=== PATIENT | female | born 1960 | race Caucasian/White ===

== ENCOUNTER 2020-05-19 22:20 | Observation (INO) | payer MEDICARE, MEDICAID, SELFPAY ==
[2020-05-19] VITALS (10 sets, daily range): BP systolic 197–214; BP diastolic 103–113; PULSE 67–90; RESP 20–28; TEMP 36.8; O2SAT 93–100; BMI 23.6
[2020-05-19] MEDS: ONDANSETRON 4 MG/2 ML INJ (22:43)
[2020-05-19 22:51] LABS: Add Manual Diff / Slide Review NO; Basophils Absolute Auto 0 /uL (0-100); Basophils Percent Auto 0.3 % (0-2); Eosinophils Absolute Auto 0 /uL (0-450); Eosinophils Percent Auto 0.1 % (2-4); Hematocrit 41.7 % (36-46); Hemoglobin 14.2 g/dL (12.0-16.0); Lymphocytes Absolute Auto 1100 /uL (1100-4500); Lymphocytes Percent Auto 8.8 % (25-40); Mean Corpuscular HGB Conc 34.1 % (30-36); Mean Corpuscular Hemoglobin 30.3 PG (26-34); Mean Corpuscular Volume 88.9 fL (80-100); Monocytes Absolute Auto 800 /uL (0-900); Monocytes Percent Auto 6.9 % (3-14); Neutrophils Absolute Auto 10200 /uL (1500-7000); Neutrophils Percent Auto 83.9 % (50-75); Platelet Count 386 X10^3/uL (150-400); Red Blood Cell Count 4.69 X10^6/uL (4.0-5.2); Red Cell Distribution Width 14.1 % (11.6-14.8); White Blood Cell Count 12.2 X10^3/uL (4.5-11.0)
[2020-05-19 22:52] LABS: Prothrombin Time 11.6 SECONDS (10.1-12.7)
[2020-05-19 22:55] LABS: PTT Partial Thromboplastin Tim 38 SECONDS (26.4-36.2)
[2020-05-19 22:56] LABS: Alanine Aminotransferase 15 IU/L (<35); Albumin 5.1 g/dL (3.5-5.0); Albumin Globulin Ratio 1.4 (1.0-2.8); Alkaline Phosphatase 94 U/L (38-126); Aspartate Aminotransferase 24 IU/L (14-36); BUN Creatinine Ratio 15.3 (6-22); Bilirubin Total 0.6 mg/dL (0.2-1.3); Blood Urea Nitrogen 27 mg/dL (7-17); Calcium 10.5 mg/dL (8.4-10.2); Carbon Dioxide 27 mmol/L (22-32); Chloride 96 mmol/L (98-107); Estimated Glomerular Filt Rate 29.2 mL/min (>60); Globulin 3.7 g/dL (1.7-4.1); Glucose 154 mg/dL (80-110); HEMOLYSIS < 15 (0-50); Lipase 668 U/L (23-300); Sodium 136 mmol/L (137-145); Total Protein 8.8 g/dL (6.3-8.2)
--- NOTE | 2020-05-19 23:16 | DI.RAD.S_ITS ---
PROCEDURE: XR CHEST 1V INDICATIONS: shortness of breath TECHNIQUE: One view of the chest was acquired. COMPARISON: None. FINDINGS: Overlying EKG wires. Surgical changes and devices: None. Lungs and pleura: Lungs are clear. No pleural effusions or pneumothorax. Mediastinum: Mediastinal contours appear normal. Heart size is normal. Bones and chest wall: Remote right 7th rib fracture and degenerative changes of the shoulders and spine. No acute osseous abnormality. Overlying soft tissues appear unremarkable. IMPRESSION: No evidence of an acute cardiopulmonary abnormality. Agree with preliminary report. Dictated by: Fazal King D.O. on 05/20/2020 at 6:28 Approved by: Fazal King D.O. on 05/20/2020 at 6:30
--- NOTE | 2020-05-19 23:21 | ED_ITS ---
HPI - General Adult General Chief complaint: Hypertension Stated complaint: HIGH BLOOD PRESSURE Time Seen by Provider: 05/19/20 22:54 Source: patient Mode of arrival: Ambulatory Limitations: no limitations History of Present Illness HPI narrative: Patient brought here by her daughter. They live together. Patient here for elevated blood pressure with nausea and vomiting. Denies denies any chest pain headache abdominal pain back pain. No recent illness or sick contacts. No cough cold or congestion. Patient has not been taking Seroquel because family doctor has removed this from her medication list. Past 2 days. No hallucinations. No SI or HI. No urinary complaints. Patient has not missed her medications. Takes blood pressure medication the morning and at night. She did take it tonight. She states her blood pressure systolic is usually 115. She took her lisinopril tonight. Patient was seen in [place] yesterday for the same and discharged home from the emergency department. Symptoms have not improved. Symptoms ongoing since yesterday. Related Data Home Medications Medication Instructions Recorded Confirmed citalopram 40 mg PO QDAY #0 08/22/16 05/20/20 loratadine [Claritin Liqui-Gel] 10 mg PO QDAYP PRN #0 08/22/16 hydrochlorothiazide 12.5 mg PO DAILY 05/20/20 05/20/20 lisinopril 40 mg PO DAILY 05/20/20 05/20/20 Previous Rx's Medication Instructions Recorded omeprazole magnesium [Prilosec OTC] 20 mg PO QDAY #30 08/22/16 Allergies Allergy/AdvReac Type Severity Reaction Status Date / Time mirtazapine [MIRTAZAPINE] Allergy Unknown HALLUCINATI Verified 05/19/20 23:40 ONS Review of Systems Review of Systems Narrative: GENERAL: Denies chills, fatigue, malaise, fever, sweats. HEENT: Denies sinus pain, ear pain, sore throat, difficulty swallowing RESPIRATORY: Denies dyspnea, cough CARDIOVASCULAR: Denies chest pain, palpitations, edema, GASTROINTESTINAL: Complains nausea, vomiting, denies abdominal pain, diarrhea, constipation, melena. : Denies dysuria, frequency, hematuria MUSCULOSKELETAL: denies muscle or bony pain SKIN: Denies rash, skin lesions NEUROLOGIC: Denies weakness, headache, numbness, change in speech, confusion PSYCHIATRIC: No SI or HI or hallucinations ROS Unobtainable: All systems reviewed & are unremarkable except as noted in HPI and below Patient History Medical History (Updated 05/20/20 @ 01:19 by ALEXANDER Lara) Anxiety Hypertension Osteoarthritis Osteoporosis PTSD (post-traumatic stress disorder) Surgical History (Updated 05/20/20 @ 01:28 by ALEXANDER Lara) History of History of colonoscopy Social History household members: children Smoking Status: Current every day smoker Smoking Status: Current every day smoker Substance Use Type: marijuana Exam Narrative Exam Narrative: GENERAL: patient appears stated age. Cachectic appearing, in no distress, not toxic not dyspneic HEAD: Normocephalic. EYES: Pupils equal round and reactive. No scleral icterus. No injection no discharge ENT: Mucous membranes moist. No drooling no tongue elevation no trismus no malocclusion NECK: Trachea midline. Non tender CARDIOVASCULAR: Regular rate and rhythm without murmurs, gallops, or rubs. RESPIRATORY: Clear to auscultation. Breath sounds equal bilaterally. No wheezes, rales, or rhonchi. GASTROINTESTINAL: Abdomen soft, non-tender, nondistended. EXTREMITIES: No gross deformities. BACK: Nontender without deformity or crepitance. No flank tenderness. NEURO: AOx4. SKIN: Warm and dry PSYCH: Not anxious, is cooperative Initial Vital Signs Initial Vital Signs: Vital Signs Temperature 98.3 F 05/19/20 22:25 Pulse Rate 90 05/19/20 22:25 Respiratory Rate 28 H 05/19/20 22:25 Blood Pressure 202/113 H 05/19/20 22:25 Pulse Oximetry 98 05/19/20 22:25 Course Course Course Narrative: Blood pressure remains elevated after labetalol 2 doses. Still no pain complaints. Decision to Admit Date: 05/20/20 Decision to Admit time: 00:15 Orders Ordered: ED Orders 05/19/20 22:40 Complete Blood Count AUTO DIFF Stat Comprehensive Metabolic Panel Stat Ethanol (ETOH) Stat Lipase Stat Partial Thromboplastin Time Stat Prothrombin Time INR Stat Troponin & CK Cardiac Panel Stat 05/19/20 22:41 EKG-12 Lead Stat 05/19/20 23:16 XR chest 1V Stat 05/19/20 23:20 COVID19 Stat Bisacodyl (Bisacodyl 10 Mg Supp) 10 mg LA DAILY PRN PRN Reason: Constipation Citalopram Hydrobromide (Citalopram 10 Mg Tablet) 40 mg PO DAILY [facility] Docusate Sodium (Docusate 100 Mg Capsule) 100 mg PO BID [facility] Heparin Sodium (Porcine) (Heparin 5,000 Unit/Ml Vial) 5,000 unit SUBCUT BID [facility] Hydralazine HCl (Hydralazine 20 Mg/Ml Vial) 10 mg IV Q6HR PRN PRN Reason: Hypertension Sodium Chloride (Normal Saline 0.9%) 1,000 mls @ 100 mls/hr IV CONT [facility] Last Admin: 05/20/20 02:03 Dose: 125 mls/hr Documented by: MILTON Potassium Chloride 30 meq/ (Sodium Chloride) 265 mls @ 88.333 mls/hr IV Q3H [facility] Stop: 05/20/20 08:02 Last Admin: 05/20/20 02:50 Dose: 88.333 mls/hr Documented by: MILTON Cosigned by: CATHRYN Labetalol HCl (Labetalol 20 Mg/4 Ml Syringe) 10 mg IV Q4HR PRN PRN Reason: Hypertension Lorazepam (Lorazepam 0.5 Mg Tablet) 0.5 mg PO Q4HR PRN PRN Reason: Anxiety Magnesium Hydroxide (Magnesium Hydroxide 30 Ml Udc) 30 ml PO DAILY PRN PRN Reason: Constipation Melatonin (Melatonin 3 Mg Tablet) 6 mg PO BEDTIME PRN PRN Reason: Sleep Morphine Sulfate (Morphine 2 Mg/Ml Inj) 2 mg IV Q4HR PRN PRN Reason: Pain, Moderate (4-6) Naloxone HCl (Naloxone 0.4 Mg/Ml Vial) 0.2 mg IV Q2MIN PRN PRN Reason: Opiate Reversal Pantoprazole Sodium (Pantoprazole 40 Mg Vial) 40 mg IV DAILY [facility] Prochlorperazine (Prochlorperazine 10 Mg/2 Ml Vial) 10 mg IV Q6HR PRN PRN Reason: Nausea Last Admin: 05/20/20 02:04 Dose: 10 mg Documented by: MILTON Discontinued Medications Citalopram Hydrobromide (Citalopram 10 Mg Tablet) 40 mg PO DAILY [facility] Last Admin: 05/20/20 02:57 Dose: Not Given Documented by: MILTON Labetalol HCl (Labetalol 20 Mg/4 Ml Syringe) 5 mg IV NOW ONE Stop: 05/19/20 23:34 Last Admin: 05/19/20 23:40 Dose: 5 mg Documented by: JOSH Labetalol HCl (Labetalol 20 Mg/4 Ml Syringe) 5 mg IV NOW ONE Stop: 05/20/20 00:05 Last Admin: 05/20/20 00:08 Dose: 5 mg Documented by: MCKINLEY Lorazepam (Lorazepam 2 Mg/Ml Inj) 0.5 mg IV NOW ONE Stop: 05/20/20 00:23 Last Admin: 05/20/20 00:28 Dose: 0.5 mg Documented by: MERCEDES Metoprolol Succinate (Metoprolol Er 25 Mg Tablet) 25 mg PO NOW ONE Stop: 05/19/20 23:23 Last Admin: 05/20/20 00:24 Dose: Not Given Documented by: JOSH Pantoprazole Sodium (Pantoprazole 40 Mg Vial) 40 mg IV NOW ONE Stop: 05/20/20 01:27 Last Admin: 05/20/20 02:03 Dose: 40 mg Documented by: MILTON Reevaluation(s) Reevaluation #1: Updated patient results. She agrees for admission observation Time: 00:16 Consultations Consultation #1: Spoke with Reed, hospitalist, will admit. Likely withdrawal from her antipsychotic Time: 00:16 Vital Signs Vital signs: Vital Signs - 8 hr 05/19/20 22:25 05/19/20 22:41 05/19/20 23:00 Temperature 98.3 F Pulse Rate 90 89 79 Respiratory Rate 28 H 20 Blood Pressure 202/113 H Pulse Oximetry 98 100 93 05/19/20 23:18 05/19/20 23:30 05/19/20 23:40 Temperature Pulse Rate 81 81 79 Respiratory Rate 20 23 Blood Pressure 214/109 H 214/109 H Pulse Oximetry 98 98 05/19/20 23:42 05/19/20 23:45 05/19/20 23:50 Temperature Pulse Rate 82 77 67 Respiratory Rate 26 H 22 Blood Pressure 204/103 H 197/104 H 203/105 H Pulse Oximetry 96 99 97 05/19/20 23:55 05/20/20 00:00 05/20/20 00:05 Temperature Pulse Rate 69 69 70 Respiratory Rate 22 21 Blood Pressure 207/106 H 210/102 H 216/107 H Pulse Oximetry 94 92 91 05/20/20 00:10 05/20/20 00:15 Temperature Pulse Rate 65 65 Respiratory Rate 20 21 Blood Pressure 199/104 H 225/100 H Pulse Oximetry 95 96 Medical Decision Making Differential Diagnosis Differential Diagnosis: withdrawal/hypertensive urgency Lab Data Lab results reviewed: Yes I reviewed the patient's lab results. Result diagrams: 05/19/20 22:40 05/19/20 22:40 Labs: Lab Results 05/19/20 05/19/20 05/19/20 Range/Units 22:40 22:40 22:40 WBC 12.2 H (4.5-11.0) X10^3/uL RBC 4.69 (4.0-5.2) X10^6/uL Hgb 14.2 (12.0-16.0) g/dL Hct 41.7 (36-46) % MCV 88.9 (80-100) fL MCH 30.3 (26-34) PG MCHC 34.1 (30-36) % RDW 14.1 (11.6-14.8) % Plt Count 386 (150-400) X10^3/uL Neut % (Auto) 83.9 H (50-75) % Lymph % (Auto) 8.8 L (25-40) % Wells % (Auto) 6.9 (3-14) % Eos % (Auto) 0.1 L (2-4) % Baso % (Auto) 0.3 (0-2) % Neut # (Auto) 28573 H (3034-1211) /uL Lymph # (Auto) 1100 (6166-0806) /uL Wells # (Auto) 800 (0-900) /uL Eos # (Auto) 0 (0-450) /uL Baso # (Auto) 0 (0-100) /uL PT 11.6 (10.1-12.7) SECONDS INR 1.0 (0.9-1.3) APTT 38 H (26.4-36.2) SECONDS Sodium 136 L (137-145) mmol/L Potassium 3.0 L (3.4-5.1) mmol/L Chloride 96 L (98-107) mmol/L Carbon Dioxide 27 (22-32) mmol/L BUN 27 H (7-17) mg/dL Creatinine 1.77 H (0.52-1.04) mg/dL Estimated GFR 29.2 L (>60) mL/min BUN/Creatinine Ratio 15.3 (6-22) Glucose 154 H (80-110) mg/dL Calcium 10.5 H (8.4-10.2) mg/dL Magnesium (1.6-2.3) mg/dL Total Bilirubin 0.6 (0.2-1.3) mg/dL AST 24 (14-36) IU/L ALT 15 (<35) IU/L Alkaline Phosphatase 94 (38-126) U/L Total Creatine Kinase (30-135) U/L CK-MB (CK-2) (<2.37) ng/mL CK-MB (CK-2) Rel Index (1.5-5.0) % Troponin I (0.01-0.034) ng/mL Total Protein 8.8 H (6.3-8.2) g/dL Albumin 5.1 H (3.5-5.0) g/dL Globulin 3.7 (1.7-4.1) g/dL Albumin/Globulin Ratio 1.4 (1.0-2.8) Lipase 668 H (23-300) U/L Ethyl Alcohol ( - 10) mg/dL SARS-CoV-2 (PCR) (Negative) 05/19/20 05/19/20 05/19/20 Range/Units 22:40 22:40 22:40 WBC (4.5-11.0) X10^3/uL RBC (4.0-5.2) X10^6/uL Hgb (12.0-16.0) g/dL Hct (36-46) % MCV (80-100) fL MCH (26-34) PG MCHC (30-36) % RDW (11.6-14.8) % Plt Count (150-400) X10^3/uL Neut % (Auto) (50-75) % Lymph % (Auto) (25-40) % Wells % (Auto) (3-14) % Eos % (Auto) (2-4) % Baso % (Auto) (0-2) % Neut # (Auto) (2183-2836) /uL Lymph # (Auto) (9968-6673) /uL Wells # (Auto) (0-900) /uL Eos # (Auto) (0-450) /uL Baso # (Auto) (0-100) /uL PT Cancelled (10.1-12.7) SECONDS INR Cancelled (0.9-1.3) APTT (26.4-36.2) SECONDS Sodium (137-145) mmol/L Potassium (3.4-5.1) mmol/L Chloride (98-107) mmol/L Carbon Dioxide (22-32) mmol/L BUN (7-17) mg/dL Creatinine (0.52-1.04) mg/dL Estimated GFR (>60) mL/min BUN/Creatinine Ratio (6-22) Glucose (80-110) mg/dL Calcium (8.4-10.2) mg/dL Magnesium 1.9 (1.6-2.3) mg/dL Total Bilirubin (0.2-1.3) mg/dL AST (14-36) IU/L ALT (<35) IU/L Alkaline Phosphatase (38-126) U/L Total Creatine Kinase 153 H (30-135) U/L CK-MB (CK-2) 2.05 (<2.37) ng/mL CK-MB (CK-2) Rel Index 1.3 L (1.5-5.0) % Troponin I 0.023 (0.01-0.034) ng/mL Total Protein (6.3-8.2) g/dL Albumin (3.5-5.0) g/dL Globulin (1.7-4.1) g/dL Albumin/Globulin Ratio (1.0-2.8) Lipase (23-300) U/L Ethyl Alcohol < 10 ( - 10) mg/dL SARS-CoV-2 (PCR) (Negative) 05/19/20 Range/Units 23:20 WBC (4.5-11.0) X10^3/uL RBC (4.0-5.2) X10^6/uL Hgb (12.0-16.0) g/dL Hct (36-46) % MCV (80-100) fL MCH (26-34) PG MCHC (30-36) % RDW (11.6-14.8) % Plt Count (150-400) X10^3/uL Neut % (Auto) (50-75) % Lymph % (Auto) (25-40) % Wells % (Auto) (3-14) % Eos % (Auto) (2-4) % Baso % (Auto) (0-2) % Neut # (Auto) (2015-7707) /uL Lymph # (Auto) (8362-1781) /uL Wells # (Auto) (0-900) /uL Eos # (Auto) (0-450) /uL Baso # (Auto) (0-100) /uL PT (10.1-12.7) SECONDS INR (0.9-1.3) APTT (26.4-36.2) SECONDS Sodium (137-145) mmol/L Potassium (3.4-5.1) mmol/L Chloride (98-107) mmol/L Carbon Dioxide (22-32) mmol/L BUN (7-17) mg/dL Creatinine (0.52-1.04) mg/dL Estimated GFR (>60) mL/min BUN/Creatinine Ratio (6-22) Glucose (80-110) mg/dL Calcium (8.4-10.2) mg/dL Magnesium (1.6-2.3) mg/dL Total Bilirubin (0.2-1.3) mg/dL AST (14-36) IU/L ALT (<35) IU/L Alkaline Phosphatase (38-126) U/L Total Creatine Kinase (30-135) U/L CK-MB (CK-2) (<2.37) ng/mL CK-MB (CK-2) Rel Index (1.5-5.0) % Troponin I (0.01-0.034) ng/mL Total Protein (6.3-8.2) g/dL Albumin (3.5-5.0) g/dL Globulin (1.7-4.1) g/dL Albumin/Globulin Ratio (1.0-2.8) Lipase (23-300) U/L Ethyl Alcohol ( - 10) mg/dL SARS-CoV-2 (PCR) Negative (Negative) Imaging Data Chest x-ray: Radiologist's Impression: No acute pulmonary process, results faxed ECG Data Attestation: I personally reviewed and interpreted this ECG as follows: Interpretation: Normal sinus rhythm, no ST elevation or depression. Rate 84 MDM Narrative Medical decision making narrative: Appropriate for admission. Patient remains hypertensive and likely would not be able tolerate by mouth to take medicines at home. Discharge Plan Departure Patient Disposition: Admitted as Observation Clinical Impression: Hypertensive urgency, Acute vomiting Admit Date/Time: 05/20/20 00:15 Admit Provider: Chip Lewis
[2020-05-19 23:27] LABS: Creatine Kinase 153 U/L (30-135); Ethanol (ETOH) < 10 mg/dL
[2020-05-19 23:38] LABS: COVID19 -Nasal RAPID Negative (Negative)
[2020-05-19 23:40] LABS: Troponin I 0.023 ng/mL (0.01-0.034)
[2020-05-19] MEDS: LABETALOL 20 MG/4 ML SYRINGE 5 MG IV (23:40)
[2020-05-19 23:42] LABS: CKMB % Relative Index 1.3 % (1.5-5.0); Creatine Kinase MB 2.05 ng/mL (<2.37)
[2020-05-20] VITALS (34 sets, daily range): BP systolic 109–226; BP diastolic 59–116; PULSE 56–85; RESP 14–24; TEMP 36.6–37.6; O2SAT 91–98; BMI 23.6
[2020-05-20] MEDS: LABETALOL 20 MG/4 ML SYRINGE 5 MG IV (00:08)
[2020-05-20] MEDS: LORazepam 2 MG/ML INJ 0.5 MG IV (00:28)
--- NOTE | 2020-05-20 01:31 | P.HP_ITS ---
History of Present Illness History of Present Illness Date Patient Seen: 05/20/20 Time Patient Seen: 01:31 Chief complaint: HIGH BLOOD PRESSURE Narrative: Ms. Luis Felipe Diggs is a 60-year-old female who is a current smoker with a past medical history significant for anxiety and depression, PTSD, hypertension and osteoarthritis presents to the ER with her daughter for complaints of nausea vomiting with fevers and hypertension for 3 days. The patient was seen at [facility] on the evening of 05/18/2020 for weakness, chills and nausea. Medical records from the visit are reviewed however no vital signs are included in the documentation received. The patient was treated receiving IV fluids promethazine and lisinopril and discharged home. The pa deneen additionally reports her primary care provider discontinued her Seroquel 40 mg that she would take at bedtime. The patient presents today with ongoing nausea and vomiting that is intractable subjective fevers and reports chills but afebrile on evaluation here and noted to be severely hypertensive upon arrival. The patient denies headaches or visual changes though notes she has had right-si ded posterior headaches radiating 2 behind the right eye in the past. She does endorse having a recent fall but denied hit her head and denies neck or back pain. She denies recent complaints of nasal congestion or sore throat. She denies chest pain or palpitations, shortness of breath cough or wheezing. She reports no epigastric or abdominal pain with small emesis of bile or dry heaves. She reports no hematemesis, has had no hematochezia or melena and denies diarrhea constipation. She reports that she has small frequent voids but denies burning or urgency. Upon arrival the patient has a temperature of 98.3?, heart rate of 90, blood pressure 202/113 with respirations of 28 saturating 98% on room air. A chest x- rays taken which finds no acute findings, 12 lead EKG reveals a sinus rhythm at 83 with a prolonged QT interval of 484 milliseconds. CBC is remarkable for an elevated white count at 12.2 with increased neutrophils at 10,200, hemoglobin is 14.2 with hematocrit of 41.7 and platelets 398. Coags are unremarkable. On chemistry her sodium is 136 and she has a potassium of 3.0. BUN is 27 and creatinine is 1.77. Her EGFR is 29.2. Her nonfasting glucose is 154. Total CK is 153 within CK-MB of 2.05 for an index of of 1.3. Her liver functions are all within normal limits and her lipase is 668. Alcohol level is less than 10 and COVID screening is negative. In the ER the patient is treated with Zofran for nausea metoprolol 25 mg by mouth without affect, labetalol 5 mg IV x2 as well as Ativan 0.5 mg. The patient's blood pressure is high as 126/109 in the ER and is improved to 186/98 time admission. The patient is admitted to the hospitalist service for hypertensive urgency and intractable nausea vomiting. Patient History Medical History (Updated 05/20/20 @ 01:19 by ALEXANDER Lara) Anxiety Hypertension Osteoarthritis Osteoporosis PTSD (post-traumatic stress disorder) Surgical History (Updated 05/20/20 @ 01:28 by ALEXANDER Lara) History of History of colonoscopy Family & Social History Social History: household members children Prior Living Arrangements House Safety & Behavioral: Feels Safe in Current Yes Environment Suicidal Ideation Description None Tobacco & Substance use: Smoking Status Current every day smoker Substance Use Type marijuana Meds Home Medications and Allergies Home Medications Medication Instructions Recorded Confirmed Type citalopram 40 mg PO QDAY #0 08/22/16 05/20/20 History loratadine [Claritin Liqui-Gel] 10 mg PO QDAYP PRN #0 08/22/16 History omeprazole magnesium [Prilosec OTC] 20 mg PO QDAY #30 08/22/16 Rx hydrochlorothiazide 12.5 mg PO DAILY 05/20/20 05/20/20 History lisinopril 40 mg PO DAILY 05/20/20 05/20/20 History Allergies Allergy/AdvReac Type Severity Reaction Status Date / Time mirtazapine [MIRTAZAPINE] Allergy Unknown HALLUCINATI Verified 05/19/20 23:40 ONS Review of Systems Review of Systems ROS: Yes All systems reviewed with the patient and are negative except as otherwise documented Exam Vital Signs (past 8 hours): - 05/19/20 22:25 05/19/20 22:41 05/19/20 23:00 Temperature 98.3 F Pulse Rate 90 89 79 Respiratory Rate 28 H 20 Blood Pressure 202/113 H Pulse Oximetry 98 100 93 05/19/20 23:18 05/19/20 23:30 05/19/20 23:40 Temperature Pulse Rate 81 81 79 Respiratory Rate 20 23 Blood Pressure 214/109 H 214/109 H Pulse Oximetry 98 98 05/19/20 23:42 05/19/20 23:45 05/19/20 23:50 Temperature Pulse Rate 82 77 67 Respiratory Rate 26 H 23 22 Blood Pressure 204/103 H 197/104 H 203/105 H Pulse Oximetry 96 99 97 05/19/20 23:55 05/20/20 00:00 05/20/20 00:05 Temperature Pulse Rate 69 69 70 Respiratory Rate 23 22 21 Blood Pressure 207/106 H 210/102 H 216/107 H Pulse Oximetry 94 92 91 05/20/20 00:10 05/20/20 00:15 05/20/20 00:20 Temperature Pulse Rate 65 65 68 Respiratory Rate 20 21 22 Blood Pressure 199/104 H 225/100 H 207/98 H Pulse Oximetry 95 96 97 05/20/20 00:25 Temperature Pulse Rate 74 Respiratory Rate 24 Blood Pressure 226/109 H Pulse Oximetry 97 Oxygen Delivery Method Room Air Narrative Exam Narrative: GENERAL APPEARANCE: well developed, elderly woman appearing older than her stated age, ill-appearing. HEENT: Normocephalic, PERRLA, conjunctiva clear, EOMs intact without nystagmus, mucous membranes are dry and pink without lesions or exudate. NECK/THYROID: neck supple, no JVD, no carotid bruit, no thyromegaly, trachea midline. LYMPH NODES: no cervical or supraclavicular lymphadenopathy. SKIN: Flushed, warm and dry, no visible lesions, rashes, ulcerations or petechiae. HEART: regular rate and rhythm, S1-S2, no murmur, no rubs or gallops, 3+ dorsalis pedis pulses, no edema LUNGS: Breath sounds of left basilar crackles, no coarseness or wheezing, no cough present CHEST: Symmetrical movement, no accessory muscle use, good tidal volume. ABDOMEN: Soft, no distention, no epigastric or abdominal tenderness, guarding or organomegaly, no flank or suprapubic tenderness, active bowel tones. EXTREMITIES: moves all extremities, strength is 5/5 and symmetrical, no deformities or joint effusions, no clubbing or cyanosis. NEUROLOGIC: AAO x 3, no lateralizing neurologic deficits, cranial nerves II-XII grossly intact, sensation intact to light touch. PSYCH: Flat affect, cooperative, stable behavior, denies suicidal ideation or thoughts of self-harm. Objective Labs Result Diagrams: 05/19/20 22:40 05/19/20 22:40 Labs: Laboratory Results - last 24 hr 05/19/20 05/19/20 05/19/20 22:40 22:40 22:40 WBC 12.2 H RBC 4.69 Hgb 14.2 Hct 41.7 MCV 88.9 MCH 30.3 MCHC 34.1 RDW 14.1 Plt Count 386 Neut % (Auto) 83.9 H Lymph % (Auto) 8.8 L [place] % (Auto) 6.9 Eos % (Auto) 0.1 L Baso % (Auto) 0.3 Neut # (Auto) 61781 H Lymph # (Auto) 1100 [place] # (Auto) 800 Eos # (Auto) 0 Baso # (Auto) 0 PT 11.6 INR 1.0 APTT 38 H Sodium 136 L Potassium 3.0 L Chloride 96 L Carbon Dioxide 27 BUN 27 H Creatinine 1.77 H Estimated GFR 29.2 L BUN/Creatinine Ratio 15.3 Glucose 154 H Calcium 10.5 H Total Bilirubin 0.6 AST 24 ALT 15 Alkaline Phosphatase 94 Total Creatine Kinase CK-MB (CK-2) CK-MB (CK-2) Rel Index Troponin I Total Protein 8.8 H Albumin 5.1 H Globulin 3.7 Albumin/Globulin Ratio 1.4 Lipase 668 H Ethyl Alcohol SARS-CoV-2 (PCR) 05/19/20 05/19/20 05/19/20 22:40 22:40 23:20 WBC RBC Hgb Hct MCV MCH MCHC RDW Plt Count Neut % (Auto) Lymph % (Auto) [place] % (Auto) Eos % (Auto) Baso % (Auto) Neut # (Auto) Lymph # (Auto) [place] # (Auto) Eos # (Auto) Baso # (Auto) PT Cancelled INR Cancelled APTT Sodium Potassium Chloride Carbon Dioxide BUN Creatinine Estimated GFR BUN/Creatinine Ratio Glucose Calcium Total Bilirubin AST ALT Alkaline Phosphatase Total Creatine Kinase 153 H CK-MB (CK-2) 2.05 CK-MB (CK-2) Rel Index 1.3 L Troponin I 0.023 Total Protein Albumin Globulin Albumin/Globulin Ratio Lipase Ethyl Alcohol < 10 SARS-CoV-2 (PCR) Negative Assessment & Plan Assessment & Plan narrative: This is a 60-year-old female patient with a history significant for anxiety and depression, PTSD, hypertension and osteoarthritis who presents to the ER with nausea vomiting with fevers for 3 days and markedly elevated blood pressure. The patient was seen at [facility] yesterday treated symptomatically and discharged, no laboratory analysis her vital signs are available for review. 1. Hypertensive urgency with history of essential hypertension, acute, present on admission, active. -patient with history of hypertension taking lisinopril 40 mg and hydrochloro thiazide 12.5 mg daily. Patient states her normal blood pressure is around 115. -blood pressure on arrival to the ER is 202/113. She received metoprolol 25 mg, labetalol 5 mg IV x2 and Ativan 0.5 mg IV. With modest improvement in blood pressure to 186/98. -with no documentation of patient's baseline blood pressure will target blood pressure less than 180 systolic and less than 100 diastolic. -ordered hydralazine 10 mg IV every 6 hours as needed for sustained systolic blood pressure greater than 180 or diastolic greater than 100. -ordered labetalol 10 mg IV every 6 hours as needed for sustained systolic blood pressure greater than 200 or diastolic greater than 110. -monitor vital signs every 2 hours. 2. Intractable nausea vomiting, acute, present on admission, is active. -nausea likely multifactorial possibly related to severe hypertension, Seroquel withdrawal, infection and/or mild pancreatitis with a lipase of 668. -patient treated DS 8 [facility] with IV fluid and promethazine and discharged. Patient continued having symptoms and states she felt no better following treatment and continues to have fevers and chills today. -patient presents with dry mucous membranes and has been taking hydrochlorothiazide 12.5 mg further complicating her acute dehydration. -ordered normal saline 100 cc/hour. 3. Probable acute cystitis, active -patient is afebrile though she is dehydrated. Her white count elevated 12.2 with increased neutrophils at 10,200. Patient describes frequent small voids without urgency burning. -chest x-ray and abdominal exam are negative, ordered urinalysis with reflex to culture. 4. Acute kidney injury secondary to dehydration versus chronic kidney disease secondary to hypertension, present on admission, active. -no labs obtained at [facility], additional labs from ER today find a creatinine of 1.77 with an EGFR of 29.2. Last known creatinine was July 2016 at 0.9. -patient has been taking lisinopril which is held due to impaired renal function. -patient is being rehydrated with normal saline at 100 cc/hour. -will avoid renal toxic agents and renally dose medications as needed. -will recheck renal function on chemistries in the morning. 5. Hypokalemia, acute, present on admission, active -patient with intractable nausea vomiting for 3 days and presents with potassium of 3.0. -ordered potassium 60 mEq IV. -will recheck chemistries with morning labs. VTE prophylaxis: SCDs and heparin IV fluid: Normal saline 100 cc/hour Diet: NPO Code status: Full code, the patient designates her daughter Ruthie to be her surrogate decision maker. The patient is admitted to the hospital due to the severity of her symptoms, risk complications and adverse events with a complex treatment plan. The patient is admitted as observation with expected length of stay to be less than 2 midnights. COVID-19 COVID-19 status: Negative Result date/Date tested (Pos, Neg/Pending): 05/20/20 Scores GCS [place] coma scale eye opening: Spontaneous [place] coma scale verbal response: Orientated [place] coma scale motor response: Obey commands [place] coma scale total score: 15
[2020-05-20 01:40] LABS: Magnesium 1.9 mg/dL (1.6-2.3)
[2020-05-20] MEDS: PANTOPRAZOLE 40 MG VIAL IV (02:03)
[2020-05-20] MEDS: SODIUM CHLORIDE 0.9% 1,000 ML 125 ML IV (02:03)
[2020-05-20] MEDS: PROCHLORPERAZINE 10 MG/2 ML VIAL IV (02:04)
[2020-05-20] MEDS: POTASSIUM CHLORIDE 30 MEQ in SODIUM CHLORIDE 0.9% 250 ML 88.333 ML IV ×2 (02:50→06:19)
[2020-05-20 06:09] LABS: Add Manual Diff / Slide Review NO; Basophils Absolute Auto 0 /uL (0-100); Basophils Percent Auto 0.2 % (0-2); Eosinophils Absolute Auto 0 /uL (0-450); Hematocrit 39.8 % (36-46); Hemoglobin 13.8 g/dL (12.0-16.0); Lymphocytes Absolute Auto 900 /uL (1100-4500); Lymphocytes Percent Auto 8.6 % (25-40); Mean Corpuscular HGB Conc 34.7 % (30-36); Mean Corpuscular Volume 89.3 fL (80-100); Monocytes Absolute Auto 900 /uL (0-900); Neutrophils Absolute Auto 9100 /uL (1500-7000); Neutrophils Percent Auto 83.2 % (50-75); Platelet Count 328 X10^3/uL (150-400); Red Blood Cell Count 4.46 X10^6/uL (4.0-5.2)
[2020-05-20 06:14] LABS: BUN Creatinine Ratio 16.3 (6-22); Blood Urea Nitrogen 25 mg/dL (7-17); Calcium 9.4 mg/dL (8.4-10.2); Carbon Dioxide 27 mmol/L (22-32); Chloride 100 mmol/L (98-107); Estimated Glomerular Filt Rate 34.5 mL/min (>60); Glucose 128 mg/dL (80-110); HEMOLYSIS < 15 (0-50); Potassium 3.6 mmol/L (3.4-5.1); Sodium 137 mmol/L (137-145)
[2020-05-20 06:22] LABS: Hemoglobin A1C% w Est Avg Glu 6.2 % (4.0-6.0)
[2020-05-20] MEDS: HYDRALAZINE 20 MG/ML VIAL 10 MG IV (06:31)
[2020-05-20 06:51] LABS: Appearance Urine UA CLEAR; Bilirubin Urine UA NEGATIVE (NEGATIVE); Color Urine UA YELLOW; Glucose Urine UA NEGATIVE (Negative); Ketones Urine UA TRACE (NEGATIVE); Leukocyte Esterase Urine UA NEGATIVE (NEGATIVE); Nitrite Urine UA NEGATIVE (Negative); Occult Blood Urine UA 1+ (Negative); Protein Urine UA 1+ (Negative); Specific Gravity Urine UA 1.015 (1.000-1.035); Urobilinogen Urine UA 0.2 E.U./dL (0.2)
[2020-05-20 06:52] LABS: RBC Urine 0-1/HPF (0-5/HPF); Squamous Epithelial Cell Urine 1-5 /HPF (0-5/HPF); WBC Urine 1-5/HPF (0-5/HPF)
[2020-05-20] MEDS: METOPROLOL IR 25 MG TABLET PO ×2 (06:52→20:44)
[2020-05-20 06:53] LABS: Bacteria Urine Few (2-10); Culture Indicated Urine Cult Not Indicated
[2020-05-20] MEDS: DOCUSATE 100 MG CAPSULE PO ×2 (09:29→20:44)
[2020-05-20] MEDS: HEPARIN 5,000 UNIT/ML VIAL 5000 UNIT SUBCUT ×2 (09:30→20:44)
[2020-05-20] MEDS: CITALOPRAM 10 MG TABLET 40 MG PO (09:30)
--- NOTE | 2020-05-20 10:11 | P.PN_ITS ---
Subjective Subjective Date Patient Seen: 05/20/20 Time Patient Seen: 10:11 Interval history: She says she is feeling better today. She tells me that she lives in [place] with her daughter. Her primary doctor is Dr. Capps. She takes citalopram for PTSD, anxiety and depression. She tells me that the Seroquel was stopped by her primary care because it was making her heart beat irregular. The hydrochlorothiazide has been held, which is concerning to her. She would like to resume it. Her potassium has risen from 3.0 to 3.6. The A1c is 6.2. The creatinine has dropped from 1.77 down to 1.53. Her lipase was high at 668 yesterday for unclear reasons. Her blood pressure now is down to 193/99. It had been as high as 210/109 in the emergency department. Exam Vital Signs (past 8 hours): - 05/20/20 02:55 05/20/20 04:00 05/20/20 06:15 Temperature 98 F 98.7 F Pulse Rate 64 63 77 Respiratory Rate 17 16 Blood Pressure 115/60 109/59 L 180/91 H Pulse Oximetry 96 95 05/20/20 06:28 05/20/20 06:31 05/20/20 07:15 Temperature 98.7 F Pulse Rate 74 85 Respiratory Rate 18 Blood Pressure 193/99 H 193/99 H 164/67 H Pulse Oximetry 95 05/20/20 07:47 05/20/20 08:03 05/20/20 08:30 Temperature Pulse Rate 82 Respiratory Rate Blood Pressure 164/67 H 181/93 H Pulse Oximetry 95 92 Oxygen Delivery Method Room Air Oxygen Flow Rate 0 Narrative Exam Narrative: She is feeling better today. She is alert and oriented x3. There is no apparent distress. Heart is regular rate and rhythm without murmur. Lungs are clear to auscultation bilaterally. Abdomen is soft, bowel sounds positive, nontender, no organomegaly. Extremities have no ankle edema. Objective Labs Result Diagrams: 05/20/20 05:53 05/20/20 05:53 Labs: Laboratory Results - last 24 hr 05/19/20 05/19/20 05/19/20 22:40 22:40 22:40 WBC 12.2 H RBC 4.69 Hgb 14.2 Hct 41.7 MCV 88.9 MCH 30.3 MCHC 34.1 RDW 14.1 Plt Count 386 Neut % (Auto) 83.9 H Lymph % (Auto) 8.8 L [place] % (Auto) 6.9 Eos % (Auto) 0.1 L Baso % (Auto) 0.3 Neut # (Auto) 75713 H Lymph # (Auto) 1100 [place] # (Auto) 800 Eos # (Auto) 0 Baso # (Auto) 0 PT 11.6 INR 1.0 APTT 38 H Sodium 136 L Potassium 3.0 L Chloride 96 L Carbon Dioxide 27 BUN 27 H Creatinine 1.77 H Estimated GFR 29.2 L BUN/Creatinine Ratio 15.3 Glucose 154 H Hemoglobin A1c Calcium 10.5 H Magnesium Total Bilirubin 0.6 AST 24 ALT 15 Alkaline Phosphatase 94 Total Creatine Kinase CK-MB (CK-2) CK-MB (CK-2) Rel Index Troponin I Total Protein 8.8 H Albumin 5.1 H Globulin 3.7 Albumin/Globulin Ratio 1.4 Lipase 668 H Urine Color Urine Appearance Urine pH Ur Specific [place] Urine Protein Urine Glucose (UA) Urine Ketones Urine Occult Blood Urine Nitrate Urine Bilirubin Urine Urobilinogen Ur Leukocyte Esterase Urine RBC Urine WBC Ur Squamous Epith Cells Urine Bacteria Ur Culture Indicated? Ethyl Alcohol SARS-CoV-2 (PCR) 05/19/20 05/19/20 05/19/20 22:40 22:40 22:40 WBC RBC Hgb Hct MCV MCH MCHC RDW Plt Count Neut % (Auto) Lymph % (Auto) [place] % (Auto) Eos % (Auto) Baso % (Auto) Neut # (Auto) Lymph # (Auto) [place] # (Auto) Eos # (Auto) Baso # (Auto) PT Cancelled INR Cancelled APTT Sodium Potassium Chloride Carbon Dioxide BUN Creatinine Estimated GFR BUN/Creatinine Ratio Glucose Hemoglobin A1c Calcium Magnesium 1.9 Total Bilirubin AST ALT Alkaline Phosphatase Total Creatine Kinase 153 H CK-MB (CK-2) 2.05 CK-MB (CK-2) Rel Index 1.3 L Troponin I 0.023 Total Protein Albumin Globulin Albumin/Globulin Ratio Lipase Urine Color Urine Appearance Urine pH Ur Specific [place] Urine Protein Urine Glucose (UA) Urine Ketones Urine Occult Blood Urine Nitrate Urine Bilirubin Urine Urobilinogen Ur Leukocyte Esterase Urine RBC Urine WBC Ur Squamous Epith Cells Urine Bacteria Ur Culture Indicated? Ethyl Alcohol < 10 SARS-CoV-2 (PCR) 05/19/20 05/20/20 05/20/20 23:20 05:53 05:53 WBC 11.0 RBC 4.46 Hgb 13.8 Hct 39.8 MCV 89.3 MCH 31.0 MCHC 34.7 RDW 14.0 Plt Count 328 Neut % (Auto) 83.2 H Lymph % (Auto) 8.6 L [place] % (Auto) 8.0 Eos % (Auto) 0.0 L Baso % (Auto) 0.2 Neut # (Auto) 9100 H Lymph # (Auto) 900 L [place] # (Auto) 900 Eos # (Auto) 0 Baso # (Auto) 0 PT INR APTT Sodium 137 Potassium 3.6 Chloride 100 Carbon Dioxide 27 BUN 25 H Creatinine 1.53 H Estimated GFR 34.5 L BUN/Creatinine Ratio 16.3 Glucose 128 H Hemoglobin A1c Calcium 9.4 Magnesium Total Bilirubin AST ALT Alkaline Phosphatase Total Creatine Kinase CK-MB (CK-2) CK-MB (CK-2) Rel Index Troponin I Total Protein Albumin Globulin Albumin/Globulin Ratio Lipase Urine Color Urine Appearance Urine pH Ur Specific [place] Urine Protein Urine Glucose (UA) Urine Ketones Urine Occult Blood Urine Nitrate Urine Bilirubin Urine Urobilinogen Ur Leukocyte Esterase Urine RBC Urine WBC Ur Squamous Epith Cells Urine Bacteria Ur Culture Indicated? Ethyl Alcohol SARS-CoV-2 (PCR) Negative 05/20/20 05/20/20 05:53 06:30 WBC RBC Hgb Hct MCV MCH MCHC RDW Plt Count Neut % (Auto) Lymph % (Auto) [place] % (Auto) Eos % (Auto) Baso % (Auto) Neut # (Auto) Lymph # (Auto) [place] # (Auto) Eos # (Auto) Baso # (Auto) PT INR APTT Sodium Potassium Chloride Carbon Dioxide BUN Creatinine Estimated GFR BUN/Creatinine Ratio Glucose Hemoglobin A1c 6.2 H Calcium Magnesium Total Bilirubin AST ALT Alkaline Phosphatase Total Creatine Kinase CK-MB (CK-2) CK-MB (CK-2) Rel Index Troponin I Total Protein Albumin Globulin Albumin/Globulin Ratio Lipase Urine Color Yellow Urine Appearance Clear Urine pH 7.0 Ur Specific [place] 1.015 Urine Protein 1+ H Urine Glucose (UA) Negative Urine Ketones Trace H Urine Occult Blood 1+ H Urine Nitrate Negative Urine Bilirubin Negative Urine Urobilinogen 0.2 Ur Leukocyte Esterase Negative Urine RBC 0-1/hpf Urine WBC 1-5/hpf Ur Squamous Epith Cells 1-5 /hpf Urine Bacteria Few (2-10) H Ur Culture Indicated? Cult not indicated Ethyl Alcohol SARS-CoV-2 (PCR) [facility] Medical History (Updated 05/20/20 @ 01:19 by ALEXANDER Lara) Anxiety Hypertension Osteoarthritis Osteoporosis PTSD (post-traumatic stress disorder) Surgical History (Updated 05/20/20 @ 01:28 by ALEXANDER Lara) History of History of colonoscopy Social History household members: children Smoking Status: Current every day smoker Assessment & Plan Assessment & Plan narrative: This is a 60-year-old female patient with a history significant for anxiety and depression, PTSD, hypertension and osteoarthritis who presents to the ER with nausea vomiting with fevers for 3 days and markedly elevated blood pressure. The patient was seen at [facility] yesterday treated symptomatically and discharged, no laboratory analysis or vital signs are available for review. 1. Hypertensive urgency with history of essential hypertension, acute, present on admission, active. -patient with history of hypertension taking lisinopril 40 mg and hydrochlorothiazide 12.5 mg daily. Patient states her normal blood pressure is around 115. -blood pressure on arrival to the ER is 202/113. She received metoprolol 25 mg, labetalol 5 mg IV x2 and Ativan 0.5 mg IV with modest improvement in blood pressure to 186/98. -with no documentation of patient's baseline blood pressure will target blood pressure less than 180 systolic and less than 100 diastolic. -ordered hydralazine 10 mg IV every 6 hours as needed for sustained systolic blood pressure greater than 180 or diastolic greater than 100. -ordered labetalol 10 mg IV every 6 hours as needed for sustained systolic blood pressure greater than 200 or diastolic greater than 110. -monitor vital signs every 2 hours. -continue metoprolol and resume hydrochlorothiazide. Hold lisinopril. 2. Intractable nausea vomiting, acute, present on admission, is active. -nausea likely multifactorial possibly related to severe hypertension, Seroquel withdrawal, infection and/or mild pancreatitis with a lipase of 668. -patient treated at [facility] with IV fluid and promethazine and discharged. Patient continued having symptoms and states she felt no better following treatment and continues to have fevers and chills today. -patient presents with dry mucous membranes and has been taking hydroc hlorothiazide 12.5 mg further complicating her acute dehydration. -continue normal saline 100 cc/hour. 3. Ruled out cystitis, active -patient is afebrile though she is dehydrated. Her white count elevated 12.2 with increased neutrophils at 10,200. Patient describes frequent small voids without urgency burning. -chest x-ray and abdominal exam are negative, urinalysis shows no signs of UTI. 4. Acute kidney injury secondary to dehydration versus chronic kidney disease secondary to hypertension, present on admission, active. -no labs obtained at [facility], on admission here 05/19 creatinine of 1.77 with an EGFR of 29.2. Last known creatinine was July 2016 at 0.9. -patient has been taking lisinopril which is held due to impaired renal function. -patient is being rehydrated with normal saline at 100 cc/hour. -will avoid renal toxic agents and renally dose medications as needed. -follow daily while here 5. Hypokalemia, acute, present on admission, active -patient with intractable nausea vomiting for 3 days and presents with potassium of 3.0. -given potassium 60 mEq IV. -potassium 3.6 on 05/20. Monitor daily. 6. Anxiety/PTSD/depression, present on admission. Chronic -continue citalopram. -holding Seroquel -using as needed lorazepam VTE prophylaxis: SCDs and heparin IV fluid: Normal saline 100 cc/hour Diet: Resume regular diet on 05/20 Code status: Full code, the patient designates her daughter Ruthie to be her surrogate decision maker.
[2020-05-20] MEDS: hydroCHLOROthiazide 12.5 MG CAPSULE PO (10:29)
[2020-05-20] MEDS: LORazepam 0.5 MG TABLET PO (11:02)
--- NOTE | 2020-05-20 12:57 | CM.DANOTE ---
Discharge Planning/Care Management DCP: assessment: case received and discussed in Team Rounds. EMR reviewed. Met now with pt and introduced self and role. Pt is a 60 year old female who admitted early this mornin:15 to care of hospitalist team. PCP: Dr. Capps/Dewayne Millan . Pt reports she has only seen her once as the clinic keeps changing providers. Payer: Medicare and Medicaid Admission status: OBS: confirmed by [facility]IS[facility] [place] Pt states she is functionally independent without assistive device and does plan on going home at d/c. Either her daughter Britney or another daughter Ruthie will pick her up at d/d, depending on their work schedules and the actual d/c date. Will check in again tomorrow. P: home as stated when stable for same. CM Discharge Assessment Start: 05/20/20 12:53 Freq: Status: Active Protocol: Document 05/20/20 12:53 ITV (Rec: 05/20/20 12:57 ITV [id number]) Discharge Planning Assessment Advance Directives? No History Provided By Patient,Medical Record Has Patient been admitted in last 30 No days? Prior Living Arrangements House Household Members children Comment lives with her daughter Britney: [phone] Independent with ADL's Yes Is patient alert and oriented? Yes Discharge Plan Home Review Status In Process
[2020-05-20] MEDS: SODIUM CHLORIDE 0.9% 1,000 ML 100 ML IV (18:22)
[2020-05-20] MEDS: AMLODIPINE 5 MG TABLET PO (21:34)
--- NOTE | 2020-05-20 21:59 | PC.NURSE ---
Shift note: Patient has had SBP above 180's on shift, notified EMPLOYEE RELATIONS CONSULTANTBobby Lewis before correcting with IV hydralazine. New orders for amlodipine and to not give IV hydralazine yet. Will recheck BP just before shift change, if continues to be SBP > 180 will notify EMPLOYEE RELATIONS CONSULTANT for further orders.
[2020-05-21] VITALS (21 sets, daily range): BP systolic 152–202; BP diastolic 80–106; PULSE 61–95; RESP 16–20; TEMP 36.4–37.7; O2SAT 91–96
[2020-05-21] MEDS: HYDRALAZINE 20 MG/ML VIAL 10 MG IV ×3 (00:37→17:14)
[2020-05-21] MEDS: PROCHLORPERAZINE 10 MG/2 ML VIAL IV (00:41)
--- NOTE | 2020-05-21 01:27 | PC.NURSE ---
BP elevated to 187/94, HR 69 at 2358, shortly after at 0030, pt notified RN that she was nauseous - BP was found to be elevated to 202/94 HR 60. ALEXANDER Lewis was notified and Hydralazine was given along with Compazine for nausea. BP at 0111 was lower at 182/90 HR 68. Pt notes nausea is resolved. HTN is asymptomatic.
[2020-05-21] MEDS: METOPROLOL IR 50 MG TABLET PO (05:03)
[2020-05-21] MEDS: AMLODIPINE 5 MG TABLET PO (06:25)
--- NOTE | 2020-05-21 07:29 | PM.PN.1 ---
Subjective Subjective Date Patient Seen: 05/21/20 Interval history: Her blood pressure continues to be quite high despite changes made several times yesterday and overnight. Amlodipine has been added and the metoprolol dose has been increased. She tells me something that she had not mentioned before which is that is 3 weeks ago she was hospitalized for 4 days in the [facility] in [place] for ?the same thing? she has no recollection of what changes were made in her medication to get her blood pressure down and says that when she left the hospital no new medicines were prescribed. We will try to obtain those records. She tells me that she will be avoiding breakfast today because of nausea. There are no labs today. Her last creatinine was 1.53 on 05/20 and that will be repeated tomorrow. Her blood pressure has reached as high as 190/106 over night. The heart rate is 95 Exam Vital Signs (past 8 hours): - 05/20/20 23:52 05/21/20 00:37 05/21/20 00:41 Temperature 98.1 F Pulse Rate 69 67 69 Respiratory Rate 18 Blood Pressure 187/94 H 202/94 H 202/94 H Pulse Oximetry 95 05/21/20 01:20 05/21/20 02:30 05/21/20 04:30 Temperature 97.8 F 98.7 F Pulse Rate 68 73 74 Respiratory Rate 20 20 Blood Pressure 182/90 H 177/80 H 195/94 H Pulse Oximetry 91 95 05/21/20 06:08 Temperature Pulse Rate 95 H Respiratory Rate 16 Blood Pressure 190/106 H Pulse Oximetry 94 Oxygen Delivery Method Room Air Oxygen Flow Rate 0 Narrative Exam Narrative: She is alert and oriented x3. Heart is regular rate and rhythm without murmur Lungs are clear to auscultation bilaterally Extremities have no ankle edema No apparent distress Objective Labs Result Diagrams: 05/20/20 05:53 05/20/20 05:53 [facility] Medical History (Updated 05/20/20 @ 01:19 by ALEXANDER Lara) Anxiety Hypertension Osteoarthritis Osteoporosis PTSD (post-traumatic stress disorder) Surgical History (Updated 05/20/20 @ 01:28 by ALEXANDER Lara) History of History of colonoscopy Social History household members: children Smoking Status: Current every day smoker Assessment & Plan Assessment & Plan narrative: This is a 60-year-old female patient with a history significant for anxiety and depression, PTSD, hypertension and osteoarthritis who presents to the ER with nausea, vomiting with fevers for 3 days and markedly elevated blood pressure. The patient was seen at [facility] yesterday treated symptomatically and discharged, no laboratory analysis or vital signs are available for review. 1. Hypertensive urgency with history of essential hypertension, acute, present on admission, active. -patient with history of hypertension taking lisinopril 40 mg and hydrochlorothiazide 12.5 mg daily. Patient states her normal blood pressure is around 115. -blood pressure on arrival to the ER is 202/113. She received metoprolol 25 mg, labetalol 5 mg IV x2 and Ativan 0.5 mg IV with modest improvement in blood pressure to 186/98. -with no documentation of patient's baseline blood pressure will target blood pressure less than 180 systolic and less than 100 diastolic. -continue hydralazine 10 mg IV every 6 hours as needed for sustained systolic blood pressure greater than 180 or diastolic greater than 100. -continue labetalol 10 mg IV every 6 hours as needed for sustained systolic blood pressure greater than 200 or diastolic greater than 110. -monitor vital signs every 2 hours. -increase metoprolol to 75 mg b.i.d., continue hydrochlorothiazide and amlodipine. Hold lisinopril. 2. Intractable nausea vomiting, acute, present on admission, is active. -nausea likely multifactorial possibly related to severe hypertension, Seroquel withdrawal, infection and/or mild pancreatitis with a lipase of 668. -patient treated at [facility] with IV fluid and promethazine and discharged. -patient presents with dry mucous membranes and has been taking hydrochlorothiazide 12.5 mg further complicating her acute dehydration. -continue normal saline 100 cc/hour. -add Zofran as Compazine does not seem to be working -repeat lipase and BMP 05/22 3. Ruled out cystitis, active -patient is afebrile though she is dehydrated. Her white count elevated 12.2 with increased neutrophils at 10,200. Patient describes frequent small voids without urgency burning. -chest x-ray and abdominal exam are negative, urinalysis shows no signs of UTI. 4. Acute kidney injury secondary to dehydration versus chronic kidney disease secondary to hypertension, present on admission, active. -no labs obtained at [facility], on admission here 05/19 creatinine of 1.77 with an EGFR of 29.2. Last known creatinine was July 2016 at 0.9. -patient has been taking lisinopril which is held due to impaired renal function. -patient is being rehydrated with normal saline at 100 cc/hour. -will avoid renal toxic agents and renally dose medications as needed. -creatinine 1.53 on 05/20, repeat on 05/22 5. Hypokalemia, acute, present on admission, active -patient with intractable nausea vomiting for 3 days and presents with potassium of 3.0. -given potassium 60 mEq IV. -potassium 3.6 on 05/20. 6. Anxiety/PTSD/depression, present on admission. Chronic -continue citalopram. -holding Seroquel -using as needed lorazepam VTE prophylaxis: SCDs and heparin IV fluid: Normal saline 100 cc/hour Diet: Resume regular diet on 05/20 Code status: Full code, the patient designates her daughter Ruthie to be her surrogate decision maker.
[2020-05-21] MEDS: SODIUM CHLORIDE 0.9% FLUSH 10 ML IV ×2 (09:04→22:43)
[2020-05-21] MEDS: HEPARIN 5,000 UNIT/ML VIAL 5000 UNIT SUBCUT ×2 (09:04→20:30)
[2020-05-21] MEDS: DOCUSATE 100 MG CAPSULE PO ×2 (09:04→20:30)
[2020-05-21] MEDS: PANTOPRAZOLE 40 MG VIAL IV (09:04)
[2020-05-21] MEDS: hydroCHLOROthiazide 12.5 MG CAPSULE PO (09:04)
[2020-05-21] MEDS: CITALOPRAM 10 MG TABLET 40 MG PO (09:04)
[2020-05-21] MEDS: polyethylene glycoL 3350 17 GM POWD.PACK PO (13:37)
--- NOTE | 2020-05-21 16:02 | PC.NURSE ---
Addendum entered by Radha Shea R.N. 05/21/20 18:08: Pt. c/o sudden left flank pain; appears to be positional and/or gas pain. Ambulated in hallway with standby assistance; expressed relief of pain. Encouraged to sit up in chair but declined. Back to bed with SCD's and bed alarm. Addendum entered by Radha Shea R.N. 05/21/20 17:38: Pt. up to bathroom with standby assist. Void x1. SCD's placed. Hydralazine given for hypertension. Original Note: Report received, care assumed 1530. Pt. drowsy but awake and responsive. Denies pain. Hypertensive 176/97; no pharmaceutical intervention indicated. Pt. reports she is constipated; belly soft, non-tender. Hypoactive bowels tones. Miralax given this am; discussed with patient options of Milk of Magnesia and dulcolax. Bed alarm set.
[2020-05-21] MEDS: METOPROLOL IR 25 MG TABLET 75 MG PO (20:30)
[2020-05-22 00:54] VITALS: BP 155/88; PULSE 68; RESP 16; TEMP 36.8; O2SAT 95
[2020-05-22] MEDS: ONDANSETRON 4 MG/2 ML INJ IV ×2 (01:05→06:51)
--- NOTE | 2020-05-22 01:22 | PC.NURSE ---
Addendum entered by Wendy Barry R.N. 05/22/20 07:12: 0645 IV and PO potassium ordered by hospitalist. Order for potassium PO was 40mg, but patient was only able to swallow 30mg total due to nausea. IV potassium 20mEq/250mL infusing at 100mL due to burning at IV site. Hospitalist notified via note at door. Original Note: 2310 Received safe patient hand-off. The patient is currently sleeping. She has a left AC PIV that is saline locked, and is on room air. No s/sx of distress. 0100 Vitals checked. BP 155/88, no PRN antihypertensives needed at this time. Pt c/o nausea and states she started dry heaving just minutes before PERIODICALS CLERK and I walked in. Zofran administered per order. Pt denies pain or discomfort of any kind. Will continue to monitor.
[2020-05-22 03:04] VITALS: BMI 21.4
[2020-05-22 03:09] VITALS: BP 152/90; PULSE 67; RESP 16; TEMP 36.3; O2SAT 96
[2020-05-22 05:21] VITALS: BP 135/97; PULSE 75; RESP 16; TEMP 36.4; O2SAT 97
[2020-05-22 05:56] LABS: Lipase 261 U/L (23-300)
[2020-05-22 05:57] LABS: Blood Urea Nitrogen 28 mg/dL (7-17); Carbon Dioxide 28 mmol/L (22-32); Chloride 88 mmol/L (98-107); Estimated Glomerular Filt Rate 49.5 mL/min (>60); Glucose 135 mg/dL (80-110); HEMOLYSIS < 15 (0-50); Potassium 2.8 mmol/L (3.4-5.1); Sodium 128 mmol/L (137-145)
[2020-05-22] MEDS: POTASSIUM CHLORIDE 20 MEQ in SODIUM CHLORIDE 0.9% 250 ML 130 ML IV (06:35)
[2020-05-22] MEDS: POTASSIUM CHLORIDE 20 MEQ TAB 40 MEQ PO (06:43)
[2020-05-22] MEDS: SODIUM CHLORIDE 0.9% 250 ML 21 ML IV (06:53)
[2020-05-22 07:50] VITALS: BP 147/98; PULSE 65; RESP 17; TEMP 36.6; O2SAT 95
[2020-05-22] MEDS: CITALOPRAM 10 MG TABLET 40 MG PO (08:32)
[2020-05-22] MEDS: DOCUSATE 100 MG CAPSULE PO (08:33)
[2020-05-22] MEDS: METOPROLOL IR 25 MG TABLET 75 MG PO (08:33)
[2020-05-22] MEDS: hydroCHLOROthiazide 12.5 MG CAPSULE PO (08:33)
[2020-05-22] MEDS: AMLODIPINE 5 MG TABLET 10 MG PO (08:33)
[2020-05-22] MEDS: HEPARIN 5,000 UNIT/ML VIAL 5000 UNIT SUBCUT (08:33)
[2020-05-22] MEDS: SODIUM CHLORIDE 0.9% FLUSH 10 ML IV (08:33)
--- NOTE | 2020-05-22 09:47 | P.DS_ITS ---
History of Present Illness History of Present Illness Date Patient Seen: 05/22/20 Time Patient Seen: 08:30 Chief complaint: HIGH BLOOD PRESSURE Narrative: As per ALEXANDER Lara: Ms. Luis Felipe Diggs is a 60-year-old female who is a current smoker with a past medical history significant for anxiety and depression, PTSD, hype rtension and osteoarthritis presents to the ER with her daughter for complaints of nausea vomiting with fevers and hypertension for 3 days. The patient was seen at [facility] on the evening of 05/18/2020 for weakness, chills and nausea. Medical records from the visit are reviewed however no vital signs are included in the documentation received. The patient was treated receiving IV fluids promethazine and lisinopril and discharged home. The patient additionally reports her primary care provider discontinued her Seroquel 40 mg that she would take at bedtime. The patient presents today with ongoing nausea and vomiting that is intractable subjective fevers and reports chills but afebr ile on evaluation here and noted to be severely hypertensive upon arrival. The patient denies headaches or visual changes though notes she has had right-sided posterior headaches radiating 2 behind the right eye in the past. She does endorse having a recent fall but denied hit her head and denies neck or back pain. She denies recent complaints of nasal congestion or sore throat. She denies chest pain or palpitations, shortness of breath cough or wheezing. She reports no epigastric or abdominal pain with small emesis of bile or dry heaves. She reports no hematemesis, has had no hematochezia or melena and denies diarrhea constipation. She reports that she has small frequent voids but denies burning or urgency. Upon arrival the patient has a temperature of 98.3?, heart rate of 90, blood pressure 202/113 with respirations of 28 saturating 98% on room air. A chest x- rays taken which finds no acute findings, 12 lead EKG reveals a sinus rhythm at 83 with a prolonged QT interval of 484 milliseconds. CBC is remarkable for an elevated white count at 12.2 with increased neutrophils at 10,200, hemoglobin is 14.2 with hematocrit of 41.7 and platelets 398. Coags are unremarkable. On chemistry her sodium is 136 and she has a potassium of 3.0. BUN is 27 and creatinine is 1.77. Her EGFR is 29.2. Her nonfasting glucose is 154. Total CK is 153 within CK-MB of 2.05 for an index of of 1.3. Her liver functions are all within normal limits and her lipase is 668. Alcohol level is less than 10 and COVID screening is negative. In the ER the patient is treated with Zofran for nausea metoprolol 25 mg by mouth without affect, labetalol 5 mg IV x2 as well as Ativan 0.5 mg. The patient's blood pressure is high as 126/109 in the ER and is improved to 186/98 time admission. The patient is admitted to the hospitalist service for hypertensive urgency and intractable nausea vomiting. Discharge Providers Provider Date of admission: 05/20/20 00:15 Discharge Date: 05/22/20 Discharge provider: Chip Crowder DO Summary Hospital Course Hospital Course: This is a 60-year-old female patient with a history significant for anxiety and depression, PTSD, hypertension and osteoarthritis who presents to the ER with nausea, vomiting with fevers for 3 days and markedly elevated blood pressure. 1. Hypertensive urgency with history of essential hypertension, acute, present on admission, active. -patient with history of hypertension taking lisinopril 40 mg and hydrochlorothiazide 12.5 mg daily. Patient states her normal blood pressure is around 115. -blood pressure on arrival to the ER is 202/113. She received metoprolol 25 mg, labetalol 5 mg IV x2 and Ativan 0.5 mg IV with modest improvement in blood pressure to 186/98. -patient had consistently elevated blood pressures over the course of her admission requiring a few days to titrate to a discharge regimen. She developed a resting bradycardia into the upper 30s on metoprolol 75 mg, given that her lisinopril can be restarted will decrease metoprolol to 25 mg. -her home lisinopril was held initially given GWENDOLYN on presentation. This can be resumed as an outpatient. -added amlodipine 10 mg and continued home HCTZ 12.5 mg. -final discharge anti-hypertensives: amlodipine 10, HCTZ 12.5, lisinopril 40, metoprolol succinate 25 mg BID. 2. Intractable nausea vomiting, acute, present on admission, resolved -nausea likely multifactorial possibly related to severe hypertension, GERD, Seroquel withdrawal, infection and/or mild pancreatitis with a lipase of 668. -repeat lipase on 05/22 improved to 261. -discharge on pantoprazole for possible GERD, also with zofran SL as needed for nausea. 3. Ruled out cystitis -chest x-ray and abdominal exam are negative, urinalysis shows no signs of UTI. 4. Acute kidney injury secondary to dehydration versus chronic kidney disease secondary to hypertension, present on admission, active. -no labs obtained at [facility], on admission here 05/19 creatinine of 1.77 with an EGFR of 29.2. Last known creatinine was July 2016 at 0.9. -patient has been taking lisinopril which was held due to impaired renal functi on. -patient was rehydated until euvolemic. Now improved Cr to 1.12 on day of dischage. Recommend outpatient follow up with PMD. Safe to resume home lisinopril. 5. Hypokalemia, acute, present on admission, active -patient with decreased PO intake and gastric losses from vomiting. Now tolerating a diet. Repleted K of 2.8 on day of discharge. 6. Anxiety/PTSD/depression, present on admission. Chronic -safe to resume home medications upon discharge. Exam Vital Signs (past 8 hours): - 05/22/20 03:09 05/22/20 05:21 05/22/20 07:50 Temperature 97.3 F L 97.5 F L 97.8 F Pulse Rate 67 75 65 Respiratory Rate 16 16 17 Blood Pressure 152/90 H 135/97 H 147/98 H Pulse Oximetry 96 97 95 Oxygen Delivery Method Room Air Oxygen Flow Rate 0 Narrative Exam Narrative: GENERAL APPEARANCE: Chronically ill appearing female, in no acute distress. SKIN: Inspection of the skin reveals no rashes, ulcerations or petechiae. HEENT: Normocephalic atraumatic, extraocular muscles are intact, oropharynx is clear and mucous membranes are moist, neck is supple without adenopathy NECK: Supple and symmetric. There was no thyroid enlargement, and no tenderness, or masses were felt. CHEST: Normal AP diameter and normal contour without any kyphoscoliosis. LUNGS: Auscultation of the lungs revealed no wheezes, rhonchi, or rales. CARDIOVASCULAR: There was a regular rate and rhythm without any murmurs, gallops, rubs. Peripheral pulses were 2+ and symmetric. ABDOMEN: Soft and nontender with normal bowel sounds. No ascites was noted. MUSCULOSKELETAL: There was no tenderness or effusions noted. Muscle strength and tone were normal. EXTREMITIES: No cyanosis, clubbing or edema. NEUROLOGIC: Alert. Normal affect. Strength is +5/5 in the Upper Extremities and Lower Extremities Bilaterally. Objective Labs Result Diagrams: 05/20/20 05:53 05/22/20 04:50 Labs: Laboratory Results - last 24 hr 05/22/20 05/22/20 04:50 04:50 Sodium 128 L Potassium 2.8 L Chloride 88 L Carbon Dioxide 28 BUN 28 H Creatinine 1.12 H Estimated GFR 49.5 L BUN/Creatinine Ratio 25.0 H Glucose 135 H Calcium 10.0 Lipase 261 D [facility] Medical History Anxiety Hypertension Osteoarthritis Osteoporosis PTSD (post-traumatic stress disorder) Surgical History History of History of colonoscopy Social History household members: children Smoking Status: Current every day smoker Discharge Plan Discharge Plan Patient Disposition: Home Provider Discharge Comment: You were admitted to the hospital with high blood pressures, you are being discharged on 2 additional medications. I recommend that you follow-up with your primary care provider later this week and continue to take blood pressure medications. I would stop taking metoprolol IF your blood pressures are low at home or your heart rate is low. These medications may need to be adjusted at your follow-up visit as well. Discharge orders & Medications Prescriptions: New amlodipine 10 mg tablet 10 mg PO DAILY 30 Days Qty: 30 RF: 0 metoprolol tartrate 25 mg Tablet 25 mg PO BID 30 Days Qty: 60 RF: 0 pantoprazole 20 mg tablet,delayed release (DR/EC) 20 mg PO DAILY 14 Days Qty: 14 RF: 0 ondansetron 4 mg tablet,disintegrating 4 mg PO Q8H PRN (Reason: nausea and vomiting) 14 Days Qty: 30 RF: 0 Continued citalopram 20 MG tablet 40 mg PO QDAY Qty: 0 RF: 0 lisinopril 40 mg tablet 40 mg PO DAILY RF: 0 hydrochlorothiazide 12.5 mg tablet 12.5 mg PO DAILY RF: 0 Diet/Activity/Treatments Diet: Diet as Tolerated and Low-sodium Activity: As tolerated Visit Report/Discharge Packet Instructions: Essential Hypertension, Ondansetron, Pantoprazole, Metoprolol, Am lodipine Discharge Data Attending Provider: Chip Lewis
[2020-05-22] MEDS: PANTOPRAZOLE 20 MG TABLET PO (09:58)
[2020-05-22 10:17] VITALS: BP 130/75; PULSE 57; RESP 15; TEMP 36.4; O2SAT 97
[2020-05-22] MEDS: POTASSIUM CHLORIDE 20 MEQ/15 ML UDC 40 MEQ PO (11:14)
--- NOTE | 2020-05-22 11:31 | PC.NURSE ---
Went over dc medications and instructions with patient, questions answered. RX sent to [facility] in [place], patient taken via wc to vehicle driven by daughter, patient had all belongings.
== END 2020-05-22 11:32 | disposition home or self-care (01) ==
LOC: ED 23:26 → AC 05-20 00:16
PROVIDERS: Family Medicine; Admitting Provider Nurse Practitioner Adult Health; Emergency Provider Emergency Medicine; Referring Provider Emergency Medicine; Visit Provider Nurse Practitioner Adult Health
DX: I16.0 Hypertensive urgency (principal); I10 Essential (primary) hypertension; R11.2 Nausea with vomiting, unspecified; E86.0 Dehydration; E87.6 Hypokalemia; F43.12 Post-traumatic stress disorder, chronic; F41.9 Anxiety disorder, unspecified; F32.9 Major depressive disorder, single episode, unspecified; F17.210 Nicotine dependence, cigarettes, uncomplicated; Z20.822 Contact with and (suspected) exposure to COVID-19
CPT/HCPCS: 36415; 71045; 80048; 80053; 80320; 81001; 82550; 82553; 82962; 83036; 83690; 83735; 84484; 85025; 85610; 85730; 87635; 93005; 94762; 96361; 96365; 96366; 96372; 96375; 96376; 99283; 99285; C9803; G0378; C9113; J0360; J0780; J1644; J2060; J2405; J3480

== ENCOUNTER 2020-07-12 14:00 | Inpatient (IN) | payer MEDICARE, MEDICAID, SELFPAY ==
[2020-07-12] VITALS (21 sets, daily range): BP systolic 149–208; BP diastolic 86–108; PULSE 62–87; RESP 16–28; TEMP 35.7–36.9; O2SAT 97–100; BMI 18.8; BMI 20.5
--- NOTE | 2020-07-12 14:06 | DI.CT.S_ITS ---
PROCEDURE: CT HEAD/BRAIN WO CON INDICATIONS: L arm weakness TECHNIQUE: Noncontrast 4.5 mm thick angled axial sections acquired from the foramen magnum to the vertex, with coronal and sagittal reformats. For radiation dose reduction, the following was used: automated exposure control, adjustment of mA and/or kV according to patient size. COMPARISON: None. FINDINGS: Image quality: Excellent. CSF spaces: Basal cisterns are patent. No extra-axial fluid collections. Ventricles are normal in size and shape. Brain: No intracranial hemorrhage, mass, or mass effect. Smith-white matter interface appears preserved. Skull and face: Calvarium and visualized facial bones are intact, without suspicious lesions. Sinuses: Visualized sinuses and mastoids are clear. IMPRESSION: 1. No acute intracranial abnormality. Dictated by: Castillo Bhakta M.D. on 07/12/2020 at 14:37 Approved by: Castillo Bhakta M.D. on 07/12/2020 at 14:37
--- NOTE | 2020-07-12 14:12 | ED.WEAKNESS ---
HPI - Weakness <ALEXANDER Head - Last Filed: 07/12/20 19:33> General Chief complaint: Shortness of Breath/Dyspnea Stated complaint: states high blood pressure Time Seen by Provider: 07/12/20 14:02 Source: patient Mode of arrival: Wheelchair History of Present Illness HPI Narrative: 60yo female current smoker with a history of HTN, presents emergency department for ?not feeling well ?. She states she woke up from a nap approximately 90 minutes ago feeling like ?my blood pressure was high ?. She states she has an intermittent burning sensation in the left side of her chest, dizziness, nausea, and then developed left arm numbness and tingling approximately 30 minutes ago. She reports she feels a little short or breath, had 1 episode of vomiting after breakfast this morning.. She states last time she felt like this her blood pressure was high. Patient denies any further vomiting, headaches, vision changes, fevers, cough, or any other concerns. Related Data Home Medications Medication Instructions Recorded Confirmed amlodipine 10 mg PO DAILY 07/12/20 07/12/20 citalopram 10 mg PO DAILY 07/12/20 07/12/20 hydrochlorothiazide 12.5 mg PO DAILY 07/12/20 07/12/20 metoprolol tartrate 25 mg PO BID 07/12/20 07/12/20 Allergies Allergy/AdvReac Type Severity Reaction Status Date / Time mirtazapine [MIRTAZAPINE] Allergy Unknown HALLUCINATI Verified 07/12/20 18:05 ONS Review of Systems <ALEXANDER Head - Last Filed: 07/12/20 19:33> Review of Systems Narrative: REVIEW OF SYSTEMS: GENERAL: Denies fever or chills. Poor historian. HENT: No head trauma. EYES: No loss of vision, double vision, eye pain, or irritation. CARDIOVASCULAR: Reports chest pain, see HPI. RESPIRATORY: Reports shortness of breath, see HPI. GASTROINTESTINAL: Reports vomiting, see HPI. GENITOURINARY: No flank pain or dysuria. MUSCULOSKELETAL: No pain. INTEGUMENTARY: No rash. NEURO: Reports left-sided numbness and tingling, see HPI. Patient History <ALEXANDER Head - Last Filed: 07/12/20 19:33> Medical History Anxiety Hypertension Osteoarthritis Osteoporosis PTSD (post-traumatic stress disorder) Surgical History History of History of colonoscopy Social History household members: children Smoking Status: Current every day smoker alcohol intake: never Smoking Status: Current every day smoker Substance Use Type: marijuana Exam <ALEXANDER Head - Last Filed: 07/12/20 19:33> Initial Vital Signs Initial Vital Signs: Vital Signs Temperature 97.8 F 07/12/20 14:06 Pulse Rate 85 07/12/20 14:06 Respiratory Rate 28 H 07/12/20 14:06 Blood Pressure 171/97 H 07/12/20 14:06 Pulse Oximetry 99 07/12/20 14:06 PHYSICAL EXAMINATION: GENERAL: Alert and alert, skinny appearing. HENT: Normocephalic, atraumatic. Dental caries noted. EYES: Conjunctiva pink, sclera white, no periorbital swelling. CARDIOVASCULAR: S1 and S2 sounds normal. Regular rate and rhythm, no murmurs, clicks, or bruits. RESPIRATORY: Normal respiratory rate, trachea midline, airway patent. No stridor, nasal flaring or accessory muscle use. Lungs are clear in all cardenas without wheeze, rhonchi, or crackles. No cough. GASTROINTESTINAL: Bowel sounds normoactive. Abdomen is soft and non-tender. No organomegaly. MUSCULOSKELETAL: Normal gait and coordination. Equal tone and mass bilaterally. EXTREMITIES: CMS intact. Moves all extremities. SKIN: Warm, dry, soft, appropriate color for ethnicity. No lesions, rashes, or wounds. NEURO: Alert and Oriented X 3. Good coordination. No ataxia, or sensory deficits, or cognitive issues. PHYSICAL EXAMINATION: GENERAL: Well groomed, alert, and cooperative. Answers questions promptly and appropriately. Vital signs noted. HENT: Normocephalic. Ear canals patent. Oral mucosa is pink and moist. EYES: PERRLA, EOMIs, conjunctiva pink, sclera white, no periorbital swelling. NECK: Full ROM, no midline or spinal tenderness. CARDIOVASCULAR: S1 and S2 sounds normal. Regular rate and rhythm, no murmurs, clicks, or bruits. RESPIRATORY: Normal respiratory rate, trachea midline, airway patent. No stridor, nasal flaring or accessory muscle use. Lungs are clear in all cardenas without wheeze, rhonchi, or crackles. MUSCULOSKELETAL: Normal gait and coordination. Equal tone and mass bilaterally. Equal strength bilaterally to upper and lower extremities. No spinal tenderness. EXTREMITIES: CMS intact. Moves all extremities. SKIN: Warm, dry, soft, appropriate color for ethnicity. No lesions, rashes, or wounds to visualized areas. NEURO: Alert and Oriented X 3. GCS: 15. Good coordination. No ataxia, or sensory deficits, or cognitive issues. Cranial Nerves: II: Visual cardenas grossly intact. III & IV & : EOMIs V: Able to open and close jaw. VII: Facial movements symetrical. Able to close eyelids tightly. VIII: Hearing grossly intact, adequate balance. X: Uvula pronation intact. XI: Patient is able to shrug shoulders. XII: Patient is able to stick out tongue and move it side to side. PSYCH: Poor historian. <Anant Edmondson DO - Last Filed: 07/13/20 06:53> Initial Vital Signs Initial Vital Signs: Vital Signs Temperature 97.8 F 07/12/20 14:06 Pulse Rate 85 07/12/20 14:06 Respiratory Rate 28 H 07/12/20 14:06 Blood Pressure 171/97 H 07/12/20 14:06 Pulse Oximetry 99 07/12/20 14:06 Scores <ALEXANDER Head - Last Filed: 07/12/20 19:33> HEART Score Heart Score history: Moderately Suspicious Heart Score EKG: Non-Specific repolarization disturbance Heart Score Age: 45-64 years old Heart Score risk factors: 1-2 risk factors Heart Score troponin: < or = to normal limit Heart Score Total: 4 NIH Stroke Scale Level of Conciousness: Alert, keenly responsive Ask month/age: Answers both questions correctly. Open/close eyes, close hand: Performs both tasks correctly Best gaze horizontal: Normal Visual cardenas: No visual loss Facial palsy: Normal symetrical movement Left arm drift: No drift for full 10 sec Right arm drift: No drift for full 10 sec Left leg drift: No drift for full 5 sec Right leg drift: No drift for full 5 sec Limb ataxia: Absent Sensory on face/arms/legs: Normal, no sensory loss Best language: No aphasia, normal Dysarthria: Normal Extinction or inattention: No abnormality Total NIH Stroke scale score: 0 Course <Leeann IsaacALEXANDER - Last Filed: 07/12/20 19:33> Course Course Narrative: 1520: Cardiology paged for consultation, awaiting call. 1646: I spoke with chilling hood operator Dr. Dickerson, discussed patient's history, symptoms, and plan of care. 1700: I spoke with Dr. Crowder, discussed patient's history, laboratory work, in symptoms. Patient admitted for observation. Patient was treated was two doses of labetalol, initially blood pressure was 200 systolic, decreased approximately 160 after 1st dose of 10 mg of labetalol. After an hour, blood pressure increased again. 10 mg of labetalol was given and patient's blood pressure decreased to 160 systolic. There was a delay in ordering a CMP, went potassium resulted of 2.1, IV and p.o. potassium were immediately initiated. 1755: She states she is feeling better, reports improved numbness and tingling to left side as well as improved chest burning. However, she states a small amount of chest burning still exist. Patient was updated about about admission. Consents to admission. Orders Ordered: Acetaminophen (Acetaminophen 325 Mg Tablet) 650 mg PO Q6HR PRN PRN Reason: Fever/Mild Pain (1-3) Amlodipine Besylate (Amlodipine 5 Mg Tablet) 10 mg PO DAILY [facility] Heparin Sodium (Porcine) (Heparin 5,000 Unit/Ml Vial) 5,000 unit SUBCUT BID [facility] Last Admin: 07/12/20 21:30 Dose: 5,000 unit Documented by: ARSEN Sodium Chloride (Normal Saline 0.9%) 1,000 mls @ 100 mls/hr IV CONT [facility] Last Admin: 07/12/20 21:53 Dose: 100 mls/hr Documented by: ARSEN Potassium Chloride 40 meq/ (Sodium Chloride) 520 mls @ 130 mls/hr IV NOW ONE Stop: 07/13/20 09:48 Last Admin: 07/13/20 06:14 Dose: 130 mls/hr Documented by: JOYCE Cosigned by: SHARITA Ondansetron HCl (Ondansetron 4 Mg/2 Ml Inj) 4 mg IV Q8HR PRN PRN Reason: Nausea And Vomiting Pantoprazole Sodium (Pantoprazole 20 Mg Tablet) 20 mg PO 0600 [facility] Last Admin: 07/13/20 05:54 Dose: Not Given Documented by: JOYCE Potassium Chloride (Potassium Chloride 20 Meq Tab) 40 meq PO NOW ONE Stop: 07/13/20 12:58 Discontinued Medications Amlodipine Besylate (Amlodipine 5 Mg Tablet) 10 mg PO NOW ONE Stop: 07/12/20 19:06 Last Admin: 07/12/20 19:16 Dose: 10 mg Documented by: ARSEN Potassium Chloride 40 meq/ (Sodium Chloride) 520 mls @ 130 mls/hr IV NOW ONE Stop: 07/12/20 21:22 Last Infusion: 07/12/20 18:09 Dose: 130 mls/hr Documented by: CARLY Cosigned by: NOEMI Admin: 07/12/20 17:42 Dose: 130 mls/hr Documented by: CARLY Cosigned by: RAMON Labetalol HCl (Labetalol 20 Mg/4 Ml Syringe) 10 mg IV NOW ONE Stop: 07/12/20 15:27 Last Admin: 07/12/20 16:02 Dose: 10 mg Documented by: CARLY Labetalol HCl (Labetalol 20 Mg/4 Ml Syringe) 10 mg IV NOW ONE Stop: 07/12/20 16:47 Last Admin: 07/12/20 16:56 Dose: 10 mg Documented by: CARLY Ondansetron HCl (Ondansetron 4 Mg/2 Ml Inj) 4 mg IV NOW ONE Stop: 07/12/20 14:27 Last Admin: 07/12/20 14:33 Dose: 4 mg Documented by: CARLY Potassium Chloride (Potassium Chloride 20 Meq/15 Ml Udc) 40 meq PO NOW ONE Stop: 07/12/20 17:23 Last Admin: 07/12/20 17:41 Dose: 40 meq Documented by: CARLY Potassium Chloride (Potassium Chloride 20 Meq Tab) 40 meq PO NOW ONE Stop: 07/13/20 05:50 Last Admin: 07/13/20 05:59 Dose: Not Given Documented by: JOYCE Consultations Consultation #1: Patient staffed Dr. Edmondson discussed test, test results, plan of care. Vital Signs Vital signs: Vital Signs - 8 hr 07/12/20 14:06 07/12/20 14:35 07/12/20 14:36 Temperature 97.8 F Pulse Rate 85 81 80 Respiratory Rate 28 H 24 25 H Blood Pressure 171/97 H 185/92 H Pulse Oximetry 99 100 100 07/12/20 15:00 07/12/20 15:30 07/12/20 16:00 Temperature Pulse Rate 75 79 76 Respiratory Rate 24 26 H 24 Blood Pressure 193/98 H 186/91 H 178/86 H Pulse Oximetry 100 100 100 07/12/20 16:02 07/12/20 16:30 07/12/20 16:31 Temperature Pulse Rate 74 69 69 Respiratory Rate 25 H 23 Blood Pressure 178/86 H 208/108 H Pulse Oximetry 100 100 07/12/20 16:55 07/12/20 16:56 07/12/20 17:00 Temperature Pulse Rate 69 69 65 Respiratory Rate 24 Blood Pressure 208/108 H 208/108 H 186/88 H Pulse Oximetry 100 07/12/20 17:15 07/12/20 17:30 Temperature Pulse Rate 62 63 Respiratory Rate 26 H 24 Blood Pressure 201/94 H Pulse Oximetry 99 100 <Anant Edmondson DO - Last Filed: 07/13/20 06:53> Orders Ordered: Acetaminophen (Acetaminophen 325 Mg Tablet) 650 mg PO Q6HR PRN PRN Reason: Fever/Mild Pain (1-3) Amlodipine Besylate (Amlodipine 5 Mg Tablet) 10 mg PO DAILY [facility] Heparin Sodium (Porcine) (Heparin 5,000 Unit/Ml Vial) 5,000 unit SUBCUT BID [facility] Last Admin: 07/12/20 21:30 Dose: 5,000 unit Documented by: ARSEN Sodium Chloride (Normal Saline 0.9%) 1,000 mls @ 100 mls/hr IV CONT [facility] Last Admin: 07/12/20 21:53 Dose: 100 mls/hr Documented by: ARSEN Potassium Chloride 40 meq/ (Sodium Chloride) 520 mls @ 130 mls/hr IV NOW ONE Stop: 07/13/20 09:48 Last Admin: 07/13/20 06:14 Dose: 130 mls/hr Documented by: JOYCE Cosigned by: SHARITA Ondansetron HCl (Ondansetron 4 Mg/2 Ml Inj) 4 mg IV Q8HR PRN PRN Reason: Nausea And Vomiting Pantoprazole Sodium (Pantoprazole 20 Mg Tablet) 20 mg PO 0600 [facility] Last Admin: 07/13/20 05:54 Dose: Not Given Documented by: JOYCE Potassium Chloride (Potassium Chloride 20 Meq Tab) 40 meq PO NOW ONE Stop: 07/13/20 12:58 Discontinued Medications Amlodipine Besylate (Amlodipine 5 Mg Tablet) 10 mg PO NOW ONE Stop: 07/12/20 19:06 Last Admin: 07/12/20 19:16 Dose: 10 mg Documented by: ARSEN Potassium Chloride 40 meq/ (Sodium Chloride) 520 mls @ 130 mls/hr IV NOW ONE Stop: 07/12/20 21:22 Last Infusion: 07/12/20 18:09 Dose: 130 mls/hr Documented by: CARLY Cosigned by: NOEMI Admin: 07/12/20 17:42 Dose: 130 mls/hr Documented by: CARLY Cosigned by: RAMON Labetalol HCl (Labetalol 20 Mg/4 Ml Syringe) 10 mg IV NOW ONE Stop: 07/12/20 15:27 Last Admin: 07/12/20 16:02 Dose: 10 mg Documented by: CARLY Labetalol HCl (Labetalol 20 Mg/4 Ml Syringe) 10 mg IV NOW ONE Stop: 07/12/20 16:47 Last Admin: 07/12/20 16:56 Dose: 10 mg Documented by: CARLY Ondansetron HCl (Ondansetron 4 Mg/2 Ml Inj) 4 mg IV NOW ONE Stop: 07/12/20 14:27 Last Admin: 07/12/20 14:33 Dose: 4 mg Documented by: CARLY Potassium Chloride (Potassium Chloride 20 Meq/15 Ml Udc) 40 meq PO NOW ONE Stop: 07/12/20 17:23 Last Admin: 07/12/20 17:41 Dose: 40 meq Documented by: CARLY Potassium Chloride (Potassium Chloride 20 Meq Tab) 40 meq PO NOW ONE Stop: 07/13/20 05:50 Last Admin: 07/13/20 05:59 Dose: Not Given Documented by: JOYCE Vital Signs Vital signs: Vital Signs - 8 hr 07/12/20 14:06 07/12/20 14:35 07/12/20 14:36 Temperature 97.8 F Pulse Rate 85 81 80 Respiratory Rate 28 H 24 25 H Blood Pressure 171/97 H 185/92 H Pulse Oximetry 99 100 100 07/12/20 15:00 07/12/20 15:30 07/12/20 16:00 Temperature Pulse Rate 75 79 76 Respiratory Rate 24 26 H 24 Blood Pressure 193/98 H 186/91 H 178/86 H Pulse Oximetry 100 100 100 07/12/20 16:02 07/12/20 16:30 07/12/20 16:31 Temperature Pulse Rate 74 69 69 Respiratory Rate 25 H 23 Blood Pressure 178/86 H 208/108 H Pulse Oximetry 100 100 07/12/20 16:55 07/12/20 16:56 07/12/20 17:00 Temperature Pulse Rate 69 69 65 Respiratory Rate 24 Blood Pressure 208/108 H 208/108 H 186/88 H Pulse Oximetry 100 07/12/20 17:15 07/12/20 17:30 Temperature Pulse Rate 62 63 Respiratory Rate 26 H 24 Blood Pressure 201/94 H Pulse Oximetry 99 100 MDM - Weakness <ALEXANDER Head - Last Filed: 07/12/20 19:33> Medical Records Attestation: I reviewed the patient's medical records. Lab Data Attestation: I reviewed the patient's lab results. Result diagrams: 07/13/20 05:10 07/13/20 05:10 Labs: Lab Results 07/12/20 07/12/20 07/12/20 Range/Units 14:30 14:30 14:30 WBC 9.8 (4.5-11.0) X10^3/uL RBC 5.30 H (4.0-5.2) X10^6/uL Hgb 16.6 H (12.0-16.0) g/dL Hct 46.6 H (36-46) % MCV 87.9 (80-100) fL MCH 31.3 (26-34) PG MCHC 35.7 (30-36) % RDW 13.5 (11.6-14.8) % Plt Count 394 (150-400) X10^3/uL Neut % (Auto) 86.1 H (50-75) % Lymph % (Auto) 8.7 L (25-40) % [place] % (Auto) 4.3 (3-14) % Eos % (Auto) 0.1 L (2-4) % Baso % (Auto) 0.8 (0-2) % Neut # (Auto) 8400 H (4542-1949) /uL Lymph # (Auto) 800 L (3507-7015) /uL [place] # (Auto) 400 (0-900) /uL Eos # (Auto) 0 (0-450) /uL Baso # (Auto) 100 (0-100) /uL PT 11.9 (10.1-12.7) SECONDS INR 1.1 (0.9-1.3) APTT 45 H D (26.4-36.2) SECONDS Sodium (137-145) mmol/L Potassium (3.4-5.1) mmol/L Chloride (98-107) mmol/L Carbon Dioxide (22-32) mmol/L BUN (7-17) mg/dL Creatinine (0.52-1.04) mg/dL Estimated GFR (>60) mL/min BUN/Creatinine Ratio (6-22) Glucose (80-110) mg/dL Calcium (8.4-10.2) mg/dL Magnesium (1.6-2.3) mg/dL Total Bilirubin (0.2-1.3) mg/dL AST (14-36) IU/L ALT (<35) IU/L Alkaline Phosphatase (38-126) U/L Total Creatine Kinase 149 H (30-135) U/L CK-MB (CK-2) 1.22 (<2.37) ng/mL CK-MB (CK-2) Rel Index 0.8 L (1.5-5.0) % Troponin I < 0.012 (0.01-0.034) ng/mL NT-Pro-B Natriuret Pep (<125) pg/mL Total Protein (6.3-8.2) g/dL Albumin (3.5-5.0) g/dL Globulin (1.7-4.1) g/dL Albumin/Globulin Ratio (1.0-2.8) SARS-CoV-2 (PCR) (Negative) 07/12/20 07/12/20 07/12/20 Range/Units 14:30 16:14 16:29 WBC (4.5-11.0) X10^3/uL RBC (4.0-5.2) X10^6/uL Hgb (12.0-16.0) g/dL Hct (36-46) % MCV (80-100) fL MCH (26-34) PG MCHC (30-36) % RDW (11.6-14.8) % Plt Count (150-400) X10^3/uL Neut % (Auto) (50-75) % Lymph % (Auto) (25-40) % [place] % (Auto) (3-14) % Eos % (Auto) (2-4) % Baso % (Auto) (0-2) % Neut # (Auto) (1254-0420) /uL Lymph # (Auto) (9836-6523) /uL [place] # (Auto) (0-900) /uL Eos # (Auto) (0-450) /uL Baso # (Auto) (0-100) /uL PT (10.1-12.7) SECONDS INR (0.9-1.3) APTT (26.4-36.2) SECONDS Sodium (137-145) mmol/L Potassium (3.4-5.1) mmol/L Chloride (98-107) mmol/L Carbon Dioxide (22-32) mmol/L BUN (7-17) mg/dL Creatinine (0.52-1.04) mg/dL Estimated GFR (>60) mL/min BUN/Creatinine Ratio (6-22) Glucose (80-110) mg/dL Calcium (8.4-10.2) mg/dL Magnesium (1.6-2.3) mg/dL Total Bilirubin (0.2-1.3) mg/dL AST (14-36) IU/L ALT (<35) IU/L Alkaline Phosphatase (38-126) U/L Total Creatine Kinase (30-135) U/L CK-MB (CK-2) (<2.37) ng/mL CK-MB (CK-2) Rel Index (1.5-5.0) % Troponin I < 0.012 (0.01-0.034) ng/mL NT-Pro-B Natriuret Pep 1290 H (<125) pg/mL Total Protein (6.3-8.2) g/dL Albumin (3.5-5.0) g/dL Globulin (1.7-4.1) g/dL Albumin/Globulin Ratio (1.0-2.8) SARS-CoV-2 (PCR) Negative (Negative) 07/12/20 07/12/20 Range/Units 16:29 16:29 WBC (4.5-11.0) X10^3/uL RBC (4.0-5.2) X10^6/uL Hgb (12.0-16.0) g/dL Hct (36-46) % MCV (80-100) fL MCH (26-34) PG MCHC (30-36) % RDW (11.6-14.8) % Plt Count (150-400) X10^3/uL Neut % (Auto) (50-75) % Lymph % (Auto) (25-40) % [place] % (Auto) (3-14) % Eos % (Auto) (2-4) % Baso % (Auto) (0-2) % Neut # (Auto) (1308-8742) /uL Lymph # (Auto) (0211-3010) /uL [place] # (Auto) (0-900) /uL Eos # (Auto) (0-450) /uL Baso # (Auto) (0-100) /uL PT (10.1-12.7) SECONDS INR (0.9-1.3) APTT (26.4-36.2) SECONDS Sodium 138 (137-145) mmol/L Potassium 2.1 L* (3.4-5.1) mmol/L Chloride 98 (98-107) mmol/L Carbon Dioxide 27 (22-32) mmol/L BUN 20 H (7-17) mg/dL Creatinine 1.25 H (0.52-1.04) mg/dL Estimated GFR 43.6 L (>60) mL/min BUN/Creatinine Ratio 16.0 (6-22) Glucose 223 H (80-110) mg/dL Calcium 11.1 H (8.4-10.2) mg/dL Magnesium 2.2 (1.6-2.3) mg/dL Total Bilirubin 0.9 (0.2-1.3) mg/dL AST 27 (14-36) IU/L ALT 18 (<35) IU/L Alkaline Phosphatase 117 (38-126) U/L Total Creatine Kinase (30-135) U/L CK-MB (CK-2) (<2.37) ng/mL CK-MB (CK-2) Rel Index (1.5-5.0) % Troponin I (0.01-0.034) ng/mL NT-Pro-B Natriuret Pep (<125) pg/mL Total Protein 9.1 H (6.3-8.2) g/dL Albumin 5.2 H (3.5-5.0) g/dL Globulin 3.9 (1.7-4.1) g/dL Albumin/Globulin Ratio 1.3 (1.0-2.8) SARS-CoV-2 (PCR) (Negative) Point of Care Testing Glucose POC 202 Imaging Data Chest x-ray: Radiologist Impression: [address] [id number] ReportSigned Patient: Talita Diggs EMR#: [id number]: 1960Acct:[id number]/Sex: 60 / FDate of Service: 07/12/20Loc: EDAccession Number: [id number] Procedure: XR chest 1V Ordering Provider: Leeann Isaac PROCEDURE: XR CHEST 1V INDICATIONS: Chest pain TECHNIQUE: One view of the chest was acquired. [facility], 05/19/2020, 23:32. FINDINGS: Surgical changes and devices: None. Lungs and pleura: Lungs are clear. No pleural effusions or pneumothorax. Mediastinum: Mediastinal contours appear normal. Heart size is normal. Bones and chest wall: No suspicious bony lesions. Overlying soft tissues appear unremarkable. IMPRESSION: No acute cardiopulmonary pathology. Dictated by: Angel Loredo M.D. on 07/12/2020 at 15:07 Approved by: Angel Loredo M.D. on 07/12/2020 at 15:22 CT scan - head: Radiologist Impression: [address] [id number] Scan ReportSigned Patient: Talita Diggs EMR#: [id number]: 1960Acct:[id number]/Sex: 60 / FDate of Service: 07/12/20Loc: EDAccession Number: [id number] Procedure: CT head/brain wo con Ordering Provider: Leeann Isaac PROCEDURE: CT HEAD/BRAIN WO CON INDICATIONS: L arm weakness TECHNIQUE: Noncontrast 4.5 mm thick angled axial sections acquired from the foramen magnum to the vertex, with coronal and sagittal reformats. For radiation dose reduction, the following was used: automated exposure control, adjustment of mA and/or kV according to patient size. COMPARISON: None. FINDINGS: Image quality: Excellent. CSF spaces: Basal cisterns are patent. No extra-axial fluid collections. Ventricles are normal in size and shape. Brain: No intracranial hemorrhage, mass, or mass effect. Smith-white matter interface appears preserved. Skull and face: Calvarium and visualized facial bones are intact, without suspicious lesions. Sinuses: Visualized sinuses and mastoids are clear. IMPRESSION: 1. No acute intracranial abnormality. Dictated by: Castillo Bhakta M.D. on 07/12/2020 at 14:37 Approved by: Castillo Bhakta M.D. on 07/12/2020 at 14:37 ECG Data Interpretation: 1405: Sinus rhythm, rate 79, OH interval 134, QTC 458. No ST elevation. 1-[address] depression noted in V3 through V6, this is increased from prior EKG in 04/[address] depression in V6. No ectopy. No T-wave inversion. EKG also viewed Dr. Edmondson per protocol. 1635: Sinus rhythm, rate 65, OH interval 136, QTC 459. No ST elevation. 1-[address] depression noted in the V3 through V6. No ectopy. No T-wave inversion. EKG also viewed by Dr. Edmondson per protocol. [facility] Narrative Medical decision making narrative: 60-year-old female with a history of hypertension and hypertension crisis in the past, presents emergency department for chest pain, numbness and tingling in her left arm, nausea, and episode of vomiting. Patient was admitted for cardiac workup given concerns for LVH strain due to hypertension. Patient initially had systolic blood pressures in the 200s, was given labetalol which lowered blood pressure, patient required 2 doses of labetalol in the emergency department. Patient showed diffuse ST depressions in the V leads, this was a change from EKG findings in April of this year, no reciprocal ST elevations. Patient heart score of 4 with negative troponins after consultation with Cardiology at [facility], he recommended admission here for cardiac evaluation and stress testing. Patient also showed hypokalemia, patient was recently treated for this over the past month at [facility], via [facility] report. Today's potassium was 2.1, patient has had a potassium 2.8 Potassium was started orally and IV. CMP was originally delayed due to an air and ordering via the order set. Initially with patient's concern of left arm tingling, there is some concern for CVA. Head CT is negative, NIH score of 0, symptoms resolved. Patient did have an elevated BNP of 1290, this may be related to heart strain. She does not exhibit signs of heart failure, there is no lower extremity edema, lungs are clear, chest x-ray negative. Patient was admitted to DR. Crowder for further evaluation and treatment. Patient consented to admission. <Anant Edmondson, - Last Filed: 07/13/20 06:53> Lab Data Labs: Lab Results 07/12/20 07/12/20 07/12/20 Range/Units 14:30 14:30 14:30 WBC 9.8 (4.5-11.0) X10^3/uL RBC 5.30 H (4.0-5.2) X10^6/uL Hgb 16.6 H (12.0-16.0) g/dL Hct 46.6 H (36-46) % MCV 87.9 (80-100) fL MCH 31.3 (26-34) PG MCHC 35.7 (30-36) % RDW 13.5 (11.6-14.8) % Plt Count 394 (150-400) X10^3/uL Neut % (Auto) 86.1 H (50-75) % Lymph % (Auto) 8.7 L (25-40) % [place] % (Auto) 4.3 (3-14) % Eos % (Auto) 0.1 L (2-4) % Baso % (Auto) 0.8 (0-2) % Neut # (Auto) 8400 H (7733-3120) /uL Lymph # (Auto) 800 L (5731-5924) /uL [place] # (Auto) 400 (0-900) /uL Eos # (Auto) 0 (0-450) /uL Baso # (Auto) 100 (0-100) /uL PT 11.9 (10.1-12.7) SECONDS INR 1.1 (0.9-1.3) APTT 45 H D (26.4-36.2) SECONDS Sodium (137-145) mmol/L Potassium (3.4-5.1) mmol/L Chloride (98-107) mmol/L Carbon Dioxide (22-32) mmol/L BUN (7-17) mg/dL Creatinine (0.52-1.04) mg/dL Estimated GFR (>60) mL/min BUN/Creatinine Ratio (6-22) Glucose (80-110) mg/dL Calcium (8.4-10.2) mg/dL Magnesium (1.6-2.3) mg/dL Total Bilirubin (0.2-1.3) mg/dL AST (14-36) IU/L ALT (<35) IU/L Alkaline Phosphatase (38-126) U/L Total Creatine Kinase 149 H (30-135) U/L CK-MB (CK-2) 1.22 (<2.37) ng/mL CK-MB (CK-2) Rel Index 0.8 L (1.5-5.0) % Troponin I < 0.012 (0.01-0.034) ng/mL NT-Pro-B Natriuret Pep (<125) pg/mL Total Protein (6.3-8.2) g/dL Albumin (3.5-5.0) g/dL Globulin (1.7-4.1) g/dL Albumin/Globulin Ratio (1.0-2.8) SARS-CoV-2 (PCR) (Negative) 07/12/20 07/12/20 07/12/20 Range/Units 14:30 16:14 16:29 WBC (4.5-11.0) X10^3/uL RBC (4.0-5.2) X10^6/uL Hgb (12.0-16.0) g/dL Hct (36-46) % MCV (80-100) fL MCH (26-34) PG MCHC (30-36) % RDW (11.6-14.8) % Plt Count (150-400) X10^3/uL Neut % (Auto) (50-75) % Lymph % (Auto) (25-40) % [place] % (Auto) (3-14) % Eos % (Auto) (2-4) % Baso % (Auto) (0-2) % Neut # (Auto) (7218-1650) /uL Lymph # (Auto) (9203-2017) /uL [place] # (Auto) (0-900) /uL Eos # (Auto) (0-450) /uL Baso # (Auto) (0-100) /uL PT (10.1-12.7) SECONDS INR (0.9-1.3) APTT (26.4-36.2) SECONDS Sodium (137-145) mmol/L Potassium (3.4-5.1) mmol/L Chloride (98-107) mmol/L Carbon Dioxide (22-32) mmol/L BUN (7-17) mg/dL Creatinine (0.52-1.04) mg/dL Estimated GFR (>60) mL/min BUN/Creatinine Ratio (6-22) Glucose (80-110) mg/dL Calcium (8.4-10.2) mg/dL Magnesium (1.6-2.3) mg/dL Total Bilirubin (0.2-1.3) mg/dL AST (14-36) IU/L ALT (<35) IU/L Alkaline Phosphatase (38-126) U/L Total Creatine Kinase (30-135) U/L CK-MB (CK-2) (<2.37) ng/mL CK-MB (CK-2) Rel Index (1.5-5.0) % Troponin I < 0.012 (0.01-0.034) ng/mL NT-Pro-B Natriuret Pep 1290 H (<125) pg/mL Total Protein (6.3-8.2) g/dL Albumin (3.5-5.0) g/dL Globulin (1.7-4.1) g/dL Albumin/Globulin Ratio (1.0-2.8) SARS-CoV-2 (PCR) Negative (Negative) 07/12/20 07/12/20 Range/Units 16:29 16:29 WBC (4.5-11.0) X10^3/uL RBC (4.0-5.2) X10^6/uL Hgb (12.0-16.0) g/dL Hct (36-46) % MCV (80-100) fL MCH (26-34) PG MCHC (30-36) % RDW (11.6-14.8) % Plt Count (150-400) X10^3/uL Neut % (Auto) (50-75) % Lymph % (Auto) (25-40) % [place] % (Auto) (3-14) % Eos % (Auto) (2-4) % Baso % (Auto) (0-2) % Neut # (Auto) (7779-4577) /uL Lymph # (Auto) (4372-9782) /uL [place] # (Auto) (0-900) /uL Eos # (Auto) (0-450) /uL Baso # (Auto) (0-100) /uL PT (10.1-12.7) SECONDS INR (0.9-1.3) APTT (26.4-36.2) SECONDS Sodium 138 (137-145) mmol/L Potassium 2.1 L* (3.4-5.1) mmol/L Chloride 98 (98-107) mmol/L Carbon Dioxide 27 (22-32) mmol/L BUN 20 H (7-17) mg/dL Creatinine 1.25 H (0.52-1.04) mg/dL Estimated GFR 43.6 L (>60) mL/min BUN/Creatinine Ratio 16.0 (6-22) Glucose 223 H (80-110) mg/dL Calcium 11.1 H (8.4-10.2) mg/dL Magnesium 2.2 (1.6-2.3) mg/dL Total Bilirubin 0.9 (0.2-1.3) mg/dL AST 27 (14-36) IU/L ALT 18 (<35) IU/L Alkaline Phosphatase 117 (38-126) U/L Total Creatine Kinase (30-135) U/L CK-MB (CK-2) (<2.37) ng/mL CK-MB (CK-2) Rel Index (1.5-5.0) % Troponin I (0.01-0.034) ng/mL NT-Pro-B Natriuret Pep (<125) pg/mL Total Protein 9.1 H (6.3-8.2) g/dL Albumin 5.2 H (3.5-5.0) g/dL Globulin 3.9 (1.7-4.1) g/dL Albumin/Globulin Ratio 1.3 (1.0-2.8) SARS-CoV-2 (PCR) (Negative) Point of Care Testing Glucose POC 202 Discharge Plan Departure Patient Disposition: Admitted as Observation Clinical Impression: Hypertensive urgency, Hypokalemia Admit Date/Time: 07/12/20 17:30 Admit Provider: Chip Crowder <Anant Edmondson, - Last Filed: 07/13/20 06:53> Cosign ED Attending Cosignature Attestation: Dr Edmondson Co-Sign Statement: I was available for consultation during this patient's emergency department visit. This chart is signed by myself for administrative purposes only. I did not have direct contact with this patient during this visit. They were seen independently by the APC.
--- NOTE | 2020-07-12 14:25 | DI.RAD.S_ITS ---
PROCEDURE: XR CHEST 1V INDICATIONS: Chest pain TECHNIQUE: One view of the chest was acquired. COMPARISON: [facility], CR, XR CHEST 1V, 05/19/2020, 23:32. FINDINGS: Surgical changes and devices: None. Lungs and pleura: Lungs are clear. No pleural effusions or pneumothorax. Mediastinum: Mediastinal contours appear normal. Heart size is normal. Bones and chest wall: No suspicious bony lesions. Overlying soft tissues appear unremarkable. IMPRESSION: No acute cardiopulmonary pathology. Dictated by: Angel Loredo M.D. on 07/12/2020 at 15:07 Approved by: Angel Loredo M.D. on 07/12/2020 at 15:22
[2020-07-12] MEDS: ONDANSETRON 4 MG/2 ML INJ IV (14:33)
[2020-07-12 14:34] LABS: Add Manual Diff / Slide Review NO; Basophils Absolute Auto 100 /uL (0-100); Basophils Percent Auto 0.8 % (0-2); Eosinophils Absolute Auto 0 /uL (0-450); Eosinophils Percent Auto 0.1 % (2-4); Hematocrit 46.6 % (36-46); Hemoglobin 16.6 g/dL (12.0-16.0); Lymphocytes Absolute Auto 800 /uL (1100-4500); Lymphocytes Percent Auto 8.7 % (25-40); Mean Corpuscular HGB Conc 35.7 % (30-36); Mean Corpuscular Hemoglobin 31.3 PG (26-34); Mean Corpuscular Volume 87.9 fL (80-100); Monocytes Absolute Auto 400 /uL (0-900); Monocytes Percent Auto 4.3 % (3-14); Neutrophils Absolute Auto 8400 /uL (1500-7000); Neutrophils Percent Auto 86.1 % (50-75); Platelet Count 394 X10^3/uL (150-400); Red Cell Distribution Width 13.5 % (11.6-14.8); White Blood Cell Count 9.8 X10^3/uL (4.5-11.0)
[2020-07-12 14:44] LABS: INR 1.1 (0.9-1.3); Prothrombin Time 11.9 SECONDS (10.1-12.7)
[2020-07-12 14:46] LABS: PTT Partial Thromboplastin Tim 45 SECONDS (26.4-36.2)
[2020-07-12 14:49] LABS: Creatine Kinase 149 U/L (30-135)
[2020-07-12 14:59] LABS: NT-proBNP (BNP-Adult 18+) 1290 pg/mL (<125)
[2020-07-12 15:02] LABS: Troponin I < 0.012 ng/mL (0.01-0.034)
[2020-07-12 15:04] LABS: CKMB % Relative Index 0.8 % (1.5-5.0); Creatine Kinase MB 1.22 ng/mL (<2.37)
[2020-07-12] MEDS: LABETALOL 20 MG/4 ML SYRINGE 10 MG IV ×2 (16:02→16:56)
[2020-07-12 17:06] LABS: Alanine Aminotransferase 18 IU/L (<35); Albumin 5.2 g/dL (3.5-5.0); Albumin Globulin Ratio 1.3 (1.0-2.8); Alkaline Phosphatase 117 U/L (38-126); Aspartate Aminotransferase 27 IU/L (14-36); Bilirubin Total 0.9 mg/dL (0.2-1.3); Blood Urea Nitrogen 20 mg/dL (7-17); Calcium 11.1 mg/dL (8.4-10.2); Carbon Dioxide 27 mmol/L (22-32); Chloride 98 mmol/L (98-107); Estimated Glomerular Filt Rate 43.6 mL/min (>60); Globulin 3.9 g/dL (1.7-4.1); Glucose 223 mg/dL (80-110); HEMOLYSIS < 15 (0-50); Sodium 138 mmol/L (137-145); Total Protein 9.1 g/dL (6.3-8.2)
[2020-07-12 17:15] LABS: Troponin I < 0.012 ng/mL (0.01-0.034)
[2020-07-12 17:16] LABS: Potassium 2.1 mmol/L (3.4-5.1)
[2020-07-12 17:30] LABS: COVID19 - ADMIT (NP swab/PCR) Negative (Negative)
[2020-07-12] MEDS: POTASSIUM CHLORIDE 20 MEQ/15 ML UDC 40 MEQ PO (17:41)
[2020-07-12] MEDS: POTASSIUM CHLORIDE 40 MEQ in SODIUM CHLORIDE 0.9% 500 ML 130 ML IV (17:42)
[2020-07-12 18:06] LABS: Bacteria Urine None Seen
[2020-07-12 18:12] LABS: Ur Creatinine Normal (Normal); Ur Specific Gravity Normal (Normal); Urine pH Normal (Normal)
[2020-07-12 18:13] LABS: UR Morphine/Opiate cutoff 300 Negative (Negative); Urine Amphetamines Negative (Negative); Urine Barbiturates Negative (Negative); Urine Benzodiazepines Negative (Negative); Urine Cocaine Negative (Negative); Urine MDMA Negative (Negative); Urine Methadone Negative (Negative); Urine Methamphetamines Negative (Negative); Urine Oxycodone Negative (Negative); Urine Phencyclidine Negative (Negative); Urine Tetrahydrocannabinol Positive (Negative); Urine Tricyclic Antidepressant Negative (Negative)
[2020-07-12 18:16] LABS: Culture Indicated Urine Cult Not Indicated; RBC Urine 1-5/HPF (0-5/HPF); Squamous Epithelial Cell Urine 0-1 /HPF (0-5/HPF); WBC Urine 0-1/HPF (0-5/HPF)
--- NOTE | 2020-07-12 18:50 | PM.HP.1 ---
History of Present Illness History of Present Illness Date Patient Seen: 07/12/20 Time Patient Seen: 18:51 Chief complaint: states high blood pressure Narrative: Ms. Luis Felipe Diggs is a 60-year-old female who is a current smoker with a past medical history significant for anxiety and depression, PTSD, hypertension and osteoarthritis presents to the ER with nausea, vomiting, and burning like left-sided chest pain since this morning. Patient states that starting this morning she developed a burning like sensation on the left side of her chest near her breast that was nonradiating, not associated with dyspnea or exertion, and constant. She did not try any medications to make the pain go away. The patient has an issue with chronic vomiting and previous hypokalemia as well. She states she occasionally vomits when having a bowel movement. She was admitted previously with hypertensive urgency, since then she has stopped her home lisinopril for kidney disease according to the patient, and she was due to follow up with a psychiatric attendant next month. In the emergency room, patient was noted to be markedly hypotensive with a blood pressure of 208/108, she was given a few doses of IV labetalol with some improvement. The remainder of her vital signs were unremarkable. Initial laboratory evaluation showed a mild erythrocytosis with the hemoglobin of 16.6 (suspected due to dehyrdation), but the remainder of her CBC was unremarkable. Coagulation studies were unremarkable. Chemistries reveal the severe hyponatremia with a potassium of 2.1, creatinine of 1.25 which is near her prior discharge. Her glucose was 223. Calcium was 11.1. ProBNP was elevated at 1290. Urinalysis was negative for evidence of infection. Urine drug screen was positive for marijuana. COVID-[address] and chest x-ray were unremarkable. EKG shows borderline ST depression in V3 through V6. Patient was admitted for further evaluation of her chest pain and hypokalemia. Patient History Medical History Anxiety Hypertension Osteoarthritis Osteoporosis PTSD (post-traumatic stress disorder) Surgical History History of History of colonoscopy Family & Social History Social History: household members children Tobacco & Substance use: Smoking Status Current every day smoker 0.5 ppd Substance Use Type marijuana ETOH - denies Meds Home Medications and Allergies Home Medications Medication Instructions Recorded Confirmed Type amlodipine 10 mg PO DAILY 07/12/20 07/12/20 History citalopram 10 mg PO DAILY 07/12/20 07/12/20 History hydrochlorothiazide 12.5 mg PO DAILY 07/12/20 07/12/20 History metoprolol tartrate 25 mg PO BID 07/12/20 07/12/20 History Allergies Allergy/AdvReac Type Severity Reaction Status Date / Time mirtazapine [MIRTAZAPINE] Allergy Unknown HALLUCINATI Verified 07/12/20 18:05 ONS Review of Systems Review of Systems Narrative: All other systems reviewed with the patient and are negative unless otherwise stated. Exam Vital Signs (past 8 hours): - 07/12/20 14:06 07/12/20 14:35 07/12/20 14:36 Temperature 97.8 F Pulse Rate 85 81 80 Respiratory Rate 28 H 24 25 H Blood Pressure 171/97 H 185/92 H Pulse Oximetry 99 100 100 07/12/20 15:00 07/12/20 15:30 07/12/20 16:00 Temperature Pulse Rate 75 79 76 Respiratory Rate 24 26 H 24 Blood Pressure 193/98 H 186/91 H 178/86 H Pulse Oximetry 100 100 100 07/12/20 16:02 07/12/20 16:30 07/12/20 16:31 Temperature Pulse Rate 74 69 69 Respiratory Rate 25 H 23 Blood Pressure 178/86 H 208/108 H Pulse Oximetry 100 100 07/12/20 16:55 07/12/20 16:56 07/12/20 17:00 Temperature Pulse Rate 69 69 65 Respiratory Rate 24 Blood Pressure 208/108 H 208/108 H 186/88 H Pulse Oximetry 100 07/12/20 17:15 07/12/20 17:30 07/12/20 17:44 Temperature Pulse Rate 62 63 69 Respiratory Rate 26 H 24 Blood Pressure 201/94 H 201/94 H Pulse Oximetry 99 100 07/12/20 17:45 07/12/20 17:46 07/12/20 18:20 Temperature 97.6 F Pulse Rate 70 75 Respiratory Rate 22 24 Blood Pressure 168/97 H 183/93 H Pulse Oximetry 100 100 Oxygen Delivery Method Room Air Narrative Exam Narrative: GENERAL APPEARANCE: Chronically ill appearing female, in no acute distress. SKIN: Inspection of the skin reveals no rashes, ulcerations or petechiae. HEENT: Normocephalic atraumatic, extraocular muscles are intact, oropharynx is clear and mucous membranes are moist, neck is supple without adenopathy NECK: Supple and symmetric. There was no thyroid enlargement, and no tenderness, or masses were felt. CHEST: Normal AP diameter and normal contour without any kyphoscoliosis. LUNGS: Auscultation of the lungs revealed no wheezes, rhonchi, or rales. CARDIOVASCULAR: There was a regular rate and rhythm without any murmurs, gallops, rubs. Peripheral pulses were 2+ and symmetric. ABDOMEN: Soft and nontender with normal bowel sounds. No ascites was noted. MUSCULOSKELETAL: There was no tenderness or effusions noted. Muscle strength and tone were normal. EXTREMITIES: No cyanosis, clubbing or edema. NEUROLOGIC: Alert. Normal affect. Strength is +5/5 in the Upper Extremities and Lower Extremities Bilaterally. Objective ECG Impression: Sinus rhythm with marked sinus arrhythmia Right atrial enlargement Nonspecific ST abnormality Prolonged QT Abnormal ECG Imaging Chest x-ray: My impression: No acute cardiopulmonary disease Radiologist's impression: PROCEDURE: XR CHEST 1V INDICATIONS: Chest pain TECHNIQUE: One view of the chest was acquired. COMPARISON: [facility], , XR CHEST 1V, 05/19/2020, 23:32. FINDINGS: Surgical changes and devices: None. Lungs and pleura: Lungs are clear. No pleural effusions or pneumothorax. Mediastinum: Mediastinal contours appear normal. Heart size is normal. Bones and chest wall: No suspicious bony lesions. Overlying soft tissues appear unremarkable. IMPRESSION: No acute cardiopulmonary pathology. Labs Result Diagrams: 07/12/20 14:30 07/12/20 16:29 Labs: Laboratory Results - last 24 hr 07/12/20 07/12/20 07/12/20 14:30 14:30 14:30 WBC 9.8 RBC 5.30 H Hgb 16.6 H Hct 46.6 H MCV 87.9 MCH 31.3 MCHC 35.7 RDW 13.5 Plt Count 394 Neut % (Auto) 86.1 H Lymph % (Auto) 8.7 L [place] % (Auto) 4.3 Eos % (Auto) 0.1 L Baso % (Auto) 0.8 Neut # (Auto) 8400 H Lymph # (Auto) 800 L [place] # (Auto) 400 Eos # (Auto) 0 Baso # (Auto) 100 PT 11.9 INR 1.1 APTT 45 H D Sodium Potassium Chloride Carbon Dioxide BUN Creatinine Estimated GFR BUN/Creatinine Ratio Glucose Calcium Total Bilirubin AST ALT Alkaline Phosphatase Total Creatine Kinase 149 H CK-MB (CK-2) 1.22 CK-MB (CK-2) Rel Index 0.8 L Troponin I < 0.012 NT-Pro-B Natriuret Pep Total Protein Albumin Globulin Albumin/Globulin Ratio Urine RBC Urine WBC Ur Squamous Epith Cells Urine Bacteria Ur Culture Indicated? U Opiates 300ng/mL cut Ur Oxycodone Screen Urine Methadone Screen Ur Barbiturates Screen U Tricyclic Antidepress Ur Phencyclidine Scrn Ur Amphetamines Screen U Methamphetamines Scrn Ur MDMA Scrn (Ecstasy) U Benzodiazepines Scrn Urine Cocaine Screen U Marijuana (THC) Screen SARS-CoV-2 (PCR) 07/12/20 07/12/20 07/12/20 14:30 16:14 16:29 WBC RBC Hgb Hct MCV MCH MCHC RDW Plt Count Neut % (Auto) Lymph % (Auto) [place] % (Auto) Eos % (Auto) Baso % (Auto) Neut # (Auto) Lymph # (Auto) [place] # (Auto) Eos # (Auto) Baso # (Auto) PT INR APTT Sodium Potassium Chloride Carbon Dioxide BUN Creatinine Estimated GFR BUN/Creatinine Ratio Glucose Calcium Total Bilirubin AST ALT Alkaline Phosphatase Total Creatine Kinase CK-MB (CK-2) CK-MB (CK-2) Rel Index Troponin I < 0.012 NT-Pro-B Natriuret Pep 1290 H Total Protein Albumin Globulin Albumin/Globulin Ratio Urine RBC Urine WBC Ur Squamous Epith Cells Urine Bacteria Ur Culture Indicated? U Opiates 300ng/mL cut Ur Oxycodone Screen Urine Methadone Screen Ur Barbiturates Screen U Tricyclic Antidepress Ur Phencyclidine Scrn Ur Amphetamines Screen U Methamphetamines Scrn Ur MDMA Scrn (Ecstasy) U Benzodiazepines Scrn Urine Cocaine Screen U Marijuana (THC) Screen SARS-CoV-2 (PCR) Negative 07/12/20 07/12/20 07/12/20 16:29 17:55 17:55 WBC RBC Hgb Hct MCV MCH MCHC RDW Plt Count Neut % (Auto) Lymph % (Auto) [place] % (Auto) Eos % (Auto) Baso % (Auto) Neut # (Auto) Lymph # (Auto) [place] # (Auto) Eos # (Auto) Baso # (Auto) PT INR APTT Sodium 138 Potassium 2.1 L* Chloride 98 Carbon Dioxide 27 BUN 20 H Creatinine 1.25 H Estimated GFR 43.6 L BUN/Creatinine Ratio 16.0 Glucose 223 H Calcium 11.1 H Total Bilirubin 0.9 AST 27 ALT 18 Alkaline Phosphatase 117 Total Creatine Kinase CK-MB (CK-2) CK-MB (CK-2) Rel Index Troponin I NT-Pro-B Natriuret Pep Total Protein 9.1 H Albumin 5.2 H Globulin 3.9 Albumin/Globulin Ratio 1.3 Urine RBC 1-5/hpf Urine WBC 0-1/hpf Ur Squamous Epith Cells 0-1 /hpf Urine Bacteria None seen Ur Culture Indicated? Cult not indicated U Opiates 300ng/mL cut Negative Ur Oxycodone Screen Negative Urine Methadone Screen Negative Ur Barbiturates Screen Negative U Tricyclic Antidepress Negative Ur Phencyclidine Scrn Negative Ur Amphetamines Screen Negative U Methamphetamines Scrn Negative Ur MDMA Scrn (Ecstasy) Negative U Benzodiazepines Scrn Negative Urine Cocaine Screen Negative U Marijuana (THC) Screen Positive H SARS-CoV-2 (PCR) Assessment & Plan Assessment & Plan narrative: Ms. Luis Felipe Diggs is a 60-year-old female who is a current smoker with a past medical history significant for anxiety and depression, PTSD, hypertension and osteoarthritis presents to the ER with nausea, vomiting, and burning like left-sided chest pain since this morning. Admitted for hypokalemia and chest pain. 1. hypokalemia, acute on chronic, present on admission - K 2.1 on admission with QT prolongation on EKG / telemetry. Qtc 548 on admission EKG> - given 40 meq IV and PO, total 80 meq in the ER. will continue to replete as needed. - likely secondary to vomiting and dehydration. - vomiting may be secondary to marijuana use and cyclic vomiting. 2. chest pain, acute, present on admission - suspect GERD, however new ST depressions are seen, though borderline in V3-6. HEART score is 4. Will further evaluate with stress testing once potassium and HTN improve. Repeat EKG unchanged, no active changes. And troponin negative x2. - start PPI 20 mg daily - check TTE and have ordered for stress testing if BP and potassium improved in the AM. - risk stratify with A1c, TSH, lipid panel 3. Hypertensive urgency in the setting of chronic hypertension - given labetalol in the ER. Will continue home amlodipine. Hold hctz given dehydation and hypercalcemia, and beta hakan for possible stress testing. - continue amlodipine 10 , given above abnormalities consider change to nifedipine. 4. Anixety/depression, PTSD - continue home citalopram. 5. Elevated glucose level - will check A1c, continue FS ACHS. 6. mild hypercalcemia - suspect in setting of dehydration and HCTZ use. hold hctz. Code: Full, surrogate decision maker is the patient's daughter. DVT: HSQ Dispo: Admit under observation status. Quality MIPS - Admit Advanced Care Plan / Current Medications Measures: #47 ? Advanced Care Plan Clinician documentation instruction: document at admission. [x] I confirmed that the patient's Advance Care Plan is present, code status is documented, or surrogate decision maker is listed in the patient?s medical record. [SATISFIES MIPS PERFORMANCE] If Yes, Stop Here [] The patient?s Advance Care plan is not present because: (select) [MIPS PERFORMANCE EXCEPTION/EXCLUSION] [] I confirmed today that the patient does not wish or was not able to name a surrogate decision maker or provide an Advance Care Plan. [] Hospice care is currently being provided or has been provided this calendar year [] I did NOT confirm today the presence of an Advance Care Plan or surrogate decision maker documented within the patient's medical record. [DOES NOT SATISFY MIPS PERFORMANCE] #130 - Documentation of Current Medications in the Medical Record Clinician documentation instruction: use macro the first time you see a patient. [x] I have utilized all available immediate resources to obtain, update, or review the patient?s current medications. [SATISFIES MIPS PERFORMANCE] If Yes, Stop Here [] The patient is not eligible for medication reconciliation; the patient is in an emergent medical situation where delaying treatment would jeopardize the patient?s health. [MIPS PERFORMANCE EXCEPTION/EXCLUSION] [] I did NOT confirm, update or review the patient's current list of medications today. [DOES NOT SATISFY MIPS PERFORMANCE] MIPS - CL Central Venous Catheter Placement Measure: #76 ? Prevention of Central Venous Catheter (CVC) ? Related Bloodstream Infection Clinician documentation instruction: use macro every time you place a central line. [] All elements of Maximal Sterile Barrier Technique, including hand hygiene, skin prep, and sterile ultrasound technique (if used) were followed. [SATISFIES MIPS PERFORMANCE] If Yes, Stop Here [] If ?No?, the medical reason all elements were NOT used for medical reason [] (ex. emergent condition). [] Maximal Sterile Barrier Technique was not followed, no reason provided [DOES NOT SATISFY MIPS PERFORMANCE] MIPS - DC Heart Failure Measures: #5 - Heart Failure (HF): Angiotensin-Converting Enzyme (MOI) Inhibitor or Angiotensin Receptor Hakan (ARB) Therapy for Left Ventricular Systolic Dysfunction (LVSD) and #8 - Heart Failure (HF): Beta-Hakan Therapy for Left Ventricular Systolic Dysfunction (LVSD) Clinician documentation instruction: use macro at every CHF discharge. [] The patient has current or prior documentation of left ventricular ejection fraction (LVEF) less than 40%, or moderate or severely depressed left ventricular systolic function. Answer both: [SATISFIES MIPS PERFORMANCE] [] The patient was prescribed or already taking an Angiotensin-Converting Enzyme (MOI) Inhibitor, or Angiotensin Receptor Hakan (ARB). [] The patient was prescribed or already taking a beta-hakan. If Yes to Both, Stop Here [] Patient not prescribed/taking: [MIPS PERFORMANCE EXCEPTION/EXCLUSION] [] MOI or ARB for medical/patient/system reason(s) including [] (ex. allergy, intolerance, contraindication) [] Beta-hakan for medical/patient/system reason(s) including [] (ex. allergy, intolerance, contraindication) [] Patient not prescribed/taking: [DOES NOT SATISFY MIPS PERFORMANCE] [] MOI or ARB, no reason given [] Beta-hakan, no reason given
--- NOTE | 2020-07-12 19:04 | DI.ECHO.S_ITS ---
[facility]---------+ [facility] +---------+ : : [address] : : : : [id number] : : : : Phone: [phone] Echocardiogram Report + + :Name: ALMAZ LEUNG Study Date: 07/14/2020 Height: 64 in : [id number] ReadingLocation: Weight: 110 lb : : Gender: Female BSA: 1.5 m2 : :: 1960 Age: 60 yrs BP: 173/79 mmHg: :Reason For Study: Chest Pain : :Ordering Physician: YUE, : :ZACHARIAH WOODS Performed By: Galina Cha : :Referring: ZACHARIAH TURNER : + + Interpretation Summary Left ventricular systolic function appears normal with an estimated ejection fraction of 60 to 65% without any focal wall motion abnormality although there is a mild dyssynchronous contraction pattern due to a conduction abnormality. There is a probable diastolic relaxation abnormality but normal filling pressures. The right ventricle appears normal. Right ventricular systolic pressure cannot be estimated but CVP is likely around 3 mmHg. Both atria are normal in size. There is no significant valvular abnormality identified. Procedure: A two-dimensional transthoracic echocardiogram with color flow and Doppler was performed. The study quality was technically adequate. There is no prior echocardiogram noted for this patient. The patient was in normal sinus rhythm during the exam. Left Ventricle: The left ventricle appears normal in size, wall thickness, and systolic function without any focal wall motion abnormalities. The ejection fraction is estimated to be 60-65%. There is a mild dyssynchronous contraction pattern, consistent with a conduction abnormality. Diastolic parameters suggest a relaxation abnormality of the left ventricle, consistent with probable normal filling pressures. Right Ventricle: The right ventricle is normal in size and function. Atria: Both atria are normal in size. There is no Doppler evidence for an interatrial shunt. Mitral Valve: The mitral valve leaflets appear borderline thickened, but open well. There is trace mitral regurgitation. Aortic Valve: The aortic valve is trileaflet. The aortic valve is slightly calcified. The aortic valve opens well. There is no aortic valve stenosis. No aortic regurgitation is present. Tricuspid Valve: The tricuspid valve is normal in structure and function. There is trace tricuspid regurgitation. Pulmonary artery pressures cannot be estimated because of the lack of a measurable TR jet velocity but the IVC suggests a CVP of around 3 mmHg. Pulmonic Valve: The pulmonic valve leaflets are thin and pliable; valve motion is normal. There is no pulmonic valvular regurgitation. Great Vessels: The aortic root is normal size. The ascending aorta is normal in size. The pulmonary artery is not well visualized, but is probably normal size. The IVC is of normal diameter and collapses greater than 50% with a sniff. This suggests a low right atrial pressure of 3 mm Hg. Pericardium/ Pleura There is no pericardial effusion. MMode/2D Measurements & Calculations LVIDd: 4.6 cm LVOT diam: 2.0 cm LVIDs: 3.2 cm Ao root diam: 3.0 cm FS: 30.8 % asc Aorta Diam: 3.1 cm IVSd: 0.57 cm Ao Arch Diam (distal): 1.9 cm LVPWd: 0.60 cm LV granado. diameter/BSA (cm/m^2): 3.0 LV sys. diameter/BSA (cm/m^2): 2.1 LA A2 area: 18.0 cm2 RA long axis: 3.9 cm LA A4 area: 15.4 cm2 RA area: 11.3 cm2 LA length (vol): 4.6 cm RA vol: 27.6 ml LA vol: 51.5 ml RA : 18.2 ml/m2 LA vol index: 33.9 ml/m2 IVC diam: 1.4 cm RVD1 (basal): 2.8 cm RVD2 (mid): 1.9 cm TAPSE: 1.9 cm Doppler Measurements & Calculations Ao V2 max: 117.5 cm/sec LVOT Max Fantasma: 106.5 cm/sec Ao V2 mean: 81.1 cm/sec LV V1 max P.5 mmHg Ao max P.5 mmHg LV V1 VTI: 21.2 cm Ao mean P.9 mmHg EDIS(I,D): 2.6 cm2 Ao V2 VTI: 24.7 cm EDIS(V,D): 2.7 cm2 sev ratio: 0.86 EDIS indexed to BSA (cm^2/m^2): 1.7 MV E max fantasma: 61.2 cm/sec TR max fantasma: 221.3 cm/sec MV A max fantasma: 88.1 cm/sec TR max P.6 mmHg MV E/A: 0.69 PA V2 max: 78.3 cm/sec Med Peak E' Fantasma: 4.7 cm/sec PA V2 mean: 52.3 cm/sec E/E' med: 12.9 PA mean P.2 mmHg Lat Peak E' Fantasma: 4.8 cm/sec PA Accel Time: 0.12 sec E/E' lat: 12.6 E/e' average: 12.8 MV dec time: 0.28 sec SV(LVOT): 63.5 ml Reading Physician:01:11 PM
[2020-07-12] MEDS: AMLODIPINE 5 MG TABLET 10 MG PO (19:16)
[2020-07-12 19:57] LABS: Magnesium 2.2 mg/dL (1.6-2.3)
[2020-07-12] MEDS: HEPARIN 5,000 UNIT/ML VIAL 5000 UNIT SUBCUT (21:30)
[2020-07-12] MEDS: SODIUM CHLORIDE 0.9% 1,000 ML 100 ML IV (21:53)
[2020-07-13] VITALS (9 sets, daily range): BP systolic 161–190; BP diastolic 72–99; PULSE 74–89; RESP 16–20; TEMP 36.3–37.6; O2SAT 94–100
--- NOTE | 2020-07-13 00:18 | PC.NURSE ---
Addendum entered by Valery Acosta R.N. 07/13/20 06:54: Weight appears to have increased by 3.6kg this morning but actual admission weight was 54.3kg and not the originally recorded weight of 49.895kg. So weight is actually down by 0.8kg. Original Note: patient is alert and oriented with flat affect. Answers questions but only short answers and seems annoyed with questions. Breath sounds CTA with RA sat of 97%. HRR with telemetry reading of SR. BP elevated but improved at 185/94. Denies nausea. BT hypoactive and abdomen is soft. Denies dysuria, frequency or urgency with urination. Able to turn herself. Gait not assessed at this time but evening RN reports she is steady on her feet and is up to bathroom with SBA; patient denies weakness. Denies pain. Fall risk score is moderate and bed alarm is activated. NPO after 0000 for stress test per MD order.
[2020-07-13 05:36] LABS: Add Manual Diff / Slide Review NO; Basophils Absolute Auto 0 /uL (0-100); Basophils Percent Auto 0.1 % (0-2); Eosinophils Absolute Auto 0 /uL (0-450); Hematocrit 46.3 % (36-46); Hemoglobin 15.9 g/dL (12.0-16.0); Lymphocytes Absolute Auto 700 /uL (1100-4500); Lymphocytes Percent Auto 6.8 % (25-40); Mean Corpuscular HGB Conc 34.5 % (30-36); Mean Corpuscular Hemoglobin 30.4 PG (26-34); Mean Corpuscular Volume 88.1 fL (80-100); Monocytes Absolute Auto 700 /uL (0-900); Monocytes Percent Auto 6.7 % (3-14); Neutrophils Absolute Auto 8800 /uL (1500-7000); Neutrophils Percent Auto 86.4 % (50-75); Platelet Count 384 X10^3/uL (150-400); Red Blood Cell Count 5.25 X10^6/uL (4.0-5.2); Red Cell Distribution Width 13.8 % (11.6-14.8); White Blood Cell Count 10.2 X10^3/uL (4.5-11.0)
[2020-07-13 05:37] LABS: Hemoglobin A1C% w Est Avg Glu 6.1 % (4.0-6.0)
[2020-07-13 05:45] LABS: Alanine Aminotransferase 14 IU/L (<35); Albumin 5.1 g/dL (3.5-5.0); Albumin Globulin Ratio 1.3 (1.0-2.8); Alkaline Phosphatase 116 U/L (38-126); Aspartate Aminotransferase 25 IU/L (14-36); BUN Creatinine Ratio 17.2 (6-22); Bilirubin Total 0.6 mg/dL (0.2-1.3); Bilirubin Unconjugated 0.5 mg/dL (0.0-1.1); Blood Urea Nitrogen 15 mg/dL (7-17); Calcium 10.1 mg/dL (8.4-10.2); Carbon Dioxide 30 mmol/L (22-32); Chloride 97 mmol/L (98-107); Cholesterol 299 mg/dL (140-199); Estimated Glomerular Filt Rate > 60.0 mL/min (>60); Glucose 174 mg/dL (80-110); HDL Cholesterol 59 mg/dL (40-60); HEMOLYSIS < 15 (0-50); LDL Cholesterol Calculated 211 mg/dL (<100); Sodium 139 mmol/L (137-145); Total Protein 9.1 g/dL (6.3-8.2); Triglycerides 145 mg/dL (35-150)
[2020-07-13 05:48] LABS: Potassium 2.5 mmol/L (3.4-5.1)
[2020-07-13 06:14] LABS: TSH w/ Reflex to FT4 1.35 uIU/mL (0.47-4.68)
[2020-07-13] MEDS: POTASSIUM CHLORIDE 40 MEQ in SODIUM CHLORIDE 0.9% 500 ML 130 ML IV (06:14)
[2020-07-13] MEDS: POTASSIUM CHLORIDE 20 MEQ TAB 40 MEQ PO (09:00)
[2020-07-13] MEDS: AMLODIPINE 5 MG TABLET 10 MG PO (09:00)
[2020-07-13] MEDS: HEPARIN 5,000 UNIT/ML VIAL 5000 UNIT SUBCUT ×2 (09:00→20:21)
--- NOTE | 2020-07-13 10:23 | CM.IDA ---
Initial DCP Assessment Note Patient is a 60 yo female, resident of [place]. Presents complaining of high blood pressure and found to be hypokalemic. Stress test scheduled today, Dr Crowder expects patient may stay until tomorrow, then DC home. PCP: Kim Tadeo Payer: BLUE/MAAME Met w/patient this morning to introduce role. Patient laying in bed, does not have her teeth in, seems sleepy. Patient plans to return home w/her dtr Britney, who works manager multimedia, available to patient in the evenings and weekends. 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 Will plan to follow. HANDY Discharge Planning/Care Management CM Discharge Assessment Start: 07/13/20 10:21 Freq: Status: Active Protocol: Document 07/13/20 10:22 HANDY (Rec: 07/13/20 10:23 HANDY [id number]) Discharge Planning Assessment Assigned Ballroom Dance Instructor MARY Regalado DPOA/Assigned Designee Name Dtr Britney P# [phone] Dtr Ruthie P# [phone] Advance Directives? No History Provided By Patient Prior Living Arrangements House Household Members children Independent with ADL's Yes Is patient alert and oriented? Yes Barriers to Discharge No Discharge Plan Home Transportation Arrangement Family Referrals Initiated None needed Additional Comment At this time Whiteboard Updated in Patient Room with Yes name and ext. # of Ballroom Dance Instructor
--- NOTE | 2020-07-13 11:18 | DIET.PN ---
Dietary Progress Note Assessment: 60y F c hx of previous admit for hypertensive emergency admitted for high BP (208/108) and N/V c chest pain referred to nutrition for chronic hypokalemia and low appetite. HT: 162.5cm WT: 53.5kg UBW: 54-59kg BMI: 20.2 Labs: eGFR >60, Cr 0.87, K+ 2.5 L, A1c 6.1 preDM, TC 299 H, LDL 211 H MNA: 8 @ risk for malnutrition Deng: 19 Pt lives c her daughter and reports low appetite for 6+ months. Pt wears dentures but does not use bottom set as they are poor fitting. This requires pt to eat soft diet. Pt frequently feels poorly c N/V as well as occasionally vomiting while having BM. Usual Intake includes: eggs, applesauce, yogurt, and pasta When asked about potassium containing foods pt lists broccoli and leafy greens. Pt may be mixing up Vit K foods and potassium foods (K+). Nutrition Diagnosis: insufficient oral intake of mineral (potassium) r/t nutrition related knowledge deficit aeb pt c hypokalemia during last two admits, pt has difficulty chewing limiting food options, pt reports broccoli and leafy greens as high K+ foods, K+ 2.1 at admit. Interventions: 1. [facility] Soft diet for difficulty chewing/no lower denture. 2. Educated pt on K+ foods including potatoes, bananas, tomatoes. Pt enjoys these foods but is not currently eating them because she did not realize she should. Pt expresses no barriers to having these foods in home. Diet Order: NPO awaiting procedure EER: 2g K+ through food daily Monitoring/Evaluations: pt chart shows some concern for renal issues, however eGFR and Cr WNL today, watching renal labs
[2020-07-13] MEDS: ONDANSETRON 4 MG/2 ML INJ IV (11:38)
--- NOTE | 2020-07-13 13:18 | PM.TREADMILL ---
Cardiac Stress Test Report Referral & Results Date Patient Seen: 07/13/20 Time Patient Seen: 13:19 Requesting provider: Chip Crowder Indication: chest pain Rest ECG: sinus rhythm with borderline LVH Procedure Note: Standard Javier protocol, 6:00, 6.1 METS Reduced exercise capacity, JUANCHO +10% Normal hemodynamic response to exercise, hypertensive at baseline No chest pain or anginal symptoms No significant ST changes at peak exercise, no ectopy Impression: Normal exercise stress test Please note: Actual ECG tracings can be found in the PACS system.
--- NOTE | 2020-07-13 15:27 | PC.NURSE ---
Stress test completed, pt is asking for food, made aware and he will order something. K rider is complete, MD aware, he will decide later if he wants to recheck k+ level. Nausea this am w/out emesis. Zofran given IV. Effective per pt. has been taking fluids. At 1510 pt suddenly had a bout of nausea, sweaty, no emesis. To soon for more zofran. made aware and he will order something for her. Pt has been pain free, tele on and in SR. Pt is a smoker, offered navid patch and refused. RD came and saw pt about diet and she is having some problems chewing foods.
[2020-07-13] MEDS: ONDANSETRON 4 MG ODT SL ×2 (15:44→20:42)
[2020-07-13 15:59] LABS: BUN Creatinine Ratio 13.2 (6-22); Blood Urea Nitrogen 14 mg/dL (7-17); Calcium 9.8 mg/dL (8.4-10.2); Carbon Dioxide 28 mmol/L (22-32); Chloride 95 mmol/L (98-107); Estimated Glomerular Filt Rate 52.7 mL/min (>60); Glucose 147 mg/dL (80-110); HEMOLYSIS < 15 (0-50); Sodium 134 mmol/L (137-145)
[2020-07-13 16:12] LABS: Potassium 2.6 mmol/L (3.4-5.1)
--- NOTE | 2020-07-13 16:14 | P.PN_ITS ---
Subjective Subjective Date Patient Seen: 07/13/20 Time Patient Seen: 09:30 Interval history: Ms. Luis Felipe Diggs is a 60-year-old female who is a current smoker with a past medical history significant for anxiety and depression, PTSD, hypertension and osteoarthritis presents to the ER with nausea, vomiting, and burning like left-sided chest pain since this morning. Admitted for hypokalemia and chest pain. Stress testing is pending, she is still intermittently nauseous and occasionally wretching. She also became hypertensive and potassium is still low at 2.6 despite 160 meq of replacement thus far, again ordered for another 80 this afternoon. qtc is prolonged on telemetry Exam Vital Signs (past 8 hours): - 07/13/20 08:54 07/13/20 12:00 Temperature 98 F 97.6 F Pulse Rate 84 83 Respiratory Rate 17 16 Blood Pressure 170/72 H 169/72 H Pulse Oximetry 96 97 Oxygen Delivery Method Room Air Oxygen Flow Rate 0 Narrative Exam Narrative: GENERAL APPEARANCE: Chronically ill appearing female, in no acute distress. SKIN: Inspection of the skin reveals no rashes, ulcerations or petechiae. HEENT: Normocephalic atraumatic, extraocular muscles are intact, oropharynx is clear and mucous membranes are moist, neck is supple without adenopathy NECK: Supple and symmetric. There was no thyroid enlargement, and no tenderness, or masses were felt. CHEST: Normal AP diameter and normal contour without any kyphoscoliosis. LUNGS: Auscultation of the lungs revealed no wheezes, rhonchi, or rales. CARDIOVASCULAR: There was a regular rate and rhythm without any murmurs, gallops, rubs. Peripheral pulses were 2+ and symmetric. ABDOMEN: Soft and nontender with normal bowel sounds. No ascites was noted. MUSCULOSKELETAL: There was no tenderness or effusions noted. Muscle strength and tone were normal. EXTREMITIES: No cyanosis, clubbing or edema. NEUROLOGIC: Alert. Normal affect. Strength is +5/5 in the Upper Extremities and Lower Extremities Bilaterally. Objective Labs Result Diagrams: 07/13/20 05:10 07/13/20 15:38 Labs: Laboratory Results - last 24 hr 07/12/20 07/12/20 07/12/20 16:14 16:29 16:29 WBC RBC Hgb Hct MCV MCH MCHC RDW Plt Count Neut % (Auto) Lymph % (Auto) Bracken % (Auto) Eos % (Auto) Baso % (Auto) Neut # (Auto) Lymph # (Auto) Bracken # (Auto) Eos # (Auto) Baso # (Auto) Sodium 138 Potassium 2.1 L* Chloride 98 Carbon Dioxide 27 BUN 20 H Creatinine 1.25 H Estimated GFR 43.6 L BUN/Creatinine Ratio 16.0 Glucose 223 H Hemoglobin A1c Calcium 11.1 H Magnesium Total Bilirubin 0.9 Conjugated Bilirubin Unconjugated Bilirubin AST 27 ALT 18 Alkaline Phosphatase 117 Troponin I < 0.012 Total Protein 9.1 H Albumin 5.2 H Globulin 3.9 Albumin/Globulin Ratio 1.3 Triglycerides Cholesterol LDL Cholesterol, Calc HDL Cholesterol TSH Urine RBC Urine WBC Ur Squamous Epith Cells Urine Bacteria Ur Culture Indicated? U Opiates 300ng/mL cut Ur Oxycodone Screen Urine Methadone Screen Ur Barbiturates Screen U Tricyclic Antidepress Ur Phencyclidine Scrn Ur Amphetamines Screen U Methamphetamines Scrn Ur MDMA Scrn (Ecstasy) U Benzodiazepines Scrn Urine Cocaine Screen U Marijuana (THC) Screen SARS-CoV-2 (PCR) Negative 07/12/20 07/12/20 07/12/20 16:29 17:55 17:55 WBC RBC Hgb Hct MCV MCH MCHC RDW Plt Count Neut % (Auto) Lymph % (Auto) Bracken % (Auto) Eos % (Auto) Baso % (Auto) Neut # (Auto) Lymph # (Auto) Bracken # (Auto) Eos # (Auto) Baso # (Auto) Sodium Potassium Chloride Carbon Dioxide BUN Creatinine Estimated GFR BUN/Creatinine Ratio Glucose Hemoglobin A1c Calcium Magnesium 2.2 Total Bilirubin Conjugated Bilirubin Unconjugated Bilirubin AST ALT Alkaline Phosphatase Troponin I Total Protein Albumin Globulin Albumin/Globulin Ratio Triglycerides Cholesterol LDL Cholesterol, Calc HDL Cholesterol TSH Urine RBC 1-5/hpf Urine WBC 0-1/hpf Ur Squamous Epith Cells 0-1 /hpf Urine Bacteria None seen Ur Culture Indicated? Cult not indicated U Opiates 300ng/mL cut Negative Ur Oxycodone Screen Negative Urine Methadone Screen Negative Ur Barbiturates Screen Negative U Tricyclic Antidepress Negative Ur Phencyclidine Scrn Negative Ur Amphetamines Screen Negative U Methamphetamines Scrn Negative Ur MDMA Scrn (Ecstasy) Negative U Benzodiazepines Scrn Negative Urine Cocaine Screen Negative U Marijuana (THC) Screen Positive H SARS-CoV-2 (PCR) 07/13/20 07/13/20 07/13/20 05:10 05:10 05:10 WBC 10.2 RBC 5.25 H Hgb 15.9 Hct 46.3 H MCV 88.1 MCH 30.4 MCHC 34.5 RDW 13.8 Plt Count 384 Neut % (Auto) 86.4 H Lymph % (Auto) 6.8 L Bracken % (Auto) 6.7 Eos % (Auto) 0.0 L Baso % (Auto) 0.1 Neut # (Auto) 8800 H Lymph # (Auto) 700 L Bracken # (Auto) 700 Eos # (Auto) 0 Baso # (Auto) 0 Sodium 139 Potassium 2.5 L* Chloride 97 L Carbon Dioxide 30 BUN 15 Creatinine 0.87 Estimated GFR > 60.0 BUN/Creatinine Ratio 17.2 Glucose 174 H Hemoglobin A1c 6.1 H Calcium 10.1 Magnesium 2.0 Total Bilirubin 0.6 Conjugated Bilirubin 0.0 Unconjugated Bilirubin 0.5 AST 25 ALT 14 Alkaline Phosphatase 116 Troponin I Total Protein 9.1 H Albumin 5.1 H Globulin 4.0 Albumin/Globulin Ratio 1.3 Triglycerides 145 Cholesterol 299 H LDL Cholesterol, Calc 211 H HDL Cholesterol 59 TSH Urine RBC Urine WBC Ur Squamous Epith Cells Urine Bacteria Ur Culture Indicated? U Opiates 300ng/mL cut Ur Oxycodone Screen Urine Methadone Screen Ur Barbiturates Screen U Tricyclic Antidepress Ur Phencyclidine Scrn Ur Amphetamines Screen U Methamphetamines Scrn Ur MDMA Scrn (Ecstasy) U Benzodiazepines Scrn Urine Cocaine Screen U Marijuana (THC) Screen SARS-CoV-2 (PCR) 07/13/20 07/13/20 05:10 15:38 WBC RBC Hgb Hct MCV MCH MCHC RDW Plt Count Neut % (Auto) Lymph % (Auto) Bracken % (Auto) Eos % (Auto) Baso % (Auto) Neut # (Auto) Lymph # (Auto) Bracken # (Auto) Eos # (Auto) Baso # (Auto) Sodium 134 L Potassium 2.6 L* Chloride 95 L Carbon Dioxide 28 BUN 14 Creatinine 1.06 H Estimated GFR 52.7 L BUN/Creatinine Ratio 13.2 Glucose 147 H Hemoglobin A1c Calcium 9.8 Magnesium Total Bilirubin Conjugated Bilirubin Unconjugated Bilirubin AST ALT Alkaline Phosphatase Troponin I Total Protein Albumin Globulin Albumin/Globulin Ratio Triglycerides Cholesterol LDL Cholesterol, Calc HDL Cholesterol TSH 1.35 Urine RBC Urine WBC Ur Squamous Epith Cells Urine Bacteria Ur Culture Indicated? U Opiates 300ng/mL cut Ur Oxycodone Screen Urine Methadone Screen Ur Barbiturates Screen U Tricyclic Antidepress Ur Phencyclidine Scrn Ur Amphetamines Screen U Methamphetamines Scrn Ur MDMA Scrn (Ecstasy) U Benzodiazepines Scrn Urine Cocaine Screen U Marijuana (THC) Screen SARS-CoV-2 (PCR) [facility]LY [facility], [facility] Medical History Anxiety Hypertension Osteoarthritis Osteoporosis PTSD (post-traumatic stress disorder) Surgical History History of History of colonoscopy Social History household members: children Smoking Status: Current every day smoker alcohol intake: never Assessment & Plan Assessment & Plan narrative: Ms. Luis Felipe Diggs is a 60-year-old female who is a current smoker with a past medical history significant for anxiety and depression, PTSD, hypertension and osteoarthritis presents to the ER with nausea, vomiting, and burning like left-sided chest pain since this mor portia. Admitted for hypokalemia and chest pain. 1. hypokalemia, acute on chronic, present on admission - K 2.1 on admission with QT prolongation on EKG / telemetry. Qtc 548 on admission EKG. - given 40 meq IV and PO, total 80 meq in the ER with improvement to 2.5, given another 80 meq today with only slight improvement to 2.6. Will give another 80 meq this evening. Repeat in the morning. - likely secondary to vomiting and dehydration and lack of potassium in diet according to nutrition. - vomiting may be secondary to marijuana use and cyclic vomiting, or related to hypertension. 2. chest pain, acute, present on admission, improved - suspect GERD, however new ST depressions are noted on EKG, though borderline in V3-6. HEART score is 4. Repeat EKG unchanged, no active changes. And troponin negative x2. - stress testing result currently pending. TTE delayed until tomorrow. - started PPI 20 mg daily - A1c 6.1%, TSH unremarkable, Total cholesterol 299, with LDL 211. Will start high intensity statin. 3. Hypertensive urgency in the setting of chronic hypertension - given labetalol in the ER. Will continue home amlodipine. Somewhat improved over the course of today but again elevated this evening. Held hctz given dehydation and hypercalcemia, and beta hakan for stress testing. Will resume home metorpolol this evening after stress testing. continue to hold HCTZ as not ed below. - continue amlodipine 10, given above abnormalities consider change to nifedipine or restarting lisinopril which she had been on previously. 4. Anixety/depression, PTSD - continue home citalopram. 5. pre-diabetes - A1c 6.1%. Elevated glucose on admission. Seen by nutrition. 6. mild hypercalcemia, present on admission, resolved - suspect in setting of dehydration and HCTZ use. held hctz. Now resolved. 7. Hyperlipidemia, present on admission - LDL 211. Will start high intensity statin therapy. Code: Full, surrogate decision maker is the patient's daughter. DVT: HSQ Dispo: changed to inpatient status today. Quality VTE Deep Vein Thrombosis/Pulmonary Embolism Present on Admission: No MIPS - Admit Advanced Care Plan / Current Medications Measures: #47 ? Advanced Care Plan Clinician documentation instruction: document at admission. [x] I confirmed that the patient's Advance Care Plan is present, code status is documented, or surrogate decision maker is listed in the patient?s medical record. [SATISFIES MIPS PERFORMANCE] If Yes, Stop Here [] The patient?s Advance Care plan is not present because: (select) [MIPS PERFORMANCE EXCEPTION/EXCLUSION] [] I confirmed today that the patient does not wish or was not able to name a surrogate decision maker or provide an Advance Care Plan. [] Hospice care is currently being provided or has been provided this calendar year [] I did NOT confirm today the presence of an Advance Care Plan or surrogate decision maker documented within the patient's medical record. [DOES NOT SATISFY MIPS PERFORMANCE] #130 - Documentation of Current Medications in the Medical Record Clinician documentation instruction: use macro the first time you see a patient. [x] I have utilized all available immediate resources to obtain, update, or review the patient?s current medications. [SATISFIES MIPS PERFORMANCE] If Yes, Stop Here [] The patient is not eligible for medication reconciliation; the patient is in an emergent medical situation where delaying treatment would jeopardize the patient?s health. [MIPS PERFORMANCE EXCEPTION/EXCLUSION] [] I did NOT confirm, update or review the patient's current list of medications today. [DOES NOT SATISFY MIPS PERFORMANCE] MIPS - CL Central Venous Catheter Placement Measure: #76 ? Prevention of Central Venous Catheter (CVC) ? Related Bloodstream Infection Clinician documentation instruction: use macro every time you place a central line. [] All elements of Maximal Sterile Barrier Technique, including hand hygiene, skin prep, and sterile ultrasound technique (if used) were followed. [SATISFIES MIPS PERFORMANCE] If Yes, Stop Here [] If ?No?, the medical reason all elements were NOT used for medical reason [] (ex. emergent condition). [] Maximal Sterile Barrier Technique was not followed, no reason provided [DOES NOT SATISFY MIPS PERFORMANCE] MIPS - DC Heart Failure Measures: #5 - Heart Failure (HF): Angiotensin-Converting Enzyme (MOI) Inhibitor or Angiotensin Receptor Hakan (ARB) Therapy for Left Ventricular Systolic Dysfunction (LVSD) and #8 - Heart Failure (HF): Beta-Hakan Therapy for Left Ventricular Systolic D ysfunction (LVSD) Clinician documentation instruction: use macro at every CHF discharge. [] The patient has current or prior documentation of left ventricular ejection fraction (LVEF) less than 40%, or moderate or severely depressed left ventricular systolic function. Answer both: [SATISFIES MIPS PERFORMANCE] [] The patient was prescribed or already taking an Angiotensin-Converting Enzyme (MOI) Inhibitor, or Angiotensin Receptor Hakan (ARB). [] The patient was prescribed or already taking a beta-hakan. If Yes to Both, Stop Here [] Patient not prescribed/taking: [MIPS PERFORMANCE EXCEPTION/EXCLUSION] [] MOI or ARB for medical/patient/system reason(s) including [] (ex. allergy, intolerance, contraindication) [] Beta-hkaan for medical/patient/system reason(s) including [] (ex. allergy, intolerance, contraindication) [] Patient not prescribed/taking: [DOES NOT SATISFY MIPS PERFORMANCE] [] MOI or ARB, no reason given [] Beta-hakan, no reason given
[2020-07-13] MEDS: POTASSIUM CHLORIDE 20 MEQ/15 ML UDC 80 MEQ PO (16:29)
[2020-07-13] MEDS: METOPROLOL IR 25 MG TABLET PO ×2 (17:22→20:21)
--- NOTE | 2020-07-13 20:11 | DI.NM.S_ITS ---
DATE OF SERVICE: 07/13/2020 PROCEDURE: Exercise perfusion study. INDICATIONS: Chest pain with underlying hypertension. RADIOPHARMACEUTICAL: 24.7 millicurie technetium-99m Myoview IV was injected at stress and 11.4 millicurie technetium-99m Myoview IV was injected at rest. CARDIAC STRESS: The patient underwent exercise stress test under the supervision of an attending staff. The patient walked on Javier protocol for 6 minutes 0 seconds, achieved 94 percent of target heart rate with normal blood pressure response, 7 METs of workload and functional aerobic impairment positive 10 percent. Baseline rhythm was sinus. During stress, there were some nonspecific ST changes. No significant arrhythmias seen. Borderline LVH. No chest pain or anginal symptoms. The patient felt fatigue and some dyspnea. RAW DATA: There is increased subdiaphragmatic activity. GATED STUDY: Stress LV ejection fraction 91 percent. Resting end-diastolic volume 69 mL. TID ratio 0.88, which is within normal limits. Lung/heart ratio 0.35, which is within normal limits. MYOCARDIAL PERFUSION: Resting and stress supine images revealed small size, mildly decreased perfusion of basal inferior wall, which got completely resolved during prone images suggestive of tissue attenuation artifact. CONCLUSION: I will call this study a normal myocardial perfusion study. Diminished exercise tolerance. Normal hemodynamic response. No significant arrhythmias seen during exercise. No anginal symptoms. Overall, this is a low- risk exercise perfusion study. Talita Diggs - Sunil/marlo doc#: [id number]/job#: [id number] dd: 07/13/2020 17:21:00 dt: 07/13/2020 19:03:00 DICTATING MD/COPIES TO: Kirsten Gipson MD COPIES MNE: PERRY;
[2020-07-13] MEDS: ATORVASTATIN 20 MG TABLET 80 MG PO (20:21)
[2020-07-13] MEDS: SODIUM CHLORIDE 0.9% FLUSH 10 ML IV (21:09)
[2020-07-14] VITALS (9 sets, daily range): BP systolic 154–189; BP diastolic 72–102; PULSE 75–90; RESP 15–24; TEMP 36.4–37.1; O2SAT 96–100
[2020-07-14 05:17] LABS: Alanine Aminotransferase 15 IU/L (<35); Albumin Globulin Ratio 1.3 (1.0-2.8); Alkaline Phosphatase 114 U/L (38-126); Aspartate Aminotransferase 26 IU/L (14-36); BUN Creatinine Ratio 13.2 (6-22); Bilirubin Total 0.7 mg/dL (0.2-1.3); Bilirubin Unconjugated 0.5 mg/dL (0.0-1.1); Blood Urea Nitrogen 12 mg/dL (7-17); Calcium 10.2 mg/dL (8.4-10.2); Carbon Dioxide 31 mmol/L (22-32); Chloride 93 mmol/L (98-107); Estimated Glomerular Filt Rate > 60.0 mL/min (>60); Glucose 154 mg/dL (80-110); HEMOLYSIS < 15 (0-50); Sodium 134 mmol/L (137-145)
[2020-07-14 05:19] LABS: Add Manual Diff / Slide Review NO; Basophils Absolute Auto 0 /uL (0-100); Basophils Percent Auto 0.2 % (0-2); Eosinophils Absolute Auto 0 /uL (0-450); Hematocrit 46.2 % (36-46); Hemoglobin 16.2 g/dL (12.0-16.0); Lymphocytes Absolute Auto 1000 /uL (1100-4500); Lymphocytes Percent Auto 7.2 % (25-40); Mean Corpuscular Hemoglobin 30.8 PG (26-34); Monocytes Absolute Auto 700 /uL (0-900); Monocytes Percent Auto 5.3 % (3-14); Neutrophils Absolute Auto 12300 /uL (1500-7000); Neutrophils Percent Auto 87.3 % (50-75); Platelet Count 400 X10^3/uL (150-400); Red Blood Cell Count 5.25 X10^6/uL (4.0-5.2); Red Cell Distribution Width 13.7 % (11.6-14.8); White Blood Cell Count 14.1 X10^3/uL (4.5-11.0)
[2020-07-14] MEDS: PANTOPRAZOLE 20 MG TABLET PO (06:09)
[2020-07-14] MEDS: ONDANSETRON 4 MG ODT SL ×3 (07:19→20:55)
--- NOTE | 2020-07-14 09:44 | OT.IPNOTE ---
Per nursing pt is independent and able to shower on her own. Had pt do one step as she has one step in order to get into her house and able to complete independently, therefore discharge OT eval orders. No charge
--- NOTE | 2020-07-14 09:53 | PT.IPNOTE ---
Patient was seen by OT and she is independent and at baseline. We will discharge the PT order, MD and nurse notified.
[2020-07-14] MEDS: METOPROLOL IR 25 MG TABLET PO (10:03)
[2020-07-14] MEDS: POTASSIUM CHLORIDE 20 MEQ TAB 40 MEQ PO ×3 (10:03→21:27)
[2020-07-14] MEDS: HEPARIN 5,000 UNIT/ML VIAL 5000 UNIT SUBCUT ×2 (10:03→22:11)
[2020-07-14] MEDS: CITALOPRAM 10 MG TABLET PO (10:03)
[2020-07-14] MEDS: AMLODIPINE 5 MG TABLET 10 MG PO (10:03)
[2020-07-14] MEDS: SODIUM CHLORIDE 0.9% FLUSH 10 ML IV ×2 (10:04→21:28)
--- NOTE | 2020-07-14 10:19 | DI.RAD.S_ITS ---
PROCEDURE: XR CHEST 1V INDICATIONS: SHORTNESS OF BREATH TECHNIQUE: One view of the chest was acquired. COMPARISON: [facility], , XR CHEST 1V, 05/19/2020, 23:32. [facility], CR, XR CHEST 1V, 07/12/2020, 14:36. FINDINGS: Surgical changes and devices: None. Lungs and pleura: Lungs are clear. No pleural effusions or pneumothorax. Mediastinum: Mediastinal contours appear normal. Heart size is normal. Bones and chest wall: No suspicious bony lesions. Overlying soft tissues appear unremarkable. IMPRESSION: No acute cardiopulmonary disease. Dictated by: Zeb Chairez M.D. on 07/14/2020 at 10:42 Approved by: Zeb Chairez M.D. on 07/14/2020 at 10:43
--- NOTE | 2020-07-14 12:32 | CM.DPNOTE ---
DCP Cont According to Dr Padilla, patient may be ready for DC today, Negative cardiac w/u, however, WBC remains elevated and potassium is low. Patient will DC home w/family to transport if medically cleared today. Denies needs from this MUSIC PROFESSOR and cleared for return home by therapy team (independent) Plan: Home w/family expected today, w/ outpatient f/u JW
[2020-07-14 15:49] LABS: Bacteria Urine None Seen
[2020-07-14 15:54] LABS: Appearance Urine UA CLEAR; Bilirubin Urine UA NEGATIVE (NEGATIVE); Color Urine UA YELLOW; Glucose Urine UA NEGATIVE (Negative); Ketones Urine UA NEGATIVE (NEGATIVE); Leukocyte Esterase Urine UA NEGATIVE (NEGATIVE); Nitrite Urine UA NEGATIVE (Negative); Occult Blood Urine UA 2+ (Negative); Protein Urine UA 2+ (Negative); Specific Gravity Urine UA 1.015 (1.000-1.035); Urobilinogen Urine UA 0.2 E.U./dL (0.2)
[2020-07-14 16:02] LABS: Culture Indicated Urine Cult Not Indicated; RBC Urine 1-5/HPF (0-5/HPF); Squamous Epithelial Cell Urine 1-5 /HPF (0-5/HPF); WBC Urine 0-1/HPF (0-5/HPF)
--- NOTE | 2020-07-14 16:16 | P.PN_ITS ---
Subjective Subjective Date Patient Seen: 07/14/20 Time Patient Seen: 10:16 Interval history: Today feels worse. Had episode of vomitting this AM. [place] new shortness of breath and also feels jittery. New leukocytosis was noted this AM. She is denying abdominal pain, diarrhea, dysuria, cough. Exam Vital Signs (past 8 hours): - 07/14/20 11:41 07/14/20 15:56 Temperature 97.8 F 98.5 F Pulse Rate 76 83 Respiratory Rate 15 20 Blood Pressure 160/72 H 189/92 H Pulse Oximetry 100 100 Oxygen Delivery Method Room Air Oxygen Flow Rate 0 Narrative Exam Narrative: Exam Narrative: GENERAL APPEARANCE: Chronically ill appearing female, in no acute distress. SKIN: Inspection of the skin reveals no rashes, ulcerations or petechiae. HEENT: Normocephalic atraumatic, extraocular muscles are intact, oropharynx is clear and mucous membranes are moist, neck is supple without adenopathy NECK: Supple and symmetric. There was no thyroid enlargement, and no tenderness, or masses were felt. CHEST: Normal AP diameter and normal contour without any kyphoscoliosis. LUNGS: Auscultation of the lungs revealed no wheezes, rhonchi, or rales. CARDIOVASCULAR: There was a regular rate and rhythm without any murmurs, gallops, rubs. Peripheral pulses were 2+ and symmetric. ABDOMEN: Soft and nontender with normal bowel sounds. No ascites was noted. MUSCULOSKELETAL: There was no tenderness or effusions noted. Muscle strength and tone were normal. EXTREMITIES: No cyanosis, clubbing or edema. NEUROLOGIC: Alert. Normal affect. Strength is +5/5 in the Upper Extremities and Lower Extremities Bilaterally. Objective Labs Result Diagrams: 07/14/20 04:50 07/14/20 04:50 Labs: Laboratory Results - last 24 hr 07/14/20 07/14/20 07/14/20 04:50 04:50 13:45 WBC 14.1 H RBC 5.25 H Hgb 16.2 H Hct 46.2 H MCV 88.0 MCH 30.8 MCHC 35.0 RDW 13.7 Plt Count 400 Neut % (Auto) 87.3 H Lymph % (Auto) 7.2 L [place] % (Auto) 5.3 Eos % (Auto) 0.0 L Baso % (Auto) 0.2 Neut # (Auto) 81071 H Lymph # (Auto) 1000 L [place] # (Auto) 700 Eos # (Auto) 0 Baso # (Auto) 0 Sodium 134 L Potassium 3.0 L Chloride 93 L Carbon Dioxide 31 BUN 12 Creatinine 0.91 Estimated GFR > 60.0 BUN/Creatinine Ratio 13.2 Glucose 154 H Calcium 10.2 Magnesium 2.0 Total Bilirubin 0.7 Conjugated Bilirubin 0.0 Unconjugated Bilirubin 0.5 AST 26 ALT 15 Alkaline Phosphatase 114 Total Protein 9.0 H Albumin 5.0 Globulin 4.0 Albumin/Globulin Ratio 1.3 Urine Color Yellow Urine Appearance Clear Urine pH 7.0 Ur Specific [place] 1.015 Urine Protein 2+ H Urine Glucose (UA) Negative Urine Ketones Negative Urine Occult Blood 2+ H Urine Nitrate Negative Urine Bilirubin Negative Urine Urobilinogen 0.2 Ur Leukocyte Esterase Negative Urine RBC 1-5/hpf Urine WBC 0-1/hpf Ur Squamous Epith Cells 1-5 /hpf Urine Bacteria None seen Ur Culture Indicated? Cult not indicated PFSH Medical History Anxiety Hypertension Osteoarthritis Osteoporosis PTSD (post-traumatic stress disorder) Surgical History History of History of colonoscopy Social History household members: children Smoking Status: Current every day smoker alcohol intake: never Assessment & Plan Assessment & Plan narrative: 1. hypokalemia, acute on chronic, present on admission - K 2.1 on admission with QT prolongation on EKG / telemetry. Qtc 548 on admission EKG. - given 40 meq IV and PO, total 80 meq in the ER with improvement to 2.5, given another 80 meq today with only slight improvement to 2.6. Will give another 80 meq this evening. Repeat on 07/14 was 3.0 will plan for 40 TID today. - likely secondary to vomiting and dehydration and lack of potassium in diet according to nutrition. Possibly worsened by HCTZ. - vomiting may be secondary to marijuana use and cyclic vomiting, or related to hypertension. 2. Leukocytosis, new on 07/14 - WBC up to 14 from 10. No fevers, but she is complaining of chills. Will redo infectious workup with chest xray, urine culture. May need abdominal imaging pending these results 2. chest pain, acute, present on admission, improved - suspect GERD, however new ST depressions are noted on EKG, though borderline in V3-6. HEART score is 4. Repeat EKG unchanged, no active changes. And troponin negative x2. - stress testing negative - started PPI 20 mg daily with improvement - A1c 6.1%, TSH unremarkable, Total cholesterol 299, with LDL 211. Will start high intensity statin. 3. Hypertensive urgency in the setting of chronic hypertension - given labetalol in the ER. Will continue home amlodipine. Will switch patient to coreg from metoprolol for better blood pressure control. - continue amlodipine 10, given above abnormalities consider change to nifedipine or restarting lisinopril which she had been on previously. 4. Anixety/depression, PTSD - continue home citalopram. 5. pre-diabetes - A1c 6.1%. Elevated glucose on admission. Seen by nutrition. 6. mild hypercalcemia, present on admission, resolved - suspect in setting of dehydration and HCTZ use. held hctz. Now resolved. 7. Hyperlipidemia, present on admission - LDL 211. Will start high intensity statin therapy. 8. Dependency on nicotine, smokes 7 cigarettes a day. Now feels jittery, anxious, high blood pressure, possibly from withdrawal. Start 14mg/day nicotine patch. Code: Full, surrogate decision maker is the patient's daughter. DVT: HSQ Dispo: changed to inpatient status today. Quality VTE Deep Vein Thrombosis/Pulmonary Embolism Present on Admission: No MIPS - Admit Advanced Care Plan / Current Medications Measures: #47 ? Advanced Care Plan Clinician documentation instruction: document at admission. [] I confirmed that the patient's Advance Care Plan is present, code status is documented, or surrogate decision maker is listed in the patient?s medical record. [SATISFIES [facility] PERFORMANCE] If Yes, Stop Here [] The patient?s Advance Care plan is not present because: (select) [MIPS PERFORMANCE EXCEPTION/EXCLUSION] [] I confirmed today that the patient does not wish or was not able to name a surrogate decision maker or provide an Advance Care Plan. [] Hospice care is currently being provided or has been provided this calendar year [] I did NOT confirm today the presence of an Advance Care Plan or surrogate decision maker documented within the patient's medical record. [DOES NOT SATISFY MIPS PERFORMANCE] #130 - Documentation of Current Medications in the Medical Record Clinician documentation instruction: use macro the first time you see a patient. [] I have utilized all available immediate resources to obtain, update, or review the patient?s current medications. [SATISFIES MIPS PERFORMANCE] If Yes, Stop Here [] The patient is not eligible for medication reconciliation; the patient is in an emergent medical situation where delaying treatment would jeopardize the patient?s health. [MIPS PERFORMANCE EXCEPTION/EXCLUSION] [] I did NOT confirm, update or review the patient's current list of medications today. [DOES NOT SATISFY MIPS PERFORMANCE] MIPS - CL Central Venous Catheter Placement Measure: #76 ? Prevention of Central Venous Catheter (CVC) ? Related Bloodstream Infection Clinician documentation instruction: use macro every time you place a central line. [] All elements of Maximal Sterile Barrier Technique, including hand hygiene, skin prep, and sterile ultrasound technique (if used) were followed. [SATISFIES MIPS PERFORMANCE] If Yes, Stop Here [] If ?No?, the medical reason all elements were NOT used for medical reason [] (ex. emergent condition). [] Maximal Sterile Barrier Technique was not followed, no reason provided [DOES NOT SATISFY MIPS PERFORMANCE] MIPS - DC Heart Failure Measures: #5 - Heart Failure (HF): Angiotensin-Converting Enzyme (MOI) Inhibitor or Angiotensin Receptor Hakan (ARB) Therapy for Left Ventricular Systolic Dysfunction (LVSD) and #8 - Heart Failure (HF): Beta-Hakan Therapy for Left Ventricular Systolic Dysfunction (LVSD) Clinician documentation instruction: use macro at every CHF discharge. [] The patient has current or prior documentation of left ventricular ejection fraction (LVEF) less than 40%, or moderate or severely depressed left ventric ular systolic function. Answer both: [SATISFIES MIPS PERFORMANCE] [] The patient was prescribed or already taking an Angiotensin-Converting Enzyme (MOI) Inhibitor, or Angiotensin Receptor Hakan (ARB). [] The patient was prescribed or already taking a beta-hakan. If Yes to Both, Stop Here [] Patient not prescribed/taking: [MIPS PERFORMANCE EXCEPTION/EXCLUSION] [] MOI or ARB for medical/patient/system reason(s) including [] (ex. allergy, intolerance, contraindication) [] Beta-hakan for medical/patient/system reason(s) including [] (ex. allergy, intolerance, contraindication) [] Patient not prescribed/taking: [DOES NOT SATISFY MIPS PERFORMANCE] [] MOI or ARB, no reason given [] Beta-hakan, no reason given
[2020-07-14] MEDS: carvediloL 3.125 MG TABLET 6.25 MG PO ×2 (16:41→21:27)
[2020-07-14] MEDS: NICOTINE 14 PATCH 14 MG TOP (16:44)
[2020-07-14 20:23] LABS: Add Manual Diff / Slide Review NO; Basophils Absolute Auto 0 /uL (0-100); Basophils Percent Auto 0.4 % (0-2); Eosinophils Absolute Auto 0 /uL (0-450); Hematocrit 47.2 % (36-46); Hemoglobin 16.6 g/dL (12.0-16.0); Lymphocytes Absolute Auto 1300 /uL (1100-4500); Lymphocytes Percent Auto 9.8 % (25-40); Mean Corpuscular HGB Conc 35.2 % (30-36); Mean Corpuscular Hemoglobin 30.7 PG (26-34); Mean Corpuscular Volume 87.1 fL (80-100); Monocytes Absolute Auto 1100 /uL (0-900); Monocytes Percent Auto 8.4 % (3-14); Neutrophils Absolute Auto 10400 /uL (1500-7000); Neutrophils Percent Auto 81.4 % (50-75); Platelet Count 421 X10^3/uL (150-400); Red Blood Cell Count 5.41 X10^6/uL (4.0-5.2); Red Cell Distribution Width 13.6 % (11.6-14.8); White Blood Cell Count 12.7 X10^3/uL (4.5-11.0)
[2020-07-14 20:36] LABS: BUN Creatinine Ratio 14.4 (6-22); Blood Urea Nitrogen 17 mg/dL (7-17); Calcium 10.5 mg/dL (8.4-10.2); Carbon Dioxide 29 mmol/L (22-32); Chloride 90 mmol/L (98-107); Estimated Glomerular Filt Rate 46.6 mL/min (>60); Glucose 139 mg/dL (80-110); HEMOLYSIS 16 (0-50); Potassium 2.8 mmol/L (3.4-5.1); Sodium 133 mmol/L (137-145)
[2020-07-14] MEDS: ATORVASTATIN 20 MG TABLET 80 MG PO (21:28)
[2020-07-14] MEDS: ACETAMINOPHEN 325 MG TABLET 650 MG PO (22:12)
[2020-07-14] MEDS: SENNOSIDES 8.6 MG TABLET PO (22:58)
--- NOTE | 2020-07-14 23:22 | PC.NURSE ---
Patient VSS on RA, afebrile. C/O nausea today with clear emesis reports unable to eat a full meal since Friday night. SBP elevated to 180's this shift, provider notified and received orders to d/c metoprolol. Pt started on correg this evening and tolerated well without s/sx of ASE. BP improvied this evening.NSR on telemetry. Patient continues to request multiple showers a day to relieve nausea. Zofran given q 4 hours this shift with good effect to keep medications down, however continues to have decreased appetite. Reports feeling constipated the day of admission and states today as day 3 w/o a BM. Provider notified and started on senna 1 tab BID.
[2020-07-15] VITALS (13 sets, daily range): BP systolic 128–190; BP diastolic 71–103; PULSE 81–88; RESP 16–23; TEMP 36.2–37; O2SAT 96–100
[2020-07-15] MEDS: ONDANSETRON 4 MG ODT SL ×5 (00:58→22:20)
[2020-07-15 05:02] LABS: Add Manual Diff / Slide Review NO; Basophils Absolute Auto 0 /uL (0-100); Basophils Percent Auto 0.4 % (0-2); Eosinophils Absolute Auto 0 /uL (0-450); Eosinophils Percent Auto 0.1 % (2-4); Hematocrit 49.1 % (36-46); Hemoglobin 17.2 g/dL (12.0-16.0); Lymphocytes Absolute Auto 1600 /uL (1100-4500); Lymphocytes Percent Auto 14.1 % (25-40); Mean Corpuscular Hemoglobin 30.5 PG (26-34); Mean Corpuscular Volume 87.1 fL (80-100); Monocytes Absolute Auto 1000 /uL (0-900); Monocytes Percent Auto 9.1 % (3-14); Neutrophils Absolute Auto 8800 /uL (1500-7000); Neutrophils Percent Auto 76.3 % (50-75); Platelet Count 470 X10^3/uL (150-400); Red Blood Cell Count 5.63 X10^6/uL (4.0-5.2); Red Cell Distribution Width 13.8 % (11.6-14.8); White Blood Cell Count 11.5 X10^3/uL (4.5-11.0)
[2020-07-15 05:16] LABS: Albumin 5.2 g/dL (3.5-5.0); Albumin Globulin Ratio 1.3 (1.0-2.8); Alkaline Phosphatase 122 U/L (38-126); Aspartate Aminotransferase 31 IU/L (14-36); BUN Creatinine Ratio 13.6 (6-22); Bilirubin Unconjugated 0.9 mg/dL (0.0-1.1); Blood Urea Nitrogen 19 mg/dL (7-17); Calcium 10.6 mg/dL (8.4-10.2); Carbon Dioxide 27 mmol/L (22-32); Chloride 90 mmol/L (98-107); Estimated Glomerular Filt Rate 38.2 mL/min (>60); Globulin 4.1 g/dL (1.7-4.1); Glucose 200 mg/dL (80-110); HEMOLYSIS < 15 (0-50); Potassium 3.1 mmol/L (3.4-5.1); Sodium 132 mmol/L (137-145); Total Protein 9.3 g/dL (6.3-8.2)
[2020-07-15 05:22] LABS: Alanine Aminotransferase 22 IU/L (<35)
[2020-07-15] MEDS: PANTOPRAZOLE 20 MG TABLET PO (06:24)
--- NOTE | 2020-07-15 08:06 | DI.US.S_ITS ---
PROCEDURE: US RENAL COMPLETE INDICATIONS: ACUTE RENAL FAILURE TECHNIQUE: Real-time scanning was performed of the kidneys and bladder, with image documentation. COMPARISON: None. FINDINGS: Kidneys: Kidneys are normal in size. Right kidney measures 5.9 cm long; left kidney measures 10.7 cm long. Right renal cortical thickness is 0.6 cm; left renal cortical thickness is 1.5 cm. Renal cortical echotexture is normal. No hydronephrosis or nephrolithiasis. No suspicious solid mass lesions. Bladder: Pre-void bladder volume is 253 mL. Post-void residual is 0 mL. Pre-void images demonstrate no intraluminal masses or stones. Miscellaneous: No free pelvic fluid. IMPRESSION: Chronic right renal atrophy. Dictated by: Ken Ag M.D. on 07/15/2020 at 15:26 Approved by: Ken Ag M.D. on 07/15/2020 at 15:32
[2020-07-15] MEDS: NICOTINE 14 PATCH 14 MG TOP (08:57)
[2020-07-15] MEDS: carvediloL 3.125 MG TABLET 6.25 MG PO ×2 (08:58→21:02)
[2020-07-15] MEDS: SODIUM CHLORIDE 0.9% FLUSH 10 ML IV ×2 (08:59→21:13)
[2020-07-15] MEDS: AMLODIPINE 5 MG TABLET 10 MG PO (08:59)
[2020-07-15] MEDS: CITALOPRAM 10 MG TABLET PO (08:59)
[2020-07-15] MEDS: HEPARIN 5,000 UNIT/ML VIAL 5000 UNIT SUBCUT ×2 (08:59→21:02)
[2020-07-15] MEDS: SENNOSIDES 8.6 MG TABLET PO ×2 (08:59→21:04)
[2020-07-15] MEDS: SODIUM CHLORIDE 0.9% 1,000 ML 999 ML IV (10:06)
[2020-07-15] MEDS: POTASSIUM CHLORIDE 20 MEQ/15 ML UDC 40 MEQ PO (12:21)
[2020-07-15] MEDS: POTASSIUM CHLORIDE 40 MEQ in SODIUM CHLORIDE 0.9% 500 ML 130 ML IV (12:41)
--- NOTE | 2020-07-15 14:56 | PM.PN.1 ---
Subjective Subjective Date Patient Seen: 07/15/20 Time Patient Seen: 12:30 Interval history: She continues to complain of nausea. She feels slightly better after a shower. Still not eating well at all. Denies any pain. Exam Vital Signs (past 8 hours): - 07/15/20 07:00 07/15/20 08:58 07/15/20 10:00 Temperature 97.6 F Pulse Rate 83 Respiratory Rate 20 Blood Pressure 181/92 H 181/92 H Pulse Oximetry 100 100 07/15/20 11:00 07/15/20 14:22 Temperature 97.9 F Pulse Rate 81 Respiratory Rate 20 Blood Pressure 156/71 H Pulse Oximetry 100 100 Oxygen Delivery Method Room Air Oxygen Flow Rate 0 Narrative Exam Narrative: GENERAL APPEARANCE: Chronically ill appearing female, in no acute distress. SKIN: Inspection of the skin reveals no rashes, ulcerations or petechiae. HEENT: Normocephalic atraumatic, extraocular muscles are intact, oropharynx is clear and mucous membranes are dry, neck is supple without adenopathy NECK: Supple and symmetric. There was no thyroid enlargement, and no tenderness, or masses were felt. CHEST: Normal AP diameter and normal contour without any kyphoscoliosis. LUNGS: Auscultation of the lungs revealed no wheezes, rhonchi, or rales. CARDIOVASCULAR: There was a regular rate and rhythm without any murmurs, gallops, rubs. Peripheral pulses were 2+ and symmetric. ABDOMEN: Soft and nontender with normal bowel sounds. No ascites was noted. MUSCULOSKELETAL: There was no tenderness or effusions noted. Muscle strength and tone were normal. EXTREMITIES: No cyanosis, clubbing or edema. NEUROLOGIC: Alert. Normal affect. Strength is +5/5 in the Upper Extremities and Lower Extremities Bilaterally. Objective Labs Result Diagrams: 07/15/20 04:40 07/15/20 04:40 Labs: Laboratory Results - last 24 hr 07/14/20 07/14/20 07/14/20 13:45 20:06 20:06 WBC 12.7 H RBC 5.41 H Hgb 16.6 H Hct 47.2 H MCV 87.1 MCH 30.7 MCHC 35.2 RDW 13.6 Plt Count 421 H Neut % (Auto) 81.4 H Lymph % (Auto) 9.8 L [place] % (Auto) 8.4 Eos % (Auto) 0.0 L Baso % (Auto) 0.4 Neut # (Auto) 17171 H Lymph # (Auto) 1300 [place] # (Auto) 1100 H Eos # (Auto) 0 Baso # (Auto) 0 Sodium 133 L Potassium 2.8 L Chloride 90 L Carbon Dioxide 29 BUN 17 Creatinine 1.18 H Estimated GFR 46.6 L BUN/Creatinine Ratio 14.4 Glucose 139 H Calcium 10.5 H Magnesium Total Bilirubin Conjugated Bilirubin Unconjugated Bilirubin AST ALT Alkaline Phosphatase Total Protein Albumin Globulin Albumin/Globulin Ratio Urine Color Yellow Urine Appearance Clear Urine pH 7.0 Ur Specific [place] 1.015 Urine Protein 2+ H Urine Glucose (UA) Negative Urine Ketones Negative Urine Occult Blood 2+ H Urine Nitrate Negative Urine Bilirubin Negative Urine Urobilinogen 0.2 Ur Leukocyte Esterase Negative Urine RBC 1-5/hpf Urine WBC 0-1/hpf Ur Squamous Epith Cells 1-5 /hpf Urine Bacteria None seen Ur Culture Indicated? Cult not indicated 07/15/20 07/15/20 04:40 04:40 WBC 11.5 H RBC 5.63 H Hgb 17.2 H Hct 49.1 H MCV 87.1 MCH 30.5 MCHC 35.0 RDW 13.8 Plt Count 470 H Neut % (Auto) 76.3 H Lymph % (Auto) 14.1 L [place] % (Auto) 9.1 Eos % (Auto) 0.1 L Baso % (Auto) 0.4 Neut # (Auto) 8800 H Lymph # (Auto) 1600 [place] # (Auto) 1000 H Eos # (Auto) 0 Baso # (Auto) 0 Sodium 132 L Potassium 3.1 L Chloride 90 L Carbon Dioxide 27 BUN 19 H Creatinine 1.40 H Estimated GFR 38.2 L BUN/Creatinine Ratio 13.6 Glucose 200 H Calcium 10.6 H Magnesium 2.0 Total Bilirubin 1.0 Conjugated Bilirubin 0.0 Unconjugated Bilirubin 0.9 AST 31 ALT 22 Alkaline Phosphatase 122 Total Protein 9.3 H Albumin 5.2 H Globulin 4.1 Albumin/Globulin Ratio 1.3 Urine Color Urine Appearance Urine pH Ur Specific [place] Urine Protein Urine Glucose (UA) Urine Ketones Urine Occult Blood Urine Nitrate Urine Bilirubin Urine Urobilinogen Ur Leukocyte Esterase Urine RBC Urine WBC Ur Squamous Epith Cells Urine Bacteria Ur Culture Indicated? [facility] Medical History Anxiety Hypertension Osteoarthritis Osteoporosis PTSD (post-traumatic stress disorder) Surgical History History of History of colonoscopy Social History household members: children Smoking Status: Current every day smoker alcohol intake: never Assessment & Plan Assessment & Plan narrative: Ms. Diggs is a 60W with recurrent nausea and vomitting, came in the chest pain, found to have severe hypokalemia, now developed new GWENDOLYN. 1. Acute Kidney Injury - has baseline per labs near 0.9. Today creatinine increased to 1.4. Patient does appear slightly volume depleted due to vomiting. No IV contrast meds, no nephrotoxic medications. Considering possibly hypokalemia induced renal dysfunction. - order renal ultrasound - IV saline bolus for possible prerenal etiology - continue aggressive potassium repletion with IV 1. hypokalemia, acute on chronic, present on admission - K 2.1 on admission with QT prolongation on EKG / telemetry. Qtc 548 on admission EKG. - with aggressive repletion improved to only 3.1. Mag ok. Will try IV as vomiting may be causing poor absorption. - likely secondary to vomiting and dehydration and lack of potassium in diet according to nutrition. Hypokalemia possibly worsened by HCTZ. - vomiting may be secondary to marijuana use and cyclic vomiting, or related to hypertension. On PPI now. 2. Leukocytosis, new on 07/14, but improving on 07/15 - WBC up to 14 from 10 now back to 11. Infectious workup negative with cultures and chest xray. 2. chest pain, acute, present on admission, improved - suspect GERD, however new ST depressions are noted on EKG, though borderline in V3-6. HEART score is 4. Repeat EKG unchanged, no active changes. And troponin negative x2. - stress testing negative - started PPI 20 mg daily with improvement - A1c 6.1%, TSH unremarkable, Total cholesterol 299, with LDL 211. Continue newly started statin. 3. Hypertensive urgency in the setting of chronic hypertension, possibly worsened with persistent hypokalemia - given labetalol in the ER. Will continue home amlodipine. Will switch patient to coreg from metoprolol for better blood pressure control. - continue amlodipine 10, given above abnormalities consider change to nifedipine or restarting lisinopril which she had been on previously. 4. Anixety/depression, PTSD - continue home citalopram. 5. pre-diabetes - A1c 6.1%. Elevated glucose on admission. Seen by nutrition. 6. mild hypercalcemia, present on admission, resolved - suspect in setting of dehydration and HCTZ use. held hctz. Continue to monitor. 7. Hyperlipidemia, present on admission - LDL 211. Will start high intensity statin therapy. 8. Dependency on nicotine, smokes 7 cigarettes a day. Now feels jittery, anxious, high blood pressure, possibly from withdrawal. Start 14mg/day nicotine patch. Code: Full, surrogate decision maker is the patient's daughter. DVT: HSQ Dispo: changed to inpatient status today. Quality VTE Deep Vein Thrombosis/Pulmonary Embolism Present on Admission: No MIPS - Admit Advanced Care Plan / Current Medications Measures: #47 ? Advanced Care Plan Clinician documentation instruction: document at admission. [] I confirmed that the patient's Advance Care Plan is present, code status is documented, or surrogate decision maker is listed in the patient?s medical record. [SATISFIES MIPS PERFORMANCE] If Yes, Stop Here [] The patient?s Advance Care plan is not present because: (select) [MIPS PERFORMANCE EXCEPTION/EXCLUSION] [] I confirmed today that the patient does not wish or was not able to name a surrogate decision maker or provide an Advance Care Plan. [] Hospice care is currently being provided or has been provided this calendar year [] I did NOT confirm today the presence of an Advance Care Plan or surrogate decision maker documented within the patient's medical record. [DOES NOT SATISFY MIPS PERFORMANCE] #130 - Documentation of Current Medications in the Medical Record Clinician documentation instruction: use macro the first time you see a patient. [] I have utilized all available immediate resources to obtain, update, or review the patient?s current medications. [SATISFIES MIPS PERFORMANCE] If Yes, Stop Here [] The patient is not eligible for medication reconciliation; the patient is in an emergent medical situation where delaying treatment would jeopardize the patient?s health. [MIPS PERFORMANCE EXCEPTION/EXCLUSION] [] I did NOT confirm, update or review the patient's current list of medications today. [DOES NOT SATISFY MIPS PERFORMANCE] MIPS - CL Central Venous Catheter Placement Measure: #76 ? Prevention of Central Venous Catheter (CVC) ? Related Bloodstream Infection Clinician documentation instruction: use macro every time you place a central line. [] All elements of Maximal Sterile Barrier Technique, including hand hygiene, skin prep, and sterile ultrasound technique (if used) were followed. [SATISFIES MIPS PERFORMANCE] If Yes, Stop Here [] If ?No?, the medical reason all elements were NOT used for medical reason [] (ex. emergent condition). [] Maximal Sterile Barrier Technique was not followed, no reason provided [DOES NOT SATISFY MIPS PERFORMANCE] MIPS - DC Heart Failure Measures: #5 - Heart Failure (HF): Angiotensin-Converting Enzyme (MOI) Inhibitor or Angiotensin Receptor Hakan (ARB) Therapy for Left Ventricular Systolic Dysfunction (LVSD) and #8 - Heart Failure (HF): Beta-Hakan Therapy for Left Ventricular Systolic Dysfunction (LVSD) Clinician documentation instruction: use macro at every CHF discharge. [] The patient has current or prior documentation of left ventricular ejection fraction (LVEF) less than 40%, or moderate or severely depressed left ventricular systolic function. Answer both: [SATISFIES MIPS PERFORMANCE] [] The patient was prescribed or already taking an Angiotensin-Converting Enzyme (MOI) Inhibitor, or Angiotensin Receptor Hakan (ARB). [] The patient was prescribed or already taking a beta-hakan. If Yes to Both, Stop Here [] Patient not prescribed/taking: [MIPS PERFORMANCE EXCEPTION/EXCLUSION] [] MOI or ARB for medical/patient/system reason(s) including [] (ex. allergy, intolerance, contraindication) [] Beta-hakan for medical/patient/system reason(s) including [] (ex. allergy, intolerance, contraindication) [] Patient not prescribed/taking: [DOES NOT SATISFY MIPS PERFORMANCE] [] MOI or ARB, no reason given [] Beta-hakan, no reason given
[2020-07-15] MEDS: SODIUM CHLORIDE 0.9% 1,000 ML 1000 ML IV (17:57)
[2020-07-15 18:32] LABS: Blood Urea Nitrogen 20 mg/dL (7-17); Calcium 9.9 mg/dL (8.4-10.2); Carbon Dioxide 24 mmol/L (22-32); Chloride 95 mmol/L (98-107); Estimated Glomerular Filt Rate 40.6 mL/min (>60); Glucose 140 mg/dL (80-110); HEMOLYSIS 22 (0-50); Potassium 3.7 mmol/L (3.4-5.1); Sodium 133 mmol/L (137-145)
[2020-07-15 19:11] LABS: Add Manual Diff / Slide Review NO; Basophils Absolute Auto 0 /uL (0-100); Basophils Percent Auto 0.2 % (0-2); Eosinophils Absolute Auto 0 /uL (0-450); Hematocrit 48.1 % (36-46); Hemoglobin 16.3 g/dL (12.0-16.0); Lymphocytes Absolute Auto 1600 /uL (1100-4500); Mean Corpuscular HGB Conc 33.8 % (30-36); Mean Corpuscular Hemoglobin 29.9 PG (26-34); Mean Corpuscular Volume 88.5 fL (80-100); Monocytes Absolute Auto 1100 /uL (0-900); Monocytes Percent Auto 8.7 % (3-14); Neutrophils Absolute Auto 10300 /uL (1500-7000); Neutrophils Percent Auto 79.1 % (50-75); Platelet Count 425 X10^3/uL (150-400); Red Blood Cell Count 5.43 X10^6/uL (4.0-5.2); Red Cell Distribution Width 13.5 % (11.6-14.8)
[2020-07-15] MEDS: ATORVASTATIN 20 MG TABLET 80 MG PO (21:02)
[2020-07-16] VITALS (21 sets, daily range): BP systolic 112–178; BP diastolic 68–99; PULSE 62–82; RESP 16–22; TEMP 36.3–37.9; O2SAT 94–98
[2020-07-16] MEDS: ONDANSETRON 4 MG ODT SL (03:13)
--- NOTE | 2020-07-16 03:26 | PC.NURSE ---
Addendum entered by Lanny Panchal R.N. 07/16/20 04:22: at 0420 bp came down to 142/79 Original Note: pts bp at 0330 was 178/99, pt is not having any other sx's and all other vitals are stable. Nurse notified the hospitalist and orders were given for one time dose of her coreg and then continue with regular dose at 0900.
[2020-07-16] MEDS: carvediloL 3.125 MG TABLET PO (03:34)
[2020-07-16] MEDS: PANTOPRAZOLE 20 MG TABLET PO (05:45)
[2020-07-16 06:11] LABS: Hematocrit 40.6 % (36-46); Hemoglobin 14.4 g/dL (12.0-16.0); Mean Corpuscular HGB Conc 35.4 % (30-36); Mean Corpuscular Hemoglobin 30.7 PG (26-34); Mean Corpuscular Volume 86.8 fL (80-100); Platelet Count 322 X10^3/uL (150-400); Red Blood Cell Count 4.67 X10^6/uL (4.0-5.2); Red Cell Distribution Width 13.5 % (11.6-14.8); White Blood Cell Count 10.9 X10^3/uL (4.5-11.0)
[2020-07-16 06:19] LABS: Blood Urea Nitrogen 20 mg/dL (7-17); Carbon Dioxide 29 mmol/L (22-32); Chloride 92 mmol/L (98-107); Sodium 130 mmol/L (137-145)
[2020-07-16 06:20] LABS: BUN Creatinine Ratio 14.8 (6-22); Calcium 9.3 mg/dL (8.4-10.2); Estimated Glomerular Filt Rate 39.9 mL/min (>60); Glucose 128 mg/dL (80-110); HEMOLYSIS < 15 (0-50)
[2020-07-16 06:31] LABS: Potassium 2.5 mmol/L (3.4-5.1)
[2020-07-16] MEDS: NICOTINE 14 PATCH 14 MG TOP (08:21)
[2020-07-16] MEDS: carvediloL 12.5 MG TABLET PO ×2 (08:21→20:54)
[2020-07-16] MEDS: HEPARIN 5,000 UNIT/ML VIAL 5000 UNIT SUBCUT ×2 (08:21→20:53)
[2020-07-16] MEDS: CITALOPRAM 10 MG TABLET PO (08:21)
[2020-07-16] MEDS: AMLODIPINE 5 MG TABLET 10 MG PO (08:22)
[2020-07-16] MEDS: SENNOSIDES 8.6 MG TABLET PO (08:22)
[2020-07-16] MEDS: SODIUM CHLORIDE 0.9% FLUSH 10 ML IV (08:23)
[2020-07-16 08:26] LABS: Creatinine Urine Random 22.7 mg/dL; Potassium Urine Random 23.2 mmol/L
[2020-07-16] MEDS: POTASSIUM CHLORIDE 20 MEQ/15 ML UDC 40 MEQ PO (09:12)
--- NOTE | 2020-07-16 11:38 | PC.NURSE ---
08:20 attempted IV start without success. Pt's states does have difficult rolling veins. Discussed attempt with ED. notified hospitalist and discussed getting midline placed by [facility] as they were placing a PICC on another Pt. Midline ordered.
[2020-07-16] MEDS: SODIUM CHLORIDE 0.9% 1,000 ML 1000 ML IV (13:00)
[2020-07-16] MEDS: POTASSIUM CHLORIDE 40 MEQ in SODIUM CHLORIDE 0.9% 500 ML 130 ML IV ×2 (13:01→18:16)
--- NOTE | 2020-07-16 13:28 | CM.DPC ---
DCP Cont: Per MD, pt continues to have difficulty with intake and ongoing nausea but no vomiting with unknown etiology. Pt also has had worsening kidney function with critical K today and not stable for d/c yet today. SW met bedside with pt and explained role and she confirms that once she is stable for d/c her preference is home with her Dtr where she helps take care of her 8 year old grandson and then her other Dtr will come over for additional assist. Pt confirms that she does not feel medically stable to d/c yet and is hopeful to feel better soon so that she has enough energy to see my grandson. Pt confirms that she is still ambulating well and denies the need for HH. Per PT, recommending still safe d/c home with family assist. Plan: SW to follow for likely d/c home tomorrow via Dtr POV if medically stable. SW to follow for any further identified needs. Chikis Robertson MSW
[2020-07-16] MEDS: SODIUM CHLORIDE 0.9% 1,000 ML 125 ML IV ×2 (14:10→23:26)
--- NOTE | 2020-07-16 17:19 | P.PN_ITS ---
Subjective Subjective Date Patient Seen: 07/16/20 Time Patient Seen: 11:00 Interval history: She feels improved. Still has some nausea, but denies vomiting. She is still not eating well at all. No pain. She is urinating a lot. Exam Vital Signs (past 8 hours): - 07/16/20 11:07 07/16/20 13:09 07/16/20 15:34 Temperature 97.3 F L 99.6 F Pulse Rate 77 78 Respiratory Rate 16 16 Blood Pressure 138/76 160/84 H Pulse Oximetry 97 97 98 Oxygen Delivery Method Room Air Oxygen Flow Rate 0 Narrative Exam Narrative: GENERAL APPEARANCE: Chronically ill appearing female, in no acute distress. SKIN: Inspection of the skin reveals no rashes, ulcerations or petechiae. HEENT: Normocephalic atraumatic, extraocular muscles are intact, oropharynx is clear and mucous membranes are very dry, neck is supple without adenopathy NECK: Supple and symmetric. There was no thyroid enlargement, and no tenderness, or masses were felt. CHEST: Normal AP diameter and normal contour without any kyphoscoliosis. LUNGS: Auscultation of the lungs revealed no wheezes, rhonchi, or rales. CARDIOVASCULAR: There was a regular rate and rhythm without any murmurs, gallops, rubs. Peripheral pulses were 2+ and symmetric. ABDOMEN: Soft and nontender with normal bowel sounds. No ascites was noted. MUSCULOSKELETAL: There was no tenderness or effusions noted. Muscle strength and tone were normal. EXTREMITIES: No cyanosis, clubbing or edema. NEUROLOGIC: Alert. Normal affect. Strength is +5/5 in the Upper Extremities and Lower Extremities Bilaterally. Objective Labs Result Diagrams: 07/16/20 05:36 07/16/20 05:36 Labs: Laboratory Results - last 24 hr 07/15/20 07/15/20 07/15/20 18:00 18:00 18:00 WBC 13.0 H RBC 5.43 H Hgb 16.3 H Hct 48.1 H MCV 88.5 MCH 29.9 MCHC 33.8 RDW 13.5 Plt Count 425 H Neut % (Auto) 79.1 H Lymph % (Auto) 12.0 L [place] % (Auto) 8.7 Eos % (Auto) 0.0 L Baso % (Auto) 0.2 Neut # (Auto) 21243 H Lymph # (Auto) 1600 [place] # (Auto) 1100 H Eos # (Auto) 0 Baso # (Auto) 0 Sodium 133 L Potassium 3.7 Cancelled Chloride 95 L Carbon Dioxide 24 BUN 20 H Creatinine 1.33 H Estimated GFR 40.6 L BUN/Creatinine Ratio 15.0 Glucose 140 H Calcium 9.9 Ur Random Potassium Urine Creatinine 07/16/20 07/16/20 07/16/20 05:36 05:36 08:00 WBC 10.9 RBC 4.67 Hgb 14.4 Hct 40.6 MCV 86.8 MCH 30.7 MCHC 35.4 RDW 13.5 Plt Count 322 Neut % (Auto) Lymph % (Auto) [place] % (Auto) Eos % (Auto) Baso % (Auto) Neut # (Auto) Lymph # (Auto) [place] # (Auto) Eos # (Auto) Baso # (Auto) Sodium 130 L Potassium 2.5 L* D Chloride 92 L Carbon Dioxide 29 BUN 20 H Creatinine 1.35 H Estimated GFR 39.9 L BUN/Creatinine Ratio 14.8 Glucose 128 H Calcium 9.3 Ur Random Potassium 23.2 Urine Creatinine 22.7 PFSH Medical History Anxiety Hypertension Osteoarthritis Osteoporosis PTSD (post-traumatic stress disorder) Surgical History History of History of colonoscopy Social History household members: children Smoking Status: Current every day smoker alcohol intake: never Assessment & Plan Assessment & Plan narrative: 1. Acute Kidney Injury - has baseline per labs near 0.9 which increased to 1.4. Today improved to 1.3. Patient does appear volume depleted. No IV contrast meds, no nephrotoxic medications. Considering possibly hypokalemia induced renal dysfunction. Renal ultrasound shows no acute process - IV saline bolus for hypovolemia - continue aggressive potassium repletion with IV 2. hypokalemia, acute on chronic, present on admission. dropped significatnly again from 3 PM to 07/16 AM from 3.7->2.5 without any obvious vomiting, diarrhea, or diuretic use. - K 2.1 on admission with QT prolongation on EKG / telemetry. Qtc 548 on admission EKG. - with aggressive repletion improved to only 3.1. Mag ok. Will try IV as vomiting may be causing poor absorption. - likely secondary to vomiting and dehydration and lack of potassium in diet according to nutrition. Hypokalemia possibly worsened by HCTZ. However as it continues to worsen as K is controlled will rule out potassium urinary wasting. Think this is less likely, and most likely due to poor intake and GI losses. - vomiting may be secondary to marijuana use and cyclic vomiting, or related to hypertension. On PPI now. 3. Leukocytosis, new on 07/14, but improving on 07/15 - WBC up to 14 from 10 now back to 11. Infectious workup negative with cultures and chest xray. 4. chest pain, acute, present on admission, improved - suspect GERD, however new ST depressions are noted on EKG, though borderline in V3-6. HEART score is 4. Repeat EKG unchanged, no active changes. And troponin negative x2. - stress testing negative - started PPI 20 mg daily with improvement - A1c 6.1%, TSH unremarkable, Total cholesterol 299, with LDL 211. Continue newly started statin. 5. Hypertensive urgency in the setting of chronic hypertension, possibly worsened with persistent hypokalemia - given labetalol in the ER. Will continue home amlodipine. Will switch patient to coreg from metoprolol for better blood pressure control. - continue amlodipine 10, given above abnormalities consider change to nifedipine or restarting lisinopril which she had been on previously. 6. Anixety/depression, PTSD - continue home citalopram. 7. pre-diabetes - A1c 6.1%. Elevated glucose on admission. Seen by nutrition. 8. mild hypercalcemia, present on admission, resolved - suspect in setting of dehydration and HCTZ use. held hctz. Continue to monitor. 9. Hyperlipidemia, present on admission - LDL 211. Will start high intensity statin therapy. 10. Dependency on nicotine, smokes 7 cigarettes a day. Now feels jittery, anxious, high blood pressure, possibly from withdrawal. Start 14mg/day nicotine patch. Code: Full, surrogate decision maker is the patient's daughter. DVT: HSQ Quality VTE Deep Vein Thrombosis/Pulmonary Embolism Present on Admission: No MIPS - Admit Advanced Care Plan / Current Medications Measures: #47 ? Advanced Care Plan Clinician documentation instruction: document at admission. [] I confirmed that the patient's Advance Care Plan is present, code status is documented, or surrogate decision maker is listed in the patient?s medical record. [SATISFIES MIPS PERFORMANCE] If Yes, Stop Here [] The patient?s Advance Care plan is not present because: (select) [MIPS PERFORMANCE EXCEPTION/EXCLUSION] [] I confirmed today that the patient does not wish or was not able to name a surrogate decision maker or provide an Advance Care Plan. [] Hospice care is currently being provided or has been provided this calendar year [] I did NOT confirm today the presence of an Advance Care Plan or surrogate decision maker documented within the patient's medical record. [DOES NOT SATISFY MIPS PERFORMANCE] #130 - Documentation of Current Medications in the Medical Record Clinician documentation instruction: use macro the first time you see a patient. [] I have utilized all available immediate resources to obtain, update, or review the patient?s current medications. [SATISFIES MIPS PERFORMANCE] If Yes, Stop Here [] The patient is not eligible for medication reconciliation; the patient is in an emergent medical situation where delaying treatment would jeopardize the patient?s health. [MIPS PERFORMANCE EXCEPTION/EXCLUSION] [] I did NOT confirm, update or review the patient's current list of medications today. [DOES NOT SATISFY MIPS PERFORMANCE] MIPS - CL Central Venous Catheter Placement Measure: #76 ? Prevention of Central Venous Catheter (CVC) ? Related Bloodstream Infection Clinician documentation instruction: use macro every time you place a central line. [] All elements of Maximal Sterile Barrier Technique, including hand hygiene, skin prep, and sterile ultrasound technique (if used) were followed. [SATISFIES MIPS PERFORMANCE] If Yes, Stop Here [] If ?No?, the medical reason all elements were NOT used for medical reason [] (ex. emergent condition). [] Maximal Sterile Barrier Technique was not followed, no reason provided [DOES NOT SATISFY MIPS PERFORMANCE] MIPS - DC Heart Failure Measures: #5 - Heart Failure (HF): Angiotensin-Converting Enzyme (MOI) Inhibitor or Angiotensin Receptor Hakan (ARB) Therapy for Left Ventricular Systolic Dysfunction (LVSD) and #8 - Heart Failure (HF): Beta-Hakan Therapy for Left Ventricular Systolic Dysfunction (LVSD) Clinician documentation instruction: use macro at every CHF discharge. [] The patient has current or prior documentation of left ventricular ejection fraction (LVEF) less than 40%, or moderate or severely depressed left ventricular systolic function. Answer both: [SATISFIES MIPS PERFORMANCE] [] The patient was prescribed or already taking an Angiotensin-Converting Enzyme (MOI) Inhibitor, or Angiotensin Receptor Hakan (ARB). [] The patient was prescribed or already taking a beta-hakan. If Yes to Both, Stop Here [] Patient not prescribed/taking: [MIPS PERFORMANCE EXCEPTION/EXCLUSION] [] MOI or ARB for medical/patient/system reason(s) including [] (ex. allergy, intolerance, contraindication) [] Beta-hakan for medical/patient/system reason(s) including [] (ex. aller gy, intolerance, contraindication) [] Patient not prescribed/taking: [DOES NOT SATISFY MIPS PERFORMANCE] [] MOI or ARB, no reason given [] Beta-hakan, no reason given
[2020-07-16 18:21] LABS: Add Manual Diff / Slide Review NO; Basophils Absolute Auto 200 /uL (0-100); Basophils Percent Auto 1.9 % (0-2); Eosinophils Absolute Auto 0 /uL (0-450); Eosinophils Percent Auto 0.4 % (2-4); Hematocrit 39.9 % (36-46); Hemoglobin 13.9 g/dL (12.0-16.0); Lymphocytes Absolute Auto 1400 /uL (1100-4500); Mean Corpuscular Hemoglobin 30.9 PG (26-34); Mean Corpuscular Volume 88.2 fL (80-100); Monocytes Absolute Auto 900 /uL (0-900); Monocytes Percent Auto 10.9 % (3-14); Neutrophils Absolute Auto 5800 /uL (1500-7000); Neutrophils Percent Auto 69.8 % (50-75); Platelet Count 354 X10^3/uL (150-400); Red Blood Cell Count 4.52 X10^6/uL (4.0-5.2); Red Cell Distribution Width 13.4 % (11.6-14.8); White Blood Cell Count 8.3 X10^3/uL (4.5-11.0)
[2020-07-16 18:31] LABS: BUN Creatinine Ratio 12.2 (6-22); Blood Urea Nitrogen 16 mg/dL (7-17); Calcium 8.9 mg/dL (8.4-10.2); Carbon Dioxide 27 mmol/L (22-32); Chloride 97 mmol/L (98-107); Estimated Glomerular Filt Rate 41.3 mL/min (>60); Glucose 141 mg/dL (80-110); HEMOLYSIS < 15 (0-50); Potassium 3.4 mmol/L (3.4-5.1); Sodium 133 mmol/L (137-145)
[2020-07-16] MEDS: ATORVASTATIN 20 MG TABLET 80 MG PO (20:59)
[2020-07-16] MEDS: ACETAMINOPHEN 325 MG TABLET 650 MG PO (21:25)
[2020-07-17 00:26] LABS: BUN Creatinine Ratio 10.3 (6-22); Blood Urea Nitrogen 12 mg/dL (7-17); Calcium 8.2 mg/dL (8.4-10.2); Carbon Dioxide 28 mmol/L (22-32); Chloride 100 mmol/L (98-107); Glucose 143 mg/dL (80-110); HEMOLYSIS < 15 (0-50); Sodium 134 mmol/L (137-145)
[2020-07-17] MEDS: POTASSIUM CHLORIDE 20 MEQ TAB 40 MEQ PO (01:13)
[2020-07-17] MEDS: POTASSIUM CHLORIDE 40 MEQ in SODIUM CHLORIDE 0.9% 500 ML 130 ML IV (01:26)
[2020-07-17 02:00] VITALS: O2SAT 96
[2020-07-17 03:00] VITALS: BP 151/78; PULSE 76; RESP 16; TEMP 36.1; O2SAT 96
[2020-07-17 05:57] VITALS: O2SAT 96
[2020-07-17] MEDS: PANTOPRAZOLE 20 MG TABLET 40 MG PO (06:02)
[2020-07-17 06:26] LABS: Add Manual Diff / Slide Review NO; Basophils Absolute Auto 100 /uL (0-100); Basophils Percent Auto 1.3 % (0-2); Eosinophils Absolute Auto 100 /uL (0-450); Eosinophils Percent Auto 0.8 % (2-4); Hematocrit 39.5 % (36-46); Hemoglobin 13.5 g/dL (12.0-16.0); Lymphocytes Absolute Auto 2100 /uL (1100-4500); Lymphocytes Percent Auto 28.2 % (25-40); Mean Corpuscular HGB Conc 34.2 % (30-36); Mean Corpuscular Hemoglobin 30.1 PG (26-34); Mean Corpuscular Volume 88.1 fL (80-100); Monocytes Absolute Auto 800 /uL (0-900); Monocytes Percent Auto 10.3 % (3-14); Neutrophils Absolute Auto 4400 /uL (1500-7000); Neutrophils Percent Auto 59.4 % (50-75); Platelet Count 249 X10^3/uL (150-400); Red Blood Cell Count 4.48 X10^6/uL (4.0-5.2); Red Cell Distribution Width 13.5 % (11.6-14.8); White Blood Cell Count 7.4 X10^3/uL (4.5-11.0)
[2020-07-17 06:37] LABS: BUN Creatinine Ratio 9.5 (6-22); Blood Urea Nitrogen 10 mg/dL (7-17); Calcium 8.8 mg/dL (8.4-10.2); Carbon Dioxide 28 mmol/L (22-32); Chloride 102 mmol/L (98-107); Estimated Glomerular Filt Rate 53.3 mL/min (>60); Glucose 127 mg/dL (80-110); HEMOLYSIS < 15 (0-50); Potassium 3.5 mmol/L (3.4-5.1); Sodium 135 mmol/L (137-145)
[2020-07-17 07:33] VITALS: BP 131/89; PULSE 63; RESP 16; TEMP 36.1; O2SAT 96
[2020-07-17] MEDS: SODIUM CHLORIDE 0.9% 1,000 ML 125 ML IV (07:42)
[2020-07-17] MEDS: POTASSIUM CHLORIDE 20 MEQ/15 ML UDC 40 MEQ PO (07:42)
[2020-07-17 09:31] VITALS: BP 131/89
[2020-07-17] MEDS: AMLODIPINE 5 MG TABLET 10 MG PO (09:31)
[2020-07-17] MEDS: carvediloL 12.5 MG TABLET PO (09:31)
[2020-07-17] MEDS: CITALOPRAM 10 MG TABLET PO (09:32)
[2020-07-17] MEDS: HEPARIN 5,000 UNIT/ML VIAL 5000 UNIT SUBCUT (09:32)
[2020-07-17] MEDS: SODIUM CHLORIDE 0.9% FLUSH 10 ML IV (09:33)
[2020-07-17] MEDS: NICOTINE 14 PATCH 14 MG TOP (09:36)
--- NOTE | 2020-07-17 10:28 | PC.NURSE ---
Addendum entered by Temi Crain R.N. 07/17/20 12:11: Midline removed for patient discharge. Patient tolerated. Tele removed. Instructions given regarding f/u appointments, diet, new prescriptions, s/s of worsening condition. Patient and daughter verbalized understanding. Patient discharged via wheelchair with aide assist. Original Note: Patient A/O x 4. Denies chest pain, SOB or increased WOB with activity. Denies chest pain. Lungs CTA, 98% on RA. Tele intact, SR. Pulses equal bilaterally. Patient ambulating independently, patient up to shower. Double lumen midline intact RUE, NS infusing 125cc/hr. BT active x 4, patient. Call light in reach.
--- NOTE | 2020-07-17 11:02 | CM.DPC ---
DCP CONTINUED: HEATER [employer]PER [employer] Student met with patient at bedside this date. She is alert and oriented. She anticipates D/C home. Provided patient with the signed copy of the Important Medicare Message. PLAN: Anticipate D/C home. MARY Patel MSW Student
--- NOTE | 2020-07-17 11:47 | P.DS_ITS ---
History of Present Illness History of Present Illness Chief complaint: states high blood pressure Narrative: Per Dr. Crowder's H and P from 07/12/20: Ms. Luis Felipe Diggs is a 60-year-old female who is a current smoker with a past medical history significant for anxiety and depression, PTSD, hypertension and osteoarthritis presents to the ER with nausea, vomiting, and burning like left-sided chest pain since this morning. Patient states that starting this morning she developed a burning like sensation on the left side of her chest near her breast that was nonradiating, not associated with dyspnea or exertion, and constant. She did not try any medications to make the pain go away. The patient has an issue with chronic vomiting and previous hypokalemia as well. She states she occasionally vomits when having a bowel movement. She was admitted previously with hypertensive urgency, since then she has stopped her home lisinopril for kidney disease according to the patient, and she was due to follow up with a forepart rasper next month. In the emergency room, patient was noted to be markedly hypotensive with a blood pressure of 208/108, she was given a few doses of IV labetalol with some imp rovement. The remainder of her vital signs were unremarkable. Initial laboratory evaluation showed a mild erythrocytosis with the hemoglobin of 16.6 (suspected due to dehyrdation), but the remainder of her CBC was unremarkable. Coagulation studies were unremarkable. Chemistries reveal the severe hyponatremia with a potassium of 2.1, creatinine of 1.25 which is near her prior discharge. Her glucose was 223. Calcium was 11.1. ProBNP was elevated at 1290. Urinalysis was negative for evidence of infection. Urine drug screen was positive for marijuana. COVID-[address] and chest x-ray were unremarkable. EKG shows borderline ST depression in V3 through V6. Patient was admitted for further evaluation of her chest pain and hypokalemia. Discharge Providers Provider Date of admission: 07/12/20 19:00 Discharge Date: 07/17/20 Consults: 07/12/20 19:36 Consult to Dietitian, Adult Routine Comment: Reason For Exam: Pt admits to poor appetite 07/13/20 17:07 Consult to Occupational Therapy Evaluate & Treat Comment: Physician Instructions: Evaluate and treat Consult to Physical Therapy Evaluate & Treat Comment: Physician Instructions: Evaluate and Treat Discharge provider: Allan Padilla MD Summary Hospital Course Discharge Diagnosis: 1. Critically low hypokalemia 2. Acute chest pain, now resolved 3. Acute kidney injury 4. Hypertensive urgency 5. Anxiety/depresssion and PTSD 6. Hypercalcemia 7. Active smoker, dependecy on nicotine 8. Hyperlipidemia 9. Hyperlipidemia, present on admission Hospital Course: Ms. Diggs initially presented with chest pain on the left side, and did have some slight ST depressions on EKG. Troponins were negative and stress test was negative. In addition she was noted to have hypokalemia and GWENDOLYN, with her potassium as low as 2.0 and her creatinine as high as 1.4. She initially was nauseous and vomiting but this improved with IV fluids, PPI, and zofran. Her discharge creatinine was 1.05, and discharge potassium was 3.5. She did have urine studies which showed a urine random potassium of 23.2 and creatinine of 22.7, which was not consistent with significant urinary loss of potassium, though she did urinate frequently. She admitted to marijuana use, and did feel her symptoms of nausea and vomiting improved with showering which is suspiscious for cyclical vomiting syndrome. On day of discharge she was tolerating a diet and her nausea and vomiting had resolved. She was also noted to have persistent elevated blood pressures in the hospital, which her hypokalemia may have contributed to, these were difficult to control, but switching from metoprolol to carvedilol did provide better control. Finally, she did come in on HCTZ which may have contributed to her dehydration and hypokalemia, and she did have mild hypercalcemia, so this medication was discontinued on discharge. She was an active smoker, and used a patch during her stay. She will be started newly on potassium chloride supplements daily in addition to the other medications noted above. She should follow up with GI for possible EGD to evaluate her recurrent vomiting. She should follow up with nephrology, for which she is already referred, for further monitoring of her potassium levels. Code: Full, surrogate decision maker is the patient's daughter. Status at Discharge Cognitive/behavioral status at discharge: oriented Functional status at discharge: independent ambulation Overall status at discharge: patient is back to baseline Time Spent with Patient Time spent: Greater than 30 minutes Exam Vital Signs (past 8 hours): - 07/17/20 05:57 07/17/20 07:33 07/17/20 09:31 Temperature 97.0 F L Pulse Rate 63 Respiratory Rate 16 Blood Pressure 131/89 131/89 Pulse Oximetry 96 96 Oxygen Delivery Method Room Air Oxygen Flow Rate 0 Narrative Exam Narrative: GENERAL APPEARANCE: in no acute distress. SKIN: Inspection of the skin reveals no rashes, ulcerations or petechiae. HEENT: Normocephalic atraumatic, extraocular muscles are intact, oropharynx is clear and mucous membranes are dry, neck is supple without adenopathy NECK: Supple and symmetric. There was no thyroid enlargement, and no tenderness, or masses were felt. CHEST: Normal AP diameter and normal contour without any kyphoscoliosis. LUNGS: Auscultation of the lungs revealed no wheezes, rhonchi, or rales. CARDIOVASCULAR: There was a regular rate and rhythm without any murmurs, gallops, rubs. Peripheral pulses were 2+ and symmetric. ABDOMEN: Soft and nontender with normal bowel sounds. No ascites was noted. MUSCULOSKELETAL: There was no tenderness or effusions noted. Muscle strength and tone were normal. EXTREMITIES: No cyanosis, clubbing or edema. NEUROLOGIC: Alert. Strength is +5/5 in the Upper Extremities and Lower Extremities Bilaterally. PSYCH: pleasant mood Objective Labs Result Diagrams: 07/17/20 06:20 07/17/20 06:20 Labs: Laboratory Results - last 24 hr 07/16/20 07/16/20 07/16/20 18:17 18:17 23:59 WBC 8.3 RBC 4.52 Hgb 13.9 Hct 39.9 MCV 88.2 MCH 30.9 MCHC 35.0 RDW 13.4 Plt Count 354 Neut % (Auto) 69.8 Lymph % (Auto) 17.0 L [place] % (Auto) 10.9 Eos % (Auto) 0.4 L Baso % (Auto) 1.9 Neut # (Auto) 5800 Lymph # (Auto) 1400 [place] # (Auto) 900 Eos # (Auto) 0 Baso # (Auto) 200 H Sodium 133 L 134 L Potassium 3.4 3.0 L Chloride 97 L 100 Carbon Dioxide 27 28 BUN 16 12 Creatinine 1.31 H 1.17 H Estimated GFR 41.3 L 47.0 L BUN/Creatinine Ratio 12.2 10.3 Glucose 141 H 143 H Calcium 8.9 8.2 L 07/17/20 07/17/20 06:20 06:20 WBC 7.4 RBC 4.48 Hgb 13.5 Hct 39.5 MCV 88.1 MCH 30.1 MCHC 34.2 RDW 13.5 Plt Count 249 Neut % (Auto) 59.4 Lymph % (Auto) 28.2 [place] % (Auto) 10.3 Eos % (Auto) 0.8 L Baso % (Auto) 1.3 Neut # (Auto) 4400 Lymph # (Auto) 2100 [place] # (Auto) 800 Eos # (Auto) 100 Baso # (Auto) 100 Sodium 135 L Potassium 3.5 Chloride 102 Carbon Dioxide 28 BUN 10 Creatinine 1.05 H Estimated GFR 53.3 L BUN/Creatinine Ratio 9.5 Glucose 127 H Calcium 8.8 PFSH Medical History Anxiety Hypertension Osteoarthritis Osteoporosis PTSD (post-traumatic stress disorder) Surgical History History of History of colonoscopy Social History household members: children Smoking Status: Current every day smoker alcohol intake: never Discharge Plan Discharge Plan Patient Disposition: Home Provider Discharge Comment: Ms. Diggs was admitted with nausea and vomiting. She also had chest pain. She had a stress test done which was normal, and she had no heart attack. She was also found to have very low potassium and some mild kidney injury. This improved with potassium supplements and IV fluids. It is important to keep hydrated and take potassium supplements. 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 Also stop hydrochlorothiazide because it cause low potassium levels. She will need follow up with nephrology for her kidneys, and with gastroenterology (GI) for her vomiting to consider an EGD. We also changed one blood pressure medication because her blood pressure was very high in the hospital, and this helped bring it under better control. Discharge orders & Medications Prescriptions: New carvedilol [Coreg] 12.5 mg Tablet 12.5 mg PO BID Qty: 60 RF: 0 pantoprazole 20 mg Tablet,Delayed Release (Dr/Ec) 40 mg PO 0600 Qty: 60 RF: 0 ondansetron 4 mg Tablet,Disintegrating 4 mg sublingual Q4HR PRN (Reason: Nausea) Qty: 20 RF: 0 potassium chloride 20 mEq tablet extended release 20 meq PO BID Qty: 30 RF: 0 Continued amlodipine 10 mg tablet 10 mg PO DAILY RF: 0 citalopram 10 mg tablet 10 mg PO DAILY RF: 0 Discontinued hydrochlorothiazide 12.5 mg capsule 12.5 mg PO DAILY RF: 0 metoprolol tartrate 25 mg tablet 25 mg PO BID RF: 0 Discharge Health Status Multidrug resistant organism: No MDRO Diet/Activity/Treatments Diet: Diet as Tolerated Visit Report/Discharge Packet Instructions: DI for Hypokalemia, DI for Nausea -- Adult, High-Potassium Diet Quality VTE Deep Vein Thrombosis/Pulmonary Embolism Present on Admission: No MIPS - Admit Advanced Care Plan / Current Medications Measures: #47 ? Advanced Care Plan Clinician documentation instruction: document at admission. [] I confirmed that the patient's Advance Care Plan is present, code status is documented, or surrogate decision maker is listed in the patient?s medical record. [SATISFIES MIPS PERFORMANCE] If Yes, Stop Here [] The patient?s Advance Care plan is not present because: (select) [MIPS PERFORMANCE EXCEPTION/EXCLUSION] [] I confirmed today that the patient does not wish or was not able to name a surrogate decision maker or provide an Advance Care Plan. [] Hospice care is currently being provided or has been provided this calendar year [] I did NOT confirm today the presence of an Advance Care Plan or surrogate decision maker documented within the patient's medical record. [DOES NOT SATISFY MIPS PERFORMANCE] #130 - Documentation of Current Medications in the Medical Record Clinician documentation instruction: use macro the first time you see a patient. [] I have utilized all available immediate resources to obtain, update, or review the patient?s current medications. [SATISFIES MIPS PERFORMANCE] If Yes, Stop Here [] The patient is not eligible for medication reconciliation; the patient is in an emergent medical situation where delaying treatment would jeopardize the patient?s health. [MIPS PERFORMANCE EXCEPTION/EXCLUSION] [] I did NOT confirm, update or review the patient's current list of medications today. [DOES NOT SATISFY MIPS PERFORMANCE] MIPS - CL Central Venous Catheter Placement Measure: #76 ? Prevention of Central Venous Catheter (CVC) ? Related Bloodstream Infection Clinician documentation instruction: use macro every time you place a central line. [] All elements of Maximal Sterile Barrier Technique, including hand hygiene, skin prep, and sterile ultrasound technique (if used) were followed. [SATISFIES MIPS PERFORMANCE] If Yes, Stop Here [] If ?No?, the medical reason all elements were NOT used for medical reason [] (ex. emergent condition). [] Maximal Sterile Barrier Technique was not followed, no reason provided [DOES NOT SATISFY MIPS PERFORMANCE] MIPS - DC Heart Failure Measures: #5 - Heart Failure (HF): Angiotensin-Converting Enzyme (MOI) Inhibitor or Angiotensin Receptor Hakan (ARB) Therapy for Left Ventricular Systolic Dysfunction (LVSD) and #8 - Heart Failure (HF): Beta-Hakan Therapy for Left Ventricular Systolic Dysfunction (LVSD) Clinician documentation instruction: use macro at every CHF discharge. [] The patient has current or prior documentation of left ventricular ejection fraction (LVEF) less than 40%, or moderate or severely depressed left ventricular systolic function. Answer both: [SATISFIES MIPS PERFORMANCE] [] The patient was prescribed or already taking an Angiotensin-Converting Enzyme (MOI) Inhibitor, or Angiotensin Receptor Hakan (ARB). [] The patient was prescribed or already taking a beta-hakan. If Yes to Both, Stop Here [] Patient not prescribed/taking: [MIPS PERFORMANCE EXCEPTION/EXCLUSION] [] MOI or ARB for medical/patient/system reason(s) including [] (ex. allergy, intolerance, contraindication) [] Beta-hakan for medical/patient/system reason(s) including [] (ex. keila rgy, intolerance, contraindication) [] Patient not prescribed/taking: [DOES NOT SATISFY MIPS PERFORMANCE] [] MOI or ARB, no reason given [] Beta-hakan, no reason given
== END 2020-07-17 11:27 | disposition home or self-care (01) | DRG 641 ==
LOC: ED 14:03 → AC 17:31
PROVIDERS: Internal Medicine; Nurse Practitioner Adult Health; Admitting Provider Internal Medicine; Emergency Provider Nurse Practitioner; Referring Provider Emergency Medicine; Visit Provider Internal Medicine
DX: E87.6 Hypokalemia (principal); F17.213 Nicotine dependence, cigarettes, with withdrawal; N17.9 Acute kidney failure, unspecified; R07.9 Chest pain, unspecified; I16.0 Hypertensive urgency; E83.52 Hypercalcemia; D72.829 Elevated white blood cell count, unspecified; E86.0 Dehydration; R11.10 Vomiting, unspecified; F32.9 Major depressive disorder, single episode, unspecified; F43.10 Post-traumatic stress disorder, unspecified; I10 Essential (primary) hypertension; F12.90 Cannabis use, unspecified, uncomplicated; R73.03 Prediabetes; F41.9 Anxiety disorder, unspecified; E78.5 Hyperlipidemia, unspecified; R94.31 Abnormal electrocardiogram [ECG] [EKG]; Z20.822 Contact with and (suspected) exposure to COVID-19
CPT/HCPCS: 36415; 36592; 70450; 71045; 76770; 78452; 80048; 80053; 80061; 80076; 80305; 81001; 81003; 81015; 82550; 82553; 82570; 82962; 83036; 83735; 83880; 84133; 84443; 84484; 85025; 85027; 85610; 85730; 87635; 93005; 93010; 93017; 93306; 96365; 96375; 96376; 99285; G0378; A9502; J1644; J2405; J3480

== ENCOUNTER 2020-09-09 17:45 | Inpatient (IN) | payer MEDICARE, MEDICAID, SELFPAY ==
[2020-07-12 19:25] VITALS: BMI 20.5
[2020-09-09] VITALS (25 sets, daily range): BP systolic 164–209; BP diastolic 86–102; PULSE 62–88; RESP 15–24; TEMP 36.2–36.9; O2SAT 92–98; BMI 21.4; BMI 20.5
--- NOTE | 2020-09-09 17:57 | DI.RAD.S_ITS ---
PROCEDURE: XR CHEST 1V INDICATIONS: chest pain TECHNIQUE: One view of the chest was acquired. COMPARISON: [facility], CR, XR CHEST 1V, 07/14/2020, 10:28. FINDINGS: Surgical changes and devices: Overlying EKG wires. Lungs and pleura: Lungs are clear. No pleural effusions or pneumothorax. Mediastinum: Mediastinal contours appear normal. Heart size is normal. Bones and chest wall: No suspicious bony lesions. Remote rib fractures. No acute osseous abnormality. Overlying soft tissues appear unremarkable. IMPRESSION: No evidence of an acute cardiopulmonary abnormality. Dictated by: Fazal King D.O. on 09/09/2020 at 17:24 Approved by: Fazal King D.O. on 09/09/2020 at 17:25
--- NOTE | 2020-09-09 18:03 | ED_ITS ---
HPI - Nausea/Vomiting/Diarrhea General Chief complaint: Nausea/Vomiting/Diarrhea Stated complaint: elevated BP Time Seen by Provider: 09/09/20 17:59 Source: patient Mode of arrival: Ambulatory Limitations: no limitations History of Present Illness HPI Narrative: Patient is a 60-year-old female here for evaluation of approximately 24 hours of nausea and vomiting. Also states that her blood pressures been elevated. She does have a history of high blood pressure. Is on medications for this and states she has been taking her medications as directed. Approximately 2 months ago she was admitted to the hospital for high blood pressure where she had a workup for her heart. She states that the nausea and vomiting associated with upper abdominal discomfort. She denies any diarrhea. No urinary symptoms. She does appear short of breath and initially stated that she was not having shortness of breath but then upon further questioning thinks that it is slightly worse than her baseline. She denies any alcohol use. Denies any anti-inflammatory use. No black colored stool. No dark colored stool. Not vomiting any blood. Related Data Home Medications Medication Instructions Recorded Confirmed amlodipine 10 mg PO DAILY 07/12/20 09/09/20 citalopram 10 mg PO DAILY 07/12/20 09/09/20 Previous Rx's Medication Instructions Recorded carvedilol [Coreg] 12.5 mg PO BID #60 tab 07/17/20 ondansetron 4 mg SUBLINGUAL Q4HR PRN #20 tab 07/17/20 Allergies Allergy/AdvReac Type Severity Reaction Status Date / Time mirtazapine [MIRTAZAPINE] Allergy Unknown HALLUCINATI Verified 07/12/20 18:05 ONS Review of Systems Constitutional Constitutional: Denies fatigue, Denies fever(s) and Denies headache(s) Eyes Eyes: Denies change in vision ENT Ears, Nose, Mouth, and Throat: Denies headache(s) and Denies sore throat Cardiovascular Cardiovascular: Denies chest pain and Reports dyspnea Respiratory Respiratory: Denies cough and Reports dyspnea Gastrointestinal Gastrointestinal: Reports abdominal pain, Denies change in bowel habits, Reports nausea and Reports vomiting Genitourinary Genitourinary: Denies hematuria and Denies dysuria Genitourinary: Denies hematuria and Denies dysuria Musculoskeletal Musculoskeletal: Denies back pain Integumentary/Breasts Skin/Breast: Denies lesions and Denies rash Neurologic Neurologic: Denies behavioral changes and Denies headache(s) Psychiatric Psychiatric: Denies behavioral changes Endocrine Endocrine: Denies fatigue Hematologic/Lymphatic On Anticoagulants: No Allergic/Immunologic Allergic/Immunologic: Denies urticaria Patient History Medical History Anxiety Hypertension Osteoarthritis Osteoporosis PTSD (post-traumatic stress disorder) Surgical History History of History of colonoscopy Social History household members: children Smoking Status: Current every day smoker alcohol intake: never Smoking Status: Current every day smoker Substance Use Type: marijuana Exam Initial Vital Signs Initial Vital Signs: Vital Signs Temperature 98.5 F 09/09/20 17:51 Pulse Rate 88 09/09/20 17:51 Respiratory Rate 20 09/09/20 17:51 Blood Pressure 186/90 H 09/09/20 17:51 Pulse Oximetry 98 09/09/20 17:51 Const General: cooperative and ill appearing Limitations: mental status not altered HENMT Head: normal to inspection and normocephalic Chest Chest: No tenderness Resp Effort & Inspection: tachypneic Auscultation: clear to auscultation bilaterally Cardio Rate: regular rate Rhythm: regular rhythm GI Palpation: soft and tender (Epigastric region) Back/Spine/Pelvis Back: No CVA tenderness Skin Lesions: no lesions Rashes: no rashes Neuro General: patient alert, patient awake and patient oriented x3 Cognition: normal cognition Speech: speech normal Extrem General: No edema Psych Appearance: grossly normal and disheveled Scores GCS [place] coma scale eye opening: Spontaneous [place] coma scale verbal response: Orientated [place] coma scale motor response: Obey commands [place] coma scale total score: 15 Course Orders Ordered: ED Orders 09/09/20 17:57 XR chest 1V Stat EKG-12 Lead Stat 09/09/20 18:15 Complete Blood Count AUTO DIFF Stat Comprehensive Metabolic Panel Stat D Dimer Stat Lactate (Lactic Acid) Stat Lipase Stat Magnesium Stat Partial Thromboplastin Time Stat Prothrombin Time INR Stat Troponin & CK Cardiac Panel Stat 09/09/20 20:05 Blood Culture Stat 09/09/20 20:20 COVID19 - ADMIT (AUT[employer]OTIVE [employer]ES REPRESENTATIVE swab/PCR) Stat 09/09/20 20:57 Urinalysis and Microscopic Stat Al Hydrox/Mg Hydrox/Simethicone (Mag Hydrox/Alum/Simeth 30 Ml Udc) 30 ml PO Q6HR PRN PRN Reason: Dyspepsia Enoxaparin Sodium (Enoxaparin 40 Mg/0.4 Ml Syringe) 40 mg SUBCUT DAILY [facility] Hydromorphone HCl (Hydromorphone 0.5 Mg Inj) 0.5 mg IV Q6H PRN PRN Reason: Pain, Moderate (4-6) Lactated Ringer's (Lactated Ringers) 1,000 mls @ 250 mls/hr IV CONT [facility] Last Admin: 09/09/20 23:35 Dose: 250 mls/hr Documented by: DAKSHA Naloxone HCl (Naloxone 0.4 Mg/Ml Vial) 0.2 mg IV Q2MIN PRN PRN Reason: Opiate Reversal Ondansetron HCl (Ondansetron 4 Mg Odt) 4 mg PO Q8HR PRN PRN Reason: Nausea And Vomiting Ondansetron HCl (Ondansetron 4 Mg/2 Ml Inj) 4 mg IV Q8HR PRN PRN Reason: Nausea And Vomiting Pantoprazole Sodium (Pantoprazole Dr 20 Mg Tablet) 20 mg PO 0600 [facility] Discontinued Medications Aspirin (Aspirin 81 Mg Chew Tab) 324 mg PO NOW ONE Stop: 09/09/20 18:04 Last Admin: 09/09/20 18:08 Dose: 324 mg Documented by: RAMANDEEP POTASSIUM CHLORIDE IN WATER (Potassium Cl 10 Meq/100 Ml Tess) 10 meq in 100 mls @ 100 mls/hr IV Q1H [facility] Stop: 09/09/20 23:29 Last Admin: 09/09/20 23:35 Dose: 100 mls/hr Documented by: Infusion: 09/09/20 23:14 Dose: 100 mls/hr Documented by: Admin: 09/09/20 22:14 Dose: 100 mls/hr Documented by: Infusion: 09/09/20 22:00 Dose: 100 mls/hr Documented by: Infusion: 09/09/20 21:45 Dose: 100 mls/hr Documented by: Admin: 09/09/20 21:00 Dose: 100 mls/hr Documented by: Infusion: 09/09/20 20:59 Dose: 0 mls/hr Documented by: Admin: 09/09/20 19:55 Dose: 100 mls/hr Documented by: JOSH Ceftriaxone Sodium/Dextrose (Rocephin) 1 gm in 50 mls @ 100 mls/hr IV NOW ONE Stop: 09/09/20 20:05 Last Infusion: 09/09/20 21:10 Dose: 0 mls/hr Documented by: Admin: 09/09/20 20:36 Dose: 100 mls/hr Documented by: CAROL Labetalol HCl (Labetalol 20 Mg/4 Ml Syringe) 10 mg IV NOW ONE Stop: 09/09/20 19:07 Last Admin: 09/09/20 19:12 Dose: 10 mg Documented by: CAROL Metoprolol Tartrate (Metoprolol Tartrate 5 Mg/5 Ml Inj) 5 mg IV NOW ONE Stop: 09/09/20 23:29 Last Admin: 09/10/20 00:25 Dose: 5 mg Documented by: DAKSHA Nitroglycerin (Nitroglycerin Oint 1 Inch/Gm Oint...G.) 1 inch TOP NOW ONE Stop: 09/09/20 18:04 Last Admin: 09/09/20 18:07 Dose: 1 inch Documented by: RAMANDEEP Ondansetron HCl (Ondansetron 4 Mg/2 Ml Inj) 4 mg IV NOW ONE Stop: 09/09/20 20:25 Last Admin: 09/09/20 20:35 Dose: 4 mg Documented by: CAROL Vital Signs Vital signs: Vital Signs - 8 hr 09/09/20 17:51 09/09/20 18:07 09/09/20 18:55 Temperature 98.5 F Pulse Rate 88 82 78 Respiratory Rate 20 22 Blood Pressure 186/90 H 196/98 H Pulse Oximetry 98 93 09/09/20 19:00 09/09/20 19:10 09/09/20 19:12 Temperature Pulse Rate 77 78 84 Respiratory Rate 24 22 Blood Pressure 209/102 H 202/100 H 202/100 H Pulse Oximetry 92 95 09/09/20 19:18 09/09/20 19:20 09/09/20 19:25 Temperature Pulse Rate 69 67 63 Respiratory Rate 22 24 19 Blood Pressure 167/89 H 164/89 H 172/92 H Pulse Oximetry 92 93 96 09/09/20 19:30 09/09/20 19:35 09/09/20 19:40 Temperature Pulse Rate 62 62 62 Respiratory Rate 18 20 21 Blood Pressure 176/93 H 186/100 H 186/92 H Pulse Oximetry 96 95 97 09/09/20 19:45 09/09/20 19:50 09/09/20 19:55 Temperature Pulse Rate 65 68 71 Respiratory Rate 20 22 22 Blood Pressure 181/95 H 179/93 H 169/86 H Pulse Oximetry 98 96 96 09/09/20 20:00 09/09/20 20:05 09/09/20 20:10 Temperature Pulse Rate 72 69 69 Respiratory Rate 20 19 20 Blood Pressure 166/91 H 176/91 H 185/94 H Pulse Oximetry 97 95 94 09/09/20 20:13 09/09/20 20:15 Temperature Pulse Rate 63 66 Respiratory Rate 20 Blood Pressure 172/92 H 193/95 H Pulse Oximetry 93 MDM - Nausea/Vomiting/Diarrhea Medical Records Attestation: I reviewed the patient's medical records. Lab Data Attestation: I reviewed the patient's lab results. Result diagrams: 09/09/20 18:15 09/09/20 22:58 Labs: Lab Results 09/09/20 09/09/20 09/09/20 Range/Units 18:10 18:15 18:15 WBC 20.1 H (4.5-11.0) X10^3/uL RBC 5.51 H (4.0-5.2) X10^6/uL Hgb 16.5 H (12.0-16.0) g/dL Hct 48.0 H (36-46) % MCV 87.2 (80-100) fL MCH 29.9 (26-34) PG MCHC 34.3 (30-36) % RDW 14.2 (11.6-14.8) % Plt Count 429 H (150-400) X10^3/uL Neut % (Auto) 87.1 H (50-75) % Lymph % (Auto) 5.7 L (25-40) % [place] % (Auto) 7.0 (3-14) % Eos % (Auto) 0.0 L (2-4) % Baso % (Auto) 0.2 (0-2) % Neut # (Auto) 74005 H (1864-2619) /uL Lymph # (Auto) 1100 (7863-6409) /uL [place] # (Auto) 1400 H (0-900) /uL Eos # (Auto) 0 (0-450) /uL Baso # (Auto) 0 (0-100) /uL RBC Morphology Normal morphology PT 11.4 (10.1-12.7) SECONDS INR 1.0 (0.9-1.3) APTT 43 H (26.4-36.2) SECONDS D-Dimer (<230) ng/mL Sodium (137-145) mmol/L Potassium (3.4-5.1) mmol/L Chloride (98-107) mmol/L Carbon Dioxide (22-32) mmol/L BUN (7-17) mg/dL Creatinine (0.52-1.04) mg/dL Estimated GFR (>60) mL/min BUN/Creatinine Ratio (6-22) Glucose (80-110) mg/dL Hemoglobin A1c 6.0 (4.0-6.0) % Lactate (0.7-2.1) mmol/L Calcium (8.4-10.2) mg/dL Magnesium (1.6-2.3) mg/dL Total Bilirubin (0.2-1.3) mg/dL Conjugated Bilirubin (0.0-0.3) md/dL Unconjugated Bilirubin (0.0-1.1) mg/dL AST (14-36) IU/L ALT (<35) IU/L Alkaline Phosphatase (38-126) U/L Lactate Dehydrogenase (313-618) U/L Total Creatine Kinase (30-135) U/L CK-MB (CK-2) (<2.37) ng/mL CK-MB (CK-2) Rel Index (1.5-5.0) % Troponin I (0.01-0.034) ng/mL C-Reactive Protein (<1.0) mg/dL Total Protein (6.3-8.2) g/dL Albumin (3.5-5.0) g/dL Globulin (1.7-4.1) g/dL Albumin/Globulin Ratio (1.0-2.8) Triglycerides (35-150) mg/dL Cholesterol (140-199) mg/dL LDL Cholesterol, Calc (<100) mg/dL HDL Cholesterol (40-60) mg/dL Amylase (30-110) U/L Lipase (23-300) U/L SARS-CoV-2 (PCR) (Negative) 09/09/20 09/09/20 09/09/20 Range/Units 18:15 18:15 18:15 WBC (4.5-11.0) X10^3/uL RBC (4.0-5.2) X10^6/uL Hgb (12.0-16.0) g/dL Hct (36-46) % MCV (80-100) fL MCH (26-34) PG MCHC (30-36) % RDW (11.6-14.8) % Plt Count (150-400) X10^3/uL Neut % (Auto) (50-75) % Lymph % (Auto) (25-40) % [place] % (Auto) (3-14) % Eos % (Auto) (2-4) % Baso % (Auto) (0-2) % Neut # (Auto) (0604-4554) /uL Lymph # (Auto) (9123-6877) /uL [place] # (Auto) (0-900) /uL Eos # (Auto) (0-450) /uL Baso # (Auto) (0-100) /uL RBC Morphology PT (10.1-12.7) SECONDS INR (0.9-1.3) APTT (26.4-36.2) SECONDS D-Dimer 213 (<230) ng/mL Sodium 135 L (137-145) mmol/L Potassium 2.4 L* (3.4-5.1) mmol/L Chloride 91 L (98-107) mmol/L Carbon Dioxide 29 (22-32) mmol/L BUN 17 (7-17) mg/dL Creatinine 1.16 H (0.52-1.04) mg/dL Estimated GFR 47.5 L (>60) mL/min BUN/Creatinine Ratio 14.7 (6-22) Glucose 201 H (80-110) mg/dL Hemoglobin A1c (4.0-6.0) % Lactate 1.6 (0.7-2.1) mmol/L Calcium 10.5 H (8.4-10.2) mg/dL Magnesium (1.6-2.3) mg/dL Total Bilirubin 0.5 (0.2-1.3) mg/dL Conjugated Bilirubin (0.0-0.3) md/dL Unconjugated Bilirubin (0.0-1.1) mg/dL AST 27 (14-36) IU/L ALT 18 (<35) IU/L Alkaline Phosphatase 128 H (38-126) U/L Lactate Dehydrogenase (313-618) U/L Total Creatine Kinase 116 (30-135) U/L CK-MB (CK-2) 2.00 (<2.37) ng/mL CK-MB (CK-2) Rel Index 1.7 (1.5-5.0) % Troponin I 0.025 (0.01-0.034) ng/mL C-Reactive Protein (<1.0) mg/dL Total Protein 9.1 H (6.3-8.2) g/dL Albumin 5.0 (3.5-5.0) g/dL Globulin 4.1 (1.7-4.1) g/dL Albumin/Globulin Ratio 1.2 (1.0-2.8) Triglycerides (35-150) mg/dL Cholesterol (140-199) mg/dL LDL Cholesterol, Calc (<100) mg/dL HDL Cholesterol (40-60) mg/dL Amylase (30-110) U/L Lipase 2283 H (23-300) U/L SARS-CoV-2 (PCR) (Negative) 09/09/20 09/09/20 09/09/20 Range/Units 18:15 18:15 18:15 WBC (4.5-11.0) X10^3/uL RBC (4.0-5.2) X10^6/uL Hgb (12.0-16.0) g/dL Hct (36-46) % MCV (80-100) fL MCH (26-34) PG MCHC (30-36) % RDW (11.6-14.8) % Plt Count (150-400) X10^3/uL Neut % (Auto) (50-75) % Lymph % (Auto) (25-40) % [place] % (Auto) (3-14) % Eos % (Auto) (2-4) % Baso % (Auto) (0-2) % Neut # (Auto) (0098-4965) /uL Lymph # (Auto) (0782-5599) /uL [place] # (Auto) (0-900) /uL Eos # (Auto) (0-450) /uL Baso # (Auto) (0-100) /uL RBC Morphology PT (10.1-12.7) SECONDS INR (0.9-1.3) APTT (26.4-36.2) SECONDS D-Dimer (<230) ng/mL Sodium (137-145) mmol/L Potassium (3.4-5.1) mmol/L Chloride (98-107) mmol/L Carbon Dioxide (22-32) mmol/L BUN (7-17) mg/dL Creatinine (0.52-1.04) mg/dL Estimated GFR (>60) mL/min BUN/Creatinine Ratio (6-22) Glucose (80-110) mg/dL Hemoglobin A1c (4.0-6.0) % Lactate (0.7-2.1) mmol/L Calcium (8.4-10.2) mg/dL Magnesium 2.1 (1.6-2.3) mg/dL Total Bilirubin (0.2-1.3) mg/dL Conjugated Bilirubin (0.0-0.3) md/dL Unconjugated Bilirubin (0.0-1.1) mg/dL AST (14-36) IU/L ALT (<35) IU/L Alkaline Phosphatase (38-126) U/L Lactate Dehydrogenase (313-618) U/L Total Creatine Kinase (30-135) U/L CK-MB (CK-2) (<2.37) ng/mL CK-MB (CK-2) Rel Index (1.5-5.0) % Troponin I (0.01-0.034) ng/mL C-Reactive Protein (<1.0) mg/dL Total Protein (6.3-8.2) g/dL Albumin (3.5-5.0) g/dL Globulin (1.7-4.1) g/dL Albumin/Globulin Ratio (1.0-2.8) Triglycerides 198 H (35-150) mg/dL Cholesterol 262 H (140-199) mg/dL LDL Cholesterol, Calc 163 H (<100) mg/dL HDL Cholesterol 59 (40-60) mg/dL Amylase 468 H (30-110) U/L Lipase (23-300) U/L SARS-CoV-2 (PCR) (Negative) 09/09/20 09/09/20 Range/Units 18:15 20:20 WBC (4.5-11.0) X10^3/uL RBC (4.0-5.2) X10^6/uL Hgb (12.0-16.0) g/dL Hct (36-46) % MCV (80-100) fL MCH (26-34) PG MCHC (30-36) % RDW (11.6-14.8) % Plt Count (150-400) X10^3/uL Neut % (Auto) (50-75) % Lymph % (Auto) (25-40) % [place] % (Auto) (3-14) % Eos % (Auto) (2-4) % Baso % (Auto) (0-2) % Neut # (Auto) (1048-9768) /uL Lymph # (Auto) (3981-9181) /uL [place] # (Auto) (0-900) /uL Eos # (Auto) (0-450) /uL Baso # (Auto) (0-100) /uL RBC Morphology PT (10.1-12.7) SECONDS INR (0.9-1.3) APTT (26.4-36.2) SECONDS D-Dimer (<230) ng/mL Sodium (137-145) mmol/L Potassium (3.4-5.1) mmol/L Chloride (98-107) mmol/L Carbon Dioxide (22-32) mmol/L BUN (7-17) mg/dL Creatinine (0.52-1.04) mg/dL Estimated GFR (>60) mL/min BUN/Creatinine Ratio (6-22) Glucose (80-110) mg/dL Hemoglobin A1c (4.0-6.0) % Lactate (0.7-2.1) mmol/L Calcium (8.4-10.2) mg/dL Magnesium (1.6-2.3) mg/dL Total Bilirubin 0.6 (0.2-1.3) mg/dL Conjugated Bilirubin 0.0 (0.0-0.3) md/dL Unconjugated Bilirubin 0.3 (0.0-1.1) mg/dL AST 66 H (14-36) IU/L ALT 17 (<35) IU/L Alkaline Phosphatase 125 (38-126) U/L Lactate Dehydrogenase 946 H (313-618) U/L Total Creatine Kinase (30-135) U/L CK-MB (CK-2) (<2.37) ng/mL CK-MB (CK-2) Rel Index (1.5-5.0) % Troponin I (0.01-0.034) ng/mL C-Reactive Protein < 0.5 (<1.0) mg/dL Total Protein 9.1 H (6.3-8.2) g/dL Albumin 5.0 (3.5-5.0) g/dL Globulin 4.1 (1.7-4.1) g/dL Albumin/Globulin Ratio 1.2 (1.0-2.8) Triglycerides (35-150) mg/dL Cholesterol (140-199) mg/dL LDL Cholesterol, Calc (<100) mg/dL HDL Cholesterol (40-60) mg/dL Amylase (30-110) U/L Lipase (23-300) U/L SARS-CoV-2 (PCR) Negative (Negative) Imaging Data echo: Radiologist's Impression: [address] [id number] ReportSigned Patient: Almaz Diggs EMR#: [id number]: 1960Acct:[id number]/Sex: 60 / FDate of Service: 07/12/20Loc: [id number] Number: [id number] Procedure: EC echo doppler complete Ordering Provider: Chip Turner D.O. [address] +---------+ [facility] +---------+ : : [address] [place] [address] : : : : [place], [place] : : : : [id number] : : : : Phone: [phone]+ Echocardiogram Report + + :Name: ALMAZ DIGGS Study Date: 07/14/2020 Height: 64 in : :[facility] #: [id number] ReadingLocation: Weight: 110 lb : : Gender: Female BSA: 1.5 m2 : :: 1960 Age: 60 yrs BP: 173/79 mmHg: :Reason For Study: Chest Pain : :Ordering Physician: YUE, : :CHIP WOODS Performed By: Galina Cha : :Referring: CHIP TURNER : + + Interpretation Summary Left ventricular systolic function appears normal with an estimated ejection fraction of 60 to 65% without any focal wall motion abnormality although there is a mild dyssynchronous contraction pattern due to a conduction abnormality. There is a probable diastolic relaxation abnormality but normal filling pressures. The right ventricle appears normal. Right ventricular systolic pressure cannot be estimated but CVP is likely around 3 mmHg. Both atria are normal in size. There is no significant valvular abnormality identified. Procedure: A two-dimensional transthoracic echocardiogram with color flow and Doppler was performed. The study quality was technically adequate. There is no prior echocardiogram noted for this patient. The patient was in normal sinus rhythm during the exam. Left Ventricle: The left ventricle appears normal in size, wall thickness, and systolic function without any focal wall motion abnormalities. The ejection fraction is estimated to be 60-65%. There is a mild dyssynchronous contraction pattern, consistent with a conduction abnormality. Diastolic parameters suggest a relaxation abnormality of the left ventricle, consistent with probable normal filling pressures. Right Ventricle: The right ventricle is normal in size and function. Atria: Both atria are normal in size. There is no Doppler evidence for an interatrial shunt. Mitral Valve: The mitral valve leaflets appear borderline thickened, but open well. There is trace mitral regurgitation. Aortic Valve: The aortic valve is trileaflet. The aortic valve is slightly calcified. The aortic valve opens well. There is no aortic valve stenosis. No aortic regurgitation is present. Tricuspid Valve: The tricuspid valve is normal in structure and function. There is trace tricuspid regurgitation. Pulmonary artery pressures cannot be estimated because of the lack of a measurable TR jet velocity but the IVC suggests a CVP of around 3 mmHg. Pulmonic Valve: The pulmonic valve leaflets are thin and pliable; valve motion is normal. There is no pulmonic valvular regurgitation. Great Vessels: The aortic root is normal size. The ascending aorta is normal in size. The pulmonary artery is not well visualized, but is probably normal size. The IVC is of normal diameter and collapses greater than 50% with a sniff. This suggests a low right atrial pressure of 3 mm Hg. Pericardium/ Pleura There is no pericardial effusion. MMode/2D Measurements & Calculations LVIDd: 4.6 cm LVOT diam: 2.0 cm LVIDs: 3.2 cm Ao root diam: 3.0 cm FS: 30.8 % asc Aorta Diam: 3.1 cm IVSd: 0.57 cm Ao Arch Diam (distal): 1.9 cm LVPWd: 0.60 cm LV granado. diameter/BSA (cm/m^2): 3.0 LV sys. diameter/BSA (cm/m^2): 2.1 LA A2 area: 18.0 cm2 RA long axis: 3.9 cm LA A4 area: 15.4 cm2 RA area: 11.3 cm2 LA length (vol): 4.6 cm RA vol: 27.6 ml LA vol: 51.5 ml RA : 18.2 ml/m2 LA vol index: 33.9 ml/m2 IVC diam: 1.4 cm RVD1 (basal): 2.8 cm RVD2 (mid): 1.9 cm TAPSE: 1.9 cm Doppler Measurements & Calculations Ao V2 max: 117.5 cm/sec LVOT Max Fantasma: 106.5 cm/sec Ao V2 mean: 81.1 cm/sec LV V1 max P.5 mmHg Ao max P.5 mmHg LV V1 VTI: 21.2 cm Ao mean P.9 mmHg EDIS(I,D): 2.6 cm2 Ao V2 VTI: 24.7 cm EDIS(V,D): 2.7 cm2 sev ratio: 0.86 EDIS indexed to BSA (cm^2/m^2): 1.7 MV E max fantasma: 61.2 cm/sec TR max fantasma: 221.3 cm/sec MV A max fantasma: 88.1 cm/sec TR max P.6 mmHg MV E/A: 0.69 PA V2 max: 78.3 cm/sec Med Peak E' Fantasma: 4.7 cm/sec PA V2 mean: 52.3 cm/sec E/E' med: 12.9 PA mean P.2 mmHg Lat Peak E' Fantasma: 4.8 cm/sec PA Accel Time: 0.12 sec E/E' lat: 12.6 E/e' average: 12.8 MV dec time: 0.28 sec SV(LVOT): 63.5 ml Reading Physician:01:11 PM myocardical perfusion study: Radiologist's Impression: [address] [id number] Medicine ReportSigned Patient: Almaz Diggs EMR#: [id number]: 1960Acct:[id number]/Sex: 60 / FDate of Service: 07/13/20Loc: [id number] Number: [id number] Procedure: NM nubia perf SPECT rest & str Ordering Provider: Chip Truner D.O. DATE OF SERVICE: 07/13/2020 PROCEDURE: Exercise perfusion study. INDICATIONS: Chest pain with underlying hypertension. RADIOPHARMACEUTICAL: 24.7 millicurie technetium-99m Myoview IV was injected at stress and 11.4 millicurie technetium-99m Myoview IV was injected at rest. CARDIAC STRESS: The patient underwent exercise stress test under the supervision of an attending staff. The patient walked on Javier protocol for 6 minutes 0 seconds, achieved 94 percent of target heart rate with normal blood pressure response, 7 METs of workload and functional aerobic impairment positive 10 percent. Baseline rhythm was sinus. During stress, there were some nonspecific ST changes. No significant arrhythmias seen. Borderline LVH. No chest pain or anginal symptoms. The patient felt fatigue and some dyspnea. RAW DATA: There is increased subdiaphragmatic activity. GATED STUDY: Stress LV ejection fraction 91 percent. Resting end-diastolic volume 69 mL. TID ratio 0.88, which is within normal limits. Lung/heart ratio 0.35, which is within normal limits. MYOCARDIAL PERFUSION: Resting and stress supine images revealed small size, mildly decreased perfusion of basal inferior wall, which got completely resolved during prone images suggestive of tissue attenuation artifact. CONCLUSION: I will call this study a normal myocardial perfusion study. Diminished exercise tolerance. Normal hemodynamic response. No significant arrhythmias seen during exercise. No anginal symptoms. Overall, this is a low- risk exercise perfusion study. Almaz Diggs - MICHAEL/pradeep/marlo doc#: [id number]/job#: [id number] dd: 07/13/2020 17:21:00 dt: 07/13/2020 19:03:00 DICTATING MD/COPIES TO: Kirsten Gipson MD COPIES MNE: PALV; Chest x-ray: Radiologist's Impression: [address] [id number] ReportSigned Patient: Almaz Diggs EMR#: [id number]: 1960Acct:[id number]/Sex: 60 / FDate of Service: 09/09/20Loc: EDAccession Number: [id number] Procedure: XR chest 1V Ordering Provider: Loco Richards D.O. PROCEDURE: XR CHEST 1V INDICATIONS: chest pain TECHNIQUE: One view of the chest was acquired. COMPARISON: [facility], , XR CHEST 1V, 07/14/2020, 10:28. FINDINGS: Surgical changes and devices: Overlying EKG wires. Lungs and pleura: Lungs are clear. No pleural effusions or pneumothorax. Mediastinum: Mediastinal contours appear normal. Heart size is normal. Bones and chest wall: No suspicious bony lesions. Remote rib fractures. No acute osseous abnormality. Overlying soft tissues appear unremarkable. IMPRESSION: No evidence of an acute cardiopulmonary abnormality. Dictated by: Fazal King D.O. on 09/09/2020 at 17:24 Approved by: Fazal King D.O. on 09/09/2020 at 17:25 ECG Data Attestation: I personally reviewed and interpreted this ECG as follows: Prior ECG tracings: available for review Interpretation: Triage EKG shows sinus rhythm Ventricular rate 82 QRS duration normal Normal QTC ST elevations in AVR ST depressions in the 2 3 AVF V4 V5 V6 Comparison EKG from 07/12/2020 very similar to triage EKG Repeat EKG in emergency department Sinus rhythm Ventricular rate 80 Very similar parents to triage EKG MDM Narrative Medical decision making narrative: Patient initially he appeared very poorly. She was tachypneic and having epigastric abdominal discomfort. The triage EKG very concerning looking with ST depressions and elevations in AVR. Was able to find prior EKG from 3 months ago and this looks very similar to her triage EKG. Her chest x-ray is unremarkable. She is afebrile. I did discuss the case with Dr. Raymond with Cardiology who was able to evaluate the EKG who recommended troponin if it was elevated then transferring the patient for continued workup. When labs resulted her troponin was negative. Repeat EKG was unchanged from triage. Her blood pressure did improve with nitro and also labetalol. She does have a leukocytosis. Once this lab resulted antibiotics were ordered for her blood cultures were ordered as well. We then got the lipase resultant which is elevated which was consistent with pancreatitis. When I went back in and talked with the patient she denied the use of anti-inflammatories or alcohol. She denies any right upper quadrant tenderness. She states she has had pancreatitis in the past. This could account for her vomiting and also her leukocytosis. She had a fairly extensive cardiac workup 2 months ago. The echocardiogram and stress test included in this note is for reference purposes only. It was performed during that visit and is unremarkable. The plan will be is to admit the patient to this facility for continued trending of her cardiac enzymes and also treatment of pancreatitis. I did discuss this with the patient who expressed understanding agreement. I then discussed the case with ENRIKE Foy the [facility] provider who will admit for further evaluation treatment. Discharge Plan Departure Patient Disposition: Admitted As Inpatient Clinical Impression: Hypertension, Hypokalemia, Pancreatitis Admit Date/Time: 09/09/20 20:23 Admit Provider: Radha Foy
[2020-09-09] MEDS: NITROGLYCERIN OINT 1 INCH/GM OINT...G. TOP (18:07)
[2020-09-09] MEDS: ASPIRIN 81 MG CHEW TAB 324 MG PO (18:08)
[2020-09-09 18:41] LABS: Prothrombin Time 11.4 SECONDS (10.1-12.7)
[2020-09-09 18:44] LABS: PTT Partial Thromboplastin Tim 43 SECONDS (26.4-36.2)
[2020-09-09 18:45] LABS: Alanine Aminotransferase 18 IU/L (<35); Albumin Globulin Ratio 1.2 (1.0-2.8); Alkaline Phosphatase 128 U/L (38-126); Aspartate Aminotransferase 27 IU/L (14-36); BUN Creatinine Ratio 14.7 (6-22); Bilirubin Total 0.5 mg/dL (0.2-1.3); Blood Urea Nitrogen 17 mg/dL (7-17); Calcium 10.5 mg/dL (8.4-10.2); Carbon Dioxide 29 mmol/L (22-32); Chloride 91 mmol/L (98-107); Creatine Kinase 116 U/L (30-135); Estimated Glomerular Filt Rate 47.5 mL/min (>60); Globulin 4.1 g/dL (1.7-4.1); Glucose 201 mg/dL (80-110); HEMOLYSIS < 15 (0-50); Sodium 135 mmol/L (137-145); Total Protein 9.1 g/dL (6.3-8.2)
[2020-09-09 18:52] LABS: Basophils Absolute Auto 0 /uL (0-100); Basophils Percent Auto 0.2 % (0-2); Eosinophils Absolute Auto 0 /uL (0-450); Hemoglobin 16.5 g/dL (12.0-16.0); Lymphocytes Absolute Auto 1100 /uL (1100-4500); Lymphocytes Percent Auto 5.7 % (25-40); Mean Corpuscular HGB Conc 34.3 % (30-36); Mean Corpuscular Hemoglobin 29.9 PG (26-34); Mean Corpuscular Volume 87.2 fL (80-100); Monocytes Absolute Auto 1400 /uL (0-900); Neutrophils Absolute Auto 17500 /uL (1500-7000); Neutrophils Percent Auto 87.1 % (50-75); Platelet Count 429 X10^3/uL (150-400); Red Blood Cell Count 5.51 X10^6/uL (4.0-5.2); Red Cell Distribution Width 14.2 % (11.6-14.8); White Blood Cell Count 20.1 X10^3/uL (4.5-11.0)
[2020-09-09 18:57] LABS: Troponin I 0.025 ng/mL (0.01-0.034)
[2020-09-09 19:00] LABS: CKMB % Relative Index 1.7 % (1.5-5.0)
[2020-09-09 19:01] LABS: D Dimer 213 ng/mL (<230)
[2020-09-09] MEDS: LABETALOL 20 MG/4 ML SYRINGE 10 MG IV (19:12)
[2020-09-09 19:25] LABS: Lipase 2283 U/L (23-300); Potassium 2.4 mmol/L (3.4-5.1)
[2020-09-09 19:32] LABS: Add Manual Diff / Slide Review SLIDE REVIEW; RBC Morphology Normal Morphology
[2020-09-09 19:51] LABS: Lactate (Lactic Acid) 1.6 mmol/L (0.7-2.1)
[2020-09-09] MEDS: POTASSIUM CHLORIDE IN WATER 10 MEQ/100 ML PIGGYBACK 100 MEQ IV ×4 (19:55→23:35)
[2020-09-09 20:13] LABS: Magnesium 2.1 mg/dL (1.6-2.3)
--- NOTE | 2020-09-09 20:17 | PC.NURSE ---
Reports high BP at home with intermittent nausea/epigastric pain upon arrival. Left EJ IV placed by ED MD. BP 200s/100s, MD aware.
[2020-09-09] MEDS: ONDANSETRON 4 MG/2 ML INJ IV (20:35)
[2020-09-09] MEDS: CEFTRIAXONE 1 GM/50 ML FROZ.PIGGY IV (20:36)
[2020-09-09 20:52] LABS: Amylase 468 U/L (30-110)
[2020-09-09 21:13] LABS: Appearance Urine UA CLEAR; Bilirubin Urine UA NEGATIVE (NEGATIVE); Color Urine UA YELLOW; Glucose Urine UA NEGATIVE (Negative); Ketones Urine UA NEGATIVE (NEGATIVE); Leukocyte Esterase Urine UA TRACE (NEGATIVE); Nitrite Urine UA NEGATIVE (Negative); Occult Blood Urine UA 1+ (Negative); Protein Urine UA 2+ (Negative); Urobilinogen Urine UA 0.2 E.U./dL (0.2)
[2020-09-09 21:18] LABS: Cholesterol 262 mg/dL (140-199); HDL Cholesterol 59 mg/dL (40-60); LDL Cholesterol Calculated 163 mg/dL (<100); Triglycerides 198 mg/dL (35-150)
[2020-09-09 21:19] LABS: Bacteria Urine Few (2-10); RBC Urine 1-5/HPF (0-5/HPF); Squamous Epithelial Cell Urine 1-5 /HPF (0-5/HPF); WBC Urine 0-1/HPF (0-5/HPF); pH Urine UA 6.5 (4.5-8.0)
[2020-09-09 21:20] LABS: Culture Indicated Urine Specimen Cultured
[2020-09-09 21:20] LABS: Alanine Aminotransferase 17 IU/L (<35); Albumin Globulin Ratio 1.2 (1.0-2.8); Alkaline Phosphatase 125 U/L (38-126); Aspartate Aminotransferase 66 IU/L (14-36); Bilirubin Total 0.6 mg/dL (0.2-1.3); Bilirubin Unconjugated 0.3 mg/dL (0.0-1.1); C-Reactive Protein Quant < 0.5 mg/dL (<1.0); Globulin 4.1 g/dL (1.7-4.1); HEMOLYSIS 32 (0-50); Lactate Dehydrogenase 946 U/L (313-618); Total Protein 9.1 g/dL (6.3-8.2)
[2020-09-09 21:27] LABS: COVID19 - ADMIT (NP swab/PCR) Negative (Negative)
--- NOTE | 2020-09-09 22:03 | PM.HP.1 ---
History of Present Illness History of Present Illness Date Patient Seen: 09/09/20 Time Patient Seen: 20:52 Chief complaint: elevated BP Narrative: Ms. Luis Felipe Diggs is a 60-year-old female who presented to the ED today with 24-48 hours of extensive nausea vomiting and elevated blood pressures, patient was tachypneic upon arrival and hypertensive. Patient states that she started vomiting yesterday approximately 20 times total and a few times today she is has a cough with productive white sputum following of fairly bad cold over the last few days. Patient is a current smoker with a past medical history significant for anxiety and depression, hyperlipidemia, PTSD, hypertension and osteoarthritis . The patient has an issue with chronic vomiting and previous hypokalemia as well. She states she occasionally vomits when having a bowel movement. She was admitted previously with hypertensive urgency, since then she has stopped her home lisinopril for kidney disease according to the patient, and she was due to follow up with a marketing technology coordinator next month. Patient states upon admit that she has mild nausea and no abdominal pain at this time she denies chest pain, shortness of breath, jaundice, fever, chills, diarrhea. Patient's vitals upon admit temp 98.5?, BP 172/92, HR 63, RR 18, O2 saturation 96% on room air. Patient's labs WBC 20.1, HGB 16.5, HCT 48, PLT 429, newt# 17,500, sodium 135, potassium 2.4, creatinine 1.16, glucose 201, EGFR 47.5, lactate is negative, troponins negative, total protein 9.1, lipase 2283, calcium 10.5, alk-phos 128, PTT 43. Forsyth score 3, 7% Risk, Sofa 1. CXR:No evidence of an acute cardiopulmonary abnormality. Exercise perfusion study:07/13/2020-I will call this study a normal myocardial perfusion study. Diminished exercise tolerance. Normal hemodynamic response. No significant arrhythmias seen during exercise. No anginal symptoms. Overall, this is a low-risk exercise perfusion study. Echo 07/12/2020:Left ventricular systolic function appears normal with an estimated ejection fraction of 60 to 65% without any focal wall motion abnormality although there is a mild dyssynchronous contraction pattern due to a conduction abnormality. EKG X2 in ED today: Normal sinus rhythm at a rate of 79 ST depression, prolonged QT EKG was compared to previous hospitalization no significant can not differences. Dr. Lizy Raymond from [facility] cardiology was consulted and reviewed all recent imaging and EKGs in the ED including labs and did not feel that patient's presenting symptoms were cardiac in nature, and should be admitted and worked up for acute pancreatitis. Patient History Medical History Anxiety Hypertension Osteoarthritis Osteoporosis PTSD (post-traumatic stress disorder) Surgical History History of History of colonoscopy Family & Social History Family History (Updated 09/10/20 @ 03:11 by PARTH Hassan) Father Heart attack Hypertension Diabetes mellitus Mother Diabetes mellitus Hypertension Social History: household members patient lives with her daughter and grandson and is retired Prior Living Arrangements House Safety & Behavioral: Feels Safe in Current Yes Environment Been Physically Hurt or No Threatened By a Person Suicidal Ideation Description None Suicide Plan Description No Plan Tobacco & Substance use: Tobacco type cigarettes,cannabis/marijuana Smoking Status Current every day smoker alcohol intake never Substance Use Type marijuana Meds Home Medications and Allergies Home Medications Medication Instructions Recorded Confirmed Type amlodipine 10 mg PO DAILY 07/12/20 09/09/20 History citalopram 10 mg PO DAILY 07/12/20 09/09/20 History carvedilol [Coreg] 12.5 mg PO BID #60 tab 07/17/20 09/09/20 Rx ondansetron 4 mg SUBLINGUAL Q4HR PRN #20 tab 07/17/20 09/09/20 Rx Allergies Allergy/AdvReac Type Severity Reaction Status Date / Time mirtazapine [MIRTAZAPINE] Allergy Unknown HALLUCINATI Verified 07/12/20 18:05 ONS Review of Systems Review of Systems ROS: Yes All systems reviewed with the patient and are negative except as otherwise documented Gastrointestinal Gastrointestinal: Reports nausea Exam Vital Signs (past 8 hours): - 09/09/20 17:51 09/09/20 18:07 09/09/20 18:55 Temperature 98.5 F Pulse Rate 88 82 78 Respiratory Rate 20 22 Blood Pressure 186/90 H 196/98 H Pulse Oximetry 98 93 09/09/20 19:00 09/09/20 19:10 09/09/20 19:12 Temperature Pulse Rate 77 78 84 Respiratory Rate 24 22 Blood Pressure 209/102 H 202/100 H 202/100 H Pulse Oximetry 92 95 09/09/20 19:18 09/09/20 19:20 09/09/20 19:25 Temperature Pulse Rate 69 67 63 Respiratory Rate 22 24 19 Blood Pressure 167/89 H 164/89 H 172/92 H Pulse Oximetry 92 93 96 09/09/20 19:30 09/09/20 20:13 09/09/20 21:54 Temperature 97.2 F L Pulse Rate 62 63 83 Respiratory Rate 18 20 Blood Pressure 176/93 H 172/92 H 197/97 H Pulse Oximetry 96 94 09/09/20 21:59 Temperature Pulse Rate Respiratory Rate Blood Pressure Pulse Oximetry 94 Oxygen Delivery Method Room Air Oxygen Flow Rate 0 Narrative Exam Narrative: General: Patient is a well-developed, well-nourished in no distress at this time. HEENT: Normocephalic, atraumatic, extraocular muscles intact, oral pharynx is clear and mucous membranes are moist. Patient is missing her teeth. Neck is supple and symmetric, trachea is midline, no adenopathy, no thyroid enlargement, nontender, no masses palpated. Negative for JVD Chest: Normal AP diameter and contour without kyphoscoliosis, no nasal flaring, retractions, or tachypneic labored Lungs: Occasional wheezing throughout all cardenas Cardio: S1 & S2 with regular rate and rhythm without murmur, rubs, or gallops, no carotid bruit, no cardiac pulsations present. Abdomen: Soft nontender, negative for organomegaly, or masses. Bowel sounds hypoactive are present in all 4 quadrants without guarding or rebound, no CVA tenderness. Musculoskeletal: Muscle strength and tone are equal within normal limits, no deformity, crepitus, effusions, cyanosis, clubbing or edema present. Full range of motion intact radial and pedal pulses are normal. Skin: Warm dry and intact without rashes, ulcerations or petechiae. Neuro: Alert and orientated x3, strength is +5/5 in all extremities, sensation to touch intact, no gross deficits noted of cranial nerves. Psych: Patient has a well-kept appearance, appropriate affect, mental status attitude thought context and judgment are appropriate for age. Objective Labs Result Diagrams: 09/09/20 18:15 09/09/20 22:58 Labs: Laboratory Results - last 24 hr 09/09/20 09/09/20 09/09/20 18:15 18:15 18:15 WBC 20.1 H RBC 5.51 H Hgb 16.5 H Hct 48.0 H MCV 87.2 MCH 29.9 MCHC 34.3 RDW 14.2 Plt Count 429 H Neut % (Auto) 87.1 H Lymph % (Auto) 5.7 L Jackson % (Auto) 7.0 Eos % (Auto) 0.0 L Baso % (Auto) 0.2 Neut # (Auto) 24317 H Lymph # (Auto) 1100 Jackson # (Auto) 1400 H Eos # (Auto) 0 Baso # (Auto) 0 RBC Morphology Normal morphology PT 11.4 INR 1.0 APTT 43 H D-Dimer Sodium 135 L Potassium 2.4 L* Chloride 91 L Carbon Dioxide 29 BUN 17 Creatinine 1.16 H Estimated GFR 47.5 L BUN/Creatinine Ratio 14.7 Glucose 201 H Lactate Calcium 10.5 H Magnesium Total Bilirubin 0.5 Conjugated Bilirubin Unconjugated Bilirubin AST 27 ALT 18 Alkaline Phosphatase 128 H Lactate Dehydrogenase Total Creatine Kinase 116 CK-MB (CK-2) 2.00 CK-MB (CK-2) Rel Index 1.7 Troponin I 0.025 C-Reactive Protein Total Protein 9.1 H Albumin 5.0 Globulin 4.1 Albumin/Globulin Ratio 1.2 Triglycerides Cholesterol LDL Cholesterol, Calc HDL Cholesterol Amylase Lipase 2283 H Urine Color Urine Appearance Urine pH Ur Specific Calhoun Urine Protein Urine Glucose (UA) Urine Ketones Urine Occult Blood Urine Nitrate Urine Bilirubin Urine Urobilinogen Ur Leukocyte Esterase Urine RBC Urine WBC Ur Squamous Epith Cells Urine Bacteria Ur Culture Indicated? SARS-CoV-2 (PCR) 09/09/20 09/09/20 09/09/20 18:15 18:15 18:15 WBC RBC Hgb Hct MCV MCH MCHC RDW Plt Count Neut % (Auto) Lymph % (Auto) Jackson % (Auto) Eos % (Auto) Baso % (Auto) Neut # (Auto) Lymph # (Auto) Jackson # (Auto) Eos # (Auto) Baso # (Auto) RBC Morphology PT INR APTT D-Dimer 213 Sodium Potassium Chloride Carbon Dioxide BUN Creatinine Estimated GFR BUN/Creatinine Ratio Glucose Lactate 1.6 Calcium Magnesium 2.1 Total Bilirubin Conjugated Bilirubin Unconjugated Bilirubin AST ALT Alkaline Phosphatase Lactate Dehydrogenase Total Creatine Kinase CK-MB (CK-2) CK-MB (CK-2) Rel Index Troponin I C-Reactive Protein Total Protein Albumin Globulin Albumin/Globulin Ratio Triglycerides Cholesterol LDL Cholesterol, Calc HDL Cholesterol Amylase Lipase Urine Color Urine Appearance Urine pH Ur Specific Calhoun Urine Protein Urine Glucose (UA) Urine Ketones Urine Occult Blood Urine Nitrate Urine Bilirubin Urine Urobilinogen Ur Leukocyte Esterase Urine RBC Urine WBC Ur Squamous Epith Cells Urine Bacteria Ur Culture Indicated? SARS-CoV-2 (PCR) 09/09/20 09/09/20 09/09/20 18:15 18:15 18:15 WBC RBC Hgb Hct MCV MCH MCHC RDW Plt Count Neut % (Auto) Lymph % (Auto) Jackson % (Auto) Eos % (Auto) Baso % (Auto) Neut # (Auto) Lymph # (Auto) Jackson # (Auto) Eos # (Auto) Baso # (Auto) RBC Morphology PT INR APTT D-Dimer Sodium Potassium Chloride Carbon Dioxide BUN Creatinine Estimated GFR BUN/Creatinine Ratio Glucose Lactate Calcium Magnesium Total Bilirubin 0.6 Conjugated Bilirubin 0.0 Unconjugated Bilirubin 0.3 AST 66 H ALT 17 Alkaline Phosphatase 125 Lactate Dehydrogenase 946 H Total Creatine Kinase CK-MB (CK-2) CK-MB (CK-2) Rel Index Troponin I C-Reactive Protein < 0.5 Total Protein 9.1 H Albumin 5.0 Globulin 4.1 Albumin/Globulin Ratio 1.2 Triglycerides 198 H Cholesterol 262 H LDL Cholesterol, Calc 163 H HDL Cholesterol 59 Amylase 468 H Lipase Urine Color Urine Appearance Urine pH Ur Specific Calhoun Urine Protein Urine Glucose (UA) Urine Ketones Urine Occult Blood Urine Nitrate Urine Bilirubin Urine Urobilinogen Ur Leukocyte Esterase Urine RBC Urine WBC Ur Squamous Epith Cells Urine Bacteria Ur Culture Indicated? SARS-CoV-2 (PCR) 09/09/20 09/09/20 20:20 20:57 WBC RBC Hgb Hct MCV MCH MCHC RDW Plt Count Neut % (Auto) Lymph % (Auto) Jackson % (Auto) Eos % (Auto) Baso % (Auto) Neut # (Auto) Lymph # (Auto) Jackson # (Auto) Eos # (Auto) Baso # (Auto) RBC Morphology PT INR APTT D-Dimer Sodium Potassium Chloride Carbon Dioxide BUN Creatinine Estimated GFR BUN/Creatinine Ratio Glucose Lactate Calcium Magnesium Total Bilirubin Conjugated Bilirubin Unconjugated Bilirubin AST ALT Alkaline Phosphatase Lactate Dehydrogenase Total Creatine Kinase CK-MB (CK-2) CK-MB (CK-2) Rel Index Troponin I C-Reactive Protein Total Protein Albumin Globulin Albumin/Globulin Ratio Triglycerides Cholesterol LDL Cholesterol, Calc HDL Cholesterol Amylase Lipase Urine Color Yellow Urine Appearance Clear Urine pH 6.5 Ur Specific Calhoun 1.020 Urine Protein 2+ H Urine Glucose (UA) Negative Urine Ketones Negative Urine Occult Blood 1+ H Urine Nitrate Negative Urine Bilirubin Negative Urine Urobilinogen 0.2 Ur Leukocyte Esterase Trace H Urine RBC 1-5/hpf Urine WBC 0-1/hpf Ur Squamous Epith Cells 1-5 /hpf Urine Bacteria Few (2-10) H Ur Culture Indicated? Specimen cultured SARS-CoV-2 (PCR) Negative Assessment & Plan Assessment & Plan narrative: This patient requires acute care inpatient hospital management for acute pancreatitis, after failing outpatient management. The patient is at much higher risk for medical and surgical complications because of a past medical history significant for anxiety and depression, PTSD, hypertension and osteoarthritis. These factors increase the difficulty and complexity of medical and surgical interventions and increases the chances of poor outcomes such as morbidity and mortality. The patient's tobacco abuse will impact her oxygenation, and may impair healing. Patient's expected length of stay greater than 2 midnights. Patient is under inpatient status due to severity of presenting symptoms, complexity of treatment, plan and risk of adverse events. 1.Acute pancreatitis, acute, present on admission. Differential diagnosis includes chronic pancreatitis vs. microscopic colitis vs. Ischemic colitis vs.infectious colitis. vitals upon admit temp 98.5?, BP 172/92, HR 63, RR 18, O2 saturation 96% on room air. Patient's labs WBC 20.1, HGB 16.5, HCT 48, PLT 429, newt# 17,500, sodium 135, potassium 2.4, creatinine 1.16, glucose 201, EGFR 47.5, lactate is negative, troponins negative, total protein 9.1, lipase 2283, calcium 10.5, alk-phos 128, PTT 43. Rox score 3, 7% Risk, Sofa 1. CXR:No evidence of an acute cardiopulmonary abnormality. Exercise perfusion study:07/13/2020-I will call this study a normal myocardial perfusion study. Diminished exercise tolerance. Normal hemodynamic response. No significant arrhythmias seen during exercise. No anginal symptoms. Overall, this is a low-risk exercise perfusion study. Echo 07/12/2020:Left ventricular systolic function appears normal with an estimated ejection fraction of 60 to 65% without any focal wall motion abnormality although there is a mild dyssynchronous contraction pattern due to a conduction abnormality. EKG X2 in ED today: Normal sinus rhythm at a rate of 79 ST depression, prolonged QT EKG was compared to previous hospitalization no significant can not differences. Repeat AST 66, lactate dehydrogenase 946, a CRP negative, triglycerides 198, total cholesterol 262, LDL 163, amylase 468, UA positive culture pending. -HAMILTON II Score:mortality risk of 7%- low risk -Continue antiemetics and as needed pain medication. -rehydration: rehydration to continue with a goal of 0.5 cc/kilogram per hour of urine output then IV fluids to be continued LR at 250 cc/hour-monitor for fluid overload -patient NPO-In Am start on trial clear liquids once patient has sustained absence vomiting and diarrhea, the goal to resolve in 24-48 hours, once patient has completed a trial of clear liquids may advance to a low-fiber diet as tolerated -monitor hematocrit and BUN q.8 hours-if BUN continues to rise will increase fluids and give 2 L bolus of crystalloid -patient admit, monitored on tele medicine, vital signs q. 2 hours x 3 then advance to Q4HRs, intake and output monitored Q shift, weight measure daily, diet:NPO -a.m. Labs amylase, Lipase CRP, CMP and CBC, and ABD u/s, Hepatitis panel -PICC line requested as patient has a tenuous carotid IV line, patient required a PICC line on prior hospitalization. 2.hypokalemia, acute on chronic, present on admission - K 2.4 on admission with QT prolongation on EKG / telemetry. Qtc 548 on admission EKG> - given 40 meq IV in the ER. will continue to replete as needed. - likely secondary to vomiting and dehydration. - vomiting may be secondary to marijuana use and cyclic vomiting. 3. Hyperglycemia, acute, present on admission as evidence by a glucose 201 -blood sugar checks q.6 hours with low-dose insulin sliding scale, and A1c ordered 4. Hypertension, acute on chronic, in the setting of hyperlipidemia, present on admission, uncontrolled -as evidence by admit blood pressure 172/92 - Will continue home amlodipine, Coreg, and potassium. - ST depressions are seen, though borderline in V3-6.Repeat EKG unchanged, no active changes. And troponin negative x1-no changes since prior hospitalization. -cardiology consult via phone Dr. Raymond [facility] in ED 5. Anixety/depression, PTSD, acute on chronic, not present on admission - patient denies suicidal ideation - continue home citalopram. 6. mild hypercalcemia, acute, present on admission -as evidence by calcium 10.5, continue to monitor - suspect in setting of dehydration. 7. Underweight as evidence by a BMI of 20.5, acute on chronic, present on admission -dietary consult will evaluate for dietary recommendations. Patient is malnourished as evidence by BMI of 20.5. -monitor weight Code Status: Full Code Surrogate decision maker is the patient's daughter (Ruthie Sahu) COVID PCR: Negative VTE/DVT prophylaxis: Lovenox 40 mg and SCDs Scores GCS [place] coma scale eye opening: Spontaneous Marcelina coma scale verbal response: Orientated [place] coma scale motor response: Obey commands Marcelina coma scale total score: 15 SOFA PaO2/FIO2: >=400 mmHg Platelets: >= 150 Bilirubin: < 1.2 mg/dL Hypotension: MAP >= 70 mmHg Marcelina Coma Scale: 15 Renal: Creatinine 1.2-1.9 mg/dL SOFA Score: 1 Quality VTE Deep Vein Thrombosis/Pulmonary Embolism Present on Admission: No
--- NOTE | 2020-09-09 22:57 | PC.NURSE ---
Admission note: Patient arrived via stretcher at 2145, transferred self to inpatient bed, c/o weakness with ambulation. AxOx3, can make needs known. Denies recent hx of falls. Uses O2 at baseline, on 2L by NC. Fine crackles to bilateral bases and wheezing in left lower lobe, productive cough with spontaneous expectoration. Baseline heart murmur. C/o incontinence with coughing, brief on and using bedpan d/t weakness. High fall risk d/t weakness, bed alarm on and functioning, call light in reach.
[2020-09-09 23:25] LABS: Creatine Kinase 101 U/L (30-135); HEMOLYSIS < 15 (0-50)
[2020-09-09 23:26] LABS: BUN Creatinine Ratio 15.4 (6-22); Blood Urea Nitrogen 18 mg/dL (7-17)
--- NOTE | 2020-09-09 23:27 | PC.NURSE ---
Admission note: Patient arrived via stretcher, transferred self to inpatient bed c/o weakness with ambulation. Denies recent hx of fall. C/o nausea with occasional vomiting but denies abdominal pain. Axox3, can make needs known. Moderate fall risk d/t weakness, bed alarm on and functioning call light in reach. Notified RAIL CAR MAINTENANCE MECHANIC that LR had not been started d/t potassium infusing and IV placement in left external jugular. Verbal order for midline placement. Notified coordinator to alert precision for placement, passed on to night baker. Notified RAIL CAR MAINTENANCE MECHANIC of elevated BP. New verbal order for IV metoprolol 5mg. Notified night baker of new order. Critical value: potassium of 2.7. Notified night baker, will notify RAIL CAR MAINTENANCE MECHANIC.
[2020-09-09 23:33] LABS: Potassium 2.7 mmol/L (3.4-5.1)
[2020-09-09] MEDS: LACTATED RINGERS 1,000 ML 250 ML IV (23:35)
[2020-09-09 23:39] LABS: Troponin I 0.016 ng/mL (0.01-0.034)
[2020-09-09 23:41] LABS: CKMB % Relative Index 1.7 % (1.5-5.0); Creatine Kinase MB 1.73 ng/mL (<2.37)
[2020-09-10] VITALS (27 sets, daily range): BP systolic 142–209; BP diastolic 81–106; PULSE 77–97; RESP 16–20; TEMP 35.9–37.1; O2SAT 92–97
[2020-09-10] MEDS: METOPROLOL TARTRATE 5 MG/5 ML INJ IV (00:25)
[2020-09-10] MEDS: LACTATED RINGERS 1,000 ML 100 ML IV (05:06)
[2020-09-10] MEDS: PANTOPRAZOLE DR 20 MG TABLET PO (05:20)
[2020-09-10] MEDS: HYDRALAZINE 20 MG/ML VIAL 10 MG IV ×3 (05:21→17:02)
[2020-09-10 05:49] LABS: Add Manual Diff / Slide Review NO; Basophils Absolute Auto 0 /uL (0-100); Basophils Percent Auto 0.1 % (0-2); Eosinophils Absolute Auto 0 /uL (0-450); Hematocrit 43.3 % (36-46); Hemoglobin 15.1 g/dL (12.0-16.0); INR 1.1 (0.9-1.3); Lymphocytes Absolute Auto 900 /uL (1100-4500); Lymphocytes Percent Auto 6.8 % (25-40); Mean Corpuscular HGB Conc 34.9 % (30-36); Mean Corpuscular Hemoglobin 30.1 PG (26-34); Mean Corpuscular Volume 86.1 fL (80-100); Monocytes Absolute Auto 700 /uL (0-900); Monocytes Percent Auto 5.4 % (3-14); Neutrophils Absolute Auto 12200 /uL (1500-7000); Neutrophils Percent Auto 87.7 % (50-75); Platelet Count 344 X10^3/uL (150-400); Red Blood Cell Count 5.02 X10^6/uL (4.0-5.2); Red Cell Distribution Width 14.3 % (11.6-14.8); White Blood Cell Count 13.9 X10^3/uL (4.5-11.0)
[2020-09-10 05:56] LABS: Alanine Aminotransferase 15 IU/L (<35); Albumin 4.5 g/dL (3.5-5.0); Albumin Globulin Ratio 1.3 (1.0-2.8); Alkaline Phosphatase 110 U/L (38-126); Aspartate Aminotransferase 24 IU/L (14-36); BUN Creatinine Ratio 14.8 (6-22); Bilirubin Total 0.5 mg/dL (0.2-1.3); Blood Urea Nitrogen 16 mg/dL (7-17); Calcium 9.7 mg/dL (8.4-10.2); Carbon Dioxide 32 mmol/L (22-32); Chloride 92 mmol/L (98-107); Estimated Glomerular Filt Rate 51.6 mL/min (>60); Globulin 3.5 g/dL (1.7-4.1); Glucose 162 mg/dL (80-110); HEMOLYSIS < 15 (0-50); Sodium 134 mmol/L (137-145)
[2020-09-10 06:17] LABS: Potassium 2.4 mmol/L (3.4-5.1)
[2020-09-10 06:25] LABS: Amylase 277 U/L (30-110); Lipase 615 U/L (23-300)
[2020-09-10] MEDS: POTASSIUM CHLORIDE IN WATER 10 MEQ/100 ML PIGGYBACK 100 MEQ IV ×12 (06:35→23:20)
[2020-09-10 06:37] LABS: Lactate (Lactic Acid) 1.2 mmol/L (0.7-2.1)
--- NOTE | 2020-09-10 07:51 | P.PN_ITS ---
Subjective Subjective Date Patient Seen: 09/10/20 Interval history: She tells me that she lives in [place] with her daughter. She denies any recent alcohol use and says she has not had pancreatitis before. She insists that she had no abdominal pain on this presentation, only vomiting. Her potassium has dropped from 2.7 down to 2.4 so an additional 40 mEq will be given. Her CT scan does not show any obvious pancreatitis or gallbladder abnormality/bile duct abnormality. Exam Vital Signs (past 8 hours): - 09/10/20 00:00 09/10/20 00:10 09/10/20 01:11 Temperature 98.7 F Pulse Rate 88 Respiratory Rate 18 Blood Pressure 152/106 H 191/93 H Pulse Oximetry 94 09/10/20 04:55 09/10/20 05:00 09/10/20 05:21 Temperature 97.9 F Pulse Rate 92 H Respiratory Rate 18 Blood Pressure 209/98 H 209/83 H Pulse Oximetry 97 09/10/20 05:54 09/10/20 05:55 Temperature Pulse Rate 79 Respiratory Rate Blood Pressure 196/93 H 196/93 H Pulse Oximetry Oxygen Delivery Method Room Air Oxygen Flow Rate 0 Narrative Exam Narrative: She is alert and oriented x3. No apparent distress. Heart is regular rate and rhythm without murmur Lungs are clear to auscultation bilaterally Abdomen is soft, bowel sounds positive, nontender, no organomegaly. Extremities have no ankle edema Objective Imaging CT scan - abdomen: Radiologist's impression: IMPRESSION: Atrophic and heterogeneous appearance of the right kidney likely represents infarction. 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 4 millimeter low-density likely cystic lesion within the pancreatic neck. Recommend pancreas protocol MRI in approximately 2 years for further evaluation. There is otherwise an unremarkable appearance of the pancreas without current evidence of pancreatitis. 2.5 centimeter hypodensity within the liver adjacent to the false form ligament likely represents focal fat. Labs Result Diagrams: 09/10/20 05:27 09/10/20 11:58 Labs: Laboratory Results - last 24 hr 09/09/20 09/09/20 09/09/20 18:10 18:15 18:15 WBC 20.1 H RBC 5.51 H Hgb 16.5 H Hct 48.0 H MCV 87.2 MCH 29.9 MCHC 34.3 RDW 14.2 Plt Count 429 H Neut % (Auto) 87.1 H Lymph % (Auto) 5.7 L [place] % (Auto) 7.0 Eos % (Auto) 0.0 L Baso % (Auto) 0.2 Neut # (Auto) 96135 H Lymph # (Auto) 1100 [place] # (Auto) 1400 H Eos # (Auto) 0 Baso # (Auto) 0 RBC Morphology Normal morphology PT 11.4 INR 1.0 APTT 43 H D-Dimer Sodium Potassium Chloride Carbon Dioxide BUN Creatinine Estimated GFR BUN/Creatinine Ratio Glucose Hemoglobin A1c 6.0 Lactate Calcium Magnesium Total Bilirubin Conjugated Bilirubin Unconjugated Bilirubin AST ALT Alkaline Phosphatase Lactate Dehydrogenase Total Creatine Kinase CK-MB (CK-2) CK-MB (CK-2) Rel Index Troponin I C-Reactive Protein Total Protein Albumin Globulin Albumin/Globulin Ratio Triglycerides Cholesterol LDL Cholesterol, Calc HDL Cholesterol Amylase Lipase Urine Color Urine Appearance Urine pH Ur Specific [place] Urine Protein Urine Glucose (UA) Urine Ketones Urine Occult Blood Urine Nitrate Urine Bilirubin Urine Urobilinogen Ur Leukocyte Esterase Urine RBC Urine WBC Ur Squamous Epith Cells Urine Bacteria Ur Culture Indicated? SARS-CoV-2 (PCR) 09/09/20 09/09/20 09/09/20 18:15 18:15 18:15 WBC RBC Hgb Hct MCV MCH MCHC RDW Plt Count Neut % (Auto) Lymph % (Auto) [place] % (Auto) Eos % (Auto) Baso % (Auto) Neut # (Auto) Lymph # (Auto) [place] # (Auto) Eos # (Auto) Baso # (Auto) RBC Morphology PT INR APTT D-Dimer 213 Sodium 135 L Potassium 2.4 L* Chloride 91 L Carbon Dioxide 29 BUN 17 Creatinine 1.16 H Estimated GFR 47.5 L BUN/Creatinine Ratio 14.7 Glucose 201 H Hemoglobin A1c Lactate 1.6 Calcium 10.5 H Magnesium Total Bilirubin 0.5 Conjugated Bilirubin Unconjugated Bilirubin AST 27 ALT 18 Alkaline Phosphatase 128 H Lactate Dehydrogenase Total Creatine Kinase 116 CK-MB (CK-2) 2.00 CK-MB (CK-2) Rel Index 1.7 Troponin I 0.025 C-Reactive Protein Total Protein 9.1 H Albumin 5.0 Globulin 4.1 Albumin/Globulin Ratio 1.2 Triglycerides Cholesterol LDL Cholesterol, Calc HDL Cholesterol Amylase Lipase 2283 H Urine Color Urine Appearance Urine pH Ur Specific [place] Urine Protein Urine Glucose (UA) Urine Ketones Urine Occult Blood Urine Nitrate Urine Bilirubin Urine Urobilinogen Ur Leukocyte Esterase Urine RBC Urine WBC Ur Squamous Epith Cells Urine Bacteria Ur Culture Indicated? SARS-CoV-2 (PCR) 09/09/20 09/09/20 09/09/20 18:15 18:15 18:15 WBC RBC Hgb Hct MCV MCH MCHC RDW Plt Count Neut % (Auto) Lymph % (Auto) [place] % (Auto) Eos % (Auto) Baso % (Auto) Neut # (Auto) Lymph # (Auto) [place] # (Auto) Eos # (Auto) Baso # (Auto) RBC Morphology PT INR APTT D-Dimer Sodium Potassium Chloride Carbon Dioxide BUN Creatinine Estimated GFR BUN/Creatinine Ratio Glucose Hemoglobin A1c Lactate Calcium Magnesium 2.1 Total Bilirubin Conjugated Bilirubin Unconjugated Bilirubin AST ALT Alkaline Phosphatase Lactate Dehydrogenase Total Creatine Kinase CK-MB (CK-2) CK-MB (CK-2) Rel Index Troponin I C-Reactive Protein Total Protein Albumin Globulin Albumin/Globulin Ratio Triglycerides 198 H Cholesterol 262 H LDL Cholesterol, Calc 163 H HDL Cholesterol 59 Amylase 468 H Lipase Urine Color Urine Appearance Urine pH Ur Specific [place] Urine Protein Urine Glucose (UA) Urine Ketones Urine Occult Blood Urine Nitrate Urine Bilirubin Urine Urobilinogen Ur Leukocyte Esterase Urine RBC Urine WBC Ur Squamous Epith Cells Urine Bacteria Ur Culture Indicated? SARS-CoV-2 (PCR) 09/09/20 09/09/20 09/09/20 18:15 20:20 20:57 WBC RBC Hgb Hct MCV MCH MCHC RDW Plt Count Neut % (Auto) Lymph % (Auto) [place] % (Auto) Eos % (Auto) Baso % (Auto) Neut # (Auto) Lymph # (Auto) [place] # (Auto) Eos # (Auto) Baso # (Auto) RBC Morphology PT INR APTT D-Dimer Sodium Potassium Chloride Carbon Dioxide BUN Creatinine Estimated GFR BUN/Creatinine Ratio Glucose Hemoglobin A1c Lactate Calcium Magnesium Total Bilirubin 0.6 Conjugated Bilirubin 0.0 Unconjugated Bilirubin 0.3 AST 66 H ALT 17 Alkaline Phosphatase 125 Lactate Dehydrogenase 946 H Total Creatine Kinase CK-MB (CK-2) CK-MB (CK-2) Rel Index Troponin I C-Reactive Protein < 0.5 Total Protein 9.1 H Albumin 5.0 Globulin 4.1 Albumin/Globulin Ratio 1.2 Triglycerides Cholesterol LDL Cholesterol, Calc HDL Cholesterol Amylase Lipase Urine Color Yellow Urine Appearance Clear Urine pH 6.5 Ur Specific [place] 1.020 Urine Protein 2+ H Urine Glucose (UA) Negative Urine Ketones Negative Urine Occult Blood 1+ H Urine Nitrate Negative Urine Bilirubin Negative Urine Urobilinogen 0.2 Ur Leukocyte Esterase Trace H Urine RBC 1-5/hpf Urine WBC 0-1/hpf Ur Squamous Epith Cells 1-5 /hpf Urine Bacteria Few (2-10) H Ur Culture Indicated? Specimen cultured SARS-CoV-2 (PCR) Negative 09/09/20 09/09/20 09/10/20 22:58 22:58 05:27 WBC 13.9 H RBC 5.02 Hgb 15.1 Hct 43.3 MCV 86.1 MCH 30.1 MCHC 34.9 RDW 14.3 Plt Count 344 Neut % (Auto) 87.7 H Lymph % (Auto) 6.8 L [place] % (Auto) 5.4 Eos % (Auto) 0.0 L Baso % (Auto) 0.1 Neut # (Auto) 46818 H Lymph # (Auto) 900 L [place] # (Auto) 700 Eos # (Auto) 0 Baso # (Auto) 0 RBC Morphology PT INR APTT D-Dimer Sodium Potassium 2.7 L* Chloride Carbon Dioxide BUN 18 H Creatinine 1.17 H Estimated GFR 47.0 L BUN/Creatinine Ratio 15.4 Glucose Hemoglobin A1c Lactate Calcium Magnesium Total Bilirubin Conjugated Bilirubin Unconjugated Bilirubin AST ALT Alkaline Phosphatase Lactate Dehydrogenase Total Creatine Kinase 101 CK-MB (CK-2) 1.73 CK-MB (CK-2) Rel Index 1.7 Troponin I 0.016 C-Reactive Protein Total Protein Albumin Globulin Albumin/Globulin Ratio Triglycerides Cholesterol LDL Cholesterol, Calc HDL Cholesterol Amylase Lipase Urine Color Urine Appearance Urine pH Ur Specific [place] Urine Protein Urine Glucose (UA) Urine Ketones Urine Occult Blood Urine Nitrate Urine Bilirubin Urine Urobilinogen Ur Leukocyte Esterase Urine RBC Urine WBC Ur Squamous Epith Cells Urine Bacteria Ur Culture Indicated? SARS-CoV-2 (PCR) 09/10/20 09/10/20 09/10/20 05:27 05:27 05:27 WBC RBC Hgb Hct MCV MCH MCHC RDW Plt Count Neut % (Auto) Lymph % (Auto) [place] % (Auto) Eos % (Auto) Baso % (Auto) Neut # (Auto) Lymph # (Auto) [place] # (Auto) Eos # (Auto) Baso # (Auto) RBC Morphology PT 12.0 INR 1.1 APTT D-Dimer Sodium 134 L Potassium 2.4 L* Chloride 92 L Carbon Dioxide 32 BUN 16 Creatinine 1.08 H Estimated GFR 51.6 L BUN/Creatinine Ratio 14.8 Glucose 162 H Hemoglobin A1c Lactate Calcium 9.7 Magnesium Total Bilirubin 0.5 Conjugated Bilirubin Unconjugated Bilirubin AST 24 ALT 15 Alkaline Phosphatase 110 Lactate Dehydrogenase Total Creatine Kinase CK-MB (CK-2) CK-MB (CK-2) Rel Index Troponin I C-Reactive Protein Total Protein 8.0 Albumin 4.5 Globulin 3.5 Albumin/Globulin Ratio 1.3 Triglycerides Cholesterol LDL Cholesterol, Calc HDL Cholesterol Amylase 277 H D Lipase 615 H D Urine Color Urine Appearance Urine pH Ur Specific [place] Urine Protein Urine Glucose (UA) Urine Ketones Urine Occult Blood Urine Nitrate Urine Bilirubin Urine Urobilinogen Ur Leukocyte Esterase Urine RBC Urine WBC Ur Squamous Epith Cells Urine Bacteria Ur Culture Indicated? SARS-CoV-2 (PCR) 09/10/20 06:15 WBC RBC Hgb Hct MCV MCH MCHC RDW Plt Count Neut % (Auto) Lymph % (Auto) [place] % (Auto) Eos % (Auto) Baso % (Auto) Neut # (Auto) Lymph # (Auto) [place] # (Auto) Eos # (Auto) Baso # (Auto) RBC Morphology PT INR APTT D-Dimer Sodium Potassium Chloride Carbon Dioxide BUN Creatinine Estimated GFR BUN/Creatinine Ratio Glucose Hemoglobin A1c Lactate 1.2 Calcium Magnesium Total Bilirubin Conjugated Bilirubin Unconjugated Bilirubin AST ALT Alkaline Phosphatase Lactate Dehydrogenase Total Creatine Kinase CK-MB (CK-2) CK-MB (CK-2) Rel Index Troponin I C-Reactive Protein Total Protein Albumin Globulin Albumin/Globulin Ratio Triglycerides Cholesterol LDL Cholesterol, Calc HDL Cholesterol Amylase Lipase Urine Color Urine Appearance Urine pH Ur Specific [place] Urine Protein Urine Glucose (UA) Urine Ketones Urine Occult Blood Urine Nitrate Urine Bilirubin Urine Urobilinogen Ur Leukocyte Esterase Urine RBC Urine WBC Ur Squamous Epith Cells Urine Bacteria Ur Culture Indicated? SARS-CoV-2 (PCR) [facility] Medical History Anxiety Hypertension Osteoarthritis Osteoporosis PTSD (post-traumatic stress disorder) Surgical History History of History of colonoscopy Family History (Updated 09/10/20 @ 03:11 by BHANU HassanP-BC) Father Heart attack Hypertension Diabetes mellitus Mother Diabetes mellitus Hypertension Social History household members: children Smoking Status: Current every day smoker alcohol intake: never Assessment & Plan Assessment & Plan narrative: 1.Acute pancreatitis, acute, present on admission. -Unclear etiology with absence of abdominal pain and tenderness. Differential diagnosis includes chronic pancreatitis vs. colitis -ALGAACIQ II Score:mortality risk of 7%- low risk -Continue antiemetics and as needed pain medication. -continue IV fluid and plan transition to oral intake soon. -patient admit, monitored on tele medicine, vital signs q. 2 hours x 3 then advance to Q4HRs, intake and output monitored Q shift, weight measure daily, diet:NPO -PICC line -CT Abdomen: 4 millimeter low-density likely cystic lesion within the pancreatic neck. Recommend pancreas protocol MRI in approximately 2 years for further evaluation. There is otherwise an unremarkable appearance of the pancreas without current evidence of pancreatitis. -Gallbladder US pending 2. Hypokalemia, acute on chronic, present on admission - K 2.4 on admission with QT prolongation on EKG / telemetry. Qtc 548 on admission EKG> - given 40 meq IV in the ER. will continue to replete as needed. - likely secondary to vomiting and dehydration. - vomiting may be secondary to marijuana use and cyclic vomiting. 3. Hyperglycemia, acute, present on admission as evidence by a glucose 201 -blood sugar checks q.6 hours with low-dose insulin sliding scale, and A1c ordered 4. Hypertension, acute on chronic, in the setting of hyperlipidemia, present on admission, uncontrolled -as evidence by admit blood pressure 172/92 - Will continue home amlodipine, Coreg, and potassium. - ST depressions are seen, though borderline in V3-6.Repeat EKG unchanged, no active changes. And troponin negative x1-no changes since prior hospitalization. - cardiology consulted via phone Dr. Raymond [facility] in ED 5. Anixety/depression, PTSD, acute on chronic, not present on admission - patient denies suicidal ideation - continue home citalopram. 6. mild hypercalcemia, acute, present on admission - as evidence by calcium 10.5, continue to monitor - suspect in setting of dehydration. 7. Underweight as evidence by a BMI of 20.5, acute on chronic, present on adm ission -dietary consult will evaluate for dietary recommendations. Patient is malnourished as evidence by BMI of 20.5. -monitor weight Code Status: Full Code Surrogate decision maker is the patient's daughter (Ruthie Sahu) COVID PCR: Negative VTE/DVT prophylaxis: Lovenox 40 mg and SCDs Quality VTE Deep Vein Thrombosis/Pulmonary Embolism Present on Admission: No
--- NOTE | 2020-09-10 08:11 | PC.NURSE ---
Day shift: Ok to give PO meds this AM per Dr Escoto.
--- NOTE | 2020-09-10 08:33 | DI.CT.S_ITS ---
PROCEDURE: CT ABDOMEN PELVIS W CON INDICATIONS: Pancreatitis TECHNIQUE: After the administration of intravenous contrast, 5 mm thick sections acquired from the diaphragm to the symphysis. 5 mm coronal and sagittal reformats were acquired. For radiation dose reduction, the following was used: automated exposure control, adjustment of mA and/or kV according to patient size. COMPARISON: [facility], , US RENAL COMPLETE, 07/15/2020, 14:47. FINDINGS: Image quality: Excellent. ABDOMEN: Lung bases: Lung bases are clear. Heart size is normal. Solid organs: Hypodensity within the liver adjacent to the false form ligament measuring up to 2.5 centimeters. The liver is otherwise unremarkable. Gallbladder is unremarkable. Biliary system is non dilated. The pancreas is normal in enhancement and morphology. There is a 4 millimeter low-density lesion within the pancreatic neck. No surrounding inflammation. No fluid collection. Spleen is normal in size and enhancement. No adrenal nodules. There is mild thickening of the adrenal glands. There is an atrophic appearance of the right kidney with diffuse heterogeneous enhancement. The right renal artery demonstrates calcifications at the origin. There is limited enhancement of the right renal artery. There is calcifications at the origins of the left renal artery which otherwise appears patent. The left kidney is normal in enhancement without hydronephrosis. Ureters are normal in course and caliber. Peritoneum and bowel: Bowel loops demonstrate normal wall thickness and caliber. No free fluid or air. Appendix is normal. Nodes and vessels: No retroperitoneal or mesenteric adenopathy by size criteria. Aorta and inferior vena cava are normal in size. Renal arteries as above. The aorta demonstrates diffuse vascular calcifications and noncalcified atheromatous plaque as well as the branch vessels. Miscellaneous: Small fat containing periumbilical hernia. PELVIS: Genitourinary: Bladder wall thickness is normal. Miscellaneous: No inguinal hernias or adenopathy. Bones: No suspicious bony lesions. Degenerative changes of the hips and spine. No acute osseous abnormality. No vertebral body compression fractures. IMPRESSION: Atrophic and heterogeneous appearance of the right kidney likely represents infarction. 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 4 millimeter low-density likely cystic lesion within the pancreatic neck. Recommend pancreas protocol MRI in approximately 2 years for further evaluation. There is otherwise an unremarkable appearance of the pancreas without current evidence of pancreatitis. 2.5 centimeter hypodensity within the liver adjacent to the false form ligament likely represents focal fat. Dictated by: Fazal King D.O. on 09/10/2020 at 8:22 Approved by: Fazal King D.O. on 09/10/2020 at 8:31
[2020-09-10] MEDS: CITALOPRAM 10 MG TABLET PO (08:40)
[2020-09-10] MEDS: carvediloL 12.5 MG TABLET PO ×2 (08:40→20:16)
[2020-09-10] MEDS: AMLODIPINE 5 MG TABLET 10 MG PO (08:40)
[2020-09-10] MEDS: ENOXAPARIN 40 MG/0.4 ML SYRINGE SUBCUT (08:40)
--- NOTE | 2020-09-10 08:55 | PC.NURSE ---
Day shift: Pt off unit for CT at approx 0900.
--- NOTE | 2020-09-10 09:11 | PC.NURSE ---
Day shift: Pt back on AC unit at approx 0910. BAck tele and IV fluids per JUN.
--- NOTE | 2020-09-10 10:00 | DI.US.S_ITS ---
PROCEDURE: US ABDOMEN COMPLETE INDICATIONS: ACUTE PANCREATITIS ?GALLBLADDER PATHOLOGY TECHNIQUE: Real-time scanning was performed of the abdominal and retroperitoneal organs, with image documentation. COMPARISON: [facility], CT, CT ABDOMEN PELVIS W CON, 09/10/2020, 8:48. FINDINGS: Liver: The liver measures 11.6 centimeters in length. There is normal hepatic echotexture. Within the liver adjacent to the falciform ligament is a focal region of increased echogenicity and non vascularity which measures 1.7 x 1.2 x 1.5 centimeters. Portal vein is patent with hepatic pedal flow. Normal size. Gallbladder: Gallbladder is unremarkable without evidence of stones, wall thickening, or pericholecystic fluid. Negative sonographic Yang sign reported by the technologist. Biliary ducts: Intrahepatic bile ducts are non-dilated. Extrahepatic bile duct caliber measures 3.7 mm. Normal is 6-7 mm or less in diameter, or 10 mm or less post-cholecystectomy. Pancreas: Visualized portions of the pancreas are sonographically normal. Cysts within the proximal pancreas is not well identified on this exam. Spleen: Spleen is normal in size and homogeneous in echotexture. Kidneys: The left kidney measures 10.8 centimeters in length with normal cortical thickening in echogenicity. No hydronephrosis. The right kidney is atrophic measuring 5.7 centimeters in length. There is heterogeneous echotexture. There is minimal vascularity. Aorta: Visualized aorta is normal in caliber at less than 3 cm. Minimal atherosclerotic plaque is noted proximally. Iliacs: Proximal common iliac arteries are normal in caliber at less than 2.5 cm. Atheromatous plaque is noted bilaterally. IVC: Intrahepatic inferior vena cava is patent. Miscellaneous: No free abdominal fluid. IMPRESSION: Gallbladder is unremarkable. No evidence of cholelithiasis. Atrophic and heterogeneous appearance of the right kidney with noted vascularity consistent with previously noted infarction. Focal hyperechoic hepatic lesion measuring up to 1.7 centimeters. Findings suggest focal fatty infiltration versus less likely hemangioma. Consider confirmation with dedicated CT versus MRI of the liver. Unremarkable sonographic appearance of the proximal pancreas. Dictated by: Fazal King D.O. on 09/10/2020 at 13:12 Approved by: Fazal King D.O. on 09/10/2020 at 13:20
[2020-09-10 12:24] LABS: HEMOLYSIS < 15 (0-50); Potassium 2.8 mmol/L (3.4-5.1)
--- NOTE | 2020-09-10 16:28 | CM.DANOTE ---
DCP ASSESSMENT: Patient is a 60 year-old woman admitted for elevated blood pressure and acute pancreatitis. PCP is Anh Tadeo. Primary payer is Medicare and Medicaid. Per chart review patient has a midline placed on 09/09/20. Unclear if patient will IV therapy upon d/c. CREPING MACHINE OPERATOR HELPER Student met with patient at bedside briefly educated patient on role of social work and D/C planning. Patient reported she is not feeling well this date complaining of nausea. Therefore briefly met with patient who confirmed she does live with her daughter Britney and grandson. 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 At baseline patient is independent with ADL?s except for driving she relies on daughters. Patient anticipates D/C to home. Daughter Lianet or Ruthie Gordon will provide transportation. PLAN: Anticipate D/ home when medically stable. CM Team to continue to follow. MARY Patel MSW Student Discharge Planning/Care Management CM Discharge Assessment Start: 09/10/20 15:26 Freq: Status: Active Protocol: Document 09/10/20 15:27 AL (Rec: 09/10/20 15:30 AL [id number]) Discharge Planning Assessment Assigned Wellhead Pumper MARY Hernández Student Contact Information Daughters: Lianet [phone] or Christy Advance Directives? No History Provided By Patient,Medical Record Has Patient been admitted in last 30 No days? Prior Living Arrangements House Comment With daughter and grandson Household Members family,children Type of transporation used prior to Relies on Others admit Comment Relies on daughters for transportation Independent with ADL's Yes Is patient alert and oriented? Yes Caregiver for Another Yes: Helps care for grandson Barriers to Discharge No Discharge Plan Home Transportation Arrangement Either Ruthie or Liante will provide transportation Whiteboard Updated in Patient Room with Yes name and ext. # of Wellhead Pumper Review Status In Process
[2020-09-10 18:58] LABS: HEMOLYSIS 19 (0-50)
[2020-09-10 19:06] LABS: Potassium 2.7 mmol/L (3.4-5.1)
--- NOTE | 2020-09-10 19:06 | PC.NURSE ---
Shift note: Critical potassium: 2.7, notified STYLIST ASSISTANT, new orders placed.
[2020-09-10] MEDS: POTASSIUM CHLORIDE 20 MEQ TAB 40 MEQ PO (20:17)
[2020-09-11] VITALS (15 sets, daily range): BP systolic 153–190; BP diastolic 80–95; PULSE 75–87; RESP 14–18; TEMP 36.7–37; O2SAT 94–99
[2020-09-11] MEDS: HYDRALAZINE 20 MG/ML VIAL 10 MG IV (00:37)
[2020-09-11] MEDS: LACTATED RINGERS 1,000 ML 100 ML IV (03:43)
[2020-09-11] MEDS: PANTOPRAZOLE DR 20 MG TABLET PO (05:15)
[2020-09-11 05:32] LABS: Add Manual Diff / Slide Review NO; Basophils Absolute Auto 0 /uL (0-100); Basophils Percent Auto 0.4 % (0-2); Eosinophils Absolute Auto 0 /uL (0-450); Eosinophils Percent Auto 0.1 % (2-4); Hematocrit 44.2 % (36-46); Hemoglobin 15.1 g/dL (12.0-16.0); Lymphocytes Absolute Auto 1400 /uL (1100-4500); Mean Corpuscular HGB Conc 34.1 % (30-36); Mean Corpuscular Hemoglobin 29.9 PG (26-34); Mean Corpuscular Volume 87.6 fL (80-100); Monocytes Absolute Auto 900 /uL (0-900); Monocytes Percent Auto 7.7 % (3-14); Neutrophils Absolute Auto 8800 /uL (1500-7000); Neutrophils Percent Auto 78.8 % (50-75); Platelet Count 320 X10^3/uL (150-400); Red Blood Cell Count 5.04 X10^6/uL (4.0-5.2); Red Cell Distribution Width 14.2 % (11.6-14.8); White Blood Cell Count 11.1 X10^3/uL (4.5-11.0)
[2020-09-11 05:48] LABS: Alanine Aminotransferase 14 IU/L (<35); Albumin 4.5 g/dL (3.5-5.0); Albumin Globulin Ratio 1.3 (1.0-2.8); Alkaline Phosphatase 113 U/L (38-126); Aspartate Aminotransferase 24 IU/L (14-36); BUN Creatinine Ratio 14.8 (6-22); Bilirubin Total 0.6 mg/dL (0.2-1.3); Blood Urea Nitrogen 13 mg/dL (7-17); Carbon Dioxide 29 mmol/L (22-32); Chloride 94 mmol/L (98-107); Estimated Glomerular Filt Rate > 60.0 mL/min (>60); Globulin 3.5 g/dL (1.7-4.1); Glucose 145 mg/dL (80-110); HEMOLYSIS < 15 (0-50); Sodium 132 mmol/L (137-145)
[2020-09-11 05:54] LABS: Potassium 2.7 mmol/L (3.4-5.1)
[2020-09-11] MEDS: POTASSIUM CHLORIDE 20 MEQ TAB 40 MEQ PO (06:44)
[2020-09-11] MEDS: POTASSIUM CHLORIDE IN WATER 10 MEQ/100 ML PIGGYBACK 100 MEQ IV ×6 (06:46→12:12)
[2020-09-11 06:54] LABS: INR 1.1 (0.9-1.3); Prothrombin Time 11.9 SECONDS (10.1-12.7)
[2020-09-11] MEDS: CITALOPRAM 10 MG TABLET PO (08:43)
[2020-09-11] MEDS: AMLODIPINE 5 MG TABLET 10 MG PO (08:43)
[2020-09-11] MEDS: carvediloL 12.5 MG TABLET PO (08:43)
[2020-09-11] MEDS: ENOXAPARIN 40 MG/0.4 ML SYRINGE SUBCUT (08:44)
--- NOTE | 2020-09-11 12:18 | DIET.PN ---
Dietary Progress Note Assessment: Ms. Diggs is a 60 yof who presented to the ED with 24-48 hours of extensive nausea, vomiting and elevated blood pressures. Patient states that she started vomiting a few days ago approximately 20 times total. Patient is a current smoker with a past medical history significant for anxiety and depression, hyperlipidemia, PTSD, hypertension and osteoarthritis. The patient has an issue with chronic vomiting and previous hypokalemia as well. She has been place on a low fat diet for pancreatitis. She has had significant unintentional weight loss in the last 6 mo. HT: 162.56cm WT: 54.1kg UBW: 62.6kg (-13%) BMI: 20.7 Labs: Gluc: 162, 145 A1c: 6.0 K: 2.7 MNA: 9 Deng: 21 Nutrition Diagnosis: Chronic severe malnutrition r/t GI complications aeb pt energy intake <75% EER > 1mo, GI symptoms with episodes of N/V, 13% weight loss in 6 mo, NFPE severe fat and muscle wasting. Interventions: 1. Discussed low fat diet for pancreatic rest. Recommended whole grains, fruits, vegetables, low fat protein sources. 2. Patient requests ONS ensure or protein smoothie. Diet Order: low fat EER: [id number] keegan @30-35 keegan/kg (underweight) Pro: 65-80g @ 1.2-1.5g/kg Fat: 45g @25% calories Monitoring/Evaluations: weight, PO's, diet tolerance
[2020-09-11] MEDS: SODIUM CHLORIDE 0.9% FLUSH 10 ML IV (15:35)
[2020-09-11 16:03] LABS: Blood Urea Nitrogen 16 mg/dL (7-17); Carbon Dioxide 29 mmol/L (22-32); Chloride 93 mmol/L (98-107); Estimated Glomerular Filt Rate > 60.0 mL/min (>60); Glucose 156 mg/dL (80-110); HEMOLYSIS < 15 (0-50); Magnesium 1.9 mg/dL (1.6-2.3); Potassium 3.6 mmol/L (3.4-5.1); Sodium 129 mmol/L (137-145)
--- NOTE | 2020-09-11 16:35 | PM.DS.1 ---
History of Present Illness History of Present Illness Date Patient Seen: 09/11/20 Time Patient Seen: 16:35 Chief complaint: elevated BP Narrative: Per Radha Foy, SERVICE CAPTAIN-: Ms. Luis Felipe Diggs is a 60-year-old female who presented to the ED today with 24-48 hours of extensive nausea vomiting and elevated blood pressures, patient was tachypneic upon arrival and hypertensive. Patient states that she started vomiting yesterday approximately 20 times total and a few times today she is has a cough with productive white sputum following of fairly bad cold over the last few days. Patient is a current smoker with a past medical history significant for anxiety and depression, hyperlipidemia, PTSD, hypertension and osteoarthritis . The patient has an issue with chronic vomiting and previous hypokalemia as well. She states she occasionally vomits when having a bowel movement. She was admitted previously with hypertensive urgency, since then she has stopped her home lisinopril for kidney disease according to the patient, and she was due to follow up with a branch operations coordinator next month. Patient states upon admit that she has mild nausea and no abdominal pain at this time she denies chest pain, shortness of breath, jaundice, fever, chills, diarrhea. Patient's vitals upon admit temp 98.5?, BP 172/92, HR 63, RR 18, O2 saturation 96% on room air. Patient's labs WBC 20.1, HGB 16.5, HCT 48, PLT 429, newt# 17,500, sodium 135, potassium 2.4, creatinine 1.16, glucose 201, EGFR 47.5, lactate is negative, troponins negative, total protein 9.1, lipase 2283, calcium 10.5, alk-phos 128, PTT 43. Sanborn score 3, 7% Risk, Sofa 1. CXR:No evidence of an acute cardiopulmonary abnormality. Exercise perfusion study:07/13/2020-I will call this study a normal myocardial perfusion study. Diminished exercise tolerance. Normal hemodynamic response. No significant arrhythmias seen during exercise. No anginal symptoms. Overall, this is a low-risk exercise perfusion study. Echo 07/12/2020:Left ventricular systolic function appears normal with an estimated ejection fraction of 60 to 65% without any focal wall motion abnormality although there is a mild dyssynchronous contraction pattern due to a conduction abnormality. EKG X2 in ED today: Normal sinus rhythm at a rate of 79 ST depression, prolonged QT EKG was compared to previous hospitalization no significant can not differences. Dr. Lizy Raymond from [facility] cardiology was consulted and reviewed all recent imaging and EKGs in the ED including labs and did not feel that patient's presenting symptoms were cardiac in nature, and should be admitted and worked up for acute pancreatitis. Discharge Providers Provider Date of admission: 09/09/20 20:23 Discharge Date: 09/11/20 Consults: 09/09/20 21:54 Consult to Dietitian, Adult Routine Comment: Reason For Exam: Reflexed from admission 09/10/20 15:17 Consult to Physical Therapy Evaluate & Treat Comment: Physician Instructions: Evaluate and Treat 09/10/20 15:52 Consult to Physical Therapy Evaluate & Treat Comment: Cancel. Order put in for wrong patient Physician Instructions: Evaluate and Treat Discharge provider: Chip Crowder DO Summary Hospital Course Discharge Diagnosis: 1.Acute pancreatitis, acute, present on admission. 2. Hypokalemia, acute on chronic, present on admission, improved 3. Prediabetes, chronic, slightly improved 4. Hypertension, acute on chronic, in the setting of hyperlipidemia, present on admission, uncontrolled 5. Anixety/depression, PTSD, acute on chronic, not present on admission 6. mild hypercalcemia, acute, present on admission, improved 7. Underweight as evidence by a BMI of 20.5, acute on chronic, present on admission 8. Incidental pancreatic cystic lesion 9. mild hyponatremia Hospital Course: This is a 60-year-old female with a past medical history significant for anxiety and depression, PTSD, hypertension, marijuana use, and osteoarthritis and prior admission for severe hypokalemia with possible cyclic vomiting syndrome who again presented with hypokalemia, nausea, and vomiting and other electrolyte abnormalities including mild hypercalcemia and hyponatremia. The patient improved symptomatically quite quickly with potassium repletion and fluids. On admission her lipase was elevated above 2000 but she had no abdominal pain and no imaging consistent with pancreatitis. Her episode may have been due to pancreatitis given this elevation, or this lab value can be nonspecific however this is not clear at this time. She Was able to tolerate a low-fat diet without issue and her lipase improved to 600 following day. Imaging did reveal a small cystic lesion in the pancreatic neck, this should be followed up with repeat imaging in 2 years according to protocol. I recommend continue low-fat diet as an outpatient for probable pancreatitis and further follow-up with her primary care provider in the week for repeat check of her potassium and blood pressures given her hypertension noted there ring this admission. Recommend that she follow up with branch operations coordinator as previously scheduled, and as noted previously a repeat of her potassium preferably this week. I did send her out on a prescription for potassium supplementation, and recommended that she continue this indefinitely until follow-up with her kidney specialist. Time Spent with Patient Time spent: Greater than 30 minutes Exam Vital Signs (past 8 hours): - 09/11/20 09:15 09/11/20 12:10 09/11/20 12:54 Temperature Pulse Rate 80 75 Respiratory Rate 14 Blood Pressure 160/86 H 162/80 H Pulse Oximetry 95 99 09/11/20 12:56 09/11/20 14:46 09/11/20 16:00 Temperature 98.6 F Pulse Rate 79 84 Respiratory Rate 16 Blood Pressure 162/80 H 170/91 H 153/88 H Pulse Oximetry 97 Oxygen Delivery Method Room Air Oxygen Flow Rate 0 Narrative Exam Narrative: GENERAL APPEARANCE: Chronically ill appearing female, in no acute distress. SKIN: Inspection of the skin reveals no rashes, ulcerations or petechiae. HEENT: Normocephalic atraumatic, extraocular muscles are intact, oropharynx is clear and mucous membranes are moist, neck is supple without adenopathy NECK: Supple and symmetric. There was no thyroid enlargement, and no tenderness, or masses were felt. CHEST: Normal AP diameter and normal contour without any kyphoscoliosis. LUNGS: Auscultation of the lungs revealed no wheezes, rhonchi, or rales. CARDIOVASCULAR: There was a regular rate and rhythm without any murmurs, gallops, rubs. Peripheral pulses were 2+ and symmetric. ABDOMEN: Soft and nontender with normal bowel sounds. No ascites was noted. MUSCULOSKELETAL: There was no tenderness or effusions noted. Muscle strength and tone were normal. EXTREMITIES: No cyanosis, clubbing or edema. NEUROLOGIC: Alert. Normal affect. Strength is +5/5 in the Upper Extremities and Lower Extremities Bilaterally. Objective Labs Result Diagrams: 09/11/20 05:22 09/11/20 15:35 Labs: Laboratory Results - last 24 hr 09/10/20 09/11/20 09/11/20 18:43 05:22 05:22 WBC 11.1 H RBC 5.04 Hgb 15.1 Hct 44.2 MCV 87.6 MCH 29.9 MCHC 34.1 RDW 14.2 Plt Count 320 Neut % (Auto) 78.8 H Lymph % (Auto) 13.0 L [place] % (Auto) 7.7 Eos % (Auto) 0.1 L Baso % (Auto) 0.4 Neut # (Auto) 8800 H Lymph # (Auto) 1400 [place] # (Auto) 900 Eos # (Auto) 0 Baso # (Auto) 0 PT INR Sodium 132 L Potassium 2.7 L* 2.7 L* Chloride 94 L Carbon Dioxide 29 BUN 13 Creatinine 0.88 Estimated GFR > 60.0 BUN/Creatinine Ratio 14.8 Glucose 145 H Calcium 10.0 Magnesium Total Bilirubin 0.6 AST 24 ALT 14 Alkaline Phosphatase 113 Total Protein 8.0 Albumin 4.5 Globulin 3.5 Albumin/Globulin Ratio 1.3 09/11/20 09/11/20 06:36 15:35 WBC RBC Hgb Hct MCV MCH MCHC RDW Plt Count Neut % (Auto) Lymph % (Auto) [place] % (Auto) Eos % (Auto) Baso % (Auto) Neut # (Auto) Lymph # (Auto) [place] # (Auto) Eos # (Auto) Baso # (Auto) PT 11.9 INR 1.1 Sodium 129 L Potassium 3.6 Chloride 93 L Carbon Dioxide 29 BUN 16 Creatinine 0.94 Estimated GFR > 60.0 BUN/Creatinine Ratio 17.0 Glucose 156 H Calcium 10.0 Magnesium 1.9 Total Bilirubin AST ALT Alkaline Phosphatase Total Protein Albumin Globulin Albumin/Globulin Ratio [facility] Medical History Anxiety Hypertension Osteoarthritis Osteoporosis PTSD (post-traumatic stress disorder) Surgical History History of History of colonoscopy Family History (Updated 09/10/20 @ 03:11 by TONY Hassan-INESSA) Father Heart attack Hypertension Diabetes mellitus Mother Diabetes mellitus Hypertension Social History household members: family and children Smoking Status: Current every day smoker alcohol intake: never Discharge Plan Discharge Plan Patient Disposition: Home Provider Discharge Comment: You were admitted to the hospital with low potassium. Improved with repletion. please continue to take potassium supplementation at home indefinitely until follow up with a kidney specialist. The vomiting may have been due to pancreatitis although no exact cause was found and you had no pain. Would continue to advise a low fat diet for now. Please follow up with your PCP this week to recheck your potassium and check on your symptoms after hospitalization. Discharge orders & Medications Prescriptions: New potassium chloride 20 mEq tablet extended release 20 meq PO BID 30 Days Qty: 60 RF: 0 Continued amlodipine 10 mg tablet 10 mg PO DAILY RF: 0 citalopram 10 mg tablet 10 mg PO DAILY RF: 0 carvedilol [Coreg] 12.5 mg Tablet 12.5 mg PO BID Qty: 60 RF: 0 ondansetron 4 mg Tablet,Disintegrating 4 mg sublingual Q4HR PRN (Reason: Nausea) Qty: 20 RF: 0 Discharge Health Status Health Concerns: Low potassium Diet/Activity/Treatments Diet: Diet as Tolerated Activity: As tolerated Quality VTE Deep Vein Thrombosis/Pulmonary Embolism Present on Admission: No
--- NOTE | 2020-09-11 17:11 | PC.NURSE ---
Addendum entered by Radha Shea R.N. 09/11/20 18:39: Left midline IV dc'd without complication. Discharge instructions given. To discharge via private vehicle to home. Addendum entered by Radha Shea R.N. 09/11/20 17:41: RN in agreement with student's note and physical assessment. Original Note: Report received, care assumed at 15:30. Patient denies pain, reports nausea is resolving. Potassium level obtained - within normal limits. Discharge orders written. Physician aware of sodium level and blood pressure value. Patient to follow up with PCP and pecan huller in outpatient setting.
[2020-09-11] MEDS: POTASSIUM CHLORIDE 20 MEQ TAB PO (17:14)
--- NOTE | 2020-09-12 16:41 | PC.NURSE ---
Accessed chart for audit purposes.
[2020-09-13 12:35] LABS: HBsAg Screen Negative (Negative); Hepatitis A Antibody IgM Negative (Negative); Hepatitis B Core Antibody IgM Negative (Negative); Hepatitis C Antibody >11.0 s/co ratio (0.0-0.9); Hepatitis C Quant HCV Not Detected IU/mL (.)
== END 2020-09-11 18:44 | disposition home or self-care (01) | DRG 438 ==
LOC: ED 20:01 → AC 20:24
PROVIDERS: Emergency Medicine; Family Medicine; Internal Medicine; Admitting Provider Nurse Practitioner Family; Emergency Provider Emergency Medicine; Referring Provider Emergency Medicine; Visit Provider Nurse Practitioner Family
DX: K85.90 Acute pancreatitis without necrosis or infection, unspecified (principal); E43 Unspecified severe protein-calorie malnutrition; E87.1 Hypo-osmolality and hyponatremia; E87.6 Hypokalemia; F17.210 Nicotine dependence, cigarettes, uncomplicated; I10 Essential (primary) hypertension; F41.9 Anxiety disorder, unspecified; F43.10 Post-traumatic stress disorder, unspecified; F32.9 Major depressive disorder, single episode, unspecified; R73.9 Hyperglycemia, unspecified; Z20.822 Contact with and (suspected) exposure to COVID-19
CPT/HCPCS: 36415; 36569; 36592; 71045; 74177; 76700; 80048; 80053; 80061; 80074; 80076; 81001; 82150; 82550; 82553; 82565; 82962; 83036; 83605; 83615; 83690; 83735; 84132; 84484; 84520; 85025; 85379; 85610; 85730; 86140; 87040; 87086; 87635; 93005; 93010; 96365; 96366; 96368; 96375; 99284; C9803; J0360; J1642; J1650; J2405; Q9967

== ENCOUNTER 2020-09-22 09:10 | Emergency (ER) | payer MEDICARE, MEDICAID, SELFPAY ==
[2020-09-09 21:48] VITALS: BMI 20.5
[2020-09-22 09:15] VITALS: BP 136/60; PULSE 66; RESP 14; TEMP 36.8; O2SAT 97; BMI 21.4
--- NOTE | 2020-09-22 10:42 | ED.EXTPRO ---
HPI - Extremity Problem General Chief complaint: Extremity Problem,Nontraumatic Stated complaint: lump in leg, worried about blood clots Time Seen by Provider: 09/22/20 10:38 Source: patient Mode of arrival: Ambulatory Limitations: no limitations History of Present Illness HPI Narrative: This is a 60-year-old female comes emergency department with complaint of swelling of her left calf with a discrete area of swelling was tender. She states somewhat improved from before. There is no warmth, erythema or skin changes noted. She does state that she had a known Sadler cyst behind the knee. She notes that it that it is fullness seems to have improved but she does not recall an episode of pain or where it may have suddenly decreased in fullness. Patient denies any recent trauma or injuries. She denies any numbness, tingling or weakness. She does note she has had some shortness of breath for the last week or so. She has had a cough which seems congested with some phlegm. She does not typically have a cough although she does smoke daily. She denies any syncope or near syncope. She denies any chest pain or pressure. She denies any nausea or vomiting. She denies any diarrhea constipation or other black or bloody stools. No urinary symptoms. Denies any fever. Patient does have history of hypertension is on amlodipine and carvedilol, as well as potassium chloride. Patient denies any recent surgery. States that they were here recently for hypertension. Denies any IV drug history. Does use marijuana recreational. Related Data Home Medications Medication Instructions Recorded Confirmed amlodipine 10 mg PO DAILY 07/12/20 09/09/20 citalopram 10 mg PO DAILY 07/12/20 09/09/20 Previous Rx's Medication Instructions Recorded carvedilol [Coreg] 12.5 mg PO BID #60 tab 07/17/20 ondansetron 4 mg SUBLINGUAL Q4HR PRN #20 tab 07/17/20 potassium chloride 20 meq PO BID 30 Days #60 tab 09/11/20 doxycycline hyclate 100 mg PO BID #14 tab 09/22/20 Allergies Allergy/AdvReac Type Severity Reaction Status Date / Time mirtazapine [MIRTAZAPINE] Allergy Unknown HALLUCINATI Verified 09/22/20 09:20 ONS Review of Systems Review of Systems ROS Unobtainable: All systems reviewed & are unremarkable except as noted in HPI and below Patient History Medical History Anxiety Hypertension Osteoarthritis Osteoporosis PTSD (post-traumatic stress disorder) Surgical History History of History of colonoscopy Family History (Updated 09/10/20 @ 03:11 by Radha Foy [facility]) Father Heart attack Hypertension Diabetes mellitus Mother Diabetes mellitus Hypertension Social History household members: family and children Smoking Status: Current every day smoker alcohol intake: never Smoking Status: Current every day smoker alcohol intake frequency: holidays/special occasions only Substance Use Type: marijuana Exam Narrative Exam Narrative: GENERAL: Alert and oriented x three,, well-appearing female in mild distress HEENT: Head normocephalic, atraumatic, EOMI, pupils reactive, face symmetric, moist mucous membranes NECK: Supple, full range of motion CARDIOVASCULAR: Regular rate and rhythm without murmurs, rubs or gallops. RESPIRATORY: Breath sounds equal bilaterally, no wheezes rales or rhonchi. No tachypnea accessory muscle use. ABDOMEN: Soft, nontender. Normoactive bowel sounds all 4 quadrants. No guarding or rebound, rigidity, no mass : No CVA tenderness EXTREMITIES: Normal range of motion, no clubbing or edema. Neurovascularly intact. Patient has 2+ dorsalis pedis. Patient does not have any circumferential swelling but I am able to palpate an area of fullness over the medial calf of the left leg. It is over superficial vein but the vein itself does not feel enlarged or solid. The area feels deeper. There is not a nodularity or discrete mass that I can palpate. It is mildly tender to touch. There is no warmth, erythema, ecchymosis or other skin changes noted. Patient does not have any bony tenderness throughout the left lower extremity. She has normal range of motion. Normal sensation on exam. NEUROLOGICAL: Cranial nerves II through XII grossly intact. Moving all extremities SKIN: Warm, dry, no petechiae, no rashes or lesions. Initial Vital Signs Initial Vital Signs: Vital Signs Temperature 98.2 F 09/22/20 09:15 Pulse Rate 66 09/22/20 09:15 Respiratory Rate 14 09/22/20 09:15 Blood Pressure 136/60 09/22/20 09:15 Pulse Oximetry 97 09/22/20 09:15 Course Orders Ordered: ED Orders 09/22/20 10:53 US periph venous low extrem lt Stat XR chest 1V Stat EKG-12 Lead Stat 09/22/20 11:30 Complete Blood Count AUTO DIFF Stat Comprehensive Metabolic Panel Stat D Dimer Stat Lipase Stat NT-proBNP (BNP-Adult 18+) Stat Troponin & CK Cardiac Panel Stat Vital Signs Vital signs: Vital Signs - 8 hr 09/22/20 12:38 Pulse Rate 59 L Respiratory Rate 16 Blood Pressure 167/74 H Pulse Oximetry 98 MDM - Extremity (Nontraumatic) Lab Data Result diagrams: 09/22/20 11:30 09/22/20 11:30 Labs: Lab Results 09/22/20 09/22/20 09/22/20 Range/Units 11:30 11:30 11:30 WBC 5.6 (4.5-11.0) X10^3/uL RBC 4.20 (4.0-5.2) X10^6/uL Hgb 12.7 (12.0-16.0) g/dL Hct 37.2 (36-46) % MCV 88.4 (80-100) fL MCH 30.3 (26-34) PG MCHC 34.3 (30-36) % RDW 14.5 (11.6-14.8) % Plt Count 318 (150-400) X10^3/uL Neut % (Auto) 68.0 (50-75) % Lymph % (Auto) 18.4 L (25-40) % [place] % (Auto) 9.4 (3-14) % Eos % (Auto) 2.8 (2-4) % Baso % (Auto) 1.4 (0-2) % Neut # (Auto) 3800 (0028-5763) /uL Lymph # (Auto) 1000 L (8411-8839) /uL [place] # (Auto) 500 (0-900) /uL Eos # (Auto) 200 (0-450) /uL Baso # (Auto) 100 (0-100) /uL D-Dimer 386 H (<230) ng/mL Sodium 137 (137-145) mmol/L Potassium 3.1 L (3.4-5.1) mmol/L Chloride 100 (98-107) mmol/L Carbon Dioxide 31 (22-32) mmol/L BUN 14 (7-17) mg/dL Creatinine 1.01 (0.52-1.04) mg/dL Estimated GFR 55.7 L (>60) mL/min BUN/Creatinine Ratio 13.9 (6-22) Glucose 92 (80-110) mg/dL Calcium 9.9 (8.4-10.2) mg/dL Total Bilirubin 0.3 (0.2-1.3) mg/dL AST 20 (14-36) IU/L ALT 12 (<35) IU/L Alkaline Phosphatase 84 (38-126) U/L Total Creatine Kinase 140 H (30-135) U/L CK-MB (CK-2) 0.94 (<2.37) ng/mL CK-MB (CK-2) Rel Index 0.7 L (1.5-5.0) % Troponin I < 0.012 (0.01-0.034) ng/mL NT-Pro-B Natriuret Pep 1400 H (<125) pg/mL Total Protein 7.6 (6.3-8.2) g/dL Albumin 4.3 (3.5-5.0) g/dL Globulin 3.3 (1.7-4.1) g/dL Albumin/Globulin Ratio 1.3 (1.0-2.8) Lipase 219 (23-300) U/L Imaging Data US - DVT: Radiologist's Impression: DontaeTalita vasquez 60 F 1960 [place], [place] [address]Ultrasound ReportSigned Patient: Talita Diggs EMR#: [id number]: 1960Acct:[id number]/Sex: 60 / FDate of Service: 09/22/20Loc: EDAccession Number: [id number] Procedure: US periph venous low extrem lt Ordering Provider: Kat Pettit D.O. PROCEDURE: US PERIPH VENOUS LOW EXTREM LT INDICATIONS: LEFT UPPER CALF SWELLING. HISTORY OF SADLER CYSTS. TECHNIQUE: Real-time imaging, as well as color and pulse Doppler interrogation, were performed of the lower extremity deep veins from the inguinal ligament to the popliteal fossa. COMPARISON: None. FINDINGS: The common femoral, femoral and popliteal veins are normally compressible, and free of intraluminal thrombus. Color and pulse Doppler demonstrate normal phasic intraluminal flow. There is normal augmentation response to distal compression maneuver. There is an approximately 1.6 x 4.1 x 9.8 centimeter fluid collection in the medial and superior left calf which does not appear to extend into the popliteal fossa and is therefore in consistent with Sadler's cyst. This is complex with areas of septation and mural nodularity. There is peripheral vascularity. IMPRESSION: No sonographic evidence of DVT. Non-specific fluid collection in the medial and superior calf which is not consistent with Sadler cyst and is more worrisome for infectious or potentially a necrotic malignant process. Clinical correlation will be needed. An MRI or CT with IV contrast would be helpful for further characterization. Dictated by: Ken Ag M.D. on 09/22/2020 at 11:44 Approved by: Ken Ag M.D. on 09/22/2020 at 11:44 Chest x-ray: Radiologist's Impression: [address] [id number] ReportSigned Patient: Talita Diggs EMR#: [id number]: 1960Acct:[id number]/Sex: 60 / FDate of Service: 09/22/20Loc: EDAccession Number: [id number] Procedure: XR chest 1V Ordering Provider: Kat Pettit D.O. PROCEDURE: XR CHEST 1V INDICATIONS: sob, leg pain, swelling, +tob TECHNIQUE: One view of the chest was acquired. COMPARISON: [facility], CR, XR CHEST 1V, 09/09/2020, 18:07. [facility], CR, XR CHEST 1V, 07/14/2020, 10:28. FINDINGS: Surgical changes and devices: None. Lungs and pleura: Lungs are clear. No pleural effusions or pneumothorax. Mediastinum: Mediastinal contours appear normal. Heart size is normal. Bones and chest wall: No suspicious bony lesions. Overlying soft tissues appear unremarkable. IMPRESSION: Normal for age, source of current shortness of breath symptoms is not seen. Dictated by: Joshua Hanna M.D. on 09/22/2020 at 12:08 Approved by: Joshua Hanna M.D. on 09/22/2020 at 12:08 ECG Data Attestation EKG: I personally reviewed and interpreted this ECG as follows: Prior ECG tracings: available for review Interpretation: Sinus bradycardia, possible atrial enlargement. T-wave abnormality noted in the he you 1 through V. No elevation appreciated. Patient has prior EKG from 07/12/2020 which appears similar. Patient has EKGs from 09/10/2019 which appears slightly different. MDM Narrative Medical decision making narrative: This is a 60-year-old female who comes to the emergency department with complaint of a lump in her lower extremity which he just noticed recently. Her D-dimer sent elevated. DVT ultrasound actually shows an a somewhat complex fluid collection. Concerning for possible infectious although on her exam findings this is less likely versus possible malignant process. Discussed with patient she needs follow-up with CT or MRI. Patient has had some shortness of breath, she has a mild elevated white count. D-dimer is mildly elevated after a just a calculator. Potassium is 3.1 elevated BNP and negative troponin. Sat down had discussion with patient regarding her D-dimer. She does have some factors including age and tobacco use that would elevated. We discussed and CT angio was observed to evaluate for PE but with a negative DVT ultrasound at this time she defers which I think is appropriate. We did discuss we have not completely ruled out pulmonary embolism or a blood clot in her lungs and that she should return if she has any new or worsening symptoms. She states her potassiums been low recently, she takes supplementation was going to take some extra doses. Patient is aware that she needs follow-up. We will try antibiotics but if it improves she started to follow-up with her physician we also discussed that is not truly a cyst but I am unable to put a better diagnose secondary to EMR restrictions. Discharge Plan Departure Patient Disposition: Home Clinical Impression: Cyst Activity Restrictions/Additional Instructions: Your imaging today shows a complex fluid collection in your calf that does not appear to be a Sadler cyst. It is unclear exactly with assist but it is not a DVT or clot. Call today to set up an appointment. There are several possibilities of source. Infection is less likely but I would treat with a short course of antibiotics but also heavy follow-up with her primary care physician for recheck and MRI or CT with contrast for further evaluation. Take antibiotics until completely gone. Prescription to [facility] in [place]. Your potassium is slightly low today I would take 1 or 2 extra tablets over the next 2 days, your potassium today is 3.1 Return if it is rapidly increasing in size, becoming painful, having numbness, tingling or weakness, new bruising or skin changes, fevers, new chest pain or shortness of breath or passing out or other new or concerning symptoms. Prescriptions: New doxycycline hyclate 100 mg tablet 100 mg PO BID Qty: 14 RF: 0 No Action amlodipine 10 mg tablet 10 mg PO DAILY RF: 0 citalopram 10 mg tablet 10 mg PO DAILY RF: 0 carvedilol [Coreg] 12.5 mg Tablet 12.5 mg PO BID Qty: 60 RF: 0 ondansetron 4 mg Tablet,Disintegrating 4 mg sublingual Q4HR PRN (Reason: Nausea) Qty: 20 RF: 0 potassium chloride 20 mEq tablet extended release 20 meq PO BID 30 Days Qty: 60 RF: 0 Referrals: Anh Tadeo ARNP [Primary Care Provider] -
--- NOTE | 2020-09-22 10:53 | DI.RAD.S_ITS ---
PROCEDURE: XR CHEST 1V INDICATIONS: sob, leg pain, swelling, +tob TECHNIQUE: One view of the chest was acquired. COMPARISON: [facility], CR, XR CHEST 1V, 09/09/2020, 18:07. [facility], CR, XR CHEST 1V, 07/14/2020, 10:28. FINDINGS: Surgical changes and devices: None. Lungs and pleura: Lungs are clear. No pleural effusions or pneumothorax. Mediastinum: Mediastinal contours appear normal. Heart size is normal. Bones and chest wall: No suspicious bony lesions. Overlying soft tissues appear unremarkable. IMPRESSION: Normal for age, source of current shortness of breath symptoms is not seen. Dictated by: Joshua Hanna M.D. on 09/22/2020 at 12:08 Approved by: Joshua Hanna M.D. on 09/22/2020 at 12:08
--- NOTE | 2020-09-22 10:53 | DI.US.S_ITS ---
PROCEDURE: US PERIPH VENOUS LOW EXTREM LT INDICATIONS: LEFT UPPER CALF SWELLING. HISTORY OF SADLER CYSTS. TECHNIQUE: Real-time imaging, as well as color and pulse Doppler interrogation, were performed of the lower extremity deep veins from the inguinal ligament to the popliteal fossa. COMPARISON: None. FINDINGS: The common femoral, femoral and popliteal veins are normally compressible, and free of intraluminal thrombus. Color and pulse Doppler demonstrate normal phasic intraluminal flow. There is normal augmentation response to distal compression maneuver. There is an approximately 1.6 x 4.1 x 9.8 centimeter fluid collection in the medial and superior left calf which does not appear to extend into the popliteal fossa and is therefore in consistent with Sadler's cyst. This is complex with areas of septation and mural nodularity. There is peripheral vascularity. IMPRESSION: No sonographic evidence of DVT. Non-specific fluid collection in the medial and superior calf which is not consistent with Sadler cyst and is more worrisome for infectious or potentially a necrotic malignant process. Clinical correlation will be needed. An MRI or CT with IV contrast would be helpful for further characterization. Dictated by: Ken Ag M.D. on 09/22/2020 at 11:44 Approved by: Ken Ag M.D. on 09/22/2020 at 11:44
[2020-09-22 11:39] LABS: Add Manual Diff / Slide Review NO; Basophils Absolute Auto 100 /uL (0-100); Basophils Percent Auto 1.4 % (0-2); Eosinophils Absolute Auto 200 /uL (0-450); Eosinophils Percent Auto 2.8 % (2-4); Hematocrit 37.2 % (36-46); Hemoglobin 12.7 g/dL (12.0-16.0); Lymphocytes Absolute Auto 1000 /uL (1100-4500); Lymphocytes Percent Auto 18.4 % (25-40); Mean Corpuscular HGB Conc 34.3 % (30-36); Mean Corpuscular Hemoglobin 30.3 PG (26-34); Mean Corpuscular Volume 88.4 fL (80-100); Monocytes Absolute Auto 500 /uL (0-900); Monocytes Percent Auto 9.4 % (3-14); Neutrophils Absolute Auto 3800 /uL (1500-7000); Platelet Count 318 X10^3/uL (150-400); Red Cell Distribution Width 14.5 % (11.6-14.8); White Blood Cell Count 5.6 X10^3/uL (4.5-11.0)
[2020-09-22 11:48] LABS: D Dimer 386 ng/mL (<230)
[2020-09-22 11:49] LABS: Alanine Aminotransferase 12 IU/L (<35); Albumin 4.3 g/dL (3.5-5.0); Albumin Globulin Ratio 1.3 (1.0-2.8); Alkaline Phosphatase 84 U/L (38-126); Aspartate Aminotransferase 20 IU/L (14-36); BUN Creatinine Ratio 13.9 (6-22); Bilirubin Total 0.3 mg/dL (0.2-1.3); Blood Urea Nitrogen 14 mg/dL (7-17); Calcium 9.9 mg/dL (8.4-10.2); Carbon Dioxide 31 mmol/L (22-32); Chloride 100 mmol/L (98-107); Creatine Kinase 140 U/L (30-135); Estimated Glomerular Filt Rate 55.7 mL/min (>60); Globulin 3.3 g/dL (1.7-4.1); Glucose 92 mg/dL (80-110); HEMOLYSIS < 15 (0-50); Lipase 219 U/L (23-300); Potassium 3.1 mmol/L (3.4-5.1); Sodium 137 mmol/L (137-145); Total Protein 7.6 g/dL (6.3-8.2)
[2020-09-22 12:01] LABS: NT-proBNP (BNP-Adult 18+) 1400 pg/mL (<125); Troponin I < 0.012 ng/mL (0.01-0.034)
[2020-09-22 12:04] LABS: CKMB % Relative Index 0.7 % (1.5-5.0); Creatine Kinase MB 0.94 ng/mL (<2.37)
[2020-09-22 12:38] VITALS: BP 167/74; PULSE 59; RESP 16; O2SAT 98
== END 2020-09-22 12:39 | disposition home or self-care (01) ==
PROVIDERS: Emergency Provider Emergency Medicine; PCP Nurse Practitioner Family
DX: L72.9 Follicular cyst of the skin and subcutaneous tissue, unspecified (principal); R06.02 Shortness of breath; D72.829 Elevated white blood cell count, unspecified; R22.42 Localized swelling, mass and lump, left lower limb
CPT/HCPCS: 36415; 71045; 80053; 82550; 82553; 83690; 83880; 84484; 85025; 85379; 93005; 93971; 99284

== ENCOUNTER → 2020-10-18 09:38 | Outpatient (CLI) | payer MEDICARE, MEDICAID, SELFPAY ==
[2020-09-09 21:48] VITALS: BMI 20.5
--- NOTE | 2020-10-18 09:41 | DI.MRI.S_ITS ---
PROCEDURE: MR LOWER LEG LT WO/W CON INDICATIONS: Localized swelling, mass and lump, unspecified TECHNIQUE: Noncontrast coronal T1 spin echo and STIR, sagittal T1 spin echo with fat saturation and STIR, axial T1 spin echo and T2 fast spin echo with fat saturation. After the administration of contrast, axial/sagittal/coronal T1 spin echo with fat saturation through the left lower leg. COMPARISON: None. FINDINGS: Image quality: Excellent. Bones: There is [id number] tricompartmental osteoarthritis in left knee. No fracture or dislocation is seen. No gross marrow edema or suspicious intraosseous lesion. No abnormal intraosseous enhancement. Soft tissues: There is a popliteal cyst measures 2.8 x 2.3 x 4.2 cm in size. Lobulated and elongated cystic structure involving medial aspect of proximal to mid lower leg soft tissue just posterior medial to the tibial shaft is seen and measures up to 2.4 x 2.6 x 9.6 cm in size. Thin internal septations are noted. After contrast infusion, no area of enhancement within this structure is noted. No other soft tissue mass or fluid collection is seen. No area of abnormal enhancement is noted. The scanned muscles demonstrate normal overall bulk and internal signal. IMPRESSION: 1. 2.4 x 2.6 x 9.6 cm lobulated and septated cystic structure seen in posterior medial aspect of proximal to mid lower leg and is medial to the medial head of gastrocnemius muscle and soleus muscle. No underlying muscle involvement is seen. No contrast enhancement is noted. Finding may represent a large ganglion cyst in this area. 2. Popliteal cyst as above. 3. No gross enhancing soft tissue mass or additional fluid collection is seen. 4. [id number]-[id number] tricompartmental osteoarthritis in left knee. No fracture or dislocation. No marrow edema. No suspicious intraosseous lesion. Dictated by: Angel Loredo M.D. on 10/18/2020 at 11:08 Approved by: Angel Loredo M.D. on 10/18/2020 at 11:13
== END ==
PROVIDERS: PCP Nurse Practitioner Family; Referring Provider Internal Medicine; Visit Provider Internal Medicine
DX: R22.42 Localized swelling, mass and lump, left lower limb (principal); M17.12 Unilateral primary osteoarthritis, left knee; M71.22 Synovial cyst of popliteal space [Baker], left knee
CPT/HCPCS: 73720; A9579

== ENCOUNTER 2020-10-29 13:53 | Inpatient (IN) | payer MEDICARE, MEDICAID, SELFPAY ==
[2020-09-09 21:48] VITALS: BMI 20.5
[2020-10-29] VITALS (13 sets, daily range): BP systolic 128–198; BP diastolic 73–103; PULSE 63–84; RESP 14–28; TEMP 36.6–36.9; O2SAT 83–98; BMI 19.0
[2020-10-29] MEDS: SODIUM CHLORIDE 0.9% 1,000 ML 1000 ML IV (15:41)
[2020-10-29] MEDS: ONDANSETRON 4 MG/2 ML INJ IV ×2 (15:42→20:53)
[2020-10-29 16:33] LABS: Add Manual Diff / Slide Review NO; Basophils Absolute Auto 0 /uL (0-100); Basophils Percent Auto 0.2 % (0-2); Eosinophils Absolute Auto 0 /uL (0-450); Hematocrit 47.7 % (36-46); Hemoglobin 16.5 g/dL (12.0-16.0); Lymphocytes Absolute Auto 1200 /uL (1100-4500); Lymphocytes Percent Auto 9.7 % (25-40); Mean Corpuscular HGB Conc 34.6 % (30-36); Mean Corpuscular Hemoglobin 29.4 PG (26-34); Mean Corpuscular Volume 84.9 fL (80-100); Monocytes Absolute Auto 1000 /uL (0-900); Monocytes Percent Auto 8.2 % (3-14); Neutrophils Absolute Auto 10300 /uL (1500-7000); Neutrophils Percent Auto 81.9 % (50-75); Platelet Count 375 X10^3/uL (150-400); Red Blood Cell Count 5.62 X10^6/uL (4.0-5.2); Red Cell Distribution Width 14.9 % (11.6-14.8); White Blood Cell Count 12.6 X10^3/uL (4.5-11.0)
[2020-10-29 16:43] LABS: Alanine Aminotransferase 16 IU/L (<35); Albumin 5.2 g/dL (3.5-5.0); Albumin Globulin Ratio 1.3 (1.0-2.8); Alkaline Phosphatase 118 U/L (38-126); Aspartate Aminotransferase 27 IU/L (14-36); Bilirubin Total 0.9 mg/dL (0.2-1.3); Blood Urea Nitrogen 25 mg/dL (7-17); Calcium 10.6 mg/dL (8.4-10.2); Carbon Dioxide 28 mmol/L (22-32); Chloride 92 mmol/L (98-107); Estimated Glomerular Filt Rate 31.2 mL/min (>60); Glucose 144 mg/dL (80-110); HEMOLYSIS < 15 (0-50); Lipase 259 U/L (23-300); Sodium 133 mmol/L (137-145); Total Protein 9.2 g/dL (6.3-8.2)
--- NOTE | 2020-10-29 17:02 | ED_ITS ---
HPI - Nausea/Vomiting/Diarrhea General Chief complaint: Nausea/Vomiting/Diarrhea Stated complaint: vomitting, dehydrated- 3 days Time Seen by Provider: 10/29/20 15:48 Source: patient Mode of arrival: Family Vehicle Limitations: no limitations History of Present Illness HPI Narrative: Patient is a 60-year-old female who presents with 3 days of nausea and vomiting. She has had no abdominal pain or diarrhea. But is unable to tolerate any fluids have. She denies any dizziness or lightheadedness. No chest pain. In August of 2020 she was admitted for something similar with a potassium of 2.4. She was found to have us chronic severe malnutrition as well. She does have a history of marijuana use this may be related to cyclic vomiting syndrome. Related Data Home Medications Medication Instructions Recorded Confirmed amlodipine 10 mg tablet 10 mg PO DAILY 07/12/20 09/09/20 citalopram 10 mg tablet 10 mg PO DAILY 07/12/20 09/09/20 Previous Rx's Medication Instructions Recorded carvedilol 12.5 mg tablet (Coreg) 12.5 mg PO BID #60 tab 07/17/20 ondansetron 4 mg disintegrating 4 mg SUBLINGUAL Q4HR PRN #20 tab 07/17/20 tablet doxycycline hyclate 100 mg tablet 100 mg PO BID #14 tab 09/22/20 Allergies Allergy/AdvReac Type Severity Reaction Status Date / Time mirtazapine [MIRTAZAPINE] Allergy Unknown HALLUCINATI Verified 10/29/20 17:28 ONS Review of Systems Review of Systems Narrative: GENERAL: Denies chills, fatigue, malaise, fever, sweats, travel HEENT: Denies sinus pain, ear pain, sore throat, difficulty swallowing, neck pain RESPIRATORY: Denies dyspnea, cough, wheezing, hemoptysis, sputum. CARDIOVASCULAR: Denies chest pain, palpitations, orthopnea, edema GASTROINTESTINAL: See HPI : Denies dysuria, frequency, incontinence, hematuria, urinary retention, flank pain. MUSCULOSKELETAL: Denies weakness, joint pain, or bony pain SKIN: No rash, no erythema, no pruritus NEUROLOGIC: Denies weakness, dizziness, headache, numbness, change in speech, confusion PSYCHIATRIC: No concerning psychosocial issues. 12 point review of systems is negative except for those stated above and HPI Patient History Medical History Anxiety Hypertension Osteoarthritis Osteoporosis PTSD (post-traumatic stress disorder) Surgical History History of History of colonoscopy Family History (Updated 09/10/20 @ 03:11 by Radha Foy [facility]) Father Heart attack Hypertension Diabetes mellitus Mother Diabetes mellitus Hypertension Social History household members: family and children Smoking Status: Current every day smoker alcohol intake: never Smoking Status: Current every day smoker tobacco type: cigarettes alcohol intake frequency: holidays/special occasions only Substance Use Type: marijuana Exam Initial Vital Signs Initial Vital Signs: Vital Signs Temperature 97.9 F 10/29/20 14:14 Pulse Rate 84 10/29/20 14:14 Respiratory Rate 22 10/29/20 14:14 Blood Pressure 180/98 H 10/29/20 14:14 Pulse Oximetry 97 10/29/20 14:14 GENERAL: 60-year-old female appears older than stated age and in no acute distress. HEENT: Head atraumatic,EOMI, pupils reactive, face symmetric, dry mucous membranes CARDIOVASCULAR: Regular rate and rhythm without murmurs, rubs or gallops. RESPIRATORY: Breath sounds equal bilaterally, no wheezes rales or rhonchi. ABDOMEN: Soft, nontender. Normoactive bowel sounds all 4 quadrants. No guarding or rebound. EXTREMITIES: Normal range of motion, no clubbing or edema. Neurovascularly intact NEUROLOGICAL: Alert and oriented x4.Normal gait and speech. SKIN: Warm, dry, no laceration, no petechiae, no rashes or lesions. Course Orders Ordered: ED Orders 10/29/20 14:19 EKG-12 Lead Stat 10/29/20 16:25 Complete Blood Count AUTO DIFF Stat Comprehensive Metabolic Panel Stat Lipase Stat 10/29/20 17:20 CT abdomen pelvis w con Stat 10/29/20 18:39 Urine Microscopic Stat 10/29/20 19:13 COVID19 - ADMIT (ELECTRICAL LINEMAN swab/PCR) Stat POTASSIUM CHLORIDE IN WATER (Potassium Cl 10 Meq/100 Ml Tess) 10 meq in 100 mls @ 100 mls/hr IV Q1H ROSANGELA Stop: 10/29/20 21:29 Last Infusion: 10/29/20 19:00 Dose: 0 mls/hr Documented by: Admin: 10/29/20 17:56 Dose: 100 mls/hr Documented by: ALEAH Discontinued Medications Sodium Chloride (Normal Saline 0.9%) 1,000 mls @ 1,000 mls/hr IV BOLUS ONE Stop: 10/29/20 15:53 Last Infusion: 10/29/20 17:45 Dose: 0 mls/hr Documented by: Admin: 10/29/20 15:41 Dose: 1,000 mls/hr Documented by: ALEAH Ondansetron HCl (Ondansetron 4 Mg/2 Ml Inj) 4 mg IV NOW ONE Stop: 10/29/20 14:55 Last Admin: 10/29/20 15:42 Dose: 4 mg Documented by: ALEAH Vital Signs Vital signs: Vital Signs - 8 hr 10/29/20 14:14 10/29/20 16:16 10/29/20 16:30 Temperature 97.9 F Pulse Rate 84 77 78 Respiratory Rate 22 Blood Pressure 180/98 H Pulse Oximetry 97 97 97 10/29/20 17:00 10/29/20 17:30 10/29/20 17:58 Temperature Pulse Rate 75 84 81 Respiratory Rate Blood Pressure 198/93 H Pulse Oximetry 91 97 98 10/29/20 18:00 10/29/20 18:33 10/29/20 18:34 Temperature Pulse Rate 82 83 80 Respiratory Rate 28 H Blood Pressure 193/95 H 193/103 H Pulse Oximetry 98 97 10/29/20 19:02 Temperature Pulse Rate Respiratory Rate Blood Pressure Pulse Oximetry 83 L MDM - Nausea/Vomiting/Diarrhea Lab Data Result diagrams: 10/29/20 16:25 10/29/20 16:25 Labs: Lab Results 10/29/20 10/29/20 10/29/20 Range/Units 16:25 16:25 18:39 WBC 12.6 H (4.5-11.0) X10^3/uL RBC 5.62 H (4.0-5.2) X10^6/uL Hgb 16.5 H (12.0-16.0) g/dL Hct 47.7 H (36-46) % MCV 84.9 (80-100) fL MCH 29.4 (26-34) PG MCHC 34.6 (30-36) % RDW 14.9 H (11.6-14.8) % Plt Count 375 (150-400) X10^3/uL Neut % (Auto) 81.9 H (50-75) % Lymph % (Auto) 9.7 L (25-40) % [place] % (Auto) 8.2 (3-14) % Eos % (Auto) 0.0 L (2-4) % Baso % (Auto) 0.2 (0-2) % Neut # (Auto) 65609 H (0744-6267) /uL Lymph # (Auto) 1200 (6027-3521) /uL [place] # (Auto) 1000 H (0-900) /uL Eos # (Auto) 0 (0-450) /uL Baso # (Auto) 0 (0-100) /uL Sodium 133 L (137-145) mmol/L Potassium 2.0 L* (3.4-5.1) mmol/L Chloride 92 L (98-107) mmol/L Carbon Dioxide 28 (22-32) mmol/L BUN 25 H (7-17) mg/dL Creatinine 1.67 H (0.52-1.04) mg/dL Estimated GFR 31.2 L (>60) mL/min BUN/Creatinine Ratio 15.0 (6-22) Glucose 144 H (80-110) mg/dL Calcium 10.6 H (8.4-10.2) mg/dL Total Bilirubin 0.9 (0.2-1.3) mg/dL AST 27 (14-36) IU/L ALT 16 (<35) IU/L Alkaline Phosphatase 118 (38-126) U/L Total Protein 9.2 H (6.3-8.2) g/dL Albumin 5.2 H (3.5-5.0) g/dL Globulin 4.0 (1.7-4.1) g/dL Albumin/Globulin Ratio 1.3 (1.0-2.8) Lipase 259 (23-300) U/L Urine RBC 0-1/hpf (0-5/HPF) Urine WBC 0-1/hpf (0-5/HPF) Ur Squamous Epith Cells 1-5 /hpf (0-5/HPF) Amorphous Sediment 1+ Urine Bacteria None seen (None) Ur Culture Indicated? Cult not indicated Urine Dip Bedside Urine Glucose Negative Bedside Urine Bilirubin - Negative Bedside Urine Ketone - Negative Urine Specific [place] 1.015 Bedside Urine Occult Blood +/- Bedside Urine pH 6 Bedside Urine Protein + 30 Bedside Urine Urobilinogen - Negative Bedside Urine Nitrite - Negative Bedside Urine Leukocytes - Negative Esterase Imaging Data CT scan - abdomen/pelvis: Radiologist's Impression: PROCEDURE: CT ABDOMEN PELVIS W CON INDICATIONS: vomiting TECHNIQUE: After the administration of IV contrast, axial sections were acquired from the lung bases to the pubic symphysis. Coronal and sagittal reformats were performed. For radiation dose reduction, the following was used: automated exposure control, adjustment of mA and/or kV according to patient size. COMPARISON: [facility], CT, CT ABDOMEN PELVIS W CON, 09/10/2020, 8:48. FINDINGS: Image quality: Excellent. Lung bases: Unremarkable. Heart: No significant findings. ABDOMEN: Liver: Normal size and overall normal appearance. Incidental note is made of focal fatty infiltration adjacent to the falciform ligament, which is not regarded to be pathologic and is stable compared to the prior examination. Gallbladder: Unremarkable. Biliary ducts: Unremarkable. Pancreas: Unremarkable. The previously described 4 mm low-density focus within the pancreas is not well seen on this study. Spleen: Unremarkable. Adrenal Glands: Unremarkable. Kidneys and Ureters: The right kidney enhances poorly and is highly atrophic. The left kidney demonstrates normal size, yet demonstrates a lobulated appearance. There is no hydronephrosis. Stomach and Bowel: Stomach, small bowel loops, and colon are unremarkable. Peritoneum: No abnormal intraperitoneal fluid. No free air. Ventral Wall: No hernia. Abdominal Nodes: No retroperitoneal or mesenteric adenopathy by size criteria. Vessels: Aorta and inferior vena cava are normal in size. Prominent atherosclerotic calcification can be seen throughout, particularly involving the origins of the renal arteries. PELVIS: Pelvic Organs: The uterus appears normal for age. No adnexal masses are seen. Bladder: Unremarkable. Pelvic Nodes: No enlarged lymph nodes. Miscellaneous: No inguinal hernias are seen. Bones: Mild dextroconvex scoliotic curvature is seen. Degenerative changes are seen throughout, particular involving the lumbar spine IMPRESSION: A cause of vomiting is not observed. No dilated loops of bowel are seen. No paulina, acute inflammatory process is seen. Incidental note is made of: Focal fatty infiltration of the liver adjacent to the falciform ligament Highly atrophic right kidney, as before Atherosclerotic calcification, particular involving the origins of the renal arteries Dextroconvex scoliotic curvature Dictated by: Lino Marie M.D. on 10/29/2020 at 17:00 [facility] Narrative Medical decision making narrative: Patient is found to have hypokalemia of 2.0. She was given 1 dose of Zofran. Not able to keep anything down at this time. Patient admitted for hypokalemia and dehydration. Creatinine elevated at 1.6. Dr. fox updated patient's symptoms test results and accepts patient for observation Discharge Plan Departure Patient Disposition: Admitted as Observation Clinical Impression: Hypokalemia Nausea & vomiting Qualifiers: Vomiting type: unspecified Vomiting Intractability: non-intractable Qualified Code(s): R11.2 - Nausea with vomiting, unspecified Admit Date/Time: 10/29/20 19:12 Admit Provider: Heber Escoto
--- NOTE | 2020-10-29 17:20 | DI.CT.S_ITS ---
PROCEDURE: CT ABDOMEN PELVIS W CON INDICATIONS: vomiting TECHNIQUE: After the administration of IV contrast, axial sections were acquired from the lung bases to the pubic symphysis. Coronal and sagittal reformats were performed. For radiation dose reduction, the following was used: automated exposure control, adjustment of mA and/or kV according to patient size. COMPARISON: [facility], CT, CT ABDOMEN PELVIS W CON, 09/10/2020, 8:48. FINDINGS: Image quality: Excellent. Lung bases: Unremarkable. Heart: No significant findings. ABDOMEN: Liver: Normal size and overall normal appearance. Incidental note is made of focal fatty infiltration adjacent to the falciform ligament, which is not regarded to be pathologic and is stable compared to the prior examination. Gallbladder: Unremarkable. Biliary ducts: Unremarkable. Pancreas: Unremarkable. The previously described 4 mm low-density focus within the pancreas is not well seen on this study. Spleen: Unremarkable. Adrenal Glands: Unremarkable. Kidneys and Ureters: The right kidney enhances poorly and is highly atrophic. The left kidney demonstrates normal size, yet demonstrates a lobulated appearance. There is no hydronephrosis. Stomach and Bowel: Stomach, small bowel loops, and colon are unremarkable. Peritoneum: No abnormal intraperitoneal fluid. No free air. Ventral Wall: No hernia. Abdominal Nodes: No retroperitoneal or mesenteric adenopathy by size criteria. Vessels: Aorta and inferior vena cava are normal in size. Prominent atherosclerotic calcification can be seen throughout, particularly involving the origins of the renal arteries. PELVIS: Pelvic Organs: The uterus appears normal for age. No adnexal masses are seen. Bladder: Unremarkable. Pelvic Nodes: No enlarged lymph nodes. Miscellaneous: No inguinal hernias are seen. Bones: Mild dextroconvex scoliotic curvature is seen. Degenerative changes are seen throughout, particular involving the lumbar spine IMPRESSION: A cause of vomiting is not observed. No dilated loops of bowel are seen. No paulina, acute inflammatory process is seen. Incidental note is made of: Focal fatty infiltration of the liver adjacent to the falciform ligament Highly atrophic right kidney, as before Atherosclerotic calcification, particular involving the origins of the renal arteries Dextroconvex scoliotic curvature Dictated by: Lino Marie M.D. on 10/29/2020 at 17:00 Approved by: Lino Marie M.D. on 10/29/2020 at 17:05
[2020-10-29] MEDS: POTASSIUM CHLORIDE IN WATER 10 MEQ/100 ML PIGGYBACK 100 MEQ IV ×3 (17:56→23:25)
[2020-10-29 18:49] LABS: Bacteria Urine None Seen
[2020-10-29 19:01] LABS: Amorphous Sediment Urine 1+; Culture Indicated Urine Cult Not Indicated; RBC Urine 0-1/HPF (0-5/HPF); Squamous Epithelial Cell Urine 1-5 /HPF (0-5/HPF); WBC Urine 0-1/HPF (0-5/HPF)
[2020-10-29 20:20] LABS: COVID19 - ADMIT (NP swab/PCR) Negative (Negative)
--- NOTE | 2020-10-29 20:23 | PM.HP.1 ---
History of Present Illness History of Present Illness Date Patient Seen: 10/29/20 Time Patient Seen: 20:23 Chief complaint: vomitting, dehydrated- 3 days Narrative: Patient is a 60-year-old female Talita Diggs who presented to the ED with a chief complaint of 3 days of nausea and vomiting. She has had no abdominal pain or diarrhea. But is unable to tolerate any fluids. She denies any dizziness or lightheadedness. No chest pain. In August of 2020 she was admitted for something similar with a potassium of 2.4. She was found to have us chronic severe malnutrition as well . Patient is a current smoker with a past medical history significant for anxiety and depression, hyperlipidemia, PTSD, hypertension and osteoarthritis . The patient has an issue with chronic vomiting and previous hypokalemia as well. She states she occasionally vomits when having a bowel movement. She was admitted previously with hypertensive urgency, and acute pancreatitis, since then she has stopped her home lisinopril for kidney disease according to the patient, and she was due to follow up with a phlebotomy specialist in september. Patient states upon admit that she has no nausea, abdominal pain at this time she denies chest pain, shortness of breath, jaundice, fever, chills, diarrhea. Patient is very sedated from Ativan for the nausea, and has not slept well in days from the nausea and vomiting. Patient's vitals upon admit she initially presented with hypertensive urgency with a BP 193/103, HR of 78, tachypneic with an RR of 28, and O2 saturation of 83% on room air. Patient's CBC elevated with a WBC 12.6 with a mild left shift neutrophils 10,300, HGB 16.5, HCT 47.7. Patient was hypokalemic with a potassium of 2.0, (09/15 potassium 2.4) this appears to be chronic related to patient's chronic nausea and hyperemesis resulting in malnutrition. Patient has lost 27.26 lb since 05/19/2020, and a loss of 14.08 lb since last hospitalization on 09/22/2020. Her sodium chronically low at 133, chloride 92, BUN 25. Creatinine 1.67, elevated from creatinine of 1.01 on 09/22/2020, and decrease in her GFR 31.2 from 55.7. Glucose was 144, calcium also chronically elevated was 10.6 which is normal for the patient. Patient's urine was negative for UTI. Patient's chronic daily use of marijuana is likely the cause of her intractable nausea and hyperemesis due to cannabis syndrome. Patient admitted for hyperemesis, hypertensive urgency, GWENDOLYN, and hypokalemia. Patient History Medical History (Updated 10/29/20 @ 20:41 by TONY Hassan-INESSA) Anxiety Cannabis hyperemesis syndrome concurrent with and due to cannabis abuse Hypertension Osteoarthritis Osteoporosis PTSD (post-traumatic stress disorder) Surgical History History of History of colonoscopy Family & Social History Family History Father Heart attack Hypertension Diabetes mellitus Mother Diabetes mellitus Hypertension Social History: household members family,children Prior Living Arrangements House Safety & Behavioral: Feels Safe in Current Yes Environment Been Physically Hurt or No Threatened By a Person Tobacco & Substance use: Tobacco type cigarettes,cannabis/marijuana Smoking Status Current every day smoker alcohol intake never alcohol intake frequency holiday/special occasion Substance Use Type marijuana Meds Home Medications and Allergies Home Medications Medication Instructions Recorded Confirmed Type amlodipine 10 mg tablet 10 mg PO DAILY 07/12/20 10/29/20 History citalopram 10 mg tablet 10 mg PO DAILY 07/12/20 10/29/20 History carvedilol 12.5 mg tablet (Coreg) 12.5 mg PO BID #60 tab 07/17/20 10/29/20 Rx ondansetron 4 mg disintegrating 4 mg SUBLINGUAL Q4HR PRN #20 tab 07/17/20 10/29/20 Rx tablet Allergies Allergy/AdvReac Type Severity Reaction Status Date / Time mirtazapine [MIRTAZAPINE] Allergy Unknown HALLUCINATI Verified 10/29/20 17:28 ONS Review of Systems Review of Systems Narrative: Patient denies any symptoms at this time, is fairly sedated from medication, no other symptoms other than documented in HPI. Exam Vital Signs (past 8 hours): - 10/29/20 14:14 10/29/20 16:16 10/29/20 16:30 Temperature 97.9 F Pulse Rate 84 77 78 Respiratory Rate 22 Blood Pressure 180/98 H Pulse Oximetry 97 97 97 10/29/20 17:00 10/29/20 17:30 10/29/20 17:58 Temperature Pulse Rate 75 84 81 Respiratory Rate Blood Pressure 198/93 H Pulse Oximetry 91 97 98 10/29/20 18:00 10/29/20 18:33 10/29/20 18:34 Temperature Pulse Rate 82 83 80 Respiratory Rate 28 H Blood Pressure 193/95 H 193/103 H Pulse Oximetry 98 97 10/29/20 19:02 Temperature Pulse Rate Respiratory Rate Blood Pressure Pulse Oximetry 83 L Oxygen Delivery Method Room Air Narrative Exam Narrative: General: Patient is a thin, frail, poorly-nourished female in no distress at this time. HEENT: Normocephalic, atraumatic, extraocular muscles intact, oral pharynx is clear and mucous membranes are dry. Patient is missing her teeth. Neck is supple and symmetric, trachea is midline, no adenopathy, no thyroid enlargement, nontender, no masses palpated. Negative for JVD Lungs: Occasional wheezing throughout all cardenas, no nasal flaring, retractions, or tachypneic labored Cardio: S1 & S2 with regular rate and rhythm without murmur, rubs, or gallops, no carotid bruit, no cardiac pulsations present. Abdomen: Soft flat nontender, negative for organomegaly, or masses. Bowel sounds hypoactive are present in all 4 quadrants without guarding or rebound, no CVA tenderness. Musculoskeletal: no deformity, crepitus, effusions, cyanosis, clubbing or edema present. Full range of motion intact radial and pedal pulses are normal. Skin: Warm dry poor tugor and intact without rashes, ulcerations or petechiae. Neuro: Patient is sedated from medication, sensation to touch intact, no gross deficits noted of cranial nerves. Objective Labs Result Diagrams: 10/29/20 16:25 10/29/20 22:00 Labs: Laboratory Results - last 24 hr 10/29/20 10/29/20 10/29/20 16:25 16:25 18:39 WBC 12.6 H RBC 5.62 H Hgb 16.5 H Hct 47.7 H MCV 84.9 MCH 29.4 MCHC 34.6 RDW 14.9 H Plt Count 375 Neut % (Auto) 81.9 H Lymph % (Auto) 9.7 L [place] % (Auto) 8.2 Eos % (Auto) 0.0 L Baso % (Auto) 0.2 Neut # (Auto) 96068 H Lymph # (Auto) 1200 [place] # (Auto) 1000 H Eos # (Auto) 0 Baso # (Auto) 0 Sodium 133 L Potassium 2.0 L* Chloride 92 L Carbon Dioxide 28 BUN 25 H Creatinine 1.67 H Estimated GFR 31.2 L BUN/Creatinine Ratio 15.0 Glucose 144 H Calcium 10.6 H Total Bilirubin 0.9 AST 27 ALT 16 Alkaline Phosphatase 118 Total Protein 9.2 H Albumin 5.2 H Globulin 4.0 Albumin/Globulin Ratio 1.3 Lipase 259 Urine RBC 0-1/hpf Urine WBC 0-1/hpf Ur Squamous Epith Cells 1-5 /hpf Amorphous Sediment 1+ Urine Bacteria None seen Ur Culture Indicated? Cult not indicated SARS-CoV-2 (PCR) 10/29/20 19:13 WBC RBC Hgb Hct MCV MCH MCHC RDW Plt Count Neut % (Auto) Lymph % (Auto) [place] % (Auto) Eos % (Auto) Baso % (Auto) Neut # (Auto) Lymph # (Auto) [place] # (Auto) Eos # (Auto) Baso # (Auto) Sodium Potassium Chloride Carbon Dioxide BUN Creatinine Estimated GFR BUN/Creatinine Ratio Glucose Calcium Total Bilirubin AST ALT Alkaline Phosphatase Total Protein Albumin Globulin Albumin/Globulin Ratio Lipase Urine RBC Urine WBC Ur Squamous Epith Cells Amorphous Sediment Urine Bacteria Ur Culture Indicated? SARS-CoV-2 (PCR) Negative Assessment & Plan Assessment & Plan narrative: 1. Intractable nausea of cannabis hyperemesis syndrome, acute on chronic, present on admission, secondary to chronic cannabis use, acute on chronic, present on admission -lorazepam 1 mg q.6 hours, Zofran and Reglan -capsaicin q.6 hours as needed -normal saline at 150 cc/hour -encourage warm showers -if patient is continuing to vomit she is to be NPO, if she has no further vomiting may trial clear liquids overnight, and may progress as tolerated starting tomorrow -patient to be monitored on tele medicine, vital signs q.4 hours, intake and output monitored Q shift, weight measure daily, diet:NPO (progress as tolerated)- Clear-cardiac diet, Ortho Stats Qshift -counseling and educational handouts to be provided regarding adverse conditions related to cannabis use 2. Acute kidney injury, acute, present on admission -as evidence by increase in creatinine 1.67, up from 1.01 on 09/22/2020 -decrease in GFR 31.2, down from 55.7 -hydration [id number]/hr -SOFA:3 3. Hypertension urgency, acute on chronic, in the setting of essential hypertension and hyperlipidemia, present on admission, uncontrolled -as evidence by admit blood pressure 193/103, HR 80, RR 28, O2 saturation 83% on room air. -metoprolol 5 mg IV now-B/P improved 128/73,63,14, 94% - Will continue home amlodipine, Coreg, and potassium. - EK09/15/2020:ST depressions are seen, though borderline in V3-6. 4. Hypokalemia, acute on chronic, present on admission - K 2.0 on admission, K+2.4 on 09/15 admission-patient has been admitted for hypokalemia around 2-2.4 since 06/2020 - given 40 meq IV in the ER. will continue to replete as needed. Repeat K+at 10pm-K+:2.3, potassium still being infused will order repeat potassium level after transfusion -patient admitted to telemetry - likely secondary to vomiting and dehydration. - vomiting may be secondary to marijuana use and cyclic vomiting. 5. Hyperglycemia, acute, present on admission as evidence by a glucose 144 -blood sugar checks q.6 hours and A1c ordered 6. Anixety/depression, PTSD, acute on chronic, not present on admission - patient denies suicidal ideation - continue home citalopram. 7. Mild Hypercalcemia, acute on chronic, present on admission - as evidence by calcium 10.6, continue to monitor- patients Ca was 10.5 on 09/15 - suspect in setting of dehydration. 7. Underweight as evidence by a BMI 50.2, acute on chronic, present on admission - Patient has lost 27.26 lb since 05/19/2020, and a loss of 14.08 lb since last hospitalization on 09/22/2020 -dietary consult will evaluate for dietary recommendations. -monitor weight Code Status: Full Code Surrogate decision maker is the patient's daughter (Ruthie Sahu) COVID PCR: Negative VTE/DVT prophylaxis: Lovenox 40 mg and SCDs Scores GCS Marcelina coma scale eye opening: To pressure [place] coma scale verbal response: Words [place] coma scale motor response: Localising Marcelina coma scale total score: 10 SOFA PaO2/FIO2: >=400 mmHg Platelets: >= 150 Bilirubin: < 1.2 mg/dL Hypotension: MAP >= 70 mmHg [place] Coma Scale: 10-12 Renal: Creatinine 1.2-1.9 mg/dL SOFA Score: 3
[2020-10-29 20:39] LABS: Magnesium 2.2 mg/dL (1.6-2.3); Phosphorous 3.1 mg/dL (2.8-4.1)
[2020-10-29 20:43] LABS: Hemoglobin A1C% w Est Avg Glu 6.2 % (4.0-6.0)
[2020-10-29 20:51] LABS: Troponin I 0.024 ng/mL (0.01-0.034)
[2020-10-29] MEDS: METOCLOPRAMIDE 10 MG/2 ML INJ IV (20:54)
[2020-10-29] MEDS: LORazepam 2 MG/ML INJ IV (20:54)
[2020-10-29] MEDS: KETOROLAC 30 MG/ML VIAL IV (20:54)
[2020-10-29] MEDS: carvediloL 12.5 MG TABLET PO (20:54)
[2020-10-29] MEDS: MAG HYDROX/ALUM/SIMETH 30 ML UDC PO (20:55)
[2020-10-29] MEDS: SODIUM CHLORIDE 0.9% 1,000 ML 150 ML IV (21:10)
[2020-10-29] MEDS: METOPROLOL TARTRATE 5 MG/5 ML INJ IV (21:10)
[2020-10-29 22:21] LABS: HEMOLYSIS 53 (0-50)
[2020-10-29 22:22] LABS: Potassium 2.4 mmol/L (3.4-5.1)
[2020-10-30] VITALS (12 sets, daily range): BP systolic 120–185; BP diastolic 72–93; PULSE 62–85; RESP 16–20; TEMP 36.5–37; O2SAT 91–98
[2020-10-30] MEDS: POTASSIUM CHLORIDE IN WATER 10 MEQ/100 ML PIGGYBACK 100 MEQ IV ×9 (00:44→21:51)
[2020-10-30 02:17] LABS: HEMOLYSIS 30 (0-50)
[2020-10-30 02:23] LABS: Potassium 2.5 mmol/L (3.4-5.1)
[2020-10-30] MEDS: SODIUM CHLORIDE 0.9% 1,000 ML 150 ML IV ×3 (03:05→22:02)
[2020-10-30] MEDS: POTASSIUM CHLORIDE 20 MEQ TAB 40 MEQ PO (03:05)
[2020-10-30 07:15] LABS: Alanine Aminotransferase 15 IU/L (<35); Albumin Globulin Ratio 1.3 (1.0-2.8); Alkaline Phosphatase 113 U/L (38-126); Aspartate Aminotransferase 32 IU/L (14-36); Bilirubin Total 0.8 mg/dL (0.2-1.3); Blood Urea Nitrogen 17 mg/dL (7-17); Calcium 9.7 mg/dL (8.4-10.2); Carbon Dioxide 30 mmol/L (22-32); Chloride 96 mmol/L (98-107); Estimated Glomerular Filt Rate 52.7 mL/min (>60); Globulin 3.9 g/dL (1.7-4.1); Glucose 135 mg/dL (80-110); Sodium 136 mmol/L (137-145); Total Protein 8.9 g/dL (6.3-8.2)
[2020-10-30 07:21] LABS: Add Manual Diff / Slide Review NO; Basophils Absolute Auto 100 /uL (0-100); Basophils Percent Auto 0.7 % (0-2); Eosinophils Absolute Auto 0 /uL (0-450); Hematocrit 48.2 % (36-46); Hemoglobin 16.4 g/dL (12.0-16.0); Lymphocytes Absolute Auto 1100 /uL (1100-4500); Lymphocytes Percent Auto 11.5 % (25-40); Mean Corpuscular Hemoglobin 29.3 PG (26-34); Monocytes Absolute Auto 800 /uL (0-900); Monocytes Percent Auto 8.6 % (3-14); Neutrophils Absolute Auto 7700 /uL (1500-7000); Neutrophils Percent Auto 79.2 % (50-75); Platelet Count 338 X10^3/uL (150-400); Red Cell Distribution Width 14.6 % (11.6-14.8); White Blood Cell Count 9.7 X10^3/uL (4.5-11.0)
[2020-10-30 07:23] LABS: HEMOLYSIS 47 (0-50)
--- NOTE | 2020-10-30 07:44 | PC.NURSE ---
Critical value called in from lab. pt's K at 2.7.
[2020-10-30 07:45] LABS: Potassium 2.7 mmol/L (3.4-5.1)
--- NOTE | 2020-10-30 07:49 | P.PN_ITS ---
Subjective Subjective Date Patient Seen: 10/30/20 Interval history: She tells me that she lives with her daughter Britney in [place]. She is feeling better today. She is a routine Cannabis user. Her A1C is 6.2 with a negative UA. The white blood count is 9.7 with a hemoglobin of 16 .4. The potassium is low at 2.7. It had been similarly low at 2.4 and 2.3 on her prior admission in April. She has received an additional 40 of oral potassium and 40 of IV potassium today. The blood pressure is 159/85. Exam Vital Signs (past 8 hours): - 10/30/20 04:00 10/30/20 04:30 Temperature 98.6 F Pulse Rate 71 Respiratory Rate 16 Blood Pressure 159/85 H Pulse Oximetry 94 94 Oxygen Delivery Method Room Air Oxygen Flow Rate 0 Narrative Exam Narrative: She is alert and oriented x3. No apparent distress. Heart is regular rate and rhythm without murmur Lungs are clear to auscultation bilaterally Abdomen is soft, bowel sounds positive, nontender, no organomegaly. Extremities have no ankle edema Objective Labs Result Diagrams: 10/30/20 06:35 10/30/20 06:35 Labs: Laboratory Results - last 24 hr 10/29/20 10/29/20 10/29/20 16:25 16:25 16:25 WBC 12.6 H RBC 5.62 H Hgb 16.5 H Hct 47.7 H MCV 84.9 MCH 29.4 MCHC 34.6 RDW 14.9 H Plt Count 375 Neut % (Auto) 81.9 H Lymph % (Auto) 9.7 L [place] % (Auto) 8.2 Eos % (Auto) 0.0 L Baso % (Auto) 0.2 Neut # (Auto) 99380 H Lymph # (Auto) 1200 [place] # (Auto) 1000 H Eos # (Auto) 0 Baso # (Auto) 0 Sodium 133 L Potassium 2.0 L* Chloride 92 L Carbon Dioxide 28 BUN 25 H Creatinine 1.67 H Estimated GFR 31.2 L BUN/Creatinine Ratio 15.0 Glucose 144 H Hemoglobin A1c Calcium 10.6 H Phosphorus 3.1 Magnesium 2.2 Total Bilirubin 0.9 AST 27 ALT 16 Alkaline Phosphatase 118 Troponin I Total Protein 9.2 H Albumin 5.2 H Globulin 4.0 Albumin/Globulin Ratio 1.3 Lipase 259 Urine RBC Urine WBC Ur Squamous Epith Cells Amorphous Sediment Urine Bacteria Ur Culture Indicated? SARS-CoV-2 (PCR) 10/29/20 10/29/20 10/29/20 16:25 16:25 18:39 WBC RBC Hgb Hct MCV MCH MCHC RDW Plt Count Neut % (Auto) Lymph % (Auto) [place] % (Auto) Eos % (Auto) Baso % (Auto) Neut # (Auto) Lymph # (Auto) [place] # (Auto) Eos # (Auto) Baso # (Auto) Sodium Potassium Chloride Carbon Dioxide BUN Creatinine Estimated GFR BUN/Creatinine Ratio Glucose Hemoglobin A1c 6.2 H Calcium Phosphorus Magnesium Total Bilirubin AST ALT Alkaline Phosphatase Troponin I 0.024 Total Protein Albumin Globulin Albumin/Globulin Ratio Lipase Urine RBC 0-1/hpf Urine WBC 0-1/hpf Ur Squamous Epith Cells 1-5 /hpf Amorphous Sediment 1+ Urine Bacteria None seen Ur Culture Indicated? Cult not indicated SARS-CoV-2 (PCR) 10/29/20 10/29/20 10/30/20 19:13 22:00 02:00 WBC RBC Hgb Hct MCV MCH MCHC RDW Plt Count Neut % (Auto) Lymph % (Auto) [place] % (Auto) Eos % (Auto) Baso % (Auto) Neut # (Auto) Lymph # (Auto) [place] # (Auto) Eos # (Auto) Baso # (Auto) Sodium Potassium 2.4 L* 2.5 L* Chloride Carbon Dioxide BUN Creatinine Estimated GFR BUN/Creatinine Ratio Glucose Hemoglobin A1c Calcium Phosphorus Magnesium Total Bilirubin AST ALT Alkaline Phosphatase Troponin I Total Protein Albumin Globulin Albumin/Globulin Ratio Lipase Urine RBC Urine WBC Ur Squamous Epith Cells Amorphous Sediment Urine Bacteria Ur Culture Indicated? SARS-CoV-2 (PCR) Negative 10/30/20 10/30/20 06:35 06:35 WBC 9.7 RBC 5.60 H Hgb 16.4 H Hct 48.2 H MCV 86.0 MCH 29.3 MCHC 34.0 RDW 14.6 Plt Count 338 Neut % (Auto) 79.2 H Lymph % (Auto) 11.5 L [place] % (Auto) 8.6 Eos % (Auto) 0.0 L Baso % (Auto) 0.7 Neut # (Auto) 7700 H Lymph # (Auto) 1100 [place] # (Auto) 800 Eos # (Auto) 0 Baso # (Auto) 100 Sodium 136 L Potassium 2.7 L* Chloride 96 L Carbon Dioxide 30 BUN 17 Creatinine 1.06 H Estimated GFR 52.7 L BUN/Creatinine Ratio 16.0 Glucose 135 H Hemoglobin A1c Calcium 9.7 Phosphorus Magnesium Total Bilirubin 0.8 AST 32 ALT 15 Alkaline Phosphatase 113 Troponin I Total Protein 8.9 H Albumin 5.0 Globulin 3.9 Albumin/Globulin Ratio 1.3 Lipase Urine RBC Urine WBC Ur Squamous Epith Cells Amorphous Sediment Urine Bacteria Ur Culture Indicated? SARS-CoV-2 (PCR) [facility] Medical History (Updated 10/29/20 @ 20:41 by TONY Hassan-INESSA) Anxiety Cannabis hyperemesis syndrome concurrent with and due to cannabis abuse Hypertension Osteoarthritis Osteoporosis PTSD (post-traumatic stress disorder) Surgical History History of History of colonoscopy Family History Father Heart attack Hypertension Diabetes mellitus Mother Diabetes mellitus Hypertension Social History household members: family and children Smoking Status: Current every day smoker alcohol intake: never Assessment & Plan Assessment & Plan narrative: 1. Intractable nausea of cannabis hyperemesis syndrome, acute on chronic, present on admission, secondary to chronic cannabis use, acute on chronic, present on admission -lorazepam 1 mg q.6 hours, Zofran and Reglan -capsaicin q.6 hours as needed -normal saline at 150 cc/hour -encourage warm showers -if patient is continuing to vomit she is to be NPO, if she has no further vomiting may trial clear liquids 2. Acute kidney injury, acute, present on admission -creatinine 1.67, up from 1.01 on 09/22/2020 -decrease in GFR 31.2, down from 55.7, resolved on 10/30 with creatinine of 1.06 -hydration CX068jt/hr -SOFA:3 3. Hypertension urgency, acute on chronic, in the setting of essential hypertension and hyperlipidemia, present on admission, uncontrolled -admit blood pressure 193/103, HR 80, RR 28, O2 saturation 83% on room air. -metoprolol 5 mg IV now-B/P improved 128/73,63,14, 94% -Will continue amlodipine, Coreg, and potassium. -EK09/15/2020:ST depressions are seen, though borderline in V3-6. 4. Hypokalemia, acute on chronic, present on admission - K 2.0 on admission, K+2.4 on 09/15 admission-patient has been admitted for hypokalemia around 2-2.4 since 06/2020 - given 40 meq IV in the ER. will continue to replete as needed. Repeat K+at 10pm-K+:2.3 -patient admitted to telemetry - likely secondary to vomiting and dehydration. - vomiting may be secondary to marijuana use and cyclic vomiting. 5. Hyperglycemia, acute, present on admission as evidence by a glucose 144 -blood sugar checks q.6 hours and A1c ordered 6. Anixety/depression, PTSD, acute on chronic, not present on admission - patient denies suicidal ideation - continue home citalopram. 7. Mild Hypercalcemia, acute on chronic, present on admission - as evidence by calcium 10.6, continue to monitor- patients Ca was 10.5 on 09/15 - suspect in setting of dehydration. 7. Underweight as evidence by a BMI 19.2, acute on chronic, present on admission - Patient has lost 27.26 lb since 05/19/2020, and a loss of 14.08 lb since last hospitalization on 09/22/2020 -dietary consult will evaluate for dietary recommendations. -monitor weight Code Status: Full Code Surrogate decision maker is the patient's daughter (Ruthie Sahu) VTE/DVT prophylaxis: Lovenox 40 mg and SCDs
[2020-10-30] MEDS: CITALOPRAM 10 MG TABLET PO (09:29)
[2020-10-30] MEDS: carvediloL 12.5 MG TABLET PO ×2 (09:29→21:33)
[2020-10-30] MEDS: AMLODIPINE 5 MG TABLET 10 MG PO (09:29)
[2020-10-30] MEDS: ENOXAPARIN 40 MG/0.4 ML SYRINGE SUBCUT (09:29)
[2020-10-30] MEDS: METOCLOPRAMIDE 10 MG/2 ML INJ IV (13:12)
--- NOTE | 2020-10-30 13:27 | PC.NURSE ---
AM shift note. pt AO and IND in room with IV pole assist. Denying pain and reporting mild but tolerable nausea. pt requesting showers which she states help make her feel better. IV fluids paused for 1 shower this AM and I asked pt to wait another hour when she asked for a 2nd shower around 1300 so that she can get some more IV NS. ND running at 150/hr to L wrist. PIV flushing but needed to be re-enforced with new Tegaderm and tape after shower. Tele: NRS. Lungs clear other than inspiration wheezes to right anterior. pt stated last known BM was this past Friday (October 27, 2020). NOC shift nurse, Norma, removed Right hand PIV when it became compromised but it wasn't listed in her PIV assessment. K today was 2.7 which is the same from prior assessment. pt also states that her last episode of emesis was yesterday (10/29/20) in the morning.
[2020-10-30 15:19] LABS: HEMOLYSIS < 15 (0-50)
--- NOTE | 2020-10-30 15:28 | CM.DANOTE ---
DCP/Assessment: Reviewed chart. Patient is a 60yr old female admitted to [facility] with nausea and vomiting. PCP Is Dr. Hudson. Primary payor is 1)Medicare 2)Medicaid. Met with patient this AM explained CM/SW role. Patient resting in bed at time of visit. Patient reports that she resides in [place] and plans to go home when stable. Patient smokes cigarettes daily and smoke cannabis. Patient denies any d/c planning needs. Patient currently with severe malnutrition which she reports that she has had all my life. COTTON DISPATCHER requested nutrition evaluation to discuss foods that might help with her malnutrition. Patient admits to liking nutrition shakes. P: Anticipate home when stable. CM team to follow closely. MARY Patel Discharge Planning/Care Management CM Discharge Assessment Start: 10/30/20 15:25 Freq: Status: Active Protocol: Document 10/30/20 15:26 KJS (Rec: 10/30/20 15:28 KJS [id number]) Discharge Planning Assessment Assigned Escrow Officer MARY Patel Contact Information Britney (daughter) ph# Advance Directives? No History Provided By Patient,Medical Record Prior Living Arrangements House Household Members family,children Type of transporation used prior to Relies on Others admit Independent with ADL's Yes Is patient alert and oriented? Yes Barriers to Discharge No Discharge Plan Home Transportation Arrangement Family to provide transport. Additional Comment CM team following. Whiteboard Updated in Patient Room with Yes name and ext. # of Escrow Officer Review Status In Process Next Review Type Continued Stay Review
[2020-10-30 15:31] LABS: Potassium 2.2 mmol/L (3.4-5.1)
[2020-10-30] MEDS: POTASSIUM CHLORIDE 20 MEQ/15 ML UDC 40 MEQ PO (16:18)
--- NOTE | 2020-10-30 17:49 | PC.NURSE ---
Received call from lab with critical value of potassium at 2.2 which is a decrease from previous which was 2.7. Informed Dr. Escoto and he ordered potassium PO and IV. Initiated IV potassium and oral potassium given.
[2020-10-31] VITALS (12 sets, daily range): BP systolic 108–196; BP diastolic 57–94; PULSE 61–76; RESP 14–18; TEMP 35.7–36.8; O2SAT 92–99
[2020-10-31] MEDS: SODIUM CHLORIDE 0.9% 1,000 ML 150 ML IV ×2 (04:31→19:02)
[2020-10-31 05:57] LABS: BUN Creatinine Ratio 11.4 (6-22); Blood Urea Nitrogen 12 mg/dL (7-17); Calcium 8.8 mg/dL (8.4-10.2); Carbon Dioxide 29 mmol/L (22-32); Chloride 97 mmol/L (98-107); Estimated Glomerular Filt Rate 53.3 mL/min (>60); Glucose 188 mg/dL (80-110); HEMOLYSIS < 15 (0-50); Sodium 135 mmol/L (137-145)
[2020-10-31 06:08] LABS: Potassium 2.2 mmol/L (3.4-5.1)
[2020-10-31] MEDS: POTASSIUM CHLORIDE IN WATER 10 MEQ/100 ML PIGGYBACK 100 MEQ IV ×4 (08:03→14:16)
[2020-10-31] MEDS: carvediloL 12.5 MG TABLET PO ×2 (08:06→20:37)
[2020-10-31] MEDS: CITALOPRAM 10 MG TABLET PO (08:06)
[2020-10-31] MEDS: AMLODIPINE 5 MG TABLET 10 MG PO (08:06)
[2020-10-31] MEDS: ENOXAPARIN 40 MG/0.4 ML SYRINGE SUBCUT (08:07)
[2020-10-31] MEDS: POTASSIUM CHLORIDE 20 MEQ TAB 40 MEQ PO ×3 (08:07→17:12)
[2020-10-31 09:03] LABS: Magnesium 1.9 mg/dL (1.6-2.3)
--- NOTE | 2020-10-31 11:37 | PC.NURSE ---
Addendum entered by Debbi Coburn R.N. 10/31/20 14:54: Patient is still sleeping, he does wake up when you call his name out but he is refusing to talk to staff. His CIWA score is 1 and NIH stroke scale a 2. No unresponsive episodes. Resting comfortably. Addendum entered by Debbi Coburn R.N. 10/31/20 13:53: Patients third potassium rider is hanging and infusing, she is tolerating it infusing at 50cc per hour. If the rate is any higher it hurts her arm. She will take a shower after iv medication in. Original Note: Assess- Patient is doing well and states that she is feeling better. Her potassium is 2.2 and she is receiving 4 k riders now, she is on her second as the rate of the fluid is only infusing at 50cc, patient is complaining of her iv burning and at this rate she is able to tolerate it. Patient will have a shower after potassium infused.
--- NOTE | 2020-10-31 12:33 | DIET.PN ---
Dietary Progress Note Assessment: 60y F admitted for intractable nausea and vomiting with hypokalemia referred to nutrition for reported weight loss. This RD has worked c pt in past for help supporting K+ needs secondary to chronic hypokalemia. Pt reports since our visit she has been more intentional about eating high K+ foods like potatoes, bananas, tomatoes. Pt has been purchasing cases of Ensure to drink at home as well as low sodium V8 juice. She ran out of both last week prior to sx starting. Pt has dentures in and having no issues c mastication. Pt has not had vomiting since yesterday and would like diet advanced if okay by hospitalist. Per pt as well as [facility] chart review, pt has been steadily dropping weight since April 2020 with 17.8% unintentional weight loss in 6mo (severe). Pt cannot recall specific reason why this is occurring. HT: 162.5cm WT: 51kg (-17.8% in 6mo, severe) UBW: 62kg BMI: 19.3 Labs:K+ 2.2 L Nutrition Diagnosis: Severe Acute on Chronic Protein Calorie Malnutrition r/t unknown causes aeb 17.8% unintentional weight loss in 6mo (severe), pt drinking ONS ensure daily yet continues steady weight loss, NFPE shows moderate fat losses system wide with associated BMI 19.3 and chronic hypokalemia. Interventions: 1. Providing pt coupons and specific ONS reccs for home use to support nutrient repletion. Pt would like to start an MVI. Recc pt drink 2 Ensure Enlives per day supplying 50% kcal and 60% protein needs in addition to food choices. 2. Recc advancing to full liquid diet to expand dietary choices and to begin ONS. Diet Order: Clears c Ensure Clear tid EER: 1530 kcal (30kcal/kg per PCM), 66g PRO Monitoring/Evaluations: diet order, POs, ONS tolerance
[2020-10-31 12:39] LABS: HEMOLYSIS 20 (0-50); Potassium 3.4 mmol/L (3.4-5.1)
--- NOTE | 2020-10-31 17:48 | PM.PN.1 ---
Subjective Subjective Interval history: Today she is feeling somewhat improved. However, her potassium remains critically low at 3.2. Exam Vital Signs (past 8 hours): - 10/31/20 09:50 10/31/20 10:49 10/31/20 12:20 Temperature 98.2 F Pulse Rate 61 61 Pulse Rate [Orthostatic Lying] 62 Pulse Rate [Orthostatic Sitting] 61 Pulse Rate [Orthostatic Standing] 67 Respiratory Rate 18 16 Blood Pressure 113/67 Blood Pressure [Orthostatic Lying] 137/59 L Blood Pressure [Orthostatic Sitting] 114/57 L Blood Pressure [Orthostatic Standing] 108/60 Pulse Oximetry 92 95 10/31/20 15:58 10/31/20 15:59 Temperature 96.2 F L Pulse Rate 73 Pulse Rate [Orthostatic Lying] 69 Pulse Rate [Orthostatic Sitting] 70 Pulse Rate [Orthostatic Standing] 76 Respiratory Rate 18 Blood Pressure 169/91 H Blood Pressure [Orthostatic Lying] 156/89 H Blood Pressure [Orthostatic Sitting] 175/85 H Blood Pressure [Orthostatic Standing] 154/90 H Pulse Oximetry 97 Oxygen Delivery Method Room Air Oxygen Flow Rate 0 Narrative Exam Narrative: GEN: alert and oriented x3. No apparent distress. CV: regular rate and rhythm without murmur PULM: clear to auscultation bilaterally ABD: soft, bowel sounds positive, nontender, no organomegaly. EXT: no ankle edema Objective Labs Result Diagrams: 10/30/20 06:35 10/31/20 11:57 Labs: Laboratory Results - last 24 hr 10/31/20 10/31/20 10/31/20 04:55 04:55 11:57 Sodium 135 L Potassium 2.2 L* 3.4 D Chloride 97 L Carbon Dioxide 29 BUN 12 Creatinine 1.05 H Estimated GFR 53.3 L BUN/Creatinine Ratio 11.4 Glucose 188 H Calcium 8.8 Magnesium 1.9 [facility] Medical History (Updated 10/29/20 @ 20:41 by PARTH Hassan) Anxiety Cannabis hyperemesis syndrome concurrent with and due to cannabis abuse Hypertension Osteoarthritis Osteoporosis PTSD (post-traumatic stress disorder) Surgical History History of History of colonoscopy Family History Father Heart attack Hypertension Diabetes mellitus Mother Diabetes mellitus Hypertension Social History household members: family and children Smoking Status: Current every day smoker alcohol intake: never Assessment & Plan Assessment & Plan narrative: 1. Intractable nausea of cannabis hyperemesis syndrome, acute on chronic, present on admission, secondary to chronic cannabis use, acute on chronic, present on admission -lorazepam 1 mg q.6 hours, Zofran and Reglan -capsaicin q.6 hours as needed -normal saline at 150 cc/hour -encourage warm showers -if patient is continuing to vomit she is to be NPO, if she has no further vomiting may trial clear liquids 2. Acute kidney injury, acute, present on admission -creatinine 1.67, up from 1.01 on 09/22/2020 -decrease in GFR 31.2, down from 55.7, resolved on 10/30 with creatinine of 1.06 -hydration [id number] -SOFA:3 3. Hypertension urgency, acute on chronic, in the setting of essential hypertension and hyperlipidemia, present on admission, uncontrolled -admit blood pressure 193/103, HR 80, RR 28, O2 saturation 83% on room air. -metoprolol 5 mg IV now-B/P improved 128/73,63,14, 94% -Will continue amlodipine, Coreg, and potassium. -EK09/15/2020:ST depressions are seen, though borderline in V3-6. 4. Hypokalemia, acute on chronic, present on admission - K 2.0 on admission, K+2.4 on 09/15 admission-patient has been admitted for hypokalemia around 2-2.4 since 06/2020 - given 40 meq IV in the ER. will continue to replete as needed. Repeat K+at 10pm-K+:2.3 -patient admitted to telemetry - likely secondary to vomiting and dehydration. - vomiting may be secondary to marijuana use and cyclic vomiting. 5. Hyperglycemia, acute, present on admission as evidence by a glucose 144 -blood sugar checks q.6 hours and A1c ordered 6. Anixety/depression, PTSD, acute on chronic, not present on admission - patient denies suicidal ideation - continue home citalopram. 7. Mild Hypercalcemia, acute on chronic, present on admission - as evidence by calcium 10.6, continue to monitor- patients Ca was 10.5 on 09/15 - suspect in setting of dehydration. 7. Underweight as evidence by a BMI 19.2, acute on chronic, present on admission - Patient has lost 27.26 lb since 05/19/2020, and a loss of 14.08 lb since last hospitalization on 09/22/2020 -dietary consult will evaluate for dietary recommendations. -monitor weight Code Status: Full Code Surrogate decision maker is the patient's daughter (Ruthie Sahu) VTE/DVT prophylaxis: Lovenox 40 mg and SCDs
[2020-10-31] MEDS: METOCLOPRAMIDE 10 MG/2 ML INJ IV (18:48)
[2020-10-31] MEDS: ONDANSETRON 4 MG/2 ML INJ IV (20:36)
--- NOTE | 2020-10-31 21:56 | PC.NURSE ---
Patient having increased nausea today with dry heaves, no substantial emesis. Patient given reglan and ondansetron which seemed to help patient enough to let her sleep. New IV needed to be started after previous site was causing pain/burning. Hot showers seem to help patient and she has taken several this shift.
[2020-11-01] VITALS (14 sets, daily range): BP systolic 105–150; BP diastolic 65–85; PULSE 58–78; RESP 16–20; TEMP 36.1–37.1; O2SAT 94–98
[2020-11-01] MEDS: SODIUM CHLORIDE 0.9% 1,000 ML 150 ML IV ×2 (02:22→10:32)
[2020-11-01 05:11] LABS: Hematocrit 44.4 % (36-46); Hemoglobin 15.4 g/dL (12.0-16.0); Mean Corpuscular HGB Conc 34.7 % (30-36); Mean Corpuscular Hemoglobin 29.7 PG (26-34); Mean Corpuscular Volume 85.6 fL (80-100); Platelet Count 277 X10^3/uL (150-400); Red Blood Cell Count 5.18 X10^6/uL (4.0-5.2); Red Cell Distribution Width 14.3 % (11.6-14.8); White Blood Cell Count 6.1 X10^3/uL (4.5-11.0)
[2020-11-01] MEDS: carvediloL 12.5 MG TABLET PO ×2 (08:44→21:46)
[2020-11-01] MEDS: ENOXAPARIN 40 MG/0.4 ML SYRINGE SUBCUT (08:44)
[2020-11-01] MEDS: AMLODIPINE 5 MG TABLET 10 MG PO (08:44)
[2020-11-01] MEDS: POTASSIUM CHLORIDE 20 MEQ TAB 40 MEQ PO ×3 (08:44→17:46)
[2020-11-01] MEDS: CITALOPRAM 10 MG TABLET PO (08:44)
[2020-11-01 08:59] LABS: BUN Creatinine Ratio 9.4 (6-22); Blood Urea Nitrogen 8 mg/dL (7-17); Calcium 9.2 mg/dL (8.4-10.2); Carbon Dioxide 30 mmol/L (22-32); Chloride 99 mmol/L (98-107); Estimated Glomerular Filt Rate > 60.0 mL/min (>60); Glucose 112 mg/dL (80-110); HEMOLYSIS < 15 (0-50); Magnesium 1.7 mg/dL (1.6-2.3); Sodium 135 mmol/L (137-145)
[2020-11-01 09:01] LABS: Potassium 2.4 mmol/L (3.4-5.1)
[2020-11-01] MEDS: POTASSIUM CHLORIDE IN WATER 10 MEQ/100 ML PIGGYBACK 100 MEQ IV ×3 (10:32→14:44)
--- NOTE | 2020-11-01 11:43 | PC.NURSE ---
Patients potassium level came back at critical at 2.4. has written orders for 4 10meq iv potassiums to be given. Patient had a shower earlier and is doing well. IV piggyback running concurrently as potassium has been hurting her iv and arm. Rate is infusing at 50cc/hr instead of 100cc per hour, she tolerates this better. Tolerating her clear liquids and denies nausea.
--- NOTE | 2020-11-01 15:23 | PM.PN.1 ---
Subjective Subjective Date Patient Seen: 11/01/20 Time Patient Seen: 15:23 Interval history: Today she is feeling somewhat improved, with no nausea or vomiting. She has had 2 liquid stools. potassium was 2.4 this AM, given IV and PO repletion. Exam Vital Signs (past 8 hours): - 11/01/20 07:54 11/01/20 08:00 11/01/20 11:54 Temperature 97.0 F L 97.0 F L Pulse Rate 64 61 Pulse Rate [Orthostatic Lying] 65 Pulse Rate [Orthostatic Sitting] 71 Pulse Rate [Orthostatic Standing] 72 Respiratory Rate 16 16 Blood Pressure 150/78 H 136/75 Blood Pressure [Orthostatic Lying] 150/78 H Blood Pressure [Orthostatic Sitting] 138/85 Blood Pressure [Orthostatic Standing] 133/78 Pulse Oximetry 94 95 Oxygen Delivery Method Room Air Oxygen Flow Rate 0 Narrative Exam Narrative: ENERAL APPEARANCE: Chronically ill appearing female, in no acute distress. SKIN: Inspection of the skin reveals no rashes, ulcerations or petechiae. HEENT: Normocephalic atraumatic, extraocular muscles are intact, oropharynx is clear and mucous membranes are moist, neck is supple without adenopathy NECK: Supple and symmetric. There was no thyroid enlargement, and no tenderness, or masses were felt. CHEST: Normal AP diameter and normal contour without any kyphoscoliosis. LUNGS: Auscultation of the lungs revealed no wheezes, rhonchi, or rales. CARDIOVASCULAR: There was a regular rate and rhythm without any murmurs, gallops, rubs. Peripheral pulses were 2+ and symmetric. ABDOMEN: Soft and nontender with normal bowel sounds. No ascites was noted. MUSCULOSKELETAL: There was no tenderness or effusions noted. Muscle strength and tone were normal. EXTREMITIES: No cyanosis, clubbing or edema. NEUROLOGIC: Alert. Normal affect. Strength is +5/5 in the Upper Extremities and Lower Extremities Bilaterally. Objective Labs Result Diagrams: 11/01/20 04:40 11/01/20 08:29 Labs: Laboratory Results - last 24 hr 11/01/20 11/01/20 04:40 08:29 WBC 6.1 RBC 5.18 Hgb 15.4 Hct 44.4 MCV 85.6 MCH 29.7 MCHC 34.7 RDW 14.3 Plt Count 277 Sodium 135 L Potassium 2.4 L* Chloride 99 Carbon Dioxide 30 BUN 8 Creatinine 0.85 Estimated GFR > 60.0 BUN/Creatinine Ratio 9.4 Glucose 112 H Calcium 9.2 Magnesium 1.7 [facility] Medical History (Updated 10/29/20 @ 20:41 by TONY Hassan-INESSA) Anxiety Cannabis hyperemesis syndrome concurrent with and due to cannabis abuse Hypertension Osteoarthritis Osteoporosis PTSD (post-traumatic stress disorder) Surgical History History of History of colonoscopy Family History Father Heart attack Hypertension Diabetes mellitus Mother Diabetes mellitus Hypertension Social History household members: family and children Smoking Status: Current every day smoker alcohol intake: never Assessment & Plan Assessment & Plan narrative: 1. Intractable nausea of cannabis hyperemesis syndrome, acute on chronic, present on admission, secondary to chronic cannabis use, acute on chronic, present on admission -lorazepam 1 mg q.6 hours, Zofran and Reglan -capsaicin q.6 hours as needed -improving today. Will stop IV fluids. -encourage warm showers -now on regular diet. 2. Acute kidney injury, acute, present on admission, resolved -creatinine 1.67, up from 1.01 on 09/22/2020. -now improved to 0.85. 3. Hypertension urgency, acute on chronic, in the setting of essential hypertension and hyperlipidemia, present on admission, uncontrolled -admit blood pressure 193/103, HR 80, RR 28, O2 saturation 83% on room air. -metoprolol 5 mg IV now-B/P improved 128/73,63,14, 94% -Will continue amlodipine, Coreg, and potassium. -EK09/15/2020:ST depressions are seen, though borderline in V3-6. 4. Hypokalemia, acute on chronic, present on admission - K 2.0 on admission, K+2.4 on 09/15 admission-patient has been admitted for hypokalemia around 2-2.4 since 06/2020 - given 40 meq IV in the ER. will continue to replete as needed. Repeat K+ this AM is 2.4. - continue tele - likely secondary to vomiting and dehydration. - vomiting may be secondary to marijuana use and cyclic vomiting. 5. prediabetes. -A1c fairly stable around 6% recently. 6. Anixety/depression, PTSD, acute on chronic, not present on admission - patient denies suicidal ideation - continue home citalopram. 7. Mild Hypercalcemia, acute on chronic, present on admission, resolved - as evidence by calcium 10.6, continue to monitor- patients Ca was 10.5 on 09/15 - suspect in setting of dehydration. now improved to 9.2 8. Underweight as evidence by a BMI 19.2, acute on chronic, present on admission - Patient has lost 27.26 lb since 05/19/2020, and a loss of 14.08 lb since last hospitalization on 09/22/2020 -dietary consult will evaluate for dietary recommendations. -monitor weight Code Status: Full Code Surrogate decision maker is the patient's daughter (Ruthie Sahu) VTE/DVT prophylaxis: Lovenox 40 mg and SCDs
[2020-11-01 15:44] LABS: HEMOLYSIS < 15 (0-50); Potassium 3.4 mmol/L (3.4-5.1)
[2020-11-01] MEDS: NICOTINE 7 MG PATCH TOP (17:47)
[2020-11-01] MEDS: POTASSIUM CHLORIDE IN WATER 10 MEQ/100 ML PIGGYBACK 50 MEQ IV (19:28)
[2020-11-01] MEDS: METOCLOPRAMIDE 10 MG/2 ML INJ IV (19:35)
[2020-11-01] MEDS: SODIUM CHLORIDE 0.9% FLUSH 10 ML IV (21:27)
--- NOTE | 2020-11-02 00:13 | PC.NURSE ---
This CLINICAL SERVICES ASSISTANT did not record orthostatic blood pressure for shift. At shift change the CLINICAL SERVICES ASSISTANT Romana had suggested to speak with my nurse about taking them, because they were supposed to be taken off the worklist. This CLINICAL SERVICES ASSISTANT did not record the orthostatic, and did go and speak to the nurse.
[2020-11-02] MEDS: SODIUM CHLORIDE 0.9% 1,000 ML 150 ML IV (02:27)
[2020-11-02 03:00] VITALS: O2SAT 97
[2020-11-02 05:26] VITALS: BP 130/73; PULSE 57; RESP 16; TEMP 36.5; O2SAT 97
[2020-11-02 07:50] VITALS: O2SAT 97
[2020-11-02 08:16] LABS: BUN Creatinine Ratio 14.8 (6-22); Blood Urea Nitrogen 13 mg/dL (7-17); Calcium 9.5 mg/dL (8.4-10.2); Carbon Dioxide 28 mmol/L (22-32); Chloride 104 mmol/L (98-107); Estimated Glomerular Filt Rate > 60.0 mL/min (>60); Glucose 111 mg/dL (80-110); HEMOLYSIS 18 (0-50); Potassium 3.5 mmol/L (3.4-5.1); Sodium 137 mmol/L (137-145)
[2020-11-02 09:00] VITALS: BP 128/62; PULSE 63; RESP 18; TEMP 36.9; O2SAT 98
[2020-11-02] MEDS: CITALOPRAM 10 MG TABLET PO (09:30)
[2020-11-02] MEDS: carvediloL 12.5 MG TABLET PO (09:30)
[2020-11-02] MEDS: AMLODIPINE 5 MG TABLET 10 MG PO (09:30)
[2020-11-02] MEDS: POTASSIUM CHLORIDE 20 MEQ TAB 40 MEQ PO (09:31)
--- NOTE | 2020-11-02 11:45 | PM.DS.1 ---
History of Present Illness History of Present Illness Chief complaint: vomitting, dehydrated- 3 days Discharge Providers Provider Date of admission: 10/30/20 12:17 Discharge Date: 11/02/20 Consults: 10/30/20 15:35 Consult to Dietitian, Adult Routine Comment: Provide resources/education for improving calories Reason For Exam: Malnutrition Discharge provider: Allan Padilla MD Summary Hospital Course Discharge Diagnosis: 1. Intractable nausea, likely cannabis hyperemesis syndrome 2. GWENDOLYN 3. Hypertensive urgency 4. Hypokalemia 5. Prediabetes 6. Anxiety, depression, PTSD 7. Mild hypercalemia, resolved 8. Severe protein calorie malnutrition Hospital Course: Ms. Diggs came in with nausea and vomiting. She has been here multiple times with this presentation, she does not want to stop marijuana. She has lost a significant amount of weight. CT Abdomen did not show any acute process or any malignancy. She was given symptomatic treatment and improved. She also had her potassium replaced. She initially had GWENDOLYN that resolved in the hospital. She did see dietary who gave her recommendations for nutrition in setting of weight loss. She should follow with her PCP to evaluate for the next causes for weight loss. Exam Vital Signs (past 8 hours): Oxygen Delivery Method Room Air Oxygen Flow Rate 0 Narrative Exam Narrative: GEN: alert and oriented x3. No apparent distress. CV: regular rate and rhythm without murmur PULM: clear to auscultation bilaterally ABD: soft, bowel sounds positive, nontender, no organomegaly. EXT: no ankle edema Objective Labs Result Diagrams: 11/01/20 04:40 11/02/20 07:54 [facility] Medical History (Updated 10/29/20 @ 20:41 by PARTH Hassan) Anxiety Cannabis hyperemesis syndrome concurrent with and due to cannabis abuse Hypertension Osteoarthritis Osteoporosis PTSD (post-traumatic stress disorder) Surgical History History of History of colonoscopy Family History Father Heart attack Hypertension Diabetes mellitus Mother Diabetes mellitus Hypertension Social History household members: family and children Smoking Status: Current every day smoker alcohol intake: never Discharge Plan Discharge Plan Patient Disposition: Home Provider Discharge Comment: Ms. Diggs came in with nausea and vomiting. She had a low potassium. She had kidney injury that improved. The vomiting could be related to marijuana, please stop smoking. She is prescribed potassium supplements. Please take them and follow up closely with your doctor. Please eat high potassium food, like a banana every day. Discharge orders & Medications Prescriptions: New potassium chloride [Klor-Con] 20 mEq packet 20 meq PO BID Qty: 60 RF: 0 Continued amlodipine 10 mg tablet 10 mg PO DAILY RF: 0 citalopram 10 mg tablet 10 mg PO DAILY RF: 0 carvedilol [Coreg] 12.5 mg Tablet 12.5 mg PO BID Qty: 60 RF: 0 ondansetron 4 mg Tablet,Disintegrating 4 mg sublingual Q4HR PRN (Reason: Nausea) Qty: 20 RF: 0 Medication counseling provided by Pharmacist: Yes Diet/Activity/Treatments Diet: Regular Visit Report/Discharge Packet Instructions: DI for Hypokalemia, How to Prevent Falls, High-Potassium Diet, DI for Acute Kidney Injury Quality MIPS - DC The patient has current or prior documentation of left ventricular ejection fraction (LVEF) less than 40%, or moderate or severely depressed left ventricular systolic function.: No
--- NOTE | 2020-11-02 13:03 | CM.DPNOTE ---
DC Note DC order now in place and patient eager to return home, no needs identified by this [employer]. Ambulating in room. Friend or family to transport, close outpatient f/u recommended JW
--- NOTE | 2020-11-02 14:59 | PC.NURSE ---
Discharge: Feels ready to d/c home. Has seen the RD who gave her tips on her diet. Reviewed d/c packet. Rx given. Questions answered. Pt d/c home via auto w/dtr.
== END 2020-11-02 10:45 | disposition home or self-care (01) | DRG 391 ==
LOC: ED 18:45 → AC 19:13
PROVIDERS: Internal Medicine; Nurse Practitioner Family; Admitting Provider Family Medicine; Emergency Provider Emergency Medicine; Visit Provider Family Medicine
DX: R11.2 Nausea with vomiting, unspecified (principal); E43 Unspecified severe protein-calorie malnutrition; N17.9 Acute kidney failure, unspecified; Z68.1 Body mass index [BMI] 19.9 or less, adult; I16.0 Hypertensive urgency; F32.9 Major depressive disorder, single episode, unspecified; E87.6 Hypokalemia; F12.90 Cannabis use, unspecified, uncomplicated; E78.5 Hyperlipidemia, unspecified; F41.9 Anxiety disorder, unspecified; R73.03 Prediabetes; F43.10 Post-traumatic stress disorder, unspecified; E83.52 Hypercalcemia; R73.9 Hyperglycemia, unspecified; F17.210 Nicotine dependence, cigarettes, uncomplicated; Z20.822 Contact with and (suspected) exposure to COVID-19
CPT/HCPCS: 36415; 74177; 80048; 80053; 81003; 81015; 82962; 83036; 83690; 83735; 84100; 84132; 84484; 85025; 85027; 87635; 93005; 94760; 96361; 96365; 96375; 99284; 99406; C9803; G0378; J1650; J1885; J2060; J2405; J2765; Q9967

== ENCOUNTER 2021-01-26 13:29 | Emergency (ER) | payer MEDICARE, MEDICAID, SELFPAY ==
[2020-10-29 19:44] VITALS: BMI 19.0
[2021-01-26] VITALS (14 sets, daily range): BP systolic 186–212; BP diastolic 88–100; PULSE 69–81; RESP 17; TEMP 36.4; O2SAT 91–98; BMI 20.5
[2021-01-26 14:13] LABS: COVID19 -Nasal RAPID Negative (Negative)
[2021-01-26] MEDS: ONDANSETRON 4 MG/2 ML INJ IV ×2 (14:18→17:08)
--- NOTE | 2021-01-26 14:24 | ED.NAVMDI ---
HPI - Nausea/Vomiting/Diarrhea General Chief complaint: Nausea/Vomiting/Diarrhea Stated complaint: dehydrated, potassium low Time Seen by Provider: 01/26/21 14:14 Source: patient Mode of arrival: Ambulatory Limitations: no limitations History of Present Illness HPI Narrative: Patient is a 60-year-old female who has history of hyperemesis secondary to marijuana use presenting today with a vomiting for last 5 days. She has been unable to keep anything down she has tried some applesauce which has worked but not time. She has no abdominal pain no diarrhea no chest pain dizziness lightheadedness or other symptoms. She also denies fever or chills. Related Data Home Medications Medication Instructions Recorded Confirmed amlodipine 10 mg tablet 10 mg PO DAILY 07/12/20 10/29/20 citalopram 10 mg tablet 10 mg PO DAILY 07/12/20 10/29/20 Previous Rx's Medication Instructions Recorded carvedilol 12.5 mg tablet (Coreg) 12.5 mg PO BID #60 tab 07/17/20 ondansetron 4 mg disintegrating 4 mg SUBLINGUAL Q4HR PRN #20 tab 07/17/20 tablet potassium chloride 20 mEq oral 20 meq PO BID #60 ea 11/02/20 packet (Klor-Con) ondansetron 4 mg disintegrating 4 mg PO Q8H PRN #10 tab 01/26/21 tablet promethazine 25 mg rectal 25 mg NC Q6H PRN #12 ea 01/26/21 suppository Allergies Allergy/AdvReac Type Severity Reaction Status Date / Time mirtazapine [MIRTAZAPINE] Allergy Unknown HALLUCINATI Verified 01/26/21 13:41 ONS Review of Systems Review of Systems Narrative: GENERAL: Denies chills, fatigue, malaise, fever, sweats, travel HEENT: Denies sinus pain, ear pain, sore throat, difficulty swallowing, neck pain RESPIRATORY: Denies dyspnea, cough, wheezing, hemoptysis, sputum. CARDIOVASCULAR: Denies chest pain, palpitations, orthopnea, edema GASTROINTESTINAL: See HPI : Denies dysuria, frequency, incontinence, hematuria, urinary retention, flank pain. MUSCULOSKELETAL: Denies weakness, joint pain, or bony pain SKIN: No rash, no erythema, no pruritus NEUROLOGIC: Denies weakness, dizziness, headache, numbness, change in speech, confusion PSYCHIATRIC: No concerning psychosocial issues. 12 point review of systems is negative except for those stated above and HPI Patient History Medical History (Updated 01/26/21 @ 18:46 by Salma Dahl DO) Anxiety Cannabis hyperemesis syndrome concurrent with and due to cannabis abuse Hypertension Osteoarthritis Osteoporosis PTSD (post-traumatic stress disorder) Surgical History History of History of colonoscopy Family History Father Heart attack Hypertension Diabetes mellitus Mother Diabetes mellitus Hypertension Social History household members: family and children Smoking Status: Current every day smoker alcohol intake: never Smoking Status: Current every day smoker tobacco type: cigarettes alcohol intake frequency: holidays/special occasions only Substance Use Type: marijuana Exam Initial Vital Signs Initial Vital Signs: Vital Signs Temperature 97.5 F L 01/26/21 13:39 Pulse Rate 80 01/26/21 13:39 Respiratory Rate 17 01/26/21 13:39 Blood Pressure 186/100 H 01/26/21 13:39 Pulse Oximetry 97 01/26/21 13:39 GENERAL: Alert the weak appearing 60-year-old female HEENT: Head atraumatic,EOMI, pupils reactive, face symmetric, dry mucous membranes CARDIOVASCULAR: Regular rate and rhythm without murmurs, rubs or gallops. RESPIRATORY: Breath sounds equal bilaterally, no wheezes rales or rhonchi. ABDOMEN: Soft, nontender. Normoactive bowel sounds all 4 quadrants. No guarding or rebound. EXTREMITIES: Normal range of motion, no clubbing or edema. Neurovascularly intact NEUROLOGICAL: Alert and oriented x4.Normal gait and speech. SKIN: Warm, dry, no laceration, no petechiae, no rashes or lesions. Course Orders Ordered: Discontinued Medications Carvedilol (Carvedilol 12.5 Mg Tablet) 12.5 mg PO NOW ONE Stop: 01/26/21 17:49 Last Admin: 01/26/21 18:02 Dose: 12.5 mg Documented by: ATAYLOR Sodium Chloride (Normal Saline 0.9%) 1,000 mls @ 1,000 mls/hr IV BOLUS ONE Stop: 01/26/21 15:36 Last Infusion: 01/26/21 17:38 Dose: 0 mls/hr Documented by: Admin: 01/26/21 14:47 Dose: 1,000 mls/hr Documented by: BONNIE Lorazepam (Lorazepam 2 Mg/Ml Inj) 0.5 mg IV NOW ONE Stop: 01/26/21 17:49 Last Admin: 01/26/21 18:01 Dose: 0.5 mg Documented by: BONNIE Ondansetron HCl (Ondansetron 4 Mg/2 Ml Inj) 4 mg IV NOW ONE Stop: 01/26/21 14:13 Last Admin: 01/26/21 14:18 Dose: 4 mg Documented by: SCOOBY Ondansetron HCl (Ondansetron 4 Mg/2 Ml Inj) 4 mg IV NOW ONE Stop: 01/26/21 16:35 Last Admin: 01/26/21 17:08 Dose: 4 mg Documented by: CARLY Pantoprazole Sodium (Pantoprazole 40 Mg Vial) 40 mg IV NOW ONE Stop: 01/26/21 14:38 Last Admin: 01/26/21 14:47 Dose: 40 mg Documented by: BONNIE Potassium Chloride (Potassium Chloride 20 Meq Tab) 40 meq PO NOW ONE Stop: 01/26/21 16:36 Last Admin: 01/26/21 17:09 Dose: 40 meq Documented by: CARLY Vital Signs Vital signs: Vital Signs - 8 hr 01/26/21 13:39 01/26/21 15:01 01/26/21 15:30 Temperature 97.5 F L Pulse Rate 80 69 70 Respiratory Rate 17 Blood Pressure 186/100 H 202/98 H Pulse Oximetry 97 93 94 MDM - Nausea/Vomiting/Diarrhea Lab Data Result diagrams: 01/26/21 14:25 01/26/21 14:25 Labs: Lab Results 01/26/21 01/26/21 01/26/21 Range/Units 13:44 14:25 14:25 WBC 11.4 H (4.5-11.0) X10^3/uL RBC 5.75 H (4.0-5.2) X10^6/uL Hgb 17.1 H (12.0-16.0) g/dL Hct 48.8 H (36-46) % MCV 85.0 (80-100) fL MCH 29.8 (26-34) PG MCHC 35.0 (30-36) % RDW 14.3 (11.6-14.8) % Plt Count 329 (150-400) X10^3/uL Neut % (Auto) 84.5 H (50-75) % Lymph % (Auto) 7.3 L (25-40) % Milam % (Auto) 7.9 (3-14) % Eos % (Auto) 0.1 L (2-4) % Baso % (Auto) 0.2 (0-2) % Neut # (Auto) 9600 H (2767-2986) /uL Lymph # (Auto) 800 L (7213-7033) /uL Milam # (Auto) 900 (0-900) /uL Eos # (Auto) 0 (0-450) /uL Baso # (Auto) 0 (0-100) /uL Sodium 131 L (137-145) mmol/L Potassium 3.1 L (3.4-5.1) mmol/L Chloride 90 L (98-107) mmol/L Carbon Dioxide 29 (22-32) mmol/L BUN 26 H (7-17) mg/dL Creatinine 1.29 H (0.52-1.04) mg/dL Estimated GFR 42.0 L (>60) mL/min BUN/Creatinine Ratio 20.2 (6-22) Glucose 171 H (80-110) mg/dL Calcium 10.6 H (8.4-10.2) mg/dL Total Bilirubin 0.8 (0.2-1.3) mg/dL AST 29 (14-36) IU/L ALT 19 (<35) IU/L Alkaline Phosphatase 126 (38-126) U/L Total Protein 9.6 H (6.3-8.2) g/dL Albumin 5.3 H (3.5-5.0) g/dL Globulin 4.3 H (1.7-4.1) g/dL Albumin/Globulin Ratio 1.2 (1.0-2.8) Lipase 271 (23-300) U/L Urine RBC (0-5/HPF) Urine WBC (0-5/HPF) Urine Bacteria (None) Ur Culture Indicated? SARS-CoV-2 (PCR) Negative (Negative) 01/26/21 Range/Units 16:13 WBC (4.5-11.0) X10^3/uL RBC (4.0-5.2) X10^6/uL Hgb (12.0-16.0) g/dL Hct (36-46) % MCV (80-100) fL MCH (26-34) PG MCHC (30-36) % RDW (11.6-14.8) % Plt Count (150-400) X10^3/uL Neut % (Auto) (50-75) % Lymph % (Auto) (25-40) % Milam % (Auto) (3-14) % Eos % (Auto) (2-4) % Baso % (Auto) (0-2) % Neut # (Auto) (7873-1645) /uL Lymph # (Auto) (0912-7288) /uL Milam # (Auto) (0-900) /uL Eos # (Auto) (0-450) /uL Baso # (Auto) (0-100) /uL Sodium (137-145) mmol/L Potassium (3.4-5.1) mmol/L Chloride (98-107) mmol/L Carbon Dioxide (22-32) mmol/L BUN (7-17) mg/dL Creatinine (0.52-1.04) mg/dL Estimated GFR (>60) mL/min BUN/Creatinine Ratio (6-22) Glucose (80-110) mg/dL Calcium (8.4-10.2) mg/dL Total Bilirubin (0.2-1.3) mg/dL AST (14-36) IU/L ALT (<35) IU/L Alkaline Phosphatase (38-126) U/L Total Protein (6.3-8.2) g/dL Albumin (3.5-5.0) g/dL Globulin (1.7-4.1) g/dL Albumin/Globulin Ratio (1.0-2.8) Lipase (23-300) U/L Urine RBC 0-1/hpf (0-5/HPF) Urine WBC None seen (0-5/HPF) Urine Bacteria None seen (None) Ur Culture Indicated? Cult not indicated SARS-CoV-2 (PCR) (Negative) Urine Dip Bedside Urine Glucose Negative Bedside Urine Bilirubin - Negative Bedside Urine Ketone - Negative Urine Specific [place] 1.015 Bedside Urine Occult Blood +/- Bedside Urine pH 6.0 Bedside Urine Protein ++ 100 Bedside Urine Urobilinogen - Negative Bedside Urine Nitrite - Negative Bedside Urine Leukocytes - Negative Esterase Imaging Data US - abdomen: Radiologist's Impression: PROCEDURE: US ABDOMEN LIMITED ? INDICATIONS:? RUQ PAIN, VOMITING ? TECHNIQUE:? Real-time focused scanning was performed of the abdomen, with image documentation.? ? COMPARISON:? None. ? FINDINGS:? ? Liver is measures 13.6 centimeters.? Focal fatty infiltration noted in the anterior right lobe of the liver. ? Gallbladder is sonographically normal. No gallstones. No gallbladder wall thickening. No pericholecystic fluid. No sonographic Yang sign. ? Biliary tree is nondilated.? Common bile duct measures 3.1 millimeters. ? IMPRESSION:? No sonographic evidence of cholelithiasis or cholecystitis. If there is continued clinical concern for cholecystitis, a nuclear medicine HIDA scan should be considered for further evaluation. ? ? ? Dictated by: Isabela Valdez MD, PhD on 01/26/2021 at 17:31 ? ? [facility] Narrative Medical decision making narrative: Patient has had nausea vomiting ongoing the last 5 days. Labs show that she is slightly dehydrated with an increased creatinine of 1.2 is in mild hypokalemia 3.1. She has been given 2 doses of Zofran some Protonix and fluids. She reports now some mild epigastric discomfort but really no significant pain, she does not need pain medication, ultrasound is unremarkable. She is noted to be quite hypertensive throughout her emergency department stay. Previous vitals do show that she has been hypertensive but it eventually goes down. She was given her night dose blood pressure medication as she has no abdominal pain, I think highly unlikely that she would have aortic dissection with out any abdominal pain. She has no chest pain, no history coronary artery disease. She is tolerating some fluids however she did throw up her potassium. At this time she is feeling a bit better she has been sleeping some. Discharge Plan Departure Patient Disposition: Home Clinical Impression: Cannabis hyperemesis syndrome concurrent with and due to cannabis abuse Instructions: DI for Vomiting -- Adult Activity Restrictions/Additional Instructions: *You have been diagnosed with hyperemesis *What to do: Increase fluid intake as tolerated. Recommend some not using marijuana any longer. Your blood pressure is noted to be extremely elevated in the emergency department. Please take your medications as previously prescribed. Monitor blood pressure at home. Get a blood pressure cuff and check same time every day *Continue to take medications as directed Phenergan suppositories every 6 hours if needed for nausea or vomiting Zofran 4 mg every 8 hours if needed for nausea vomiting *Follow up with your primary care provider in 2-3 days *Return to ER if you should have persistent vomiting, abdominal pain, chest pain, fever orany new, worsening or concerning symptoms Prescriptions: New promethazine 25 mg suppository 25 mg NC Q6H PRN (Reason: nausea and vomiting) Qty: 12 RF: 0 ondansetron 4 mg tablet,disintegrating 4 mg PO Q8H PRN (Reason: nausea and vomiting) Qty: 10 RF: 0 No Action amlodipine 10 mg tablet 10 mg PO DAILY RF: 0 citalopram 10 mg tablet 10 mg PO DAILY RF: 0 carvedilol [Coreg] 12.5 mg Tablet 12.5 mg PO BID Qty: 60 RF: 0 ondansetron 4 mg Tablet,Disintegrating 4 mg sublingual Q4HR PRN (Reason: Nausea) Qty: 20 RF: 0 potassium chloride [Klor-Con] 20 mEq packet 20 meq PO BID Qty: 60 RF: 0 Referrals: Barrington Hudson MD [Primary Care Provider] -
[2021-01-26 14:37] LABS: Add Manual Diff / Slide Review NO; Basophils Absolute Auto 0 /uL (0-100); Basophils Percent Auto 0.2 % (0-2); Eosinophils Absolute Auto 0 /uL (0-450); Eosinophils Percent Auto 0.1 % (2-4); Hematocrit 48.8 % (36-46); Hemoglobin 17.1 g/dL (12.0-16.0); Lymphocytes Absolute Auto 800 /uL (1100-4500); Lymphocytes Percent Auto 7.3 % (25-40); Mean Corpuscular Hemoglobin 29.8 PG (26-34); Monocytes Absolute Auto 900 /uL (0-900); Monocytes Percent Auto 7.9 % (3-14); Neutrophils Absolute Auto 9600 /uL (1500-7000); Neutrophils Percent Auto 84.5 % (50-75); Platelet Count 329 X10^3/uL (150-400); Red Blood Cell Count 5.75 X10^6/uL (4.0-5.2); Red Cell Distribution Width 14.3 % (11.6-14.8); White Blood Cell Count 11.4 X10^3/uL (4.5-11.0)
[2021-01-26 14:47] LABS: Alanine Aminotransferase 19 IU/L (<35); Albumin 5.3 g/dL (3.5-5.0); Albumin Globulin Ratio 1.2 (1.0-2.8); Alkaline Phosphatase 126 U/L (38-126); Aspartate Aminotransferase 29 IU/L (14-36); BUN Creatinine Ratio 20.2 (6-22); Bilirubin Total 0.8 mg/dL (0.2-1.3); Blood Urea Nitrogen 26 mg/dL (7-17); Calcium 10.6 mg/dL (8.4-10.2); Carbon Dioxide 29 mmol/L (22-32); Chloride 90 mmol/L (98-107); Globulin 4.3 g/dL (1.7-4.1); Glucose 171 mg/dL (80-110); HEMOLYSIS 20 (0-50); Lipase 271 U/L (23-300); Potassium 3.1 mmol/L (3.4-5.1); Sodium 131 mmol/L (137-145); Total Protein 9.6 g/dL (6.3-8.2)
[2021-01-26] MEDS: PANTOPRAZOLE 40 MG VIAL IV (14:47)
[2021-01-26] MEDS: SODIUM CHLORIDE 0.9% 1,000 ML 1000 ML IV (14:47)
--- NOTE | 2021-01-26 16:34 | DI.US.S_ITS ---
PROCEDURE: US ABDOMEN LIMITED INDICATIONS: RUQ PAIN, VOMITING TECHNIQUE: Real-time focused scanning was performed of the abdomen, with image documentation. COMPARISON: None. FINDINGS: Liver is measures 13.6 centimeters. Focal fatty infiltration noted in the anterior right lobe of the liver. Gallbladder is sonographically normal. No gallstones. No gallbladder wall thickening. No pericholecystic fluid. No sonographic Yang sign. Biliary tree is nondilated. Common bile duct measures 3.1 millimeters. IMPRESSION: No sonographic evidence of cholelithiasis or cholecystitis. If there is continued clinical concern for cholecystitis, a nuclear medicine HIDA scan should be considered for further evaluation. Dictated by: Isabela Valdez MD, PhD on 01/26/2021 at 17:31 Approved by: Isabela Valdez MD, PhD on 01/26/2021 at 17:32
[2021-01-26 16:39] LABS: Bacteria Urine None Seen; Culture Indicated Urine Cult Not Indicated; RBC Urine 0-1/HPF (0-5/HPF); WBC Urine None Seen (0-5/HPF)
[2021-01-26] MEDS: POTASSIUM CHLORIDE 20 MEQ TAB 40 MEQ PO (17:09)
[2021-01-26] MEDS: LORazepam 2 MG/ML INJ 0.5 MG IV (18:01)
[2021-01-26] MEDS: carvediloL 12.5 MG TABLET PO (18:02)
== END 2021-01-26 19:22 | disposition home or self-care (01) ==
PROVIDERS: Emergency Provider Emergency Medicine; PCP Internal Medicine
DX: F12.188 Cannabis abuse with other cannabis-induced disorder (principal); R11.2 Nausea with vomiting, unspecified; R10.11 Right upper quadrant pain; Z20.822 Contact with and (suspected) exposure to COVID-19
CPT/HCPCS: 36415; 76705; 80053; 81003; 81015; 83690; 85025; 87635; 93005; 96361; 96374; 96375; 96376; 99284; C9803; C9113; J2060; J2405

== ENCOUNTER 2021-03-23 17:15 | Emergency (ER) | payer MEDICARE, MEDICAID, SELFPAY ==
[2020-10-29 19:44] VITALS: BMI 19.0
[2021-03-23] VITALS (18 sets, daily range): BP systolic 192–226; BP diastolic 93–108; PULSE 79–96; RESP 16–25; TEMP 36.9; O2SAT 96–100; BMI 21.2
--- NOTE | 2021-03-23 17:32 | DI.RAD.S_ITS ---
PROCEDURE: XR CHEST 1V INDICATIONS: Weakness TECHNIQUE: One view of the chest was acquired. COMPARISON: [facility], CR, XR CHEST 1V, 09/09/2020, 18:07. [facility], CR, XR CHEST 1V, 09/22/2020, 11:44. FINDINGS: Surgical changes and devices: None. Lungs and pleura: Lungs are clear, yet mildly hyperexpanded. No pleural effusions or pneumothorax. Mediastinum: Mediastinal contours appear normal. Heart size is normal. Bones and chest wall: No suspicious bony lesions. Age-appropriate bony degenerative changes are seen. Overlying soft tissues appear unremarkable. IMPRESSION: Hyperexpanded lungs, without an acute cardiopulmonary process identified. Dictated by: Lino Marie M.D. on 03/23/2021 at 17:26 Approved by: Lino Marie M.D. on 03/23/2021 at 17:27
[2021-03-23] MEDS: diazePAM 5 MG TABLET PO (17:41)
[2021-03-23] MEDS: OXYCODONE IR 5 MG TABLET PO (17:42)
[2021-03-23 17:55] LABS: COVID19 -Nasal RAPID Negative (Negative)
--- NOTE | 2021-03-23 17:59 | ED_ITS ---
HPI - Weakness <Jaylan Christopher PA-C - Last Filed: 03/23/21 18:10> General Chief complaint: Weakness Stated complaint: Weakness Time Seen by Provider: 03/23/21 17:32 Mode of arrival: EMS History of Present Illness HPI Narrative: Patient is a 60-year-old female presenting to the emergency department today for evaluation generalized weakness over the last 2 days. Patient reports that she has also experienced episodes of nausea, nonbloody nonbilious vomiting, and diarrhea over the past 2 days. Patient notes that today she has only exp erienced nonbloody diarrhea. Additionally, patient states that she felt confused yesterday morning and states that she saw her grandson clear looking out of the window despite her grandson not being with her. Patient states that she has also experienced intermittent episodes of chills over the past 3 days, slight shortness of breath over the past 2 days, and she explains that she has not eaten since 03/20/2021. Patient denies fever, chest pain, cough, abdominal pain, hematuria, dysuria, hemoptysis, changes in vision, or changes in hearing. No other concerns voiced at this time. Patient reports history of asymptomatic pancreatitis ?a couple of months ago?. Related Data Home Medications Medication Instructions Recorded Confirmed amlodipine 10 mg tablet 10 mg PO DAILY 07/12/20 10/29/20 citalopram 10 mg tablet 10 mg PO DAILY 07/12/20 10/29/20 Previous Rx's Medication Instructions Recorded carvedilol 12.5 mg tablet (Coreg) 12.5 mg PO BID #60 tab 07/17/20 ondansetron 4 mg disintegrating 4 mg SUBLINGUAL Q4HR PRN #20 tab 07/17/20 tablet potassium chloride 20 mEq oral 20 meq PO BID #60 ea 11/02/20 packet (Klor-Con) ondansetron 4 mg disintegrating 4 mg PO Q8H PRN #10 tab 01/26/21 tablet promethazine 25 mg rectal 25 mg NC Q6H PRN #12 ea 01/26/21 suppository Allergies Allergy/AdvReac Type Severity Reaction Status Date / Time mirtazapine [MIRTAZAPINE] Allergy Unknown HALLUCINATI Verified 01/26/21 13:41 ONS Review of Systems <Jaylan Christopher PA-C - Last Filed: 03/23/21 18:10> Constitutional Constitutional: Reports chills, Reports fatigue, Denies fever(s), Denies frequent falls and Reports weakness Eyes Eyes: Denies change in vision, Denies eye discharge, Denies irritation and Denies loss of vision ENT Ears, Nose, Mouth, and Throat: Denies change in voice, Denies dizziness, Denies neck pain, Denies sore throat and Denies throat swelling Cardiovascular Cardiovascular: Denies chest pain, Denies irregular heart rhythm, Denies lightheadedness, Denies palpitations, Denies dyspnea, Denies dyspnea on exertion and Denies orthopnea Respiratory Respiratory: Denies cough, Denies dyspnea, Denies dyspnea on exertion and Denies wheezing Gastrointestinal Gastrointestinal: Denies abdominal pain, Denies melena, Denies coffee ground emesis, Reports diarrhea, Reports nausea, Reports vomiting and Denies hematemesis Genitourinary Genitourinary: Denies hematuria, Denies flank pain, Denies urinary incontinence and Denies urinary urgency Musculoskeletal Musculoskeletal: Denies neck pain, Denies numbness and Denies tingling Neurologic Neurologic: Denies behavioral changes, Reports confusion, Denies dizziness, Denies frequent falls, Denies loss of vision, Denies numbness, Denies tingling, Reports weakness and Reports other (Visual hallucination) Psychiatric Psychiatric: Denies behavioral changes and Reports confusion Endocrine Endocrine: Reports fatigue and Denies palpitations Allergic/Immunologic Allergic/Immunologic: Denies urticaria, Denies throat swelling and Denies wheezing Patient History <Jaylan Christopher PA-C - Last Filed: 03/23/21 18:10> Medical History Anxiety Cannabis hyperemesis syndrome concurrent with and due to cannabis abuse Hypertension Osteoarthritis Osteoporosis PTSD (post-traumatic stress disorder) Surgical History History of History of colonoscopy Family History Father Heart attack Hypertension Diabetes mellitus Mother Diabetes mellitus Hypertension Social History household members: family and children Smoking Status: Current every day smoker alcohol intake: never Smoking Status: Current every day smoker tobacco type: cigarettes alcohol intake frequency: holidays/special occasions only Substance Use Type: marijuana Exam <Jaylan Christopher PA-C - Last Filed: 03/23/21 18:10> Narrative Exam Narrative: GENERAL: 60 year old patient appears stated age. Well-developed patient, in mild distress. Appears uncomfortable. HEAD: Atraumatic. Normocephalic. EYES: Pupils equal round and reactive. Extraocular motions intact. No scleral icterus. No injection or drainage. ENT: Nose without bleeding, purulent drainage. Throat without erythema, tonsillar hypertrophy or exudate. Airway patent. NECK: Trachea midline. Non tender CARDIOVASCULAR: Regular rate and rhythm without murmurs, gallops, or rubs. RESPIRATORY: Scattered crackles auscultated throughout all lobes bilaterally with inspiratory wheezing throughout. GASTROINTESTINAL: Abdomen soft, nondistended. Mild tenderness to palpation appreciated the left lower quadrant. No masses appreciated. EXTREMITIES: No edema or joint tenderness. BACK: Nontender without deformity or crepitance. No flank tenderness. NEURO: AOx3. SKIN: No rash or erythema of visible areas Initial Vital Signs Initial Vital Signs: Vital Signs Temperature 98.5 F 03/23/21 17:21 Pulse Rate 86 03/23/21 17:21 Respiratory Rate 16 03/23/21 17:21 Blood Pressure 195/98 H 03/23/21 17:21 Pulse Oximetry 97 03/23/21 17:21 <Loco Richards DO - Last Filed: 03/24/21 01:47> Initial Vital Signs Initial Vital Signs: Vital Signs Temperature 98.5 F 03/23/21 17:21 Pulse Rate 86 03/23/21 17:21 Respiratory Rate 16 03/23/21 17:21 Blood Pressure 195/98 H 03/23/21 17:21 Pulse Oximetry 97 03/23/21 17:21 Course <Jaylan Christopher PA-C - Last Filed: 03/23/21 18:10> Course Course Narrative: CBC, CMP, lipase, COVID swab, urinalysis, EKG, and chest x-ray ordered. Orders Ordered: ED Orders 03/23/21 17:20 COVID19 -Nasal swab/Pre-Proc Stat 03/23/21 17:32 XR chest 1V Stat EKG-12 Lead Stat 03/23/21 17:50 Complete Blood Count AUTO DIFF Stat Comprehensive Metabolic Panel Stat Lactate (Lactic Acid) Stat Lipase Stat Magnesium Stat 03/23/21 18:42 CT abdomen pelvis w con Stat 03/23/21 18:56 Blood Culture Stat 03/23/21 20:30 Urinalysis and Microscopic Stat 03/23/21 21:19 BMP [Basic Metabolic Panel] Stat CBC Auto Diff [Complete Blood Count AUTO DIFF] Stat 03/23/21 23:30 GI Panel (Film Array) Stat Discontinued Medications Diazepam (Diazepam 5 Mg Tablet) 5 mg PO NOW ONE Stop: 03/23/21 17:35 Last Admin: 03/23/21 17:41 Dose: 5 mg Documented by: LUNA Ceftriaxone Sodium 1,000 mg/ (Sodium Chloride) 100 mls @ 200 mls/hr IV NOW ONE Stop: 03/23/21 18:20 Last Infusion: 03/23/21 20:42 Dose: 0 mls/hr Documented by: Admin: 03/23/21 19:45 Dose: 200 mls/hr Documented by: LIZABETH POTASSIUM CHLORIDE IN WATER (Potassium Cl 10 Meq/100 Ml Tess) 10 meq in 100 mls @ 100 mls/hr IV Q1H ROSANGELA Stop: 03/23/21 22:44 Last Infusion: 03/24/21 00:14 Dose: 0 mls/hr Documented by: Admin: 03/23/21 23:12 Dose: 100 mls/hr Documented by: Infusion: 03/23/21 23:08 Dose: 100 mls/hr Documented by: Admin: 03/23/21 22:08 Dose: 100 mls/hr Documented by: Infusion: 03/23/21 21:44 Dose: 100 mls/hr Documented by: Admin: 03/23/21 20:44 Dose: 100 mls/hr Documented by: Infusion: 03/23/21 20:42 Dose: 0 mls/hr Documented by: Admin: 03/23/21 19:45 Dose: 100 mls/hr Documented by: LIZABETH Sodium Chloride (Normal Saline 0.9%) 1,000 mls @ 1,000 mls/hr IV BOLUS ONE Stop: 03/23/21 19:44 Last Infusion: 03/23/21 21:47 Dose: 0 mls/hr Documented by: Admin: 03/23/21 19:45 Dose: 1,000 mls/hr Documented by: LIZABETH Sodium Chloride (Normal Saline 0.9%) 1,000 mls @ 1,000 mls/hr IV BOLUS ONE Stop: 03/23/21 21:34 Last Infusion: 03/24/21 00:25 Dose: 0 mls/hr Documented by: Admin: 03/23/21 21:46 Dose: 1,000 mls/hr Documented by: SOMMER Labetalol HCl (Labetalol 20 Mg/4 Ml Syringe) 10 mg IV NOW ONE Stop: 03/24/21 01:02 Ondansetron HCl (Ondansetron 4 Mg/2 Ml Inj) 4 mg IV NOW ONE Stop: 03/24/21 01:20 Last Admin: 03/24/21 01:36 Dose: 4 mg Documented by: Ondansetron HCl (Ondansetron 4 Mg Odt Prepack) 1 bottle MISC SEEINSTR ONE Stop: 03/24/21 01:20 Last Admin: 03/24/21 01:36 Dose: 1 bottle Documented by: Oxycodone HCl (Oxycodone Ir 5 Mg Tablet) 5 mg PO NOW ONE Stop: 03/23/21 17:35 Last Admin: 03/23/21 17:42 Dose: 5 mg Documented by: LUNA Potassium Chloride (Potassium Chloride 20 Meq/15 Ml Udc) 40 meq PO NOW ONE Stop: 03/23/21 20:36 Last Admin: 03/23/21 20:51 Dose: 40 meq Documented by: LIZABETH Vital Signs Vital signs: Vital Signs - 8 hr 03/23/21 18:00 03/23/21 18:30 03/23/21 19:11 Pulse Rate 80 79 83 Respiratory Rate 21 24 Blood Pressure 215/105 H 208/103 H Pulse Oximetry 99 97 99 03/23/21 19:30 03/23/21 19:48 03/23/21 20:00 Pulse Rate 82 81 80 Respiratory Rate Blood Pressure 216/105 H 213/101 H Pulse Oximetry 98 99 97 03/23/21 20:34 03/23/21 20:44 03/23/21 21:00 Pulse Rate 96 H 86 81 Respiratory Rate 25 H 21 Blood Pressure 226/107 H 217/105 H Pulse Oximetry 98 100 96 03/23/21 21:30 03/23/21 22:00 03/23/21 22:30 Pulse Rate 82 93 H 87 Respiratory Rate 22 Blood Pressure 214/104 H 217/102 H Pulse Oximetry 96 98 97 03/23/21 23:00 03/23/21 23:33 03/24/21 00:00 Pulse Rate 80 85 76 Respiratory Rate 17 19 22 Blood Pressure 197/93 H 235/106 H Pulse Oximetry 96 97 96 03/24/21 00:02 03/24/21 00:30 Pulse Rate 77 89 Respiratory Rate 20 Blood Pressure 200/104 H 212/106 H Pulse Oximetry 97 97 <Loco Richards DO - Last Filed: 03/24/21 01:47> Orders Ordered: ED Orders 03/23/21 17:20 COVID19 -Nasal swab/Pre-Proc Stat 03/23/21 17:32 XR chest 1V Stat EKG-12 Lead Stat 03/23/21 17:50 Complete Blood Count AUTO DIFF Stat Comprehensive Metabolic Panel Stat Lactate (Lactic Acid) Stat Lipase Stat Magnesium Stat 03/23/21 18:42 CT abdomen pelvis w con Stat 03/23/21 18:56 Blood Culture Stat 03/23/21 20:30 Urinalysis and Microscopic Stat 03/23/21 21:19 BMP [Basic Metabolic Panel] Stat CBC Auto Diff [Complete Blood Count AUTO DIFF] Stat 03/23/21 23:30 GI Panel (Film Array) Stat Discontinued Medications Diazepam (Diazepam 5 Mg Tablet) 5 mg PO NOW ONE Stop: 03/23/21 17:35 Last Admin: 03/23/21 17:41 Dose: 5 mg Documented by: LUNA Ceftriaxone Sodium 1,000 mg/ (Sodium Chloride) 100 mls @ 200 mls/hr IV NOW ONE Stop: 03/23/21 18:20 Last Infusion: 03/23/21 20:42 Dose: 0 mls/hr Documented by: Admin: 03/23/21 19:45 Dose: 200 mls/hr Documented by: LIZABETH POTASSIUM CHLORIDE IN WATER (Potassium Cl 10 Meq/100 Ml Tess) 10 meq in 100 mls @ 100 mls/hr IV Q1H ROSANGELA Stop: 03/23/21 22:44 Last Infusion: 03/24/21 00:14 Dose: 0 mls/hr Documented by: Admin: 03/23/21 23:12 Dose: 100 mls/hr Documented by: Infusion: 03/23/21 23:08 Dose: 100 mls/hr Documented by: Admin: 03/23/21 22:08 Dose: 100 mls/hr Documented by: Infusion: 03/23/21 21:44 Dose: 100 mls/hr Documented by: Admin: 03/23/21 20:44 Dose: 100 mls/hr Documented by: Infusion: 03/23/21 20:42 Dose: 0 mls/hr Documented by: Admin: 03/23/21 19:45 Dose: 100 mls/hr Documented by: LIZABETH Sodium Chloride (Normal Saline 0.9%) 1,000 mls @ 1,000 mls/hr IV BOLUS ONE Stop: 03/23/21 19:44 Last Infusion: 03/23/21 21:47 Dose: 0 mls/hr Documented by: Admin: 03/23/21 19:45 Dose: 1,000 mls/hr Documented by: LIZABETH Sodium Chloride (Normal Saline 0.9%) 1,000 mls @ 1,000 mls/hr IV BOLUS ONE Stop: 03/23/21 21:34 Last Infusion: 03/24/21 00:25 Dose: 0 mls/hr Documented by: Admin: 03/23/21 21:46 Dose: 1,000 mls/hr Documented by: SOMMER Labetalol HCl (Labetalol 20 Mg/4 Ml Syringe) 10 mg IV NOW ONE Stop: 03/24/21 01:02 Ondansetron HCl (Ondansetron 4 Mg/2 Ml Inj) 4 mg IV NOW ONE Stop: 03/24/21 01:20 Last Admin: 03/24/21 01:36 Dose: 4 mg Documented by: Ondansetron HCl (Ondansetron 4 Mg Odt Prepack) 1 bottle MISC SEEINSTR ONE Stop: 03/24/21 01:20 Last Admin: 03/24/21 01:36 Dose: 1 bottle Documented by: Oxycodone HCl (Oxycodone Ir 5 Mg Tablet) 5 mg PO NOW ONE Stop: 03/23/21 17:35 Last Admin: 03/23/21 17:42 Dose: 5 mg Documented by: LUNA Potassium Chloride (Potassium Chloride 20 Meq/15 Ml Udc) 40 meq PO NOW ONE Stop: 03/23/21 20:36 Last Admin: 03/23/21 20:51 Dose: 40 meq Documented by: LIZABETH Reevaluation(s) Reevaluation #1: Patient feels significant improvement after above-stated therapies. Her potassium and renal function have improved. Blood pressure was in the 230s and is now just at 200. She has no headache or blurred vision or chest pain or shortness of breath. She is ambulating without difficulty and states she feels much better and is ready to go home. She has potassium supplements and antiemetics at home. We discussed her GI panel findings and that this is not an infection that would require specific type of treatment and is most likely to be self-limited. She has had return precautions discussed and questions answered to her apparent satisfaction Vital Signs Vital signs: Vital Signs - 8 hr 03/23/21 18:00 03/23/21 18:30 03/23/21 19:11 Pulse Rate 80 79 83 Respiratory Rate 21 24 Blood Pressure 215/105 H 208/103 H Pulse Oximetry 99 97 99 03/23/21 19:30 03/23/21 19:48 03/23/21 20:00 Pulse Rate 82 81 80 Respiratory Rate Blood Pressure 216/105 H 213/101 H Pulse Oximetry 98 99 97 03/23/21 20:34 03/23/21 20:44 03/23/21 21:00 Pulse Rate 96 H 86 81 Respiratory Rate 25 H 21 Blood Pressure 226/107 H 217/105 H Pulse Oximetry 98 100 96 03/23/21 21:30 03/23/21 22:00 03/23/21 22:30 Pulse Rate 82 93 H 87 Respiratory Rate 22 Blood Pressure 214/104 H 217/102 H Pulse Oximetry 96 98 97 03/23/21 23:00 03/23/21 23:33 03/24/21 00:00 Pulse Rate 80 85 76 Respiratory Rate 17 19 22 Blood Pressure 197/93 H 235/106 H Pulse Oximetry 96 97 96 03/24/21 00:02 03/24/21 00:30 Pulse Rate 77 89 Respiratory Rate 20 Blood Pressure 200/104 H 212/106 H Pulse Oximetry 97 97 MDM - Weakness <Jaylan Christopher PA-C - Last Filed: 03/23/21 18:10> Lab Data Result diagrams: 03/23/21 21:19 03/23/21 21:19 Labs: Lab Results 03/23/21 03/23/21 03/23/21 Range/Units 17:20 17:50 17:50 WBC 18.6 H (4.5-11.0) X10^3/uL RBC 6.04 H (4.0-5.2) X10^6/uL Hgb 17.8 H (12.0-16.0) g/dL Hct 51.4 H (36-46) % MCV 85.0 (80-100) fL MCH 29.5 (26-34) PG MCHC 34.7 (30-36) % RDW 14.8 (11.6-14.8) % Plt Count 416 H (150-400) X10^3/uL Neut % (Auto) 89.0 H (50-75) % Lymph % (Auto) 5.3 L (25-40) % [place] % (Auto) 5.5 (3-14) % Eos % (Auto) 0.0 L (2-4) % Baso % (Auto) 0.2 (0-2) % Neut # (Auto) 99382 H (6196-7943) /uL Lymph # (Auto) 1000 L (1829-6936) /uL [place] # (Auto) 1000 H (0-900) /uL Eos # (Auto) 0 (0-450) /uL Baso # (Auto) 0 (0-100) /uL Sodium 135 L (137-145) mmol/L Potassium 2.9 L (3.4-5.1) mmol/L Chloride 91 L (98-107) mmol/L Carbon Dioxide 25 (22-32) mmol/L BUN 19 H (7-17) mg/dL Creatinine 1.65 H (0.52-1.04) mg/dL Estimated GFR 31.6 L (>60) mL/min BUN/Creatinine Ratio 11.5 (6-22) Glucose 187 H (80-110) mg/dL Lactate (0.7-2.1) mmol/L Calcium 11.3 H (8.4-10.2) mg/dL Magnesium (1.6-2.3) mg/dL Total Bilirubin 0.8 (0.2-1.3) mg/dL AST 28 (14-36) IU/L ALT 21 (<35) IU/L Alkaline Phosphatase 144 H (38-126) U/L Total Protein 10.4 H* (6.3-8.2) g/dL Albumin 5.6 H (3.5-5.0) g/dL Globulin 4.8 H (1.7-4.1) g/dL Albumin/Globulin Ratio 1.2 (1.0-2.8) Lipase (23-300) U/L Urine Color Urine Appearance Urine pH (4.5-8.0) Ur Specific Camilla (1.000-1.035) Urine Protein (Negative) Urine Glucose (UA) (Negative) g/dL Urine Ketones (NEGATIVE) Urine Occult Blood (Negative) Urine Nitrate (Negative) Urine Bilirubin (NEGATIVE) Urine Urobilinogen (0.2) E.U./dL Ur Leukocyte Esterase (NEGATIVE) Urine RBC (0-5/HPF) Urine WBC (0-5/HPF) Ur Squamous Epith Cells (0-5/HPF) Amorphous Sediment Urine Bacteria (None) Hyaline Casts (None) Granular Casts (None) Ur Culture Indicated? Stl C. cayetanensis PCR (Not Detect) Stool Rotavirus (PCR) (Not Detect) Stool Adenovirus (PCR) (Not Detect) Stool Astrovirus (PCR) (Not Detect) Stool Cryptosporidium PCR (Not Detect) Stl E.coli Shiga Tox PCR (Not Detect) St Sh/Enteroin Ecoli PCR (Not Detect) Stool E coli O157 PCR Stl Enterotoxigenic E PCR (Not Detect) Stool EPEC (PCR) (Not Detect) Stl E. histolytica PCR (Not Detect) Stool Giardia Lamblia PCR (Not Detect) Stool Sapovirus (PCR) (Not Detect) Stl P. shigelloides PCR (Not Detect) St Y.enterocolitica PCR (Not Detect) Stool Vibrio (PCR) (Not Detect) Stl Vibrio cholerae PCR (Not Detect) Stl Enteroaggr Ecoli PCR (Not Detect) Stl Norovirus GI/GII PCR (Not Detect) Campylobacter (PCR) (Not Detect) C. difficile Tox (PCR) (Not Detect) SARS-CoV-2 (PCR) Negative (Negative) Salmonella (PCR) (Not Detect) 03/23/21 03/23/21 03/23/21 Range/Units 17:50 17:50 17:50 WBC (4.5-11.0) X10^3/uL RBC (4.0-5.2) X10^6/uL Hgb (12.0-16.0) g/dL Hct (36-46) % MCV (80-100) fL MCH (26-34) PG MCHC (30-36) % RDW (11.6-14.8) % Plt Count (150-400) X10^3/uL Neut % (Auto) (50-75) % Lymph % (Auto) (25-40) % [place] % (Auto) (3-14) % Eos % (Auto) (2-4) % Baso % (Auto) (0-2) % Neut # (Auto) (7445-5065) /uL Lymph # (Auto) (7760-1418) /uL [place] # (Auto) (0-900) /uL Eos # (Auto) (0-450) /uL Baso # (Auto) (0-100) /uL Sodium (137-145) mmol/L Potassium (3.4-5.1) mmol/L Chloride (98-107) mmol/L Carbon Dioxide (22-32) mmol/L BUN (7-17) mg/dL Creatinine (0.52-1.04) mg/dL Estimated GFR (>60) mL/min BUN/Creatinine Ratio (6-22) Glucose (80-110) mg/dL Lactate 1.9 (0.7-2.1) mmol/L Calcium (8.4-10.2) mg/dL Magnesium 2.2 (1.6-2.3) mg/dL Total Bilirubin (0.2-1.3) mg/dL AST (14-36) IU/L ALT (<35) IU/L Alkaline Phosphatase (38-126) U/L Total Protein (6.3-8.2) g/dL Albumin (3.5-5.0) g/dL Globulin (1.7-4.1) g/dL Albumin/Globulin Ratio (1.0-2.8) Lipase 494 H (23-300) U/L Urine Color Urine Appearance Urine pH (4.5-8.0) Ur Specific Camilla (1.000-1.035) Urine Protein (Negative) Urine Glucose (UA) (Negative) g/dL Urine Ketones (NEGATIVE) Urine Occult Blood (Negative) Urine Nitrate (Negative) Urine Bilirubin (NEGATIVE) Urine Urobilinogen (0.2) E.U./dL Ur Leukocyte Esterase (NEGATIVE) Urine RBC (0-5/HPF) Urine WBC (0-5/HPF) Ur Squamous Epith Cells (0-5/HPF) Amorphous Sediment Urine Bacteria (None) Hyaline Casts (None) Granular Casts (None) Ur Culture Indicated? Stl C. cayetanensis PCR (Not Detect) Stool Rotavirus (PCR) (Not Detect) Stool Adenovirus (PCR) (Not Detect) Stool Astrovirus (PCR) (Not Detect) Stool Cryptosporidium PCR (Not Detect) Stl E.coli Shiga Tox PCR (Not Detect) St Sh/Enteroin Ecoli PCR (Not Detect) Stool E coli O157 PCR Stl Enterotoxigenic E PCR (Not Detect) Stool EPEC (PCR) (Not Detect) Stl E. histolytica PCR (Not Detect) Stool Giardia Lamblia PCR (Not Detect) Stool Sapovirus (PCR) (Not Detect) Stl P. shigelloides PCR (Not Detect) St Y.enterocolitica PCR (Not Detect) Stool Vibrio (PCR) (Not Detect) Stl Vibrio cholerae PCR (Not Detect) Stl Enteroaggr Ecoli PCR (Not Detect) Stl Norovirus GI/GII PCR (Not Detect) Campylobacter (PCR) (Not Detect) C. difficile Tox (PCR) (Not Detect) SARS-CoV-2 (PCR) (Negative) Salmonella (PCR) (Not Detect) 03/23/21 03/23/21 03/23/21 Range/Units 20:30 21:19 21:19 WBC 19.0 H (4.5-11.0) X10^3/uL RBC 5.70 H (4.0-5.2) X10^6/uL Hgb 16.6 H (12.0-16.0) g/dL Hct 48.6 H (36-46) % MCV 85.2 (80-100) fL MCH 29.1 (26-34) PG MCHC 34.2 (30-36) % RDW 14.8 (11.6-14.8) % Plt Count 367 (150-400) X10^3/uL Neut % (Auto) 91.3 H (50-75) % Lymph % (Auto) 3.4 L (25-40) % [place] % (Auto) 5.2 (3-14) % Eos % (Auto) 0.0 L (2-4) % Baso % (Auto) 0.1 (0-2) % Neut # (Auto) 73469 H (3755-3858) /uL Lymph # (Auto) 600 L (2346-6436) /uL [place] # (Auto) 1000 H (0-900) /uL Eos # (Auto) 0 (0-450) /uL Baso # (Auto) 0 (0-100) /uL Sodium 136 L (137-145) mmol/L Potassium 3.2 L (3.4-5.1) mmol/L Chloride 96 L (98-107) mmol/L Carbon Dioxide 26 (22-32) mmol/L BUN 18 H (7-17) mg/dL Creatinine 1.22 H (0.52-1.04) mg/dL Estimated GFR 44.8 L (>60) mL/min BUN/Creatinine Ratio 14.8 (6-22) Glucose 162 H (80-110) mg/dL Lactate (0.7-2.1) mmol/L Calcium 9.7 (8.4-10.2) mg/dL Magnesium (1.6-2.3) mg/dL Total Bilirubin (0.2-1.3) mg/dL AST (14-36) IU/L ALT (<35) IU/L Alkaline Phosphatase (38-126) U/L Total Protein (6.3-8.2) g/dL Albumin (3.5-5.0) g/dL Globulin (1.7-4.1) g/dL Albumin/Globulin Ratio (1.0-2.8) Lipase (23-300) U/L Urine Color Yellow Urine Appearance Clear Urine pH 6.0 (4.5-8.0) Ur Specific Camilla 1.010 (1.000-1.035) Urine Protein 2+ H (Negative) Urine Glucose (UA) Negative (Negative) g/dL Urine Ketones Negative (NEGATIVE) Urine Occult Blood 1+ H (Negative) Urine Nitrate Negative (Negative) Urine Bilirubin Negative (NEGATIVE) Urine Urobilinogen 0.2 (0.2) E.U./dL Ur Leukocyte Esterase Negative (NEGATIVE) Urine RBC 1-5/hpf (0-5/HPF) Urine WBC 0-1/hpf (0-5/HPF) Ur Squamous Epith Cells 1-5 /hpf (0-5/HPF) Amorphous Sediment 1+ Urine Bacteria None seen (None) Hyaline Casts 1-5/lpf (None) Granular Casts 0-1/lpf (None) Ur Culture Indicated? Cult not indicated Stl C. cayetanensis PCR (Not Detect) Stool Rotavirus (PCR) (Not Detect) Stool Adenovirus (PCR) (Not Detect) Stool Astrovirus (PCR) (Not Detect) Stool Cryptosporidium PCR (Not Detect) Stl E.coli Shiga Tox PCR (Not Detect) St Sh/Enteroin Ecoli PCR (Not Detect) Stool E coli O157 PCR Stl Enterotoxigenic E PCR (Not Detect) Stool EPEC (PCR) (Not Detect) Stl E. histolytica PCR (Not Detect) Stool Giardia Lamblia PCR (Not Detect) Stool Sapovirus (PCR) (Not Detect) Stl P. shigelloides PCR (Not Detect) St Y.enterocolitica PCR (Not Detect) Stool Vibrio (PCR) (Not Detect) Stl Vibrio cholerae PCR (Not Detect) Stl Enteroaggr Ecoli PCR (Not Detect) Stl Norovirus GI/GII PCR (Not Detect) Campylobacter (PCR) (Not Detect) C. difficile Tox (PCR) (Not Detect) SARS-CoV-2 (PCR) (Negative) Salmonella (PCR) (Not Detect) 03/23/21 Range/Units 23:30 WBC (4.5-11.0) X10^3/uL RBC (4.0-5.2) X10^6/uL Hgb (12.0-16.0) g/dL Hct (36-46) % MCV (80-100) fL MCH (26-34) PG MCHC (30-36) % RDW (11.6-14.8) % Plt Count (150-400) X10^3/uL Neut % (Auto) (50-75) % Lymph % (Auto) (25-40) % [place] % (Auto) (3-14) % Eos % (Auto) (2-4) % Baso % (Auto) (0-2) % Neut # (Auto) (9486-4832) /uL Lymph # (Auto) (9798-9607) /uL [place] # (Auto) (0-900) /uL Eos # (Auto) (0-450) /uL Baso # (Auto) (0-100) /uL Sodium (137-145) mmol/L Potassium (3.4-5.1) mmol/L Chloride (98-107) mmol/L Carbon Dioxide (22-32) mmol/L BUN (7-17) mg/dL Creatinine (0.52-1.04) mg/dL Estimated GFR (>60) mL/min BUN/Creatinine Ratio (6-22) Glucose (80-110) mg/dL Lactate (0.7-2.1) mmol/L Calcium (8.4-10.2) mg/dL Magnesium (1.6-2.3) mg/dL Total Bilirubin (0.2-1.3) mg/dL AST (14-36) IU/L ALT (<35) IU/L Alkaline Phosphatase (38-126) U/L Total Protein (6.3-8.2) g/dL Albumin (3.5-5.0) g/dL Globulin (1.7-4.1) g/dL Albumin/Globulin Ratio (1.0-2.8) Lipase (23-300) U/L Urine Color Urine Appearance Urine pH (4.5-8.0) Ur Specific Camilla (1.000-1.035) Urine Protein (Negative) Urine Glucose (UA) (Negative) g/dL Urine Ketones (NEGATIVE) Urine Occult Blood (Negative) Urine Nitrate (Negative) Urine Bilirubin (NEGATIVE) Urine Urobilinogen (0.2) E.U./dL Ur Leukocyte Esterase (NEGATIVE) Urine RBC (0-5/HPF) Urine WBC (0-5/HPF) Ur Squamous Epith Cells (0-5/HPF) Amorphous Sediment Urine Bacteria (None) Hyaline Casts (None) Granular Casts (None) Ur Culture Indicated? Stl C. cayetanensis PCR Not detected (Not Detect) Stool Rotavirus (PCR) Not detected (Not Detect) Stool Adenovirus (PCR) Not detected (Not Detect) Stool Astrovirus (PCR) Not detected (Not Detect) Stool Cryptosporidium PCR Not detected (Not Detect) Stl E.coli Shiga Tox PCR Not detected (Not Detect) St Sh/Enteroin Ecoli PCR Not detected (Not Detect) Stool E coli O157 PCR Not Reportable Stl Enterotoxigenic E PCR Not detected (Not Detect) Stool EPEC (PCR) Detected H (Not Detect) Stl E. histolytica PCR Not detected (Not Detect) Stool Giardia Lamblia PCR Not detected (Not Detect) Stool Sapovirus (PCR) Not detected (Not Detect) Stl P. shigelloides PCR Not detected (Not Detect) St Y.enterocolitica PCR Not detected (Not Detect) Stool Vibrio (PCR) Not detected (Not Detect) Stl Vibrio cholerae PCR Not detected (Not Detect) Stl Enteroaggr Ecoli PCR Not detected (Not Detect) Stl Norovirus GI/GII PCR Not detected (Not Detect) Campylobacter (PCR) Not detected (Not Detect) C. difficile Tox (PCR) Not detected (Not Detect) SARS-CoV-2 (PCR) (Negative) Salmonella (PCR) Not detected (Not Detect) MDM Narrative Medical decision making narrative: Patient is a 60-year-old female presenting to the emergency department today for evaluation generalized weakness over the last 2 days. To consider UTI versus gastroenteritis versus TIA. <Loco Richards DO - Last Filed: 03/24/21 01:47> Lab Data Labs: Lab Results 03/23/21 03/23/21 03/23/21 Range/Units 17:20 17:50 17:50 WBC 18.6 H (4.5-11.0) X10^3/uL RBC 6.04 H (4.0-5.2) X10^6/uL Hgb 17.8 H (12.0-16.0) g/dL Hct 51.4 H (36-46) % MCV 85.0 (80-100) fL MCH 29.5 (26-34) PG MCHC 34.7 (30-36) % RDW 14.8 (11.6-14.8) % Plt Count 416 H (150-400) X10^3/uL Neut % (Auto) 89.0 H (50-75) % Lymph % (Auto) 5.3 L (25-40) % [place] % (Auto) 5.5 (3-14) % Eos % (Auto) 0.0 L (2-4) % Baso % (Auto) 0.2 (0-2) % Neut # (Auto) 82479 H (8186-6364) /uL Lymph # (Auto) 1000 L (1129-3171) /uL [place] # (Auto) 1000 H (0-900) /uL Eos # (Auto) 0 (0-450) /uL Baso # (Auto) 0 (0-100) /uL Sodium 135 L (137-145) mmol/L Potassium 2.9 L (3.4-5.1) mmol/L Chloride 91 L (98-107) mmol/L Carbon Dioxide 25 (22-32) mmol/L BUN 19 H (7-17) mg/dL Creatinine 1.65 H (0.52-1.04) mg/dL Estimated GFR 31.6 L (>60) mL/min BUN/Creatinine Ratio 11.5 (6-22) Glucose 187 H (80-110) mg/dL Lactate (0.7-2.1) mmol/L Calcium 11.3 H (8.4-10.2) mg/dL Magnesium (1.6-2.3) mg/dL Total Bilirubin 0.8 (0.2-1.3) mg/dL AST 28 (14-36) IU/L ALT 21 (<35) IU/L Alkaline Phosphatase 144 H (38-126) U/L Total Protein 10.4 H* (6.3-8.2) g/dL Albumin 5.6 H (3.5-5.0) g/dL Globulin 4.8 H (1.7-4.1) g/dL Albumin/Globulin Ratio 1.2 (1.0-2.8) Lipase (23-300) U/L Urine Color Urine Appearance Urine pH (4.5-8.0) Ur Specific Camilla (1.000-1.035) Urine Protein (Negative) Urine Glucose (UA) (Negative) g/dL Urine Ketones (NEGATIVE) Urine Occult Blood (Negative) Urine Nitrate (Negative) Urine Bilirubin (NEGATIVE) Urine Urobilinogen (0.2) E.U./dL Ur Leukocyte Esterase (NEGATIVE) Urine RBC (0-5/HPF) Urine WBC (0-5/HPF) Ur Squamous Epith Cells (0-5/HPF) Amorphous Sediment Urine Bacteria (None) Hyaline Casts (None) Granular Casts (None) Ur Culture Indicated? Stl C. cayetanensis PCR (Not Detect) Stool Rotavirus (PCR) (Not Detect) Stool Adenovirus (PCR) (Not Detect) Stool Astrovirus (PCR) (Not Detect) Stool Cryptosporidium PCR (Not Detect) Stl E.coli Shiga Tox PCR (Not Detect) St Sh/Enteroin Ecoli PCR (Not Detect) Stool E coli O157 PCR Stl Enterotoxigenic E PCR (Not Detect) Stool EPEC (PCR) (Not Detect) Stl E. histolytica PCR (Not Detect) Stool Giardia Lamblia PCR (Not Detect) Stool Sapovirus (PCR) (Not Detect) Stl P. shigelloides PCR (Not Detect) St Y.enterocolitica PCR (Not Detect) Stool Vibrio (PCR) (Not Detect) Stl Vibrio cholerae PCR (Not Detect) Stl Enteroaggr Ecoli PCR (Not Detect) Stl Norovirus GI/GII PCR (Not Detect) Campylobacter (PCR) (Not Detect) C. difficile Tox (PCR) (Not Detect) SARS-CoV-2 (PCR) Negative (Negative) Salmonella (PCR) (Not Detect) 03/23/21 03/23/21 03/23/21 Range/Units 17:50 17:50 17:50 WBC (4.5-11.0) X10^3/uL RBC (4.0-5.2) X10^6/uL Hgb (12.0-16.0) g/dL Hct (36-46) % MCV (80-100) fL MCH (26-34) PG MCHC (30-36) % RDW (11.6-14.8) % Plt Count (150-400) X10^3/uL Neut % (Auto) (50-75) % Lymph % (Auto) (25-40) % [place] % (Auto) (3-14) % Eos % (Auto) (2-4) % Baso % (Auto) (0-2) % Neut # (Auto) (9721-1082) /uL Lymph # (Auto) (4193-1422) /uL [place] # (Auto) (0-900) /uL Eos # (Auto) (0-450) /uL Baso # (Auto) (0-100) /uL Sodium (137-145) mmol/L Potassium (3.4-5.1) mmol/L Chloride (98-107) mmol/L Carbon Dioxide (22-32) mmol/L BUN (7-17) mg/dL Creatinine (0.52-1.04) mg/dL Estimated GFR (>60) mL/min BUN/Creatinine Ratio (6-22) Glucose (80-110) mg/dL Lactate 1.9 (0.7-2.1) mmol/L Calcium (8.4-10.2) mg/dL Magnesium 2.2 (1.6-2.3) mg/dL Total Bilirubin (0.2-1.3) mg/dL AST (14-36) IU/L ALT (<35) IU/L Alkaline Phosphatase (38-126) U/L Total Protein (6.3-8.2) g/dL Albumin (3.5-5.0) g/dL Globulin (1.7-4.1) g/dL Albumin/Globulin Ratio (1.0-2.8) Lipase 494 H (23-300) U/L Urine Color Urine Appearance Urine pH (4.5-8.0) Ur Specific Camilla (1.000-1.035) Urine Protein (Negative) Urine Glucose (UA) (Negative) g/dL Urine Ketones (NEGATIVE) Urine Occult Blood (Negative) Urine Nitrate (Negative) Urine Bilirubin (NEGATIVE) Urine Urobilinogen (0.2) E.U./dL Ur Leukocyte Esterase (NEGATIVE) Urine RBC (0-5/HPF) Urine WBC (0-5/HPF) Ur Squamous Epith Cells (0-5/HPF) Amorphous Sediment Urine Bacteria (None) Hyaline Casts (None) Granular Casts (None) Ur Culture Indicated? Stl C. cayetanensis PCR (Not Detect) Stool Rotavirus (PCR) (Not Detect) Stool Adenovirus (PCR) (Not Detect) Stool Astrovirus (PCR) (Not Detect) Stool Cryptosporidium PCR (Not Detect) Stl E.coli Shiga Tox PCR (Not Detect) St Sh/Enteroin Ecoli PCR (Not Detect) Stool E coli O157 PCR Stl Enterotoxigenic E PCR (Not Detect) Stool EPEC (PCR) (Not Detect) Stl E. histolytica PCR (Not Detect) Stool Giardia Lamblia PCR (Not Detect) Stool Sapovirus (PCR) (Not Detect) Stl P. shigelloides PCR (Not Detect) St Y.enterocolitica PCR (Not Detect) Stool Vibrio (PCR) (Not Detect) Stl Vibrio cholerae PCR (Not Detect) Stl Enteroaggr Ecoli PCR (Not Detect) Stl Norovirus GI/GII PCR (Not Detect) Campylobacter (PCR) (Not Detect) C. difficile Tox (PCR) (Not Detect) SARS-CoV-2 (PCR) (Negative) Salmonella (PCR) (Not Detect) 03/23/21 03/23/21 03/23/21 Range/Units 20:30 21:19 21:19 WBC 19.0 H (4.5-11.0) X10^3/uL RBC 5.70 H (4.0-5.2) X10^6/uL Hgb 16.6 H (12.0-16.0) g/dL Hct 48.6 H (36-46) % MCV 85.2 (80-100) fL MCH 29.1 (26-34) PG MCHC 34.2 (30-36) % RDW 14.8 (11.6-14.8) % Plt Count 367 (150-400) X10^3/uL Neut % (Auto) 91.3 H (50-75) % Lymph % (Auto) 3.4 L (25-40) % [place] % (Auto) 5.2 (3-14) % Eos % (Auto) 0.0 L (2-4) % Baso % (Auto) 0.1 (0-2) % Neut # (Auto) 50605 H (9511-2933) /uL Lymph # (Auto) 600 L (6068-5801) /uL [place] # (Auto) 1000 H (0-900) /uL Eos # (Auto) 0 (0-450) /uL Baso # (Auto) 0 (0-100) /uL Sodium 136 L (137-145) mmol/L Potassium 3.2 L (3.4-5.1) mmol/L Chloride 96 L (98-107) mmol/L Carbon Dioxide 26 (22-32) mmol/L BUN 18 H (7-17) mg/dL Creatinine 1.22 H (0.52-1.04) mg/dL Estimated GFR 44.8 L (>60) mL/min BUN/Creatinine Ratio 14.8 (6-22) Glucose 162 H (80-110) mg/dL Lactate (0.7-2.1) mmol/L Calcium 9.7 (8.4-10.2) mg/dL Magnesium (1.6-2.3) mg/dL Total Bilirubin (0.2-1.3) mg/dL AST (14-36) IU/L ALT (<35) IU/L Alkaline Phosphatase (38-126) U/L Total Protein (6.3-8.2) g/dL Albumin (3.5-5.0) g/dL Globulin (1.7-4.1) g/dL Albumin/Globulin Ratio (1.0-2.8) Lipase (23-300) U/L Urine Color Yellow Urine Appearance Clear Urine pH 6.0 (4.5-8.0) Ur Specific Camilla 1.010 (1.000-1.035) Urine Protein 2+ H (Negative) Urine Glucose (UA) Negative (Negative) g/dL Urine Ketones Negative (NEGATIVE) Urine Occult Blood 1+ H (Negative) Urine Nitrate Negative (Negative) Urine Bilirubin Negative (NEGATIVE) Urine Urobilinogen 0.2 (0.2) E.U./dL Ur Leukocyte Esterase Negative (NEGATIVE) Urine RBC 1-5/hpf (0-5/HPF) Urine WBC 0-1/hpf (0-5/HPF) Ur Squamous Epith Cells 1-5 /hpf (0-5/HPF) Amorphous Sediment 1+ Urine Bacteria None seen (None) Hyaline Casts 1-5/lpf (None) Granular Casts 0-1/lpf (None) Ur Culture Indicated? Cult not indicated Stl C. cayetanensis PCR (Not Detect) Stool Rotavirus (PCR) (Not Detect) Stool Adenovirus (PCR) (Not Detect) Stool Astrovirus (PCR) (Not Detect) Stool Cryptosporidium PCR (Not Detect) Stl E.coli Shiga Tox PCR (Not Detect) St Sh/Enteroin Ecoli PCR (Not Detect) Stool E coli O157 PCR Stl Enterotoxigenic E PCR (Not Detect) Stool EPEC (PCR) (Not Detect) Stl E. histolytica PCR (Not Detect) Stool Giardia Lamblia PCR (Not Detect) Stool Sapovirus (PCR) (Not Detect) Stl P. shigelloides PCR (Not Detect) St Y.enterocolitica PCR (Not Detect) Stool Vibrio (PCR) (Not Detect) Stl Vibrio cholerae PCR (Not Detect) Stl Enteroaggr Ecoli PCR (Not Detect) Stl Norovirus GI/GII PCR (Not Detect) Campylobacter (PCR) (Not Detect) C. difficile Tox (PCR) (Not Detect) SARS-CoV-2 (PCR) (Negative) Salmonella (PCR) (Not Detect) 03/23/21 Range/Units 23:30 WBC (4.5-11.0) X10^3/uL RBC (4.0-5.2) X10^6/uL Hgb (12.0-16.0) g/dL Hct (36-46) % MCV (80-100) fL MCH (26-34) PG MCHC (30-36) % RDW (11.6-14.8) % Plt Count (150-400) X10^3/uL Neut % (Auto) (50-75) % Lymph % (Auto) (25-40) % [place] % (Auto) (3-14) % Eos % (Auto) (2-4) % Baso % (Auto) (0-2) % Neut # (Auto) (9962-4706) /uL Lymph # (Auto) (4499-2522) /uL [place] # (Auto) (0-900) /uL Eos # (Auto) (0-450) /uL Baso # (Auto) (0-100) /uL Sodium (137-145) mmol/L Potassium (3.4-5.1) mmol/L Chloride (98-107) mmol/L Carbon Dioxide (22-32) mmol/L BUN (7-17) mg/dL Creatinine (0.52-1.04) mg/dL Estimated GFR (>60) mL/min BUN/Creatinine Ratio (6-22) Glucose (80-110) mg/dL Lactate (0.7-2.1) mmol/L Calcium (8.4-10.2) mg/dL Magnesium (1.6-2.3) mg/dL Total Bilirubin (0.2-1.3) mg/dL AST (14-36) IU/L ALT (<35) IU/L Alkaline Phosphatase (38-126) U/L Total Protein (6.3-8.2) g/dL Albumin (3.5-5.0) g/dL Globulin (1.7-4.1) g/dL Albumin/Globulin Ratio (1.0-2.8) Lipase (23-300) U/L Urine Color Urine Appearance Urine pH (4.5-8.0) Ur Specific Camilla (1.000-1.035) Urine Protein (Negative) Urine Glucose (UA) (Negative) g/dL Urine Ketones (NEGATIVE) Urine Occult Blood (Negative) Urine Nitrate (Negative) Urine Bilirubin (NEGATIVE) Urine Urobilinogen (0.2) E.U./dL Ur Leukocyte Esterase (NEGATIVE) Urine RBC (0-5/HPF) Urine WBC (0-5/HPF) Ur Squamous Epith Cells (0-5/HPF) Amorphous Sediment Urine Bacteria (None) Hyaline Casts (None) Granular Casts (None) Ur Culture Indicated? Stl C. cayetanensis PCR Not detected (Not Detect) Stool Rotavirus (PCR) Not detected (Not Detect) Stool Adenovirus (PCR) Not detected (Not Detect) Stool Astrovirus (PCR) Not detected (Not Detect) Stool Cryptosporidium PCR Not detected (Not Detect) Stl E.coli Shiga Tox PCR Not detected (Not Detect) St Sh/Enteroin Ecoli PCR Not detected (Not Detect) Stool E coli O157 PCR Not Reportable Stl Enterotoxigenic E PCR Not detected (Not Detect) Stool EPEC (PCR) Detected H (Not Detect) Stl E. histolytica PCR Not detected (Not Detect) Stool Giardia Lamblia PCR Not detected (Not Detect) Stool Sapovirus (PCR) Not detected (Not Detect) Stl P. shigelloides PCR Not detected (Not Detect) St Y.enterocolitica PCR Not detected (Not Detect) Stool Vibrio (PCR) Not detected (Not Detect) Stl Vibrio cholerae PCR Not detected (Not Detect) Stl Enteroaggr Ecoli PCR Not detected (Not Detect) Stl Norovirus GI/GII PCR Not detected (Not Detect) Campylobacter (PCR) Not detected (Not Detect) C. difficile Tox (PCR) Not detected (Not Detect) SARS-CoV-2 (PCR) (Negative) Salmonella (PCR) Not detected (Not Detect) Discharge Plan Departure Patient Disposition: Home Clinical Impression: Hypokalemia, Hypertension, Diarrhea Instructions: DI for Dehydration -- Adult Activity Restrictions/Additional Instructions: *You have been diagnosed with [weakness and fatigue due to diarrhea from E coli and low potassium. As we discussed, this type of E coli does not require specific antibiotic treatment, only ongoing frequent fluids and rest *What to do: *Please continue to take your regular medications as directed. [ ] New medication prescriptions sent to your pharmacy: [ ] [ ] New medication written as a paper prescription [ ] No new medications given *Please follow up with your primary care provider in 2-3 days, call for an appointment. Let them know you were seen in the Emergency Department and that we ask that you be seen in follow up. We will electronically transmit a record of today's note if your PCP is in our system *If you do not have a primary care provider please contact the [facility] Resource line at [phone]. They will ask some questions about your medical history and help get you set up with a doctor in the community. *Return to Emergency Department if you should have any new, worsening or concerning symptoms, such as [fever greater than 101 F, shaking chills, worsening pain, persistent vomiting or other bothersome symptoms] Prescriptions: No Action amlodipine 10 mg tablet 10 mg PO DAILY 0RF citalopram 10 mg tablet 10 mg PO DAILY 0RF carvedilol [Coreg] 12.5 mg Tablet 12.5 mg PO BID Qty: 60 0RF ondansetron 4 mg Tablet,Disintegrating 4 mg sublingual Q4HR PRN (Reason: Nausea) Qty: 20 0RF Label Comments: pt takes prn promethazine 25 mg suppository 25 mg NC Q6H PRN (Reason: nausea and vomiting) Qty: 12 0RF ondansetron 4 mg tablet,disintegrating 4 mg PO Q8H PRN (Reason: nausea and vomiting) Qty: 10 0RF potassium chloride [Klor-Con] 20 mEq packet 20 meq PO BID Qty: 60 0RF Referrals: Barrington Hudson MD [Primary Care Provider] -
[2021-03-23 18:01] LABS: Add Manual Diff / Slide Review NO; Basophils Absolute Auto 0 /uL (0-100); Basophils Percent Auto 0.2 % (0-2); Eosinophils Absolute Auto 0 /uL (0-450); Hematocrit 51.4 % (36-46); Hemoglobin 17.8 g/dL (12.0-16.0); Lymphocytes Absolute Auto 1000 /uL (1100-4500); Lymphocytes Percent Auto 5.3 % (25-40); Mean Corpuscular HGB Conc 34.7 % (30-36); Mean Corpuscular Hemoglobin 29.5 PG (26-34); Monocytes Absolute Auto 1000 /uL (0-900); Monocytes Percent Auto 5.5 % (3-14); Neutrophils Absolute Auto 16500 /uL (1500-7000); Platelet Count 416 X10^3/uL (150-400); Red Blood Cell Count 6.04 X10^6/uL (4.0-5.2); Red Cell Distribution Width 14.8 % (11.6-14.8); White Blood Cell Count 18.6 X10^3/uL (4.5-11.0)
[2021-03-23 18:12] LABS: Alanine Aminotransferase 21 IU/L (<35); Albumin 5.6 g/dL (3.5-5.0); Albumin Globulin Ratio 1.2 (1.0-2.8); Alkaline Phosphatase 144 U/L (38-126); Aspartate Aminotransferase 28 IU/L (14-36); BUN Creatinine Ratio 11.5 (6-22); Bilirubin Total 0.8 mg/dL (0.2-1.3); Blood Urea Nitrogen 19 mg/dL (7-17); Calcium 11.3 mg/dL (8.4-10.2); Carbon Dioxide 25 mmol/L (22-32); Chloride 91 mmol/L (98-107); Estimated Glomerular Filt Rate 31.6 mL/min (>60); Globulin 4.8 g/dL (1.7-4.1); Glucose 187 mg/dL (80-110); HEMOLYSIS < 15 (0-50); Potassium 2.9 mmol/L (3.4-5.1); Sodium 135 mmol/L (137-145)
[2021-03-23 18:29] LABS: Total Protein 10.4 g/dL (6.3-8.2)
[2021-03-23 18:39] LABS: Lipase 494 U/L (23-300)
[2021-03-23 18:40] LABS: Lactate (Lactic Acid) 1.9 mmol/L (0.7-2.1)
--- NOTE | 2021-03-23 18:42 | DI.CT.S_ITS ---
PROCEDURE: CT ABDOMEN PELVIS W CON INDICATIONS: Increased WBC, N/V/D TECHNIQUE: After the administration of intravenous contrast, axial sections acquired from the lung bases to the pubic symphysis. Coronal and sagittal reformats were performed. For radiation dose reduction, the following was used: automated exposure control, adjustment of mA and/or kV according to patient size. COMPARISON: [facility], CT, CT ABDOMEN PELVIS W CON, 10/29/2020, 17:38. FINDINGS: ABDOMEN: Lung bases: No acute findings. Heart: No pericardial effusion. Normal in size. Liver: Probable focal fatty infiltration near the falciform ligament is unchanged Gallbladder: Unremarkable except for chronic mild wall thickening at the fundus which is grossly unchanged since 10/29/20. There is raises the possibility of adenomyomatosis. Further evaluation with ultrasound could be performed as clinically necessary. Bile ducts: Normal. Pancreas: Normal. Spleen: Normal. Adrenals: Normal. 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 There is left renal scarring. No hydronephrosis. The ureters appear decompressed. Stomach and duodenum: Normal. Bowel: No bowel obstruction identified. Normal appendix. Other: No free fluid or air. Abdominal nodes: Normal. Aorta and IVC: Normal in size. Ventral wall: Normal. PELVIS: Bladder and reproductive: Unremarkable. Inguinal region: No hernia. Pelvic nodes: Normal. Bones: No suspicious bony lesions. No vertebral body compression fractures. Diffuse spondylytic changes and facet disease. IMPRESSION: No acute abnormality. Normal appendix No evidence of bowel obstruction Chronic right renal atrophy. Left renal scarring and cortical atrophy. Additional chronic and incidental findings as above. Dictated by: Marco Goff M.D. on 03/23/2021 at 19:50 Approved by: Marco Goff M.D. on 03/23/2021 at 19:54
[2021-03-23 18:55] LABS: Magnesium 2.2 mg/dL (1.6-2.3)
[2021-03-23] MEDS: cefTRIAXone 1,000 MG in SODIUM CHLORIDE 0.9% 100 ML 200 ML IV (19:45)
[2021-03-23] MEDS: POTASSIUM CHLORIDE IN WATER 10 MEQ/100 ML PIGGYBACK 100 MEQ IV ×4 (19:45→23:12)
[2021-03-23] MEDS: SODIUM CHLORIDE 0.9% 1,000 ML 1000 ML IV ×2 (19:45→21:46)
[2021-03-23 20:46] LABS: Appearance Urine UA CLEAR; Bilirubin Urine UA NEGATIVE (NEGATIVE); Color Urine UA YELLOW; Glucose Urine UA NEGATIVE (Negative); Ketones Urine UA NEGATIVE (NEGATIVE); Leukocyte Esterase Urine UA NEGATIVE (NEGATIVE); Nitrite Urine UA NEGATIVE (Negative); Occult Blood Urine UA 1+ (Negative); Protein Urine UA 2+ (Negative); Urobilinogen Urine UA 0.2 E.U./dL (0.2)
[2021-03-23] MEDS: POTASSIUM CHLORIDE 20 MEQ/15 ML UDC 40 MEQ PO (20:51)
[2021-03-23 20:52] LABS: Amorphous Sediment Urine 1+; Bacteria Urine None Seen; Culture Indicated Urine Cult Not Indicated; Hyaline Casts Urine 1-5/LPF; RBC Urine 1-5/HPF (0-5/HPF); Squamous Epithelial Cell Urine 1-5 /HPF (0-5/HPF); WBC Urine 0-1/HPF (0-5/HPF)
[2021-03-23 20:53] LABS: Granular Casts Urine 0-1/LPF
[2021-03-23 21:42] LABS: Add Manual Diff / Slide Review NO; Basophils Absolute Auto 0 /uL (0-100); Basophils Percent Auto 0.1 % (0-2); Eosinophils Absolute Auto 0 /uL (0-450); Hematocrit 48.6 % (36-46); Hemoglobin 16.6 g/dL (12.0-16.0); Lymphocytes Absolute Auto 600 /uL (1100-4500); Lymphocytes Percent Auto 3.4 % (25-40); Mean Corpuscular HGB Conc 34.2 % (30-36); Mean Corpuscular Hemoglobin 29.1 PG (26-34); Mean Corpuscular Volume 85.2 fL (80-100); Monocytes Absolute Auto 1000 /uL (0-900); Monocytes Percent Auto 5.2 % (3-14); Neutrophils Absolute Auto 17400 /uL (1500-7000); Neutrophils Percent Auto 91.3 % (50-75); Platelet Count 367 X10^3/uL (150-400); Red Cell Distribution Width 14.8 % (11.6-14.8)
[2021-03-23 21:45] LABS: BUN Creatinine Ratio 14.8 (6-22); Blood Urea Nitrogen 18 mg/dL (7-17); Calcium 9.7 mg/dL (8.4-10.2); Carbon Dioxide 26 mmol/L (22-32); Chloride 96 mmol/L (98-107); Estimated Glomerular Filt Rate 44.8 mL/min (>60); Glucose 162 mg/dL (80-110); HEMOLYSIS 17 (0-50); Potassium 3.2 mmol/L (3.4-5.1); Sodium 136 mmol/L (137-145)
--- NOTE | 2021-03-23 23:03 | PC.NURSE ---
Pt took her home coreg with ok from Dr Richards
[2021-03-24] VITALS: BP 235/106; PULSE 76; RESP 22; O2SAT 96
[2021-03-24 00:02] VITALS: BP 200/104; PULSE 77; O2SAT 97
[2021-03-24 00:30] VITALS: BP 212/106; PULSE 89; RESP 20; O2SAT 97
[2021-03-24 01:00] VITALS: BP 231/112; PULSE 73; RESP 22; O2SAT 96
[2021-03-24 01:05] VITALS: BP 200/97; PULSE 77; O2SAT 97
[2021-03-24 01:10] LABS: Campylobacter Not Detected (Not Detect); Clostridium difficile toxin AB Not Detected (Not Detect); Enteroaggregative E.coli Not Detected (Not Detect); Plesiomonsa shigelloides Not Detected (Not Detect); Salmonella Not Detected (Not Detect); Vibrio Not Detected (Not Detect); Vibrio cholerae Not Detected (Not Detect); Yersinia enterocolitica Not Detected (Not Detect)
[2021-03-24 01:11] LABS: Adenovirus F 40/41 Not Detected (Not Detect); Astrovirus Not Detected (Not Detect); Cryptosporidium Not Detected (Not Detect); Cyclospora cayetanensis Not Detected (Not Detect); Entamoeba histolytica Not Detected (Not Detect); Enteropathogenic E.coli Detected (Not Detect); Enterotoxigenic E.coli It/st Not Detected (Not Detect); Giardia lamblia Not Detected (Not Detect); Norovirus GI/GII Not Detected (Not Detect); Rotavirus A Not Detected (Not Detect); Sapovirus Not Detected (Not Detect); Shiga-like toxin-prod E.coli Not Detected (Not Detect); Shigella/Enteroinvasive E.coli Not Detected (Not Detect)
[2021-03-24 01:30] VITALS: PULSE 86; RESP 25
[2021-03-24] MEDS: ONDANSETRON 4 MG/2 ML INJ IV (01:36)
[2021-03-24] MEDS: ONDANSETRON 4 MG ODT PREPACK 1 BOTTLE MISC (01:36)
== END 2021-03-24 01:58 | disposition home or self-care (01) ==
PROVIDERS: Emergency Medicine; Physician Assistant; Emergency Provider Emergency Medicine; PCP Internal Medicine
DX: E87.6 Hypokalemia (principal); I10 Essential (primary) hypertension; Z20.822 Contact with and (suspected) exposure to COVID-19; R19.7 Diarrhea, unspecified
CPT/HCPCS: 36415; 71045; 74177; 80048; 80053; 81001; 83605; 83690; 83735; 85025; 87040; 87507; 87635; 93005; 96365; 96366; 96367; 96368; 96375; 99284; 99285; C9803; J0696; J2405; Q9967